=== PATIENT | female | born 1960 | race Caucasian/White ===

== ENCOUNTER 2016-10-30 16:11 | Inpatient (IN) ==
[2016-10-30] MEDS ORDERED: Ipratropium/Albuterol Neb 3 ML IH ONE (16:13)
[2016-10-30] MEDS ORDERED: Furosemide 40 MG/4 ML VIAL IVP ONE (16:13)
[2016-10-30] MEDS ORDERED: methylPREDNISolone 125 MG/2 ML VIAL IVP ONE (16:13)
--- NOTE | 2016-10-30 16:17 | Emergency Department Note ---
Disposition Clinical Impression: Community acquired pneumonia Disposition: Admitted As Inpatient Condition: Good Forms: ED Satisfaction Letter Time of Disposition: 18:07 SOB HPI - General Chief Complaint: ED Shortness of Breath/Dyspnea Stated Complaint: SOB Time Seen by Provider: 10/30/16 16:13 Source: patient, EMS Mode of arrival: EMS Limitations: no limitations Nursing Notes Reviewed: Yes Vital Signs Reviewed: Yes - History of Present Illness 55-year-old with a history of CHF COPD comes in with increasing shortness of breath. Patient was seen at outside facility a couple of days ago and is actually getting worse. Pt Subjective Complaint: shortness of breath, cough Onset (ago): day(s) Context: recent illness Severity: moderate Consistency/Duration: constant Improves with: nothing Worsens with: exertion Known history of: COPD, congestive heart failure Treatment prior to arrival: none Cough Description: Involuntary - Related Data Home Medications Medication Instructions Recorded Confirmed Albuterol Neb [AccuNeb] 1.25 mg IH Q4H PRN 11/29/15 10/25/16 Albuterol Sulfate [Albuterol 2 puff IH Q4HR PRN 11/29/15 10/25/16 Inhaler] Insulin Glargine,Hum.rec.anlog 50 unit SQ HS 11/29/15 10/25/16 [Lantus Solostar] Insulin LISPRO [Humalog] 15 unit SQ TIDWM 11/29/15 10/25/16 Potassium Chloride 20 meq PO BID 12/18/15 10/25/16 Ferrous Sulfate [Iron] 325 mg PO TID 05/26/16 10/25/16 Furosemide [Lasix] 40 mg PO BID 05/26/16 10/25/16 Sucralfate [Carafate] 1 gm PO TID 05/26/16 10/25/16 Previous Rx's Medication Instructions Recorded Omeprazole [PriLOSEC] 40 mg PO DAILY #30 capsule. 12/23/15 Nadolol [Corgard] 20 mg PO DAILY #60 tablet 05/28/16 Allergies Allergy/AdvReac Type Severity Reaction Status Date / Time codeine Allergy Hives Verified 10/25/16 01:42 Penicillins [PCN] Allergy Hives Verified 10/25/16 01:42 Constitutional: Denies: fever, chills, weakness, weight change Eyes: Denies: eye pain, eye discharge, vision change ENT ED: Denies: ear pain, throat pain, dental pain, hearing loss, epistaxis, congestion, dysphagia Cardiovascular: Denies: chest pain, palpitations, dyspnea on exertion, edema, syncope Respiratory: Reports: cough, dyspnea, wheezes. Denies: hemoptysis, stridor Gastrointestinal: Denies: abdominal pain, nausea, vomiting, diarrhea, constipation, hematemesis, melena, hematochezia Genitourinary: Denies: dysuria, frequency, hematuria, discharge Musculoskeletal: Denies: back pain, neck pain, arthralgia, myalgia Integumentary: Denies: rash, abrasion, lesions Neurological: Denies: headache, weakness, numbness, paresthesias, confusion, abnormal gait, vertigo Endocrine: Reports: fatigue Hematological/Lymphatic: Denies: easy bleeding, easy bruising Past Medical History - Past Medical History Medical history: Reports: cirrhosis, CHF, COPD, diabetes, GERD, GI bleed, hepatitis, hypertension, liver disease, other Surgical history: Reports: cholecystectomy, hysterectomy, other Psychiatric history: Reports: depression 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 - Social History Smoking Status: Current every day smoker Smokeless Tobacco Status: No Alcohol use: Reports: none Drug use: Reports: none Physical Exam - General Limitations: no limitations General appearance: alert, in no apparent distress - Head Head exam: atraumatic, normocephalic, normal inspection - Eye Eye exam: Present: normal appearance, PERRL, EOMI - ENT ENT exam: normal exam, normal oropharynx, mucous membranes moist - Neck Neck exam: Present: normal inspection, full ROM, trachea midline - Chest Chest inspection: Present: normal inspection, symmetric chest wall rise - Respiratory Respiratory exam: Present: wheezes - Cardiovascular Cardiovascular exam: Present: regular rate, normal rhythm, normal heart sounds - Abdominal Exam Abdominal exam: Present: soft, Non-Tender. Absent: tenderness, distention, guarding, rebound, rigidity - Extremities Exam Extremities exam: Present: normal inspection, full ROM. Absent: tenderness, pedal edema - Expanded Lower Extremity Exam Neurovascular/Tendon exam: Absent: motor deficit, sensory deficit, tendon deficit Gait: observed and normal - Back Exam Back exam: Present: normal inspection, full ROM. Absent: tenderness - Neurological Exam Neurological exam: Present: alert, oriented X3 - Psychiatric Psychiatric exam: Present: normal affect, normal mood - Skin Skin exam: Present: warm, dry, intact, normal color Course - Reevaluation(s) Time: 18:08 - Consultations Consultation #1: 55-year-old who's had a cough congestion nausea vomiting not able to eat or drink the last several days. Was seen at outside facility and discharged with viral syndrome. Workup today shows that she does have what appears to be a pneumonia. Would be community-acquired. Will admit patient for further evaluation and treatment. Flu swab is pending at this time. Time: 18:08 Consultation #2: Discussed with Yola, admit Time: 18:23 Vital Signs Temperature 98.9 F 10/30/16 16:13 Pulse Rate 105 10/30/16 16:13 Respiratory Rate 24 10/30/16 16:13 Blood Pressure 146/87 10/30/16 16:13 O2 Sat by Pulse Oximetry 93 L 10/30/16 16:13 Temperature 98.9 F 10/30/16 16:13 Pulse Rate 105 10/30/16 17:23 Respiratory Rate 22 10/30/16 17:23 Blood Pressure 143/88 10/30/16 17:23 O2 Sat by Pulse Oximetry 99 10/30/16 17:30 Oxygen Delivery Oxygen Delivery Nasal Cannula Shortness of Breath/Dyspnea - Lab Data Lab results reviewed: Yes I reviewed the patient's lab results. Result diagrams: 10/30/16 17:10 10/30/16 17:10 Lab Results 10/30/16 10/30/16 10/30/16 Range/Units 17:10 17:10 17:10 WBC 12.1 H D (4.3-11.1) K/mcL RBC 3.29 L (3.82-4.97) M/mcL Hgb 8.7 L (11.5-15.4) g/dL Hct 27.0 L (35.3-44.9) % MCV 82.1 L (83.0-100.0) fL MCH 26.4 L (28.0-33.3) pg MCHC 32.2 (31.6-35.5) g/dL RDW 16.5 H (11.5-14.5) % Plt Count 120 L D (140-400) K/mcL Immature Gran % 1.1 (0-4) % Seg Neutrophils % 82.3 % Lymphocytes % 11.2 % Monocytes % 5.1 % Eosinophils % 0.1 % Basophils % 0.2 % Neutrophils # 10.0 H (1.6-8.9) K/mcL Lymphocytes # 1.4 (0.6-4.6) K/mcL Monocytes # 0.6 (0.0-1.3) K/mcL Eosinophils # 0.0 (0.0-0.6) K/mcL Basophils # 0.0 (0.0-0.2) K/mcL Nucleated RBCs/100 WBC 1.1 H (0) /100 WBC Platelet Estimate Slight Decrease L (Normal) Immature Plt Fraction 19.8 H (1.1-6.1) % Polychromasia 1+ A (Not Present) Poikilocytosis 1+ A (Not Present) Anisocytosis 1+ A (Not Present) Sodium 132 L (136-145) mEq/L Potassium 4.1 (3.5-4.5) mEq/L Chloride 101 (98-109) mEq/L Carbon Dioxide 21 (19-29) mEq/L BUN 16 (7-20) mg/dL Creatinine 0.76 (0.57-1.11) mg/dL Est GFR ( Amer) > 60 (> 60) Est GFR (Non-Af Amer) > 60 (> 60) BUN/Creatinine Ratio 21 (6-26) Glucose 306 H (70-99) mg/dL Calculated Osmolality 287 (280-300) Lactic Acid 2.0 (0.5-2.2) mmol/L Calcium 8.1 L (8.6-10.8) mg/dL Total Bilirubin (0.2-1.2) mg/dL Direct Bilirubin (0.0-0.5) mg/dL Indirect Bilirubin (0.0-1.2) mg/dL AST (5-34) Units/L ALT (0-55) Units/L Alkaline Phosphatase (38-126) Units/L Ammonia (18-72) mcmol/L Troponin I (0-0.03) ng/mL B-Natriuretic Peptide (0-100) pg/mL Serum Total Protein (6.0-8.3) g/dL Albumin (3.5-5.0) g/dL Globulin (2.4-3.5) g/dL Albumin/Globulin Ratio (1.1-2.2) 10/30/16 10/30/16 10/30/16 Range/Units 17:10 17:10 17:10 WBC (4.3-11.1) K/mcL RBC (3.82-4.97) M/mcL Hgb (11.5-15.4) g/dL Hct (35.3-44.9) % MCV (83.0-100.0) fL MCH (28.0-33.3) pg MCHC (31.6-35.5) g/dL RDW (11.5-14.5) % Plt Count (140-400) K/mcL Immature Gran % (0-4) % Seg Neutrophils % % Lymphocytes % % Monocytes % % Eosinophils % % Basophils % % Neutrophils # (1.6-8.9) K/mcL Lymphocytes # (0.6-4.6) K/mcL Monocytes # (0.0-1.3) K/mcL Eosinophils # (0.0-0.6) K/mcL Basophils # (0.0-0.2) K/mcL Nucleated RBCs/100 WBC (0) /100 WBC Platelet Estimate (Normal) Immature Plt Fraction (1.1-6.1) % Polychromasia (Not Present) Poikilocytosis (Not Present) Anisocytosis (Not Present) Sodium (136-145) mEq/L Potassium (3.5-4.5) mEq/L Chloride (98-109) mEq/L Carbon Dioxide (19-29) mEq/L BUN (7-20) mg/dL Creatinine (0.57-1.11) mg/dL Est GFR ( Amer) (> 60) Est GFR (Non-Af Amer) (> 60) BUN/Creatinine Ratio (6-26) Glucose (70-99) mg/dL Calculated Osmolality (280-300) Lactic Acid (0.5-2.2) mmol/L Calcium (8.6-10.8) mg/dL Total Bilirubin 1.2 (0.2-1.2) mg/dL Direct Bilirubin 0.6 H (0.0-0.5) mg/dL Indirect Bilirubin 0.6 (0.0-1.2) mg/dL AST 23 (5-34) Units/L ALT 17 (0-55) Units/L Alkaline Phosphatase 82 (38-126) Units/L Ammonia (18-72) mcmol/L Troponin I 0.00 (0-0.03) ng/mL B-Natriuretic Peptide 225 H (0-100) pg/mL Serum Total Protein 6.3 (6.0-8.3) g/dL Albumin 2.1 L (3.5-5.0) g/dL Globulin 4.2 H (2.4-3.5) g/dL Albumin/Globulin Ratio 0.5 L (1.1-2.2) 10/30/16 Range/Units 17:10 WBC (4.3-11.1) K/mcL RBC (3.82-4.97) M/mcL Hgb (11.5-15.4) g/dL Hct (35.3-44.9) % MCV (83.0-100.0) fL MCH (28.0-33.3) pg MCHC (31.6-35.5) g/dL RDW (11.5-14.5) % Plt Count (140-400) K/mcL Immature Gran % (0-4) % Seg Neutrophils % % Lymphocytes % % Monocytes % % Eosinophils % % Basophils % % Neutrophils # (1.6-8.9) K/mcL Lymphocytes # (0.6-4.6) K/mcL Monocytes # (0.0-1.3) K/mcL Eosinophils # (0.0-0.6) K/mcL Basophils # (0.0-0.2) K/mcL Nucleated RBCs/100 WBC (0) /100 WBC Platelet Estimate (Normal) Immature Plt Fraction (1.1-6.1) % Polychromasia (Not Present) Poikilocytosis (Not Present) Anisocytosis (Not Present) Sodium (136-145) mEq/L Potassium (3.5-4.5) mEq/L Chloride (98-109) mEq/L Carbon Dioxide (19-29) mEq/L BUN (7-20) mg/dL Creatinine (0.57-1.11) mg/dL Est GFR ( Amer) (> 60) Est GFR (Non-Af Amer) (> 60) BUN/Creatinine Ratio (6-26) Glucose (70-99) mg/dL Calculated Osmolality (280-300) Lactic Acid (0.5-2.2) mmol/L Calcium (8.6-10.8) mg/dL Total Bilirubin (0.2-1.2) mg/dL Direct Bilirubin (0.0-0.5) mg/dL Indirect Bilirubin (0.0-1.2) mg/dL AST (5-34) Units/L ALT (0-55) Units/L Alkaline Phosphatase (38-126) Units/L Ammonia 23 (18-72) mcmol/L Troponin I (0-0.03) ng/mL B-Natriuretic Peptide (0-100) pg/mL Serum Total Protein (6.0-8.3) g/dL Albumin (3.5-5.0) g/dL Globulin (2.4-3.5) g/dL Albumin/Globulin Ratio (1.1-2.2) - Radiology Data Radiology results reviewed: Yes I reviewed the patient's radiology results. Chest X-Ray 10/30/16 16:13 IMPRESSION: Mild bilateral perihilar patchy opacities which could represent mild edema or possible bronchopneumonia. D/ / 10/30/2016 17:02:42 Delgado Rowell MD / rica Interpreting Provider: Delgado Rowell MD - EKG Data EKG attestation: Yes I reviewed and interpreted this EKG. EKG shows normal: Reports: sinus rhythm Rate: Reports: tachycardia Rhythm: Reports: NSR Widener/QRS: Reports: RBBB When compared to previous EKG there are: no significant changes (10/25/2016) Interpretation: Reports: no acute changes
[2016-10-30] MEDS ORDERED: Ondansetron 4 MG/2 ML VIAL IVP ONE (17:16)
[2016-10-30 17:23] LABS: Basophils % 0.2 %; Eosinophils % 0.1 %; Hemoglobin 8.7 g/dL (11.5-15.4); Mean Corpuscular HGB Conc 32.2 g/dL (31.6-35.5); Mean Corpuscular Hemoglobin 26.4 pg (28.0-33.3)
[2016-10-30 17:25] LABS: Immature Granulocytes % 1.1 % (0-4); Immature Platelets 19.8 % (1.1-6.1); Lymphocytes # 1.4 K/mcL (0.6-4.6); Lymphocytes % 11.2 %; Mean Corpuscular Volume 82.1 fL (83.0-100.0); Monocytes # 0.6 K/mcL (0.0-1.3); Monocytes % 5.1 %; Nucleated Red Blood Cells 1.1 /100 WBC (0); Platelet Count 120 K/mcL (140-400); Red Blood Count 3.29 M/mcL (3.82-4.97); Red Cell Distribution Width 16.5 % (11.5-14.5); Segmented Neutrophils % 82.3 %
[2016-10-30 17:36] LABS: BUN/Creatinine Ratio 21 (6-26); Blood Urea Nitrogen 16 mg/dL (7-20); Calcium 8.1 mg/dL (8.6-10.8); Carbon Dioxide 21 mEq/L (19-29); Chloride 101 mEq/L (98-109); Glucose 306 mg/dL (70-99); Osmolality,Calculated 287 (280-300); Potassium 4.1 mEq/L (3.5-4.5); Sodium 132 mEq/L (136-145); eGFR For African Americans > 60 (> 60); eGFR For Non-African Americans > 60 (> 60)
[2016-10-30 17:38] LABS: Albumin 2.1 g/dL (3.5-5.0); Albumin/Globulin Ratio 0.5 (1.1-2.2); Bilirubin,Direct 0.6 mg/dL (0.0-0.5); Bilirubin,Indirect 0.6 mg/dL (0.0-1.2); Bilirubin,Total 1.2 mg/dL (0.2-1.2); Globulin 4.2 g/dL (2.4-3.5); Total Protein 6.3 g/dL (6.0-8.3)
[2016-10-30 17:52] LABS: Bilirubin,Urine Negative (Negative); Blood,Urine Negative (Negative); Clarity,Urine Clear (Clear); Color,Urine Yellow (Yellow); Glucose,Urine (UA) >=1000 mg/dL (Normal); Ketones,Urine Trace mg/dL (Negative); Leukocyte Esterase,Urine Trace (Negative); Nitrite,Urine Negative (Negative); PH,Urine 6.5 pH Units (5.0-8.0); Protein,Urine Negative (Neg-Trace); Specific Gravity,Urine 1.015 (1.010-1.025); Urobilinogen,Urine Normal (Normal)
[2016-10-30 17:54] LABS: Bacteria,Urine None Seen per hpf (None-Few); Hyaline Casts,Urine None Seen per lpf (None-Few); Squamous Epithelial Cell,Urine Many per lpf (None-Few)
[2016-10-30 17:56] LABS: Platelet Estimate Slight Decrease (Normal); Polychromasia 1+ (Not Present)
[2016-10-30 17:57] LABS: Anisocytosis 1+ (Not Present); Poikilocytosis 1+ (Not Present)
[2016-10-30] MEDS ORDERED: Levofloxacin 750 MG/150 ML 750 MG/150 ML BAG IVPB STA (18:06)
[2016-10-30 18:16] LABS: Yeast,Urine Few per hpf (None Seen)
--- NOTE | 2016-10-30 20:29 | Internal Med History&Physical ---
<Kimberly Holloway - Last Filed: 10/30/16 22:08> Date of Encounter: 10/30/16 Time of Encounter: 20:21 Assessment and Plan (1) Sepsis Current visit: Yes Status: Acute leukocytosis, tachycardic,likely respiratory source CXR with b/l patchy infiltration start levaquin abx -flu swab sputum ctx blood ctx x2 urine ctx IVF supportive care Qualifiers: Sepsis type: sepsis due to unspecified organism Qualified Code(s): A41.9 - Sepsis, unspecified organism (2) Community acquired pneumonia Current visit: No Status: Resolved CXR with b/l patchy infiltration pt has not been in hospital or nursing facility since May levaquin sputum ctx (3) Upper gastrointestinal bleed Current visit: No Status: Acute chronic upper GI bleed history of bleeding varices and bleeding ulcers 8.03/09,0 trend H/H PPI and carafate (4) Type 2 diabetes mellitus Current visit: No Status: Chronic SSC protocol Qualifiers: Diabetes mellitus complication status: with circulatory complication Diabetes mellitus complication detail: with peripheral angiopathy without gangrene 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 use Qualified Code(s): E11.51 - Type 2 diabetes mellitus with diabetic peripheral angiopathy without gangrene; Z79.4 - [facility] (current) use of insulin (5) Pulmonary hypertension Current visit: No Status: Chronic (6) Cirrhosis Current visit: No Status: Chronic multiple etiology: Hep B, Hep C, opiate, IVD and ETOH abuse complicated by bleeding varices and thrombocytopenia Qualifiers: Hepatic cirrhosis type: other cirrhosis Qualified Code(s): K74.69 - Other cirrhosis of liver (7) COPD (chronic obstructive pulmonary disease) Current visit: No Status: Chronic continue inhaler therapy supportive care with O2 per NC as needed Qualifiers: COPD type: emphysema Emphysema type: unspecified Qualified Code(s): J43.9 - Emphysema, unspecified (8) Hepatitis B Current visit: No Status: Chronic Qualifiers: Viral hepatitis chronicity: acute Hepatic coma status: without hepatic coma Hepatitis delta agent presence: without delta-agent Qualified Code(s): B16.9 - Acute hepatitis B without delta-agent and without hepatic coma (9) Hepatitis C Current visit: No Status: Chronic Qualifiers: Viral hepatitis chronicity: chronic Hepatic coma status: without hepatic coma Qualified Code(s): B18.2 - Chronic viral hepatitis C (10) CHF (congestive heart failure) Current visit: No Status: Chronic Qualifiers: Congestive heart failure type: diastolic Congestive heart failure chronicity: chronic Qualified Code(s): I50.32 - Chronic diastolic (congestive ) heart failure (11) Thrombocytopenia Current visit: No Status: Chronic (12) DVT prophylaxis Current visit: No Status: Acute SCDs pharmacological contraindicated due to GI bleeding (13) Hepatitis Current visit: No Status: Chronic (14) Chronic low back pain Current visit: No Status: Chronic pain control Qualifiers: Back pain laterality: midline Sciatica presence: without sciatica Qualified Code(s): M54.5 - Low back pain; G89.29 - Other chronic pain Internal Medicine - H&P: HPI Chief complaint: dyspnea Admitted From: Emergency Dept Plans for Post Hospital Care: Home History of present illness: Ms. Luther is a 55 year old female with c/o shortness of breath. PMHx COPD, cirrhosis, hep A hep B, CHF, stroke, thrombocytopenia,chronic GI bleeding ulcer , pt state that dyspnea and green-productive cough started approximately one week ago and has been accompanied by subjective fever and chills, body aches, some nausea without vomiting. Pt states SOB is constant through the day, made worse with exertion and laying flat on her back. Pt c/o body pain, most intense in her back, pain is 10/10 made better with nothing. Pt quite smoking approximately one month ago, prior to that smoked "a few" cigarettes a day for 35 years. Denies headache, change in vision, CP, palpitations, hemoptysis, night sweats, numbness/tingling in extremities. Past Med Surg Social Fam HX - Past Medical History Medical history: cirrhosis, CHF, COPD, diabetes, GERD, GI bleed, hepatitis, hypertension, liver disease, other Psychiatric history: anxiety, depression - Past Surgical History Surgical History: cholecystectomy, hysterectomy, other - Social History Smoking Status: Current every day smoker Packs per day: <1ppd Smokeless Tobacco Status: No Alcohol use: none (currently, heavy user in past) Drug use: opiates, IVDU, prescription drug abuse Occupational status: unemployed Current living situation: Home, With Family Activity Level: Independent ambulation - Family History Mother Adopted: No Living Status: Still Living Hx Family Cardiac Disorders: Yes Father Hx Family Cardiac Disorders: Yes Internal Medicine - H&P: Meds Albuterol Neb [AccuNeb] 1.25 mg IH Q4H PRN 11/29/15 [History] Albuterol Sulfate [Albuterol Inhaler] 2 puff IH Q4HR PRN 11/29/15 [History] Insulin Glargine,Hum.rec.anlog [Lantus Solostar] 50 unit SQ HS 11/29/15 [History ] Insulin LISPRO [Humalog] 15 unit SQ TIDWM 11/29/15 [History] Potassium Chloride 20 meq PO BID 12/18/15 [History] Omeprazole [PriLOSEC] 40 mg PO DAILY #30 capsule. 12/23/15 [Rx] Ferrous Sulfate [Iron] 325 mg PO TID 05/26/16 [History] Furosemide [Lasix] 40 mg PO BID 05/26/16 [History] Sucralfate [Carafate] 1 gm PO TID 05/26/16 [History] Nadolol [Corgard] 20 mg PO DAILY #60 tablet 05/28/16 [Rx] Allergies codeine Allergy (Verified 10/25/16 01:42) Hives Penicillins [PCN] Allergy (Verified 10/25/16 01:42) Hives All Systems PM: A 10-system review of systems was performed and is negative for pertinent findings except as documented above in the HPI. - Constitutional Constitutional: chills, fatigue, fever(s), lethargy, malaise, no night sweats - EENT Eyes: no change in vision, no loss of vision Ears: no ear discharge, no ear pain, no tinnitus Nose, mouth and throat: no dysphagia, no nasal discharge, no neck pain, no sore throat - Cardiovascular Cardiovascular ROS IM: no chest pain, no edema, no irregular heart rhythm - Respiratory Respiratory: cough, dyspnea, dyspnea on exertion, wheezing, pain on inspiration , chest congestion, excessive phlegm production, change in phlegm color, pain with cough, no hemoptysis - Gastrointestinal Gastrointestinal: nausea, no hematemesis, no hematochezia, no melena, no vomiting - Genitourinary Genitourinary: no dysuria - Musculoskeletal Musculoskeletal ROS IM: back pain, muscle weakness, myalgias, no numbness, no tingling - Neurological Neurological ROS: no dizziness, no frequent falls, no headache(s), no loss of vision, no numbness, no tingling - Psychiatric Psychiatric: depression - Constitutional Vitals: Temp Pulse Resp BP Pulse Ox 97.8 F 103 22 132/82 96 10/30/16 19:57 10/30/16 19:57 10/30/16 19:57 10/30/16 19:57 10/30/16 19:57 General appearance: Present: disheveled (appears much older then stated age), A& O X 3, no acute distress - Head Head exam: Present: atraumatic, normocephalic - Eye Eye exam: Present: EOMI, PERRL - ENT ENT exam: Present: mucous membranes dry Additional comments: edentulous - Neck Neck exam general surgery: Present: full ROM, supple. Absent: tenderness - Respiratory Respiratory exam: Present: wheezes, tachypnea (slight RR22). Absent: accessory muscle use, chest wall tenderness - Expanded Respiratory Exam Location: decreased breath sounds: Left, Right, wheezes: Left, Right ( expiratory b/l lower lung michel) - Cardiovascular Cardiovascular exam: Present: RRR, +S1, +S2, tachycardia - GI/Abdominal GI/Abdominal exam: Present: normal bowel sounds, no peritoneal signs. Absent: guarding, rebound, rigid - Extremities Exam Extremities exam: Present: pedal edema (trace), radial pulses palpable and symetrical. Absent: calf tenderness, cyanotic - Back Exam Additional comments: r upper back with healed scar - Skin Additional comments: healed scarring on b/l UE Internal Med - H&P Results - Labs CBC & Chem 7: 10/30/16 17:10 10/30/16 17:10 <Mary Guzman - Last Filed: 10/30/16 22:26> Internal Medicine - H&P: HPI History of present illness: Ms. Luther is a 55 year old female Past Med Surg Social Fam HX - Past Medical History Medical history: cirrhosis All Systems PM: A 10-system review of systems was performed and is negative for pertinent findings except as documented above in the HPI. - Constitutional Vitals: Temp Pulse Resp BP Pulse Ox 97.8 F 103 22 132/82 96 10/30/16 19:57 10/30/16 19:57 10/30/16 19:57 10/30/16 19:57 10/30/16 19:57 Internal Med - H&P Results - Labs CBC & Chem 7: 10/30/16 17:10 10/30/16 17:10 - Attending Attestation Patient seen and examined with PGY-1 Kimberly Holloway, agree with assessment and plan. 55 year old woman with history of cirrhosis complicated by esophageal varices and severe pulmonary hypertension who presents with cough, sputum production, and evidence of pneumonia on CXR. She also is septic with elevated WBC, tachypnea and tachycardia. Influenza negative. Has not been hospitalized recently, will treat for CAP with levaquin. She endorses an episode of black vomiting several days ago but notes this happens frequently and relates it to her known gastric ulcer. She has not been taking her PPI and sucralfate as prescribed. Restart PPI and sucralfate, nadolol, and trend hgb, consult GI if any evidence of bleeding arises. Will give IV fluids, as patient does appear somewhat volume deplete on physical exam, however will monitor carefully for signs of volume overload given her history of severe pulmonary hypertension.
[2016-10-30] MEDS ORDERED: *HR* OxyCODONE Immed Rel 5 MG TABLET PO PRN (21:44)
[2016-10-30] MEDS ORDERED: Naloxone 0.4 MG/ML INJ IVP PRN (21:44)
[2016-10-30] MEDS ORDERED: 0.9 % Sodium Chloride 1,000 ML IVC SCH (21:45)
[2016-10-30] MEDS ORDERED: Albuterol Neb 1.25 MG/3 ML VIAL IH PRN (22:05)
[2016-10-31] MEDS ORDERED: *HR* Morphine 2 MG/ML SYRINGE IVP ONE (01:08)
[2016-10-31 01:09] LABS: Hemoglobin 7.3 g/dL (11.5-15.4)
[2016-10-31 01:11] LABS: Immature Platelets 19.9 % (1.1-6.1); Mean Corpuscular HGB Conc 31.7 g/dL (31.6-35.5); Mean Corpuscular Hemoglobin 25.9 pg (28.0-33.3); Mean Corpuscular Volume 81.6 fL (83.0-100.0); Red Blood Count 2.82 M/mcL (3.82-4.97); Red Cell Distribution Width 16.2 % (11.5-14.5)
[2016-10-31] MEDS: Ondansetron 4 MG/2 ML VIAL IVP PRN ×2 (01:28→13:43)
[2016-10-31 01:30] LABS: Platelet Count 73 K/mcL (140-400)
[2016-10-31 02:26] LABS: Amphetamine Screen,Urine Negative ng/mL (Cutoff=1000); Barbiturate Screen,Urine Negative ng/mL (Cutoff=200); Benzodiazepines Screen,Urine Negative ng/mL (Cutoff=200); Cannabinoid Screen,Urine Negative ng/mL (Cutoff = 50); Cocaine Screen,Urine Negative ng/mL (Cutoff= 300); Opiate Screen,Urine Positive ng/mL (Cutoff=300); Phencyclidine Screen,Urine Negative ng/mL (Cutoff=25)
[2016-10-31] MEDS ORDERED: Insulin LISPRO 300 UNITS/3 ML VIAL SQ ONE (08:25)
[2016-10-31] MEDS ORDERED: Insulin DETEMIR 100 UNIT/ML X5UNITS SQ ONE (08:29)
[2016-10-31] MEDS ORDERED: *HR* Dextrose 50 % in Water (Syg) 50 ML SYRINGE IVP PRN (08:30)
[2016-10-31] MEDS ORDERED: D5% in Water 1,000 ML IV PRN (08:30)
[2016-10-31] MEDS ORDERED: Dextrose Gel 15 GM PO PRN ×2 (08:30)
[2016-10-31] MEDS: Levofloxacin 750 MG/150 ML 750 MG/150 ML BAG IVPB SCH (08:34)
[2016-10-31] MEDS: Insulin LISPRO 300 UNITS/3 ML VIAL SQ SCH ×5 (08:52→17:02)
[2016-10-31] MEDS ORDERED: Sucralfate 1 GM TABLET PO SCH (09:00)
--- NOTE | 2016-10-31 09:14 | Internal Med Progress Note ---
Addendum entered and electronically signed by Izabella Hardy DO 10/31/16 15 :14: UC preliminary report came back with Gram Negative Kwaku, Gram Positive Cocci. Patient currently on levaquin. Will start vancomycin for MRSA coverage (hx of IVDU), pharmacy to dose. Original Note: <Izabella Hardy - Last Filed: 10/31/16 15:04> Date of Encounter: 10/31/16 Time of Encounter: 09:10 - Assessment and plan (1) Community acquired pneumonia Current Visit: Yes Status: Acute Assessment and plan: Patient presented with worsening dyspnea and cough. CXR revealed b/l patchy infiltration. No stay in hospital or ECF since May. Flu swab negative Sputum culture has been sent, final results pending Plan: -Continue levaquin -Continue duonebs, albuterol neb prn (2) Sepsis Current Visit: Yes Status: Resolved Assessment and plan: Patient presented wiht leukocytosis, tachycardia. CXR revealed b/l patchy infiltrate, suspected source. VSS today, leukocytosis resolved. Flu negative blood, urine and sputume cultures pending Plan: -Continue levaquin -Continue to monitor vitals -Supportive care Qualifiers: Sepsis type: sepsis due to unspecified organism Qualified Code(s): A41.9 - Sepsis, unspecified organism (3) Type 2 diabetes mellitus Current Visit: Yes Status: Chronic Assessment and plan: Patient on levemir 50units SQ QHS and humalog 15 units TID. She did not receive her evening dose of levemir yesterday. Glucose 577 this AM. Patient states that her blood sugars run 120-180 at home. Plan: -Levemir 50units this morning -Humalog 15 units TIDWM with High dose SSC -Diabetic diet -Accuchecks ACHS -May need to adjust evening dose of levemir based on glucose readings this afternoon and evening Qualifiers: Diabetes mellitus complication status: with circulatory complication Diabetes mellitus complication detail: with peripheral angiopathy without gangrene Diabetes mellitus halfway insulin use: with halfway use Qualified Code(s): E11.51 - Type 2 diabetes mellitus with diabetic peripheral angiopathy without gangrene; Z79.4 - MCFP (current) use of insulin (4) COPD (chronic obstructive pulmonary disease) Current Visit: No Status: Chronic Assessment and plan: Plan: -Continue home nebulizer therapy -Titrate supplemental oxygen as necessary to maintain saturations between 88-92% Qualifiers: COPD type: emphysema Emphysema type: unspecified Qualified Code(s): J43.9 - Emphysema, unspecified (5) CHF (congestive heart failure) Current Visit: No Status: Chronic Qualifiers: Congestive heart failure type: diastolic Congestive heart failure chronicity: chronic Qualified Code(s): I50.32 - Chronic diastolic (congestive ) heart failure (6) Hepatitis B Current Visit: No Status: Chronic Qualifiers: Viral hepatitis chronicity: acute Hepatic coma status: without hepatic coma Hepatitis delta agent presence: without delta-agent Qualified Code(s): B16.9 - Acute hepatitis B without delta-agent and without hepatic coma (7) Hepatitis C Current Visit: No Status: Chronic Qualifiers: Viral hepatitis chronicity: chronic Hepatic coma status: without hepatic coma Qualified Code(s): B18.2 - Chronic viral hepatitis C (8) Cirrhosis Current Visit: No Status: Chronic Assessment and plan: multiple etiology: Hep B, Hep C, opiate, IVD and ETOH abuse complicated by bleeding varices and thrombocytopenia Qualifiers: Hepatic cirrhosis type: other cirrhosis Qualified Code(s): K74.69 - Other cirrhosis of liver (9) Upper gastrointestinal bleed Current Visit: No Status: Acute Assessment and plan: Patient has history of chronic upper GI bleed, bleeding varices and ulcers. HGB/Hct 8.7/27 on admission, 7.3/23 today. Drop may be secondary to hemodilution with IVF the patient received. Per patient she was seen by Dr. Powell last week for melena. Reports no melena or bloody stool since monday. Plan: -Continue to monitor patient for melena, bloody stool, hematemesis or hemoptysis -Continue to monitor H/H -Continue PPI and Carafate (10) Chronic low back pain Current Visit: No Status: Chronic Assessment and plan: Pain control with tylenol. Avoid opioids secondary to hx IVDU and opioid abuse. Qualifiers: Back pain laterality: midline Sciatica presence: without sciatica Qualified Code(s): M54.5 - Low back pain; G89.29 - Other chronic pain (11) DVT prophylaxis Current Visit: Yes Status: Acute Assessment and plan: SCDs Pharmacologic DVT prophylaxis is contraindicated secondary to GI bleed - Subjective Interval history: Patient seen and examined. She states her dyspnea has improved. She asks when she can eat something and if someone can do something about her constant pain. She states back and leg pain. She also states "who is going to do something about my UTI?" States it barrientos. Catheter is in place. Denies any other complaints. - Constitutional Vitals: Temp Pulse Resp BP Pulse Ox 98.1 F 82 18 116/73 88 L 10/31/16 08:00 10/31/16 08:00 10/31/16 08:05 10/31/16 08:00 10/31/16 08:05 General appearance: Present: disheveled (appears much older then stated age), A& O X 3, no acute distress - Head Head exam: Present: atraumatic, normocephalic - Respiratory Respiratory exam: Present: rhonchi. Absent: accessory muscle use, respiratory distress - Cardiovascular Cardiovascular exam: Present: RRR, +S1, +S2. Absent: diastolic murmur, gallop, rubs, systolic murmur - GI/Abdominal GI/Abdominal exam: Present: normal bowel sounds, soft, tenderness (diffuse, response out of proportion with amount of pressure applied to abdomen during palpation), no peritoneal signs - Extremities Exam Extremities exam: Present: warm, radial pulses palpable and symetrical. Absent : calf tenderness, cyanotic, pedal edema Additional comments: chronic bronzing of b/l LE - Neurological Exam Neurological exam: Present: alert, oriented X3, no focal deficits. Absent: facial droop, speech deficit - Psychiatric Psychiatric exam: Present: agitated - Skin Skin exam: Present: dry. Absent: diaphoretic, erythema Additional comments: chronic bronzing of b/l LE Internal Medicine: Result - Labs CBC & Chem 7: 10/31/16 08:57 10/30/16 17:10 Labs: Short CBC 10/31/16 Range/Units 00:45 WBC 5.3 D (4.3-11.1) K/mcL Hgb 7.3 L (11.5-15.4) g/dL Hct 23.0 L (35.3-44.9) % Plt Count 73 L (140-400) K/mcL Consult Discharge Plan - Plan Referrals: NO,PCP [Primary Care Provider] - <John,Scott A - Last Filed: 10/31/16 19:18> - Assessment and plan (1) Pneumonia Current Visit: No Status: Suspected Assessment and plan: On IV abx coverage. Qualifiers: Pneumonia type: due to Pneumococcus Laterality: right Lung location: lower lobe of lung Qualified Code(s): J13 - Pneumonia due to Streptococcus pneumoniae (2) Type 2 diabetes mellitus Current Visit: Yes Status: Chronic Qualifiers: Diabetes mellitus complication status: with circulatory complication Diabetes mellitus complication detail: with peripheral angiopathy without gangrene Diabetes mellitus halfway insulin use: with halfway use Qualified Code(s): E11.51 - Type 2 diabetes mellitus with diabetic peripheral angiopathy without gangrene; Z79.4 - MCFP (current) use of insulin (3) Sepsis Current Visit: Yes Status: Resolved Qualifiers: Sepsis type: sepsis due to unspecified organism Qualified Code(s): A41.9 - Sepsis, unspecified organism (4) Hepatitis C Current Visit: No Status: Chronic Qualifiers: Viral hepatitis chronicity: chronic Hepatic coma status: without hepatic coma Qualified Code(s): B18.2 - Chronic viral hepatitis C (5) Hepatitis B Current Visit: No Status: Chronic Qualifiers: Viral hepatitis chronicity: unspecified Hepatic coma status: without hepatic coma Hepatitis delta agent presence: without delta-agent Qualified Code(s): B19.10 - Unspecified viral hepatitis B without hepatic coma (6) Cirrhosis Current Visit: No Status: Chronic Qualifiers: Hepatic cirrhosis type: other cirrhosis Qualified Code(s): K74.69 - Other cirrhosis of liver (7) Hyperglycemia Current Visit: Yes Status: Acute Assessment and plan: improving with insulin - Constitutional Vitals: Temp Pulse Resp BP Pulse Ox 97.8 F 74 16 109/75 99 10/31/16 15:02 10/31/16 15:02 10/31/16 16:00 10/31/16 15:02 10/31/16 16:00 Internal Medicine: Result - Labs CBC & Chem 7: 10/31/16 08:57 10/30/16 17:10 Labs: Short CBC 10/31/16 10/31/16 Range/Units 00:45 08:57 WBC 5.3 D 4.9 (4.3-11.1) K/mcL Hgb 7.3 L 7.3 L (11.5-15.4) g/dL Hct 23.0 L 22.7 L (35.3-44.9) % Plt Count 73 L 70 L (140-400) K/mcL - Attending Attestation I examined this patient and my medical decision-making was reviewed with the Resident Physician on 10/31/16. I agree with the documented findings, disposition and treatment plan as described except to the extent set forth below. Ms. Luther is currently in observation due to community acquired pneumonia. Ms. Luther is restless in bed. She is becoming more confused as well. Denies new issues. No GI symptoms. Did not have Levimir last night so BS markedly elevated this AM. Exam Alert. Restless. Heart tachy Lungs with rhonchi Abd soft I/P 1. Acute pneumonia - most likely bacterial 2. Diabetes 3. Hyperglycemia 4. Sepsis due to pneumonia 5. COPD Further diagnoses and plan as above.
[2016-10-31 09:51] LABS: Hematocrit 22.7 % (35.3-44.9); Hemoglobin 7.3 g/dL (11.5-15.4); Immature Platelets 18.5 % (1.1-6.1); Mean Corpuscular HGB Conc 32.2 g/dL (31.6-35.5); Mean Corpuscular Hemoglobin 25.6 pg (28.0-33.3); Mean Corpuscular Volume 79.6 fL (83.0-100.0); Red Blood Count 2.85 M/mcL (3.82-4.97); Red Cell Distribution Width 16.3 % (11.5-14.5)
[2016-10-31 09:53] LABS: Platelet Count 70 K/mcL (140-400)
[2016-10-31] MEDS: Acetaminophen 325 MG TABLET PO PRN ×2 (10:00→16:59)
[2016-10-31] MEDS: Sucralfate 1 GM TABLET PO SCH ×2 (12:02→16:57)
[2016-10-31 12:57] LABS: Hemoglobin A1C 10.9 %
--- NOTE | 2016-10-31 13:05 | Electrocardiograph Report ---
[address] [place] [address] Test Date: 2016-10-30 Pat Name: Estrella Luther Department: 105 Room: 2A37 Gender: F [employer] Maker: : 1960 Requested By: Praneeth Truong Order Number: [id number] Reading MD: Dylan Cornejo MD Measurements Intervals [place] Rate: 105 P: 57 KS: 160 QRS: 89 QRSD: 111 T: -23 QT: 334 QTc: 395 Interpretive Statements SINUS TACHYCARDIA INCOMPLETE RIGHT BUNDLE BRANCH BLOCK ANTEROLATERAL ISCHEMIA Electronically Signed On 10-31-2016 13:03:28 EDT by Dylan Cornejo MD
[2016-10-31] MEDS: Ipratropium/Albuterol Neb 3 ML IH SCH ×3 (15:27→20:06)
[2016-10-31] MEDS: Vancomycin 1,000 MG in D5% in Water 250 ML IVPB SCH (16:57)
[2016-10-31] MEDS: Insulin DETEMIR 100 UNIT/ML X5UNITS SQ SCH (21:50)
[2016-10-31] MEDS ORDERED: *HR* LORazepam 2 MG/ML VIAL IVP PRN (22:39)
[2016-10-31] MEDS ORDERED: *HR* Promethazine 25 MG/ML VIAL IVP PRN (22:39)
[2016-10-31] MEDS: Vitamin B Complex/Vit C/Vit E 1 EACH TABLET PO SCH (23:11)
[2016-10-31] MEDS: Thiamine (B-1) 100 MG TABLET PO SCH (23:11)
[2016-10-31] MEDS: Folic Acid 1 MG TABLET PO SCH (23:12)
[2016-11-01] MEDS: Ipratropium/Albuterol Neb 3 ML IH SCH ×6 (00:03→20:07)
[2016-11-01] MEDS: Insulin LISPRO 300 UNITS/3 ML VIAL SQ SCH ×7 (01:25→17:30)
[2016-11-01] MEDS: Vancomycin 1,000 MG in D5% in Water 250 ML IVPB SCH ×2 (04:46→16:03)
[2016-11-01] MEDS: Thiamine (B-1) 100 MG TABLET PO SCH (08:13)
[2016-11-01] MEDS: Vitamin B Complex/Vit C/Vit E 1 EACH TABLET PO SCH (08:13)
[2016-11-01] MEDS: Sucralfate 1 GM TABLET PO SCH ×3 (08:13→16:03)
[2016-11-01] MEDS: Folic Acid 1 MG TABLET PO SCH (08:13)
[2016-11-01] MEDS: Levofloxacin 750 MG/150 ML 750 MG/150 ML BAG IVPB SCH (08:16)
[2016-11-01 08:54] LABS: Basophils % 0.1 %; Hematocrit 25.4 % (35.3-44.9); Hemoglobin 8.1 g/dL (11.5-15.4); Immature Granulocytes % 0.9 % (0-4); Lymphocytes # 1.9 K/mcL (0.6-4.6); Lymphocytes % 11.6 %; Mean Corpuscular HGB Conc 31.9 g/dL (31.6-35.5); Mean Corpuscular Hemoglobin 25.7 pg (28.0-33.3); Mean Corpuscular Volume 80.6 fL (83.0-100.0); Mean Platelet Volume 12.1 fL (9.4-12.4); Monocytes # 0.7 K/mcL (0.0-1.3); Monocytes % 4.1 %; Neutrophils # 13.6 K/mcL (1.6-8.9); Nucleated Red Blood Cells 1.5 /100 WBC (0); Platelet Count 133 K/mcL (140-400); Red Blood Count 3.15 M/mcL (3.82-4.97); Red Cell Distribution Width 16.6 % (11.5-14.5); Segmented Neutrophils % 83.3 %
[2016-11-01 09:11] LABS: Alanine Aminotransferase 14 Units/L (0-55); Albumin/Globulin Ratio 0.4 (1.1-2.2); Alkaline Phosphatase 72 Units/L (38-126); Aspartate Amino Transferase 17 Units/L (5-34); BUN/Creatinine Ratio 25 (6-26); Bilirubin,Total 0.8 mg/dL (0.2-1.2); Blood Urea Nitrogen 19 mg/dL (7-20); Calcium 7.7 mg/dL (8.6-10.8); Carbon Dioxide 20 mEq/L (19-29); Chloride 104 mEq/L (98-109); Globulin 4.3 g/dL (2.4-3.5); Glucose 188 mg/dL (70-99); Osmolality,Calculated 279 (280-300); Sodium 131 mEq/L (136-145); Total Protein 6.2 g/dL (6.0-8.3); eGFR For African Americans > 60 (> 60); eGFR For Non-African Americans > 60 (> 60)
[2016-11-01 09:13] LABS: Albumin 1.9 g/dL (3.5-5.0); Large Platelets Present (Not Present); Platelet Estimate Normal (Normal)
[2016-11-01] MEDS: Ondansetron 4 MG/2 ML VIAL IVP PRN (09:13)
--- NOTE | 2016-11-01 10:16 | Internal Med Progress Note ---
<Izabella Hardy - Last Filed: 11/01/16 16:19> Date of Encounter: 11/01/16 Time of Encounter: 10:14 - Assessment and plan (1) Community acquired pneumonia Current Visit: Yes Status: Acute Assessment and plan: Patient presented with worsening dyspnea and cough. CXR revealed b/l patchy infiltration. No stay in hospital or ECF since May. Flu swab negative Sputum culture has been sent, final results pending Dyspnea improving today. Plan: -Continue levaquin and vanc -Continue duonebs, albuterol neb prn -PT/OT Eval -Anticipate discharge once culture sensitivities have returned. (2) Sepsis Current Visit: Yes Status: Resolved Assessment and plan: Patient presented wiht leukocytosis, tachycardia. CXR revealed b/l patchy infiltrate, suspected source. VSS today, leukocytosis resolved. Flu negative blood and sputum cultures pending UC positive for E coli and Strep viridans, sensitivity pending Plan: -Continue levaquin and vanc -Continue to monitor vitals -Supportive care Qualifiers: Sepsis type: sepsis due to unspecified organism Qualified Code(s): A41.9 - Sepsis, unspecified organism (3) Type 2 diabetes mellitus Current Visit: Yes Status: Chronic Assessment and plan: Patient on levemir 50units SQ QHS and humalog 15 units TID. Patient states that her blood sugars run 120-180 at home. Hgb A1C 10.9% Blood glucose still running consistently >200 with high humalog needs above base. Plan: -Continue Levemir 50units QHS -Start Levemir 10 units QAM tomorrow -Humalog 15 units TIDWM with High dose SSC -Diabetic diet -Accuchecks ACHS Qualifiers: Diabetes mellitus complication status: with circulatory complication Diabetes mellitus complication detail: with peripheral angiopathy without gangrene Diabetes mellitus intermodal dispatcher insulin use: with intermodal dispatcher use Qualified Code(s): E11.51 - Type 2 diabetes mellitus with diabetic peripheral angiopathy without gangrene; Z79.4 - halfway (current) use of insulin (4) COPD (chronic obstructive pulmonary disease) Current Visit: No Status: Chronic Assessment and plan: Plan: -Continue home nebulizer therapy -Titrate supplemental oxygen as necessary to maintain saturations between 88-92% Qualifiers: COPD type: emphysema Emphysema type: unspecified Qualified Code(s): J43.9 - Emphysema, unspecified (5) CHF (congestive heart failure) Current Visit: No Status: Chronic Qualifiers: Congestive heart failure type: diastolic Congestive heart failure chronicity: chronic Qualified Code(s): I50.32 - Chronic diastolic (congestive ) heart failure (6) Hepatitis B Current Visit: No Status: Chronic Qualifiers: Viral hepatitis chronicity: unspecified Hepatic coma status: without hepatic coma Hepatitis delta agent presence: without delta-agent Qualified Code(s): B19.10 - Unspecified viral hepatitis B without hepatic coma (7) Hepatitis C Current Visit: No Status: Chronic Qualifiers: Viral hepatitis chronicity: chronic Hepatic coma status: without hepatic coma Qualified Code(s): B18.2 - Chronic viral hepatitis C (8) Cirrhosis Current Visit: No Status: Chronic Assessment and plan: multiple etiology: Hep B, Hep C, opiate, IVD and ETOH abuse complicated by bleeding varices and thrombocytopenia Qualifiers: Hepatic cirrhosis type: other cirrhosis Qualified Code(s): K74.69 - Other cirrhosis of liver (9) Upper gastrointestinal bleed Current Visit: No Status: Acute Assessment and plan: Patient has history of chronic upper GI bleed, bleeding varices and ulcers. HGB/Hct 8.7/27 on admission, 7.3/23 today. Drop may be secondary to hemodilution with IVF the patient received. Per patient she was seen by Dr. Powell last week for melena. Reports no melena or bloody stool since monday. Plan: -Continue to monitor patient for melena, bloody stool, hematemesis or hemoptysis -Continue to monitor H/H -Continue PPI and Carafate (10) Chronic low back pain Current Visit: No Status: Chronic Assessment and plan: Pain control with tylenol. Avoid opioids secondary to hx IVDU and opioid abuse. Qualifiers: Back pain laterality: midline Sciatica presence: without sciatica Qualified Code(s): M54.5 - Low back pain; G89.29 - Other chronic pain (11) UTI (urinary tract infection) Current Visit: No Status: Acute Assessment and plan: Blood culture positive for E coli and Strep Viridans Culture is a sendout for S Viridans, will be back in 4 days Plan: -Continue vanc, pharmacy to dose Qualifiers: Urinary tract infection type: acute cystitis Hematuria presence: without hematuria Qualified Code(s): N30.00 - Acute cystitis without hematuria (12) DVT prophylaxis Current Visit: Yes Status: Acute Assessment and plan: SCDs Pharmacologic DVT prophylaxis is contraindicated secondary to GI bleed - Subjective Interval history: Patient seen and examined. She states her dyspnea has improved. She states that she has not been hallucinating since yesterday. She continues to have back and leg pain. Catheter is in place. Denies any other complaints. - Constitutional Vitals: Temp Pulse Resp BP Pulse Ox 98.2 F 67 18 110/74 98 11/01/16 07:31 11/01/16 07:31 11/01/16 07:31 11/01/16 07:31 11/01/16 07:31 General appearance: Present: disheveled (appears much older then stated age), A& O X 3, no acute distress, answers questions appropriately - Head Head exam: Present: atraumatic, normocephalic - Respiratory Respiratory exam: Present: rales, rhonchi. Absent: accessory muscle use, respiratory distress - Cardiovascular Cardiovascular exam: Present: RRR, +S1, +S2. Absent: diastolic murmur, gallop, rubs, systolic murmur - GI/Abdominal GI/Abdominal exam: Present: normal bowel sounds, soft, no peritoneal signs. Absent: distended, tenderness - Extremities Exam Extremities exam: Present: tenderness, warm, radial pulses palpable and symetrical. Absent: cyanotic, pedal edema Additional comments: chronic bronzing of the skin of b/l LE - Neurological Exam Neurological exam: Present: alert, oriented X3. Absent: speech deficit - Psychiatric Psychiatric exam: Present: normal affect, normal mood - Skin Skin exam: Present: dry, intact Internal Medicine: Result - Labs CBC & Chem 7: 11/01/16 08:45 11/01/16 08:45 Labs: Short CBC 11/01/16 Range/Units 08:45 WBC 16.3 H D (4.3-11.1) K/mcL Hgb 8.1 L (11.5-15.4) g/dL Hct 25.4 L (35.3-44.9) % Plt Count 133 L D (140-400) K/mcL Neutrophils # 13.6 H (1.6-8.9) K/mcL BMP 11/01/16 08:45 Sodium 131 L Potassium 4.0 Chloride 104 Carbon Dioxide 20 BUN 19 Creatinine 0.77 Glucose 188 H Calcium 7.7 L Liver Function 11/01/16 Range/Units 08:45 Total Bilirubin 0.8 (0.2-1.2) mg/dL AST 17 (5-34) Units/L ALT 14 (0-55) Units/L Alkaline Phosphatase 72 (38-126) Units/L Albumin 1.9 L (3.5-5.0) g/dL - VTE Documentation of Mechanical Device: Intermittent pneumatic compression device Consult Discharge Plan - Plan Referrals: NO,PCP [Primary Care Provider] - <Scott Lopez - Last Filed: 11/01/16 18:51> - Assessment and plan (1) Acute metabolic encephalopathy Current Visit: Yes Status: Acute Assessment and plan: On CIWA at this time. (2) UTI (urinary tract infection) Current Visit: No Status: Acute Qualifiers: Urinary tract infection type: acute cystitis Hematuria presence: without hematuria Qualified Code(s): N30.00 - Acute cystitis without hematuria (3) Pneumonia Current Visit: No Status: Suspected Assessment and plan: On IV abx. Qualifiers: Pneumonia type: due to Pneumococcus Laterality: right Lung location: lower lobe of lung Qualified Code(s): J13 - Pneumonia due to Streptococcus pneumoniae (4) Type 2 diabetes mellitus Current Visit: Yes Status: Chronic Qualifiers: Diabetes mellitus complication status: with circulatory complication Diabetes mellitus complication detail: with peripheral angiopathy without gangrene Diabetes mellitus intermodal dispatcher insulin use: with care home use Qualified Code(s): E11.51 - Type 2 diabetes mellitus with diabetic peripheral angiopathy without gangrene; Z79.4 - halfway (current) use of insulin (5) Sepsis Current Visit: Yes Status: Resolved Qualifiers: Sepsis type: sepsis due to unspecified organism Qualified Code(s): A41.9 - Sepsis, unspecified organism (6) Hepatitis C Current Visit: No Status: Chronic Assessment and plan: Supportive care. Qualifiers: Viral hepatitis chronicity: chronic Hepatic coma status: without hepatic coma Qualified Code(s): B18.2 - Chronic viral hepatitis C (7) Hepatitis B Current Visit: No Status: Chronic Assessment and plan: Supportive care. Qualifiers: Viral hepatitis chronicity: unspecified Hepatic coma status: without hepatic coma Hepatitis delta agent presence: without delta-agent Qualified Code(s): B19.10 - Unspecified viral hepatitis B without hepatic coma (8) Cirrhosis Current Visit: No Status: Chronic Qualifiers: Hepatic cirrhosis type: other cirrhosis Qualified Code(s): K74.69 - Other cirrhosis of liver (9) Hyperglycemia Current Visit: Yes Status: Acute - Constitutional Vitals: Temp Pulse Resp BP Pulse Ox 97.8 F 55 18 112/70 98 11/01/16 16:40 11/01/16 16:40 11/01/16 16:40 11/01/16 16:40 11/01/16 16:40 Internal Medicine: Result - Labs CBC & Chem 7: 11/01/16 08:45 11/01/16 08:45 Labs: Short CBC 11/01/16 Range/Units 08:45 WBC 16.3 H D (4.3-11.1) K/mcL Hgb 8.1 L (11.5-15.4) g/dL Hct 25.4 L (35.3-44.9) % Plt Count 133 L D (140-400) K/mcL Neutrophils # 13.6 H (1.6-8.9) K/mcL BMP 11/01/16 08:45 Sodium 131 L Potassium 4.0 Chloride 104 Carbon Dioxide 20 BUN 19 Creatinine 0.77 Glucose 188 H Calcium 7.7 L Liver Function 11/01/16 Range/Units 08:45 Total Bilirubin 0.8 (0.2-1.2) mg/dL AST 17 (5-34) Units/L ALT 14 (0-55) Units/L Alkaline Phosphatase 72 (38-126) Units/L Albumin 1.9 L (3.5-5.0) g/dL - Attending Attestation I examined this patient and my medical decision-making was reviewed with the Resident Physician on 11/01/16. I agree with the documented findings, disposition and treatment plan as described except to the extent set forth below. Ms. Luther is currently admitted for sepsis related to community acquired pneumonia. She remains moderate to high risk due to potential for worsening respiratory status. Ms. Luther had some hallucinations last night and now on CIWA. She is sleeping but arousable. Denies new issues. Breathing is OK today but hasn't moved much this AM. No GI symptoms. Exam Alert. Comfortable Heart reg Lungs with rhonchi bilaterally. I/P 1. Pneumonia on IV abx 2. Sepsis - resolved 3. Acute metabolic encephalopathy - on CIWA Further diagnoses and plan as above.
[2016-11-01] MEDS ORDERED: Vancomycin 1,000 MG in D5% in Water 250 ML IVPB SCH (11:00)
[2016-11-01] MEDS ORDERED: *HR* LORazepam 2 MG/ML VIAL IVP PRN (12:32)
[2016-11-01] MEDS: Acetaminophen 325 MG TABLET PO PRN (16:03)
[2016-11-01] MEDS ORDERED: Insulin LISPRO 300 UNITS/3 ML VIAL SQ SCH (21:00)
[2016-11-01] MEDS: Insulin DETEMIR 100 UNIT/ML X5UNITS SQ SCH (22:07)
[2016-11-01] MEDS ORDERED: Melatonin 3 MG TABLET PO PRN (22:16)
[2016-11-02] MEDS: Ipratropium/Albuterol Neb 3 ML IH SCH ×8 (00:14→23:18)
[2016-11-02 06:40] LABS: Basophils % 0.1 %; Eosinophils % 0.1 %; Hematocrit 28.8 % (35.3-44.9); Hemoglobin 8.9 g/dL (11.5-15.4); Lymphocytes # 2.1 K/mcL (0.6-4.6); Lymphocytes % 15.5 %; Mean Corpuscular HGB Conc 30.9 g/dL (31.6-35.5); Mean Corpuscular Volume 84.2 fL (83.0-100.0); Monocytes # 0.8 K/mcL (0.0-1.3); Monocytes % 5.4 %; Neutrophils # 10.7 K/mcL (1.6-8.9); Nucleated Red Blood Cells 1.5 /100 WBC (0); Platelet Count 135 K/mcL (140-400); Red Blood Count 3.42 M/mcL (3.82-4.97); Red Cell Distribution Width 16.5 % (11.5-14.5); Segmented Neutrophils % 77.9 %
[2016-11-02] MEDS: Insulin LISPRO 300 UNITS/3 ML VIAL SQ SCH ×6 (08:13→18:05)
[2016-11-02] MEDS: Sucralfate 1 GM TABLET PO SCH ×3 (08:24→15:52)
[2016-11-02] MEDS: Vitamin B Complex/Vit C/Vit E 1 EACH TABLET PO SCH (08:24)
[2016-11-02] MEDS: Folic Acid 1 MG TABLET PO SCH (08:25)
[2016-11-02] MEDS: Thiamine (B-1) 100 MG TABLET PO SCH (08:25)
[2016-11-02] MEDS: Levofloxacin 750 MG/150 ML 750 MG/150 ML BAG IVPB SCH (08:29)
[2016-11-02] MEDS: Vancomycin 1,000 MG in D5% in Water 250 ML IVPB SCH ×2 (08:34→16:09)
--- NOTE | 2016-11-02 08:42 | Internal Med Progress Note ---
<Izabella Hardy - Last Filed: 11/02/16 15:28> Date of Encounter: 11/02/16 Time of Encounter: 08:40 - Assessment and plan (1) Community acquired pneumonia Current Visit: Yes Status: Acute Assessment and plan: Patient presented with worsening dyspnea and cough. CXR revealed b/l patchy infiltration. No stay in hospital or ECF since May. Flu swab negative Sputum culture has been sent, final results pending Dyspnea worse this morning, but patient has not been wearing her oxygen while dyspnic. Plan: -Continue levaquin and vanc -Continue duonebs, albuterol neb prn -PT/OT Eval -Encouraged patient to wear oxygen -Will obtain ABG this AM -Anticipate discharge once culture sensitivities have returned. (2) Sepsis Current Visit: Yes Status: Resolved Assessment and plan: Patient presented wiht leukocytosis, tachycardia. CXR revealed b/l patchy infiltrate, suspected source. VSS today, leukocytosis resolved. Flu negative blood and sputum cultures pending UC positive for E coli and Strep viridans, sensitivity pending Plan: -Continue levaquin and vanc -Continue to monitor vitals -Supportive care Qualifiers: Sepsis type: sepsis due to unspecified organism Qualified Code(s): A41.9 - Sepsis, unspecified organism (3) Type 2 diabetes mellitus Current Visit: Yes Status: Chronic Assessment and plan: Patient on levemir 50units SQ QHS and humalog 15 units TID. Patient states that her blood sugars run 120-180 at home. Hgb A1C 10.9% Blood glucose still running consistently >200 with high humalog needs above base. 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 control service representative insulin use: with termite control service representative use Qualified Code(s): E11.51 - Type 2 diabetes mellitus with diabetic peripheral angiopathy without gangrene; Z79.4 - MCFP (current) use of insulin (4) COPD (chronic obstructive pulmonary disease) Current Visit: No Status: Chronic Assessment and plan: Plan: -Continue home nebulizer therapy -Titrate supplemental oxygen as necessary to maintain saturations between 88-92% Qualifiers: COPD type: emphysema Emphysema type: unspecified Qualified Code(s): J43.9 - Emphysema, unspecified (5) CHF (congestive heart failure) Current Visit: No Status: Chronic Qualifiers: Congestive heart failure type: diastolic Congestive heart failure chronicity: chronic Qualified Code(s): I50.32 - Chronic diastolic (congestive ) heart failure (6) Hepatitis B Current Visit: No Status: Chronic Assessment and plan: Supportive care. Qualifiers: Viral hepatitis chronicity: unspecified Hepatic coma status: without hepatic coma Hepatitis delta agent presence: without delta-agent Qualified Code(s): B19.10 - Unspecified viral hepatitis B without hepatic coma (7) Hepatitis C Current Visit: No Status: Chronic Assessment and plan: Supportive care. Qualifiers: Viral hepatitis chronicity: chronic Hepatic coma status: without hepatic coma Qualified Code(s): B18.2 - Chronic viral hepatitis C (8) Cirrhosis Current Visit: No Status: Chronic Assessment and plan: multiple etiology: Hep B, Hep C, opiate, IVD and ETOH abuse complicated by bleeding varices and thrombocytopenia Qualifiers: Hepatic cirrhosis type: other cirrhosis Qualified Code(s): K74.69 - Other cirrhosis of liver (9) Upper gastrointestinal bleed Current Visit: No Status: Acute Assessment and plan: Patient has history of chronic upper GI bleed, bleeding varices and ulcers. HGB/Hct 8.7/27 on admission, 8.9 today Per patient she was seen by Dr. Powell last week for melena. Reports no melena or bloody stool since monday. Plan: -Continue to monitor patient for melena, bloody stool, hematemesis or hemoptysis -Continue to monitor H/H -Continue PPI and Carafate (10) Chronic low back pain Current Visit: No Status: Chronic Assessment and plan: Pain control with tylenol. Avoid opioids secondary to hx IVDU and opioid abuse. Qualifiers: Back pain laterality: midline Sciatica presence: without sciatica Qualified Code(s): M54.5 - Low back pain; G89.29 - Other chronic pain (11) UTI (urinary tract infection) Current Visit: No Status: Acute Assessment and plan: Blood culture positive for E coli and Strep Viridans Culture is a sendout for S Viridans, should have results by 11/04 or 11/05 Plan: -Continue vanc, pharmacy to dose Qualifiers: Urinary tract infection type: acute cystitis Hematuria presence: without hematuria Qualified Code(s): N30.00 - Acute cystitis without hematuria (12) DVT prophylaxis Current Visit: Yes Status: Acute Assessment and plan: SCDs Pharmacologic DVT prophylaxis is contraindicated secondary to GI bleed - Subjective Interval history: Patient seen and examined. She reports that she is more short of breath today, although she is not wearing her oxygen. She continues to complain of "pain all over." Catheter is in place. - Constitutional Vitals: Temp Pulse Resp BP Pulse Ox 97.6 F 64 20 123/78 96 11/02/16 07:45 11/02/16 07:45 11/02/16 07:56 11/02/16 07:45 11/02/16 07:56 General appearance: Present: disheveled (appears much older then stated age), mild distress, A&O X 3, no acute distress, answers questions appropriately - Head Head exam: Present: atraumatic, normocephalic - Respiratory Respiratory exam: Present: rhonchi, wheezes, tachypnea. Absent: accessory muscle use, respiratory distress - Cardiovascular Cardiovascular exam: Present: RRR, +S1, +S2. Absent: diastolic murmur, gallop, rubs, systolic murmur - GI/Abdominal GI/Abdominal exam: Present: normal bowel sounds, soft, no peritoneal signs. Absent: distended, tenderness - Extremities Exam Extremities exam: Present: warm, radial pulses palpable and symetrical. Absent : calf tenderness, cyanotic, pedal edema - Neurological Exam Neurological exam: Absent: facial droop, speech deficit - Psychiatric Psychiatric exam: Present: depressed - Skin Skin exam: Present: dry. Absent: cyanosis, diaphoretic, erythema Additional comments: jaundice Internal Medicine: Result - Labs CBC & Chem 7: 11/02/16 05:47 11/01/16 08:45 Labs: Short CBC 11/01/16 11/02/16 Range/Units 08:45 05:47 WBC 16.3 H D 13.8 H (4.3-11.1) K/mcL Hgb 8.1 L 8.9 L (11.5-15.4) g/dL Hct 25.4 L 28.8 L (35.3-44.9) % Plt Count 133 L D 135 L (140-400) K/mcL Neutrophils # 13.6 H 10.7 H (1.6-8.9) K/mcL BMP 11/01/16 08:45 Sodium 131 L Potassium 4.0 Chloride 104 Carbon Dioxide 20 BUN 19 Creatinine 0.77 Glucose 188 H Calcium 7.7 L Liver Function 11/01/16 Range/Units 08:45 Total Bilirubin 0.8 (0.2-1.2) mg/dL AST 17 (5-34) Units/L ALT 14 (0-55) Units/L Alkaline Phosphatase 72 (38-126) Units/L Albumin 1.9 L (3.5-5.0) g/dL - VTE Documentation of Mechanical Device: Intermittent pneumatic compression device Consult Discharge Plan - Plan Referrals: NO,PCP [Primary Care Provider] - <Scott Lopez - Last Filed: 11/02/16 19:24> - Assessment and plan (1) Acute respiratory failure with hypoxia Current Visit: Yes Status: Acute Assessment and plan: Transferred to ICU. To be intubated. (2) Pneumonia Current Visit: No Status: Suspected Qualifiers: Pneumonia type: due to Pneumococcus Laterality: right Lung location: lower lobe of lung Qualified Code(s): J13 - Pneumonia due to Streptococcus pneumoniae (3) Acute metabolic encephalopathy Current Visit: Yes Status: Acute (4) UTI (urinary tract infection) Current Visit: No Status: Acute Qualifiers: Urinary tract infection type: acute cystitis Hematuria presence: without hematuria Qualified Code(s): N30.00 - Acute cystitis without hematuria (5) Type 2 diabetes mellitus Current Visit: Yes Status: Chronic Qualifiers: Diabetes mellitus complication status: with circulatory complication Diabetes mellitus complication detail: with peripheral angiopathy without gangrene Diabetes mellitus termite control service representative insulin use: with termite control service representative use Qualified Code(s): E11.51 - Type 2 diabetes mellitus with diabetic peripheral angiopathy without gangrene; Z79.4 - termite treater (current) use of insulin (6) Sepsis Current Visit: Yes Status: Resolved Qualifiers: Sepsis type: sepsis due to unspecified organism Qualified Code(s): A41.9 - Sepsis, unspecified organism (7) Hepatitis C Current Visit: No Status: Chronic Qualifiers: Viral hepatitis chronicity: chronic Hepatic coma status: without hepatic coma Qualified Code(s): B18.2 - Chronic viral hepatitis C (8) Hepatitis B Current Visit: No Status: Chronic Qualifiers: Viral hepatitis chronicity: unspecified Hepatic coma status: without hepatic coma Hepatitis delta agent presence: without delta-agent Qualified Code(s): B19.10 - Unspecified viral hepatitis B without hepatic coma (9) Cirrhosis Current Visit: No Status: Chronic Qualifiers: Hepatic cirrhosis type: other cirrhosis Qualified Code(s): K74.69 - Other cirrhosis of liver (10) Hyperglycemia Current Visit: Yes Status: Acute - Constitutional Vitals: Temp Pulse Resp BP Pulse Ox 97.7 F 79 12 136/91 100 11/02/16 15:05 11/02/16 18:35 11/02/16 18:46 11/02/16 18:35 11/02/16 18:46 Internal Medicine: Result - Labs CBC & Chem 7: 11/02/16 05:47 11/01/16 08:45 Labs: Short CBC 11/02/16 Range/Units 05:47 WBC 13.8 H (4.3-11.1) K/mcL Hgb 8.9 L (11.5-15.4) g/dL Hct 28.8 L (35.3-44.9) % Plt Count 135 L (140-400) K/mcL Neutrophils # 10.7 H (1.6-8.9) K/mcL - ABG Interpretation ABG results: ABG ABG pH 7.37 pH Units (7.32-7.45) 11/02/16 18:00 ABG pCO2 42 mmHg (35-45) 11/02/16 18:00 ABG pO2 49 mmHg (85-104) L* 11/02/16 18:00 ABG O2 Saturation 83 % (95-98) L 11/02/16 18:00 - Impressions Impressions Chest X-Ray 11/02/16 17:46 IMPRESSION: Right pleural effusion has developed, along with bilateral airspace disease, greater on the right. The pattern is equivocal for pneumonia in the right mid and lower lung with parapneumonic effusion versus asymmetrical pulmonary edema. D/ / Sheldon Jung MD / Sheldon Jung MD Interpreting Provider: Sheldon Jung MD - Attending Attestation I examined this patient and my medical decision-making was reviewed with the Resident Physician on 11/02/16. I agree with the documented findings, disposition and treatment plan as described except to the extent set forth below. Ms. Luther is currently admitted for acute hypoxic resp failure. She is high risk due to potential for worsening resp status. Ms. Luther has declined during the day. She was breathing OK and resting comfortably but became very dyspneic later in the day. Her pO2 decreased and she has been transferred to ICU and will be intubated. Exam Alert. Severe resp distress Heart tachy and reg Wheeze throughout I/P 1. Acute on chronic hypoxic resp failure - to ICU to be intubated. ? mucus plug versus other. 2. Hep B, Hep C Further diagnoses and plan as above. Pt is critically ill at this time.
[2016-11-02] MEDS ORDERED: *HR* Etomidate 20 MG/10 ML AMPUL IVP ONE (08:59)
[2016-11-02] MEDS ORDERED: Insulin DETEMIR 100 UNIT/ML X5UNITS SQ SCH (09:00)
[2016-11-02 12:09] LABS: ABG Base Excess 0.1 mEq/L (-2.0 to 3.0); ABG HCO3 24.7 mEQ/L (21-27); ABG Oxygen Saturation 87 % (95-98); ABG PCO2 39 mmHg (35-45); ABG PH 7.41 pH Units (7.32-7.45); ABG PO2 52 mmHg (85-104); ABG TCO2 25.9 mEq/L (20-26); Blood Gas FiO2 32 %
[2016-11-02] MEDS ORDERED: *HR* LORazepam 2 MG/ML VIAL IVP PRN (16:48)
[2016-11-02] MEDS ORDERED: MethylPREDNISolone 40 MG/ML VIAL IVP ONE (17:45)
[2016-11-02 18:06] LABS: ABG HCO3 24.3 mEQ/L (21-27); ABG Oxygen Saturation 83 % (95-98); ABG PCO2 42 mmHg (35-45); ABG PH 7.37 pH Units (7.32-7.45); ABG TCO2 25.6 mEq/L (20-26); Blood Gas FiO2 32 %
[2016-11-02 18:11] LABS: ABG PO2 49 mmHg (85-104)
--- NOTE | 2016-11-02 18:26 | Event Note ---
<Adam Hardy - Last Filed: 11/02/16 19:10> Date of Encounter: 11/02/16 Time of Encounter: 18:20 I was contacted by Yisel JOSE to evaluate Ms. Luther at bedside. Upon examination Mrs. Luther appeared to be in acute respiratory distress demonstrating secondary muscle use and increased work of breathing. She complains of shortness of breath and asking for help. She appeared lethargic and not responding well to questions. This is an obvious change from how she appeared earlier today. Physical examination: Gen. Acute Respiratory Distress HEENT: Does not follow commands well, neck supple trachea midline Cardiac: Tachycardic Respiratory: Tachypnea, increased work of breathing, respiratory rate 60/min, secondary muscle use, abdominal straining with inspiratory effort, auscultation demonstrate diffuse wheezing and diffuse rhonchi in all lung michel with diminished respiratory breath sounds in the lower right lung field. Stat chest x-ray: Demonstrates new right lower lobe opacification and concerning for mucous plugging or pleural effusion with new infiltrates bilaterally Stat ABG: pH 7.37, pCO2 42, pO2 49, HCO3: 27.3 Patient was placed on BiPAP without improvement in her work of breathing or oxygenation. Gave 60mg IV Solu-Medrol Patient was not improving with treatment and demonstrated signs of decompensation. Called Dr. Keenan ICU physician and discussed plans to transfer and intubate patient. He was in agreement. Review of patients history demonstrates liver Cirrhosis and esophageal varacies. I contacted Dr. Rouse with Anesthesia to intubate given the level of concern. Patient was successfully transferred to ICU bed 2 and intubated by Anesthesia team. Stat CT of the chest was ordered. ICU orders, sedation and restraints were placed. ABG ordered 1 hour post-intubation. Labs and ABG ordered for the AM. Reduced sliding scale insulin to low dose from high dose as patient is intubated and NPO. Holding Levemir 50HS tonight. Giving 40 IV lasix once now. Concern Given the progression of her symptoms she appears to have either atelectasis in the lower right lobe from either a mucous plug or large pleural effusion compared to CXR from 2 days ago. There are new bilateral diffuse pulmonary infiltration that concern me for early onset ARDS. Post intubation vitals: HR 83, RR 14, BP 155/110, O2sats 100% with FiO2 60% Addressing elevated BP after sedation onset. This patient has been seen and evaluated by Dr. Scott Lopez, Who agrees with the above assessment and plan. <Scott Lopez A - Last Filed: 11/06/16 19:06> I examined this patient and my medical decision-making was reviewed with the Resident Physician on 11/02/16. I agree with the documented findings, disposition and treatment plan as described except to the extent set forth below. I agree with above note.
[2016-11-02] MEDS ORDERED: 0.9 % Sodium Chloride 1,000 ML ONE (18:44)
[2016-11-02] MEDS ORDERED: Naloxone 0.4 MG/ML INJ IVP PRN (18:49)
[2016-11-02] MEDS ORDERED: Lacri-Lube 3.5 GM TUBE BOTH EYES PRN (18:56)
[2016-11-02] MEDS ORDERED: Dexmedetomidine HCl 400 MCG/100 ML MLS IVC SCH (19:00)
[2016-11-02] MEDS ORDERED: 0.9 % Sodium Chloride 1,000 ML IVC SCH (19:00)
[2016-11-02] MEDS ORDERED: Esmolol 100 MG/10 ML VIAL IVP ONE (19:06)
[2016-11-02] MEDS ORDERED: Propofol 500 MG/50 ML INFUS..BTL ONE (19:09)
--- NOTE | 2016-11-02 19:11 | Anesthesia Progress Note ---
Date of Encounter: 11/02/16 Time of Encounter: 18:50 Anesthesia Note - Note Note: 11/02/16 19:09 Called to intubate patient for respiratory distress. Etomidate 80 mg, succinylcholine 100 mg IV given. Number 7.5 ETT using MAC 3 blade. BS equal bilat.
[2016-11-02] MEDS ORDERED: Insulin LISPRO 300 UNITS/3 ML VIAL SQ SCH ×2 (19:40)
[2016-11-02] MEDS: FentaNYL (PF) 1,000 MCG in 0.9 % Sodium Chloride 80 ML IVC SCH (19:49)
[2016-11-02] MEDS ORDERED: Furosemide 40 MG/4 ML VIAL IVP ONE ×2 (19:52→21:17)
[2016-11-02] MEDS: Insulin DETEMIR 100 UNIT/ML X5UNITS SQ SCH (20:13)
[2016-11-02] MEDS: Chlorhexidine Rinse 15 ML MOUTHWASH MM SCH (20:13)
[2016-11-02 21:07] LABS: ABG Base Excess -3.1 mEq/L (-2.0 to 3.0); ABG HCO3 23.9 mEQ/L (21-27); ABG Oxygen Saturation 98 % (95-98); ABG PCO2 52 mmHg (35-45); ABG PH 7.27 pH Units (7.32-7.45); ABG PO2 125 mmHg (85-104); ABG TCO2 25.5 mEq/L (20-26); Blood Gas FiO2 60 %; Blood Gas PEEP 5 cm H2O; Blood Gas Respiration Rate 12; Blood Gas VT 400 cc
[2016-11-02] MEDS: Lacri-Lube 3.5 GM TUBE BOTH EYES SCH ×2 (21:11→23:27)
[2016-11-02 21:21] LABS: INR 1.4; Prothrombin Time 15.6 Seconds (9.4-12.1)
[2016-11-02 21:23] LABS: Activated Partial Thrombo Time 24.4 Seconds (26.0-36.0)
[2016-11-02 22:42] LABS: Basophils % 0.1 %; Hematocrit 25.5 % (35.3-44.9); Immature Granulocytes % 1.1 % (0-4); Lymphocytes % 7.2 %; Mean Corpuscular HGB Conc 31.4 g/dL (31.6-35.5); Mean Corpuscular Hemoglobin 26.1 pg (28.0-33.3); Mean Corpuscular Volume 83.1 fL (83.0-100.0); Mean Platelet Volume 12.9 fL (9.4-12.4); Monocytes # 0.2 K/mcL (0.0-1.3); Monocytes % 1.5 %; Neutrophils # 12.5 K/mcL (1.6-8.9); Nucleated Red Blood Cells 0.7 /100 WBC (0); Platelet Count 119 K/mcL (140-400); Red Blood Count 3.07 M/mcL (3.82-4.97); Red Cell Distribution Width 16.3 % (11.5-14.5); Segmented Neutrophils % 90.1 %
[2016-11-02 22:46] LABS: Alanine Aminotransferase 26 Units/L (0-55); Albumin 1.9 g/dL (3.5-5.0); Albumin/Globulin Ratio 0.5 (1.1-2.2); Alkaline Phosphatase 68 Units/L (38-126); Aspartate Amino Transferase 38 Units/L (5-34); BUN/Creatinine Ratio 22 (6-26); Bilirubin,Direct 0.4 mg/dL (0.0-0.5); Bilirubin,Indirect 0.5 mg/dL (0.0-1.2); Bilirubin,Total 0.9 mg/dL (0.2-1.2); Blood Urea Nitrogen 16 mg/dL (7-20); Calcium 7.9 mg/dL (8.6-10.8); Carbon Dioxide 22 mEq/L (19-29); Chloride 100 mEq/L (98-109); Glucose 78 mg/dL (70-99); Osmolality,Calculated 264 (280-300); Potassium 4.3 mEq/L (3.5-4.5); Sodium 127 mEq/L (136-145); Total Protein 5.9 g/dL (6.0-8.3); eGFR For African Americans > 60 (> 60); eGFR For Non-African Americans > 60 (> 60)
--- NOTE | 2016-11-02 23:32 | Event Note ---
Date of Encounter: 11/02/16 Time of Encounter: 23:23 Pre-Procedure Diagnosis: Acute respiratory distress Post-Procedure Diagnosis: Acute respiratory distress Indication: Unable to gain other forms of venous access on an unstable critically ill patient Performing Physician: Azar Hardy DO Type of Procedure: Central Venous Catheter Placement Assisting physician: Kimberly Holloway DO Indication: This is a 55 year-old female with Sudden onset of acute respiratory failure. Consent: Patient had no family to verbally consent for this procedure, She was unable to consent do to sedation and intubation. This procedure was deemend necessary as the patient was in critical condition. Two physician consent was obtained including Dr. Enrique Pillai and myself. Technique: A time out was preformed identifying the correct procedure, the correct location with the nursing staff. The right neck was prepped with 2% chlorhexidine and draped with a full length sterile sheet in the usual fashion. 1% lidocaine was administered subcutaneously for local anesthesia. The right internal jugular was accessed under ultrasound guidance with an 18 gauge thin wall needle. A triple lumen 7 mongolian central line was inserted via the seldinger technique. Blood was withdrawn from all lumens and flushed with normal saline. The catheter was sutured in place and a sterile dressing was applied over the site prior to removal of drapes. The patient tolerated the procedure well and there were no complications. Chest x ray is pending at this time. EBL: 2ml Complication: None This Central line procedure was precepted by Dr. Enrique Pillai who was present for the entirety of the procedure.
[2016-11-02 23:40] LABS: ABG HCO3 26.6 mEQ/L (21-27); ABG Oxygen Saturation 99 % (95-98); ABG PCO2 54 mmHg (35-45); ABG PO2 163 mmHg (85-104); ABG TCO2 28.3 mEq/L (20-26); Blood Gas FiO2 40 %
[2016-11-03] MEDS: Lacri-Lube 3.5 GM TUBE BOTH EYES SCH ×6 (03:08→23:39)
[2016-11-03] MEDS: FentaNYL (PF) 1,000 MCG in 0.9 % Sodium Chloride 80 ML IVC SCH ×3 (03:09→18:21)
[2016-11-03] MEDS: Ipratropium/Albuterol Neb 3 ML IH SCH ×6 (03:17→23:32)
[2016-11-03 03:32] LABS: Basophils % 0.1 %; Hematocrit 25.9 % (35.3-44.9); Immature Platelets 14.8 % (1.1-6.1); Lymphocytes # 0.9 K/mcL (0.6-4.6); Lymphocytes % 7.3 %; Mean Corpuscular HGB Conc 30.9 g/dL (31.6-35.5); Mean Corpuscular Hemoglobin 25.5 pg (28.0-33.3); Mean Corpuscular Volume 82.5 fL (83.0-100.0); Mean Platelet Volume 12.2 fL (9.4-12.4); Monocytes # 0.2 K/mcL (0.0-1.3); Monocytes % 1.4 %; Nucleated Red Blood Cells 0.7 /100 WBC (0); Platelet Count 127 K/mcL (140-400); Red Blood Count 3.14 M/mcL (3.82-4.97); Red Cell Distribution Width 16.1 % (11.5-14.5); Segmented Neutrophils % 90.2 %
[2016-11-03 03:36] LABS: Neutrophils # 11.4 K/mcL (1.6-8.9)
[2016-11-03 03:46] LABS: Alanine Aminotransferase 26 Units/L (0-55); Albumin/Globulin Ratio 0.5 (1.1-2.2); Alkaline Phosphatase 71 Units/L (38-126); Aspartate Amino Transferase 33 Units/L (5-34); BUN/Creatinine Ratio 24 (6-26); Bilirubin,Total 1.1 mg/dL (0.2-1.2); Blood Urea Nitrogen 18 mg/dL (7-20); Calcium 7.6 mg/dL (8.6-10.8); Carbon Dioxide 22 mEq/L (19-29); Chloride 100 mEq/L (98-109); Globulin 3.9 g/dL (2.4-3.5); Glucose 128 mg/dL (70-99); Osmolality,Calculated 268 (280-300); Sodium 127 mEq/L (136-145); Total Protein 5.8 g/dL (6.0-8.3); eGFR For African Americans > 60 (> 60); eGFR For Non-African Americans > 60 (> 60)
[2016-11-03 03:53] LABS: Albumin 1.9 g/dL (3.5-5.0)
[2016-11-03] MEDS: Vancomycin 1,000 MG in D5% in Water 250 ML IVPB SCH (04:10)
[2016-11-03 04:19] LABS: Anisocytosis 1+ (Not Present); Hypochromasia Present (Not Present); Polychromasia 2+ (Not Present)
[2016-11-03 04:20] LABS: Platelet Estimate Slight Decrease (Normal); Tear Drop Cells 1+ (Not Present)
[2016-11-03 04:42] LABS: ABG Base Excess -0.9 mEq/L (-2.0 to 3.0); ABG HCO3 24.3 mEQ/L (21-27); ABG Oxygen Saturation 94 % (95-98); ABG PCO2 42 mmHg (35-45); ABG PH 7.37 pH Units (7.32-7.45); ABG PO2 72 mmHg (85-104); ABG TCO2 25.6 mEq/L (20-26)
[2016-11-03 04:43] LABS: Blood Gas FiO2 30 %
[2016-11-03] MEDS ORDERED: *HR* Dextrose 50 % in Water (Syg) 50 ML SYRINGE IVP PRN (05:21)
[2016-11-03] MEDS ORDERED: Dextrose Gel 15 GM PO PRN ×2 (05:21)
[2016-11-03] MEDS: Insulin LISPRO 300 UNITS/3 ML VIAL SQ SCH ×5 (08:13→23:39)
[2016-11-03] MEDS: Chlorhexidine Rinse 15 ML MOUTHWASH MM SCH ×2 (08:13→19:43)
[2016-11-03] MEDS: Pantoprazole 40 MG VIAL IVPB SCH (08:13)
[2016-11-03] MEDS: Levofloxacin 750 MG/150 ML 750 MG/150 ML BAG IVPB SCH (08:13)
[2016-11-03] MEDS ORDERED: Aminoglycoside Consult 1 EACH MC ONE (09:55)
--- NOTE | 2016-11-03 10:00 | Pulmonology Consult Note ---
<Herve Mackey - Last Filed: 11/03/16 10:40> Date of Encounter: 11/03/16 Time of Encounter: 09:49 Assessment and Plan (1) Acute respiratory failure with hypoxia Current Visit: Yes Status: Acute 55-year-old female history of COPD, hepatitis c, Hepatitis B, IV drug abuse, upper and lower GI bleed, diastolic CHF, Center with complaint of worsening dyspnea and green productive sputum. Patient had elevated white blood count, tachycardia and tachypnea on presentation. Chest x-ray showed possible pneumonia. Patient was admitted for sepsis, continue current pneumonia and started on Levaquin. Last night patient's dyspnea and cough worsened. Repeat chest x-ray showed new right pleural effusion. With declining respiratory status, she was placed on BiPAP with no improvement in her oxygenation or work of breathing. Therefore decided to intubate the patient. She was transferred to the ICU yesterday. This morning patient remains intubated and respiratory status is stable. CT chest shows significant right pleural effusion encompassing most of the right hemithorax. -Secondary to community acquired pneumonia, and right pleural effusion of unknown etiology. -Plan will be to do a right thoracentesis and send fluid for analysis. -Continue bronchodilators, levaquin. (2) Sepsis Current Visit: Yes Status: Resolved Patient presented with tachypnea, tachycardia, and leukocytosis. Source of infection either respiratory and urine. Patient was initially started on Levaquin for community-acquired pneumonia. Today's Levaquin day 4. Blood cultures preliminary shows no growth. Urine cultures grew Escherichia coli and Streptococcus Viridans. Awaiting sensitivity for Streptococcus viridans. Continue vancomycin as patient is allergic to penicillins. If srep viridans susceptible to prenicillin will descalate to ceftriaxone. Morning CBC and BMP Initial sputum cultures grew fungal elements which are most likely contamination. Sputum culture was sent again and preliminary shows no growth. Qualifiers: Sepsis type: sepsis due to unspecified organism Qualified Code(s): A41.9 - Sepsis, unspecified organism (3) Pleural effusion Current Visit: No Status: Acute In the past 24 hours patient has developed a significant right pleural effusion. She has a history of diastolic heart failure, pulmonary hypertension , last echocardiogram completed and 11/27 showed left ventricular ejection fraction of 65% with moderately severely dilated right ventricle and moderate right ventricle hypokinesis, and severe pulmonary hypertension. may be 2nd to acute on chronic diasltoic heart failure, cirrhosis, cancer (hx of tobacco abuse), pneumonia. Plan is for a right thoracentesis and fluid analysis. (4) UTI (urinary tract infection) Current Visit: No Status: Acute Blood culture positive for E coli and Strep Viridans Culture is a send out for S Viridans, should have results by 11/04 or 11/05 Plan: -Continue vanc, and levqauin Qualifiers: Urinary tract infection type: acute cystitis Hematuria presence: without hematuria Qualified Code(s): N30.00 - Acute cystitis without hematuria (5) Type 2 diabetes mellitus Current Visit: Yes Status: Chronic uncontrolled. 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 Secondary to iron deficiency and History of chronic upper GI bleed Her platelets are greater than 100. Hemoglobin stable at 8. Monitor with CBC. Qualifiers: Anemia type: unspecified type Qualified Code(s): D64.9 - Anemia, unspecified (7) CHF (congestive heart failure) Current Visit: No Status: Chronic hx of diastolic CHF. Possible cause of r. pleural effusion but less likely since effusion is unilateral last echocardiogram completed and 11/27 showed left ventricular ejection fraction of 65% with moderately severely dilated right ventricle and moderate right ventricle hypokinesis, and severe pulmonary hypertension. on furosimide at home. Start IV lasix. strict I/O Qualifiers: Congestive heart failure type: diastolic Congestive heart failure chronicity: chronic Qualified Code(s): I50.32 - Chronic diastolic (congestive ) heart failure (8) Hepatitis B Current Visit: No Status: Chronic hx of hepatitis B. AST and ALT WNL. Hx of IVD abuse. 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 last EGD shows esophageal varacies. Not on any out patient treatment patient will need to follow up outpatient with retail sales professional Qualifiers: Viral hepatitis chronicity: chronic Hepatic coma status: without hepatic coma Hepatitis delta agent presence: without delta-agent Qualified Code(s): B18.1 - Chronic viral hepatitis B without delta-agent (9) Hepatitis C Current Visit: No Status: Chronic hx of hepatitis C. AST and ALT WNL. Hx of IVD abuse. 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 last EGD shows esophageal varacies. Not on any out patient treatment patient will need to follow up outpatient with retail sales professional Qualifiers: Viral hepatitis chronicity: chronic Hepatic coma status: without hepatic coma Qualified Code(s): B18.2 - Chronic viral hepatitis C (10) Goals of care, counseling/discussion Current Visit: Yes Status: Acute Patients sister was called and does not want patient to come back to her house. Will consult director social as patient may need placement after discharge. (11) DVT prophylaxis Current Visit: Yes Status: Acute Start prophylactic heparin SQ. Continue SCDs. 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 She admitted to having fevers, chills, body aches, nausea without vomiting. Shortness of breath was worse when laying flat on her back. Patient was admitted for sepsis. She presented with elevated white blood cell count, tachycardic, infection source pneumonia. Initial chest x-ray showed perihilar patchy opacities. Patient was started on Levaquin, and was pancultured. Blood cultures were negative, sputum cultures were negative besides showing possible contamination: fungal elements. Urine cultures grew Escherichia coli and strep Viridans. Patient was also started on vancomycin to treat strep viridans as she was allergic to penicillins and has hx of IVD use. Yesterday patient's dyspnea and cough worsened. Repeat chest x- ray showed bilateral patchy infiltrates with development of right pleural effusion. Patient underwent CT scan which showed significant right pleural effusion encompassing most of the right hemithorax. Initially patient was placed on BiPAP which did not improve her breathing oxygenation. Due to declining respiratory status patient was intubated by anesthesia and moved to ICU. Furthermore, staff had difficultly obtaining peripheral IV access and patient had a right IJ central line placed. This morning patient is stable, intubated, sleep. Past Med Surg Social Fam HX - Past Medical History Medical history: cirrhosis Psychiatric history: anxiety, depression - Past Surgical History Surgical History: cholecystectomy, hysterectomy, other - Social History Smoking Status: Current every day smoker Packs per day: <1ppd Smokeless Tobacco Status: No Alcohol use: none (currently, heavy user in past) Drug use: opiates, IVDU, prescription drug abuse - Family History Mother Adopted: No Living Status: Still Living Hx Family Cardiac Disorders: Yes Father Hx Family Cardiac Disorders: Yes Medications and Allergies Albuterol Neb [AccuNeb] 1.25 mg IH Q4H PRN 11/29/15 [History] Albuterol Sulfate [Albuterol Inhaler] 2 puff IH Q4HR PRN 11/29/15 [History] Insulin Glargine,Hum.rec.anlog [Lantus Solostar] 50 unit SQ HS 11/29/15 [History ] Insulin LISPRO [Humalog] 15 unit SQ TIDWM 11/29/15 [History] Potassium Chloride 20 meq PO BID 12/18/15 [History] Omeprazole [PriLOSEC] 40 mg PO DAILY #30 capsule. 12/23/15 [Rx] Ferrous Sulfate [Iron] 325 mg PO TID 05/26/16 [History] Furosemide [Lasix] 40 mg PO BID 05/26/16 [History] Sucralfate [Carafate] 1 gm PO TID 05/26/16 [History] Loratadine [Allergy Relief] 10 mg PO DAILY 10/31/16 [History] Allergies codeine Allergy (Verified 10/25/16 01:42) Hives Penicillins [PCN] Allergy (Verified 10/25/16 01:42) Hives ROS unobtainable: due to endotracheal tube, due to mental status All Systems: A 10-system review of systems was performed and is negative for pertinent findings except as documented above in the HPI. Physical Examination Vital Signs: Vital Signs, Last 4 Hours Temp Pulse Resp BP Pulse Ox 11/03/16 09:28 19 92 L 11/03/16 08:30 73 17 104/82 94 L 11/03/16 08:16 97.8 F 11/03/16 07:41 16 100/73 99 11/03/16 07:30 70 16 103/78 93 L 11/03/16 05:55 69 18 95/64 90 L General appearance: asleep (Sedated) Eyes: nonicteric Neck: no lymphadenopathy Effort: other (On mechanical ventilation) Auscultation: left: clear, right: other (Absent breath sounds on right lower lobe. Right upper lobe clear.) Cardiovascular: regular rate and rhythm Gastrointestinal: normoactive bowel sounds, soft, non-tender, non-distended Integumentary: other (Multiple track lyons on her arms bilaterally from IV drug use) Ventilator Settings Ventilator Settings: Ventilator Settings, Last 8 Hours Ventilator Mode VC+ Ventilator Mode VC+ Ventilator Mode VC+ Ventilator Mode A/C Ventilator Mode A/C Ventilator Mode A/C Ventilator Mode A/C Ventilator Mode A/C Ventilator Mode A/C Ventilator Mode A/C Ventilator Mode A/C Ventilator Tidal Volume 450 Setting Ventilator Tidal Volume 450 Setting Ventilator Tidal Volume 400 Setting Ventilator Tidal Volume 400 Setting Ventilator Tidal Volume 400 Setting Ventilator Tidal Volume 400 Setting Ventilator Tidal Volume 400 Setting Ventilator Tidal Volume 400 Setting Ventilator Tidal Volume 400 Setting Ventilator Tidal Volume 400 Setting Ventilator Tidal Volume 400 Setting Ventilator Respiratory Rate 16 Setting Ventilator Respiratory Rate 16 Setting Ventilator Respiratory Rate 16 Setting Ventilator Respiratory Rate 18 Setting Ventilator Respiratory Rate 18 Setting Ventilator Respiratory Rate 18 Setting Ventilator Respiratory Rate 18 Setting Ventilator Respiratory Rate 18 Setting Ventilator Respiratory Rate 18 Setting Ventilator Respiratory Rate 18 Setting Ventilator Respiratory Rate 18 Setting Actual Respiratory Rate 23 Actual Respiratory Rate 17 Actual Respiratory Rate 16 Actual Respiratory Rate 18 Actual Respiratory Rate 19 Actual Respiratory Rate 22 Actual Respiratory Rate 22 Actual Respiratory Rate 21 Actual Respiratory Rate 22 Actual Respiratory Rate 22 Positive End Expiratory 5 Pressure Positive End Expiratory 5 Pressure Positive End Expiratory 5 Pressure Positive End Expiratory 5 Pressure Positive End Expiratory 5 Pressure Positive End Expiratory 5 Pressure Positive End Expiratory 5 Pressure Positive End Expiratory 5 Pressure Positive End Expiratory 5 Pressure Positive End Expiratory 5 Pressure Positive End Expiratory 5 Pressure Peak Inspiratory Airway 14 Pressure Peak Inspiratory Airway 28 Pressure Peak Inspiratory Airway 24 Pressure Peak Inspiratory Airway 25 Pressure Peak Inspiratory Airway 25 Pressure Peak Inspiratory Airway 21 Pressure Peak Inspiratory Airway 23 Pressure Peak Inspiratory Airway 22 Pressure Peak Inspiratory Airway 22 Pressure Peak Inspiratory Airway 26 Pressure Results - Laboratory Findings CBC and BMP: 11/03/16 03:20 11/03/16 03:20 ABG ABG pH 7.37 pH Units (7.32-7.45) 11/03/16 04:20 ABG pCO2 42 mmHg (35-45) 11/03/16 04:20 ABG pO2 72 mmHg (85-104) L 11/03/16 04:20 ABG O2 Saturation 94 % (95-98) L 11/03/16 04:20 PT/INR, D-dimer PT 15.6 Seconds (9.4-12.1) H 11/02/16 20:57 Abnormal lab findings: Abnormal lab results WBC 12.6 K/mcL (4.3-11.1) H 11/03/16 03:20 RBC 3.14 M/mcL (3.82-4.97) L 11/03/16 03:20 Hgb 8.0 g/dL (11.5-15.4) L 11/03/16 03:20 Hct 25.9 % (35.3-44.9) L 11/03/16 03:20 MCV 82.5 fL (83.0-100.0) L 11/03/16 03:20 MCH 25.5 pg (28.0-33.3) L 11/03/16 03:20 MCHC 30.9 g/dL (31.6-35.5) L 11/03/16 03:20 RDW 16.1 % (11.5-14.5) H 11/03/16 03:20 Plt Count 127 K/mcL (140-400) L 11/03/16 03:20 Neutrophils # 11.4 K/mcL (1.6-8.9) H 11/03/16 03:20 Nucleated RBCs/100 WBC 0.7 /100 WBC (0) H 11/03/16 03:20 Platelet Estimate Slight Decrease (Normal) L 11/03/16 03:20 Large Platelets Present (Not Present) A 11/01/16 08:45 Immature Plt Fraction 14.8 % (1.1-6.1) H 11/03/16 03:20 Polychromasia 2+ (Not Present) A 11/03/16 03:20 Hypochromasia Present (Not Present) A 11/03/16 03:20 Poikilocytosis 1+ (Not Present) A 10/30/16 17:10 Anisocytosis 1+ (Not Present) A 11/03/16 03:20 Tear Drop Cells 1+ (Not Present) A 11/03/16 03:20 PT 15.6 Seconds (9.4-12.1) H 11/02/16 20:57 APTT 24.4 Seconds (26.0-36.0) L 11/02/16 20:57 ABG pO2 72 mmHg (85-104) L 11/03/16 04:20 ABG O2 Saturation 94 % (95-98) L 11/03/16 04:20 Sodium 127 mEq/L (136-145) L 11/03/16 03:20 Potassium 5.0 mEq/L (3.5-4.5) H 11/03/16 03:20 Glucose 128 mg/dL (70-99) H 11/03/16 03:20 POC Glucose 179 (58-89) H 11/03/16 07:55 Hemoglobin A1c 10.9 % (-5.6) H 10/31/16 08:57 Calculated Osmolality 268 (280-300) L 11/03/16 03:20 Calcium 7.6 mg/dL (8.6-10.8) L 11/03/16 03:20 B-Natriuretic Peptide 225 pg/mL (0-100) H 10/30/16 17:10 Serum Total Protein 5.8 g/dL (6.0-8.3) L 11/03/16 03:20 Albumin 1.9 g/dL (3.5-5.0) L 11/03/16 03:20 Globulin 3.9 g/dL (2.4-3.5) H 11/03/16 03:20 Albumin/Globulin Ratio 0.5 (1.1-2.2) L 11/03/16 03:20 Urine Glucose (UA) >=1000 mg/dL (Normal) H 10/30/16 17:42 Urine Ketones Trace mg/dL (Negative) H 10/30/16 17:42 Ur Leukocyte Esterase Trace (Negative) H 10/30/16 17:42 Urine Microscopic WBC 3-5 per hpf (0-3) H 10/30/16 17:42 Ur Squamous Epith Cells Many per lpf (None-Few) H 10/30/16 17:42 Urine Yeast Few per hpf (None Seen) H 10/30/16 17:42 Ur Culture Indicated? YES (NO) A 10/30/16 17:42 Urine Opiates Screen Positive ng/mL ([id number]=[id number]) H 10/31/16 02:04 - Microbiology Findings Microbiology Findings: Microbiology, Last 48 Hours 11/03/16 03:10 Sputum Culture - Preliminary Sputum 10/31/16 Unknown Sputum Culture - Preliminary Sputum Fungal Elements - Clinical Findings Intake & Output: Intake & Output 11/02/16 11/03/16 11/03/16 23:59 07:59 15:59 Intake Total 250 / 250 350 / 350 200 / 200 Output Total 250 / 250 150 / 150 150 / 150 Balance 0 / 0 200 / 200 50 / 50 Consult Discharge Plan - Plan Referrals: NO,PCP [Primary Care Provider] - <Mahin Keenan - Last Filed: 11/03/16 14:13> All Systems: A 10-system review of systems was performed and is negative for pertinent findings except as documented above in the HPI. Physical Examination Vital Signs: Vital Signs, Last 4 Hours Temp Pulse Resp BP Pulse Ox 11/03/16 11:57 97.4 F L 11/03/16 11:30 73 16 92/63 94 L 11/03/16 11:13 20 114/75 92 L 11/03/16 10:30 73 18 108/70 94 L Ventilator Settings Ventilator Settings: Ventilator Settings, Last 8 Hours Ventilator Mode VC+ Ventilator Mode VC+ Ventilator Mode VC+ Ventilator Mode VC+ Ventilator Mode VC+ Ventilator Tidal Volume 450 Setting Ventilator Tidal Volume 450 Setting Ventilator Tidal Volume 450 Setting Ventilator Tidal Volume 450 Setting Ventilator Tidal Volume 400 Setting Ventilator Respiratory Rate 16 Setting Ventilator Respiratory Rate 16 Setting Ventilator Respiratory Rate 16 Setting Ventilator Respiratory Rate 16 Setting Actual Respiratory Rate 22 Actual Respiratory Rate 23 Actual Respiratory Rate 17 Actual Respiratory Rate 16 Positive End Expiratory 5 Pressure Positive End Expiratory 5 Pressure Positive End Expiratory 5 Pressure Positive End Expiratory 5 Pressure Peak Inspiratory Airway 21 Pressure Peak Inspiratory Airway 12 Pressure Peak Inspiratory Airway 20 Pressure Peak Inspiratory Airway 29 Pressure Peak Inspiratory Airway 14 Pressure Peak Inspiratory Airway 28 Pressure Peak Inspiratory Airway 24 Pressure Results - Laboratory Findings CBC and BMP: 11/03/16 03:20 11/03/16 03:20 ABG ABG pH 7.37 pH Units (7.32-7.45) 11/03/16 04:20 ABG pCO2 42 mmHg (35-45) 11/03/16 04:20 ABG pO2 72 mmHg (85-104) L 11/03/16 04:20 ABG O2 Saturation 94 % (95-98) L 11/03/16 04:20 PT/INR, D-dimer PT 15.6 Seconds (9.4-12.1) H 11/02/16 20:57 Abnormal lab findings: Abnormal lab results WBC 12.6 K/mcL (4.3-11.1) H 11/03/16 03:20 RBC 3.14 M/mcL (3.82-4.97) L 11/03/16 03:20 Hgb 8.0 g/dL (11.5-15.4) L 11/03/16 03:20 Hct 25.9 % (35.3-44.9) L 11/03/16 03:20 MCV 82.5 fL (83.0-100.0) L 11/03/16 03:20 MCH 25.5 pg (28.0-33.3) L 11/03/16 03:20 MCHC 30.9 g/dL (31.6-35.5) L 11/03/16 03:20 RDW 16.1 % (11.5-14.5) H 11/03/16 03:20 Plt Count 127 K/mcL (140-400) L 11/03/16 03:20 Neutrophils # 11.4 K/mcL (1.6-8.9) H 11/03/16 03:20 Nucleated RBCs/100 WBC 0.7 /100 WBC (0) H 11/03/16 03:20 Platelet Estimate Slight Decrease (Normal) L 11/03/16 03:20 Large Platelets Present (Not Present) A 11/01/16 08:45 Immature Plt Fraction 14.8 % (1.1-6.1) H 11/03/16 03:20 Polychromasia 2+ (Not Present) A 11/03/16 03:20 Hypochromasia Present (Not Present) A 11/03/16 03:20 Poikilocytosis 1+ (Not Present) A 10/30/16 17:10 Anisocytosis 1+ (Not Present) A 11/03/16 03:20 Tear Drop Cells 1+ (Not Present) A 11/03/16 03:20 PT 15.6 Seconds (9.4-12.1) H 11/02/16 20:57 APTT 24.4 Seconds (26.0-36.0) L 11/02/16 20:57 ABG pO2 72 mmHg (85-104) L 11/03/16 04:20 ABG O2 Saturation 94 % (95-98) L 11/03/16 04:20 Sodium 127 mEq/L (136-145) L 11/03/16 03:20 Potassium 5.0 mEq/L (3.5-4.5) H 11/03/16 03:20 Glucose 128 mg/dL (70-99) H 11/03/16 03:20 POC Glucose 191 (58-89) H 11/03/16 10:58 Hemoglobin A1c 10.9 % (-5.6) H 10/31/16 08:57 Calculated Osmolality 268 (280-300) L 11/03/16 03:20 Calcium 7.6 mg/dL (8.6-10.8) L 11/03/16 03:20 B-Natriuretic Peptide 225 pg/mL (0-100) H 10/30/16 17:10 Serum Total Protein 5.8 g/dL (6.0-8.3) L 11/03/16 03:20 Albumin 1.9 g/dL (3.5-5.0) L 11/03/16 03:20 Globulin 3.9 g/dL (2.4-3.5) H 11/03/16 03:20 Albumin/Globulin Ratio 0.5 (1.1-2.2) L 11/03/16 03:20 Urine Glucose (UA) >=1000 mg/dL (Normal) H 10/30/16 17:42 Urine Ketones Trace mg/dL (Negative) H 10/30/16 17:42 Ur Leukocyte Esterase Trace (Negative) H 10/30/16 17:42 Urine Microscopic WBC 3-5 per hpf (0-3) H 10/30/16 17:42 Ur Squamous Epith Cells Many per lpf (None-Few) H 10/30/16 17:42 Urine Yeast Few per hpf (None Seen) H 10/30/16 17:42 Ur Culture Indicated? YES (NO) A 10/30/16 17:42 Urine Opiates Screen Positive ng/mL ([id number]=[id number]) H 10/31/16 02:04 - Microbiology Findings Microbiology Findings: Microbiology, Last 48 Hours 03/23/17 03:10 Sputum Culture - Preliminary Sputum 10/31/16 Unknown Sputum Culture - Preliminary Sputum Fungal Elements - Clinical Findings Intake & Output: Intake & Output 11/02/16 11/03/16 11/03/16 23:59 07:59 15:59 Intake Total 250 / 250 350 / 350 200 / 200 Output Total 250 / 250 150 / 150 250 / 250 Balance 0 / 0 200 / 200 -50 / -50 - Attending Attestation I examined this patient and my medical decision-making was reviewed with the PRECIPITATOR SUPERVISOR/PA/Advanced Practice Nurse/Resident Physician. I agree with the documented findings, disposition and treatment plan as described except to the extent set forth below. Patient seen and examined. Labs, radiology, chart personally reviewed. Agree with resident's history and physical, assessment, plan with following comments: PROFESSIONAL NURSE: Patient doesn't follows commands, She is sedated and she get agitated when sedation is weaned off Pulmonary: Acceptable oxygenation and ventilation. Changed vent mode to VC+ and it wave form on the vent looks better. Plan for SBT after thoracentesis. She is high risk for re-intubation mainly due to her underlying liver disease and also mental status from history of substance abuse. Cardiovascular: stable GI: Nutrition per dietary and GI prophylaxis per routine Heme: DVT prophylaxis per routine ID: Continue antibiotics and plan to de-escalation Renal; urine out put and renal funtion reviewed Endorcine: blood glucose is monitored Lines: all lines checked and no evidence of infections Skin: skin care to prevent pressure ulcers per nursing routine care I spent 35 min of Critical Care time with this patient. It involved decision making of high complexity to assess, manipulate, and support vital organ system failure and/or to prevent further life threatening deterioration of the patient' s condition. The time involved in the performance of separately reportable procedures was not counted toward critical care time.
--- NOTE | 2016-11-03 14:08 | Procedure Note ---
<Herve Mackey - Last Filed: 11/03/16 13:58> Date of procedure: 11/03/16 Pre-op diagnosis: L. pleural effusion Post-op diagnosis: same Procedure: Indication: Large R. Pleural effusion Procedure: R. thoracentesis Risks and benefits were discussed with patients daughters and consent was obtained Signout was performed verifying correct patient, procedure, site, and positioning. Ultrasound was used to visualize liver, and pleural fluid and confirm the appropriate infiltration site. Kulwinder was made at site of infiltration. The patients R. axillary region was prepped and draped in sterile fashion. 1% lidocaine was used o anesthetize the surround skin, and subcutaneous tissue. Finder needle was then inserted at marked site and used to locate fluid. Serosanguinous fluid was aspirated. A 10mm blade scalpel was used to make the incision. Thoracentesis catheter was inserted into the r. pleural cavity and needle was pulled back. 1400 cc of serosanguinous fluid was removed and sent for analysis. A Chest xray was ordered. Patient tolerated the procedure without complications. Dr. Keenan supervised the procedure. Anesthesia: GETA Surgeon: Herve Mackey Estimated blood loss (cc): 1 IV fluids (cc): 0 Condition: stable Disposition: ICU <Mahin Keenan - Last Filed: 11/03/16 16:12> Procedure: I have personally supervised Dr. Mackey doing right sided thoracentesis.
[2016-11-03 15:23] LABS: Appearance of Pleural Fl Hazy (Clear)
[2016-11-03 15:33] LABS: RBC,Pleural Fluid < 0.002 M/mcL
[2016-11-03 15:43] LABS: Amylase,Pleural Fluid 22 Units/L (No Ref Range); Glucose,Pleural Fluid 159 mg/dL (No Ref Range); LDH,Pleural Fluid 35 Units/L (No Ref Range); Triglycerides, Pleural Fluid 25 mg/dL (No Ref Range)
[2016-11-03 15:44] LABS: Total Protein,Pleural Fluid < 0.8 g/dL (No Ref Range)
[2016-11-03] MEDS: *HR* Heparin 5,000 UNIT/ML VIAL SQ SCH (17:12)
[2016-11-04] MEDS: FentaNYL (PF) 1,000 MCG in 0.9 % Sodium Chloride 80 ML IVC SCH (02:46)
[2016-11-04] MEDS: Ipratropium/Albuterol Neb 3 ML IH SCH ×5 (03:56→20:56)
[2016-11-04] MEDS: Lacri-Lube 3.5 GM TUBE BOTH EYES SCH ×2 (04:04→07:53)
[2016-11-04 04:22] LABS: Basophils % 0.1 %; Hematocrit 24.5 % (35.3-44.9); Hemoglobin 7.7 g/dL (11.5-15.4); Immature Granulocytes % 0.8 % (0-4); Lymphocytes # 1.9 K/mcL (0.6-4.6); Lymphocytes % 11.3 %; Mean Corpuscular HGB Conc 31.4 g/dL (31.6-35.5); Mean Corpuscular Volume 82.8 fL (83.0-100.0); Monocytes # 1.1 K/mcL (0.0-1.3); Monocytes % 6.3 %; Neutrophils # 13.5 K/mcL (1.6-8.9); Nucleated Red Blood Cells 0.4 /100 WBC (0); Platelet Count 155 K/mcL (140-400); Red Blood Count 2.96 M/mcL (3.82-4.97); Red Cell Distribution Width 16.4 % (11.5-14.5); Segmented Neutrophils % 81.5 %
[2016-11-04 04:39] LABS: ABG Base Excess -1.5 mEq/L (-2.0 to 3.0); ABG HCO3 23.7 mEQ/L (21-27); ABG Oxygen Saturation 92 % (95-98); ABG PCO2 41 mmHg (35-45); ABG PH 7.37 pH Units (7.32-7.45); ABG PO2 67 mmHg (85-104); Blood Gas FiO2 30 %
[2016-11-04 04:49] LABS: Calcium 7.9 mg/dL (8.6-10.8); Potassium 5.1 mEq/L (3.5-4.5)
[2016-11-04] MEDS ORDERED: Vancomycin 1,250 MG in D5% in Water 250 ML IVPB ONE (05:00)
[2016-11-04] MEDS ORDERED: Vancomycin 1,250 MG in D5% in Water 250 ML IVPB SCH (05:00)
[2016-11-04] MEDS: Insulin LISPRO 300 UNITS/3 ML VIAL SQ SCH ×5 (05:33→19:25)
[2016-11-04] MEDS: *HR* Heparin 5,000 UNIT/ML VIAL SQ SCH ×2 (05:34→17:29)
--- NOTE | 2016-11-04 06:54 | Pulmonology Progress Note ---
<Herve Mackey - Last Filed: 11/04/16 10:25> Date of Encounter: 11/04/16 Time of Encounter: 06:52 Assessment and Plan (1) Acute respiratory failure with hypoxia Current Visit: Yes Status: Acute 55-year-old female history of COPD, hepatitis c, Hepatitis B, IV drug abuse, upper and lower GI bleed, diastolic CHF, Center with complaint of worsening dyspnea and green productive sputum. Patient had elevated white blood count, tachycardia and tachypnea on presentation. Chest x-ray showed possible pneumonia. Patient was admitted for sepsis, continue current pneumonia and started on Levaquin. Last night patient's dyspnea and cough worsened. Repeat chest x-ray showed new right pleural effusion. With declining respiratory status, she was placed on BiPAP with no improvement in her oxygenation or work of breathing. Therefore decided to intubate the patient. She was transferred to the ICU yesterday. Patient underwent right thoracentesis yesterday. Pleural fluid analysis shows transudative etiology. -Secondary to community acquired pneumonia, and large pleural effusion likey from combination of cirrhosis, hypoambuminemia, and diastolic CHF -lung sounds markedly clear. s/p thoracentesis cxr shows reduction in r. peural effusion. Cytology pending. -Extubated today on 4 L nasal cannula. Transfer to any floor tele. (2) Sepsis Current Visit: Yes Status: Resolved Patient presented with tachypnea, tachycardia, and leukocytosis. Source of infection either respiratory and urine. Patient was initially started on Levaquin for community-acquired pneumonia. Today's Levaquin day 5. Blood cultures preliminary shows no growth. Urine cultures grew Escherichia coli and Streptococcus Viridans. Awaiting sensitivity for Streptococcus viridans. Continue vancomycin day 5 as patient is allergic to penicillins. If strep viridans susceptible to prenicillin will descalate to ceftriaxone. Morning CBC and BMP Initial sputum cultures grew fungal elements which are most likely contamination. Sputum culture was sent again and preliminary shows no growth. Pleural fluid gram stain: gram positive cocci: likely normal justin Pleural fluid culture pending. Patient developed RAMAN with marked increase in serum creatinine. We will d/c vanc and levaquin and start ceftriaxone and give fluids NS 75cc/hr for 24 hours. Qualifiers: Sepsis type: sepsis due to unspecified organism Qualified Code(s): A41.9 - Sepsis, unspecified organism (3) Pleural effusion Current Visit: Yes Status: Acute Patient has developed a significant right pleural effusion. She has a history of diastolic heart failure, pulmonary hypertension, last echocardiogram completed and 11/27 showed left ventricular ejection fraction of 65% with moderately severely dilated right ventricle and moderate right ventricle hypokinesis, and severe pulmonary hypertension. may be 2nd to acute on chronic diasltoic heart failure, cirrhosis, cancer (hx of tobacco abuse), pneumonia. s/p right thoracentesis: translative etiology -Was likely secondary to combination of cirrhosis, diastolic congestive heart failure, hypoalbuminemia (4) UTI (urinary tract infection) Current Visit: Yes Status: Acute Blood culture positive for E coli and Strep Viridans Culture is a send out for S Viridans, should have results by 11/04 or 11/05 Plan: -d/c vanc and levaquin and start ceftriaxone. Qualifiers: Urinary tract infection type: acute cystitis Hematuria presence: without hematuria Qualified Code(s): N30.00 - Acute cystitis without hematuria (5) Type 2 diabetes mellitus Current Visit: Yes Status: Chronic uncontrolled. HgA1c 10.2 will continue moderate SSI Q4h. Can transition to previous insulin regimen once patient is on diet. Swallow evaluation pending. BMP Qualifiers: Diabetes mellitus complication status: with circulatory complication Diabetes mellitus complication detail: with peripheral angiopathy without gangrene Diabetes mellitus channel rebuilder insulin use: with channel rebuilder use Qualified Code(s): E11.51 - Type 2 diabetes mellitus with diabetic peripheral angiopathy without gangrene; Z79.4 - longterm (current) use of insulin (6) Anemia Current Visit: No Status: Acute Patient has chronic microcytic anemia. Secondary to iron deficiency and History of chronic upper GI bleed Her platelets are greater than 100. Hemoglobin stable Monitor with CBC. Qualifiers: Anemia type: unspecified type Qualified Code(s): D64.9 - Anemia, unspecified (7) CHF (congestive heart failure) Current Visit: No Status: Chronic hx of diastolic CHF. Possible cause of r. pleural effusion but less likely since effusion is unilateral last echocardiogram completed and 11/27 showed left ventricular ejection fraction of 65% with moderately severely dilated right ventricle and moderate right ventricle hypokinesis, and severe pulmonary hypertension. on furosimide at home. d/c lasix: Scr went up. strict I/O d/c tafoya. Qualifiers: Congestive heart failure type: diastolic Congestive heart failure chronicity: chronic Qualified Code(s): I50.32 - Chronic diastolic (congestive ) heart failure (8) Hepatitis B Current Visit: Yes Status: Chronic hx of hepatitis B. AST and ALT WNL. Hx of IVD abuse. 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 last EGD shows esophageal varacies. Not on any out patient treatment patient will need to follow up outpatient with epic director Qualifiers: Viral hepatitis chronicity: chronic Hepatic coma status: without hepatic coma Hepatitis delta agent presence: without delta-agent Qualified Code(s): B18.1 - Chronic viral hepatitis B without delta-agent (9) Hepatitis C Current Visit: Yes Status: Chronic hx of hepatitis C. AST and ALT WNL. Hx of IVD abuse. 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 last EGD shows esophageal varacies. Not on any out patient treatment patient will need to follow up outpatient with epic director Qualifiers: Viral hepatitis chronicity: chronic Hepatic coma status: without hepatic coma Qualified Code(s): B18.2 - Chronic viral hepatitis C (10) Goals of care, counseling/discussion Current Visit: Yes Status: Acute Sister visited patient yesterday. volunteer services supervisor on board for possible placement. (11) DVT prophylaxis Current Visit: Yes Status: Acute Heparin SQ Subjective Principal diagnosis: ARF Interval history: Patient undergoing CPAP. Awake and alert following commands. No problems overnight. Objective PUL Vital signs: Last Vital Signs Temp 98.3 F 11/04/16 04:00 Pulse 75 11/04/16 06:00 Resp 19 11/04/16 06:00 BP 99/63 11/04/16 06:00 Pulse Ox 19 L 11/04/16 06:00 General appearance: no acute distress, alert Eyes: nonicteric Effort: mildly labored Auscultation: bilateral: clear Cardiovascular: regular rate and rhythm Gastrointestinal: normoactive bowel sounds, soft, non-tender, non-distended Integumentary: other (Multiple track lyons on upper and lower extremities) Extremities: no cyanosis, no edema, no clubbing unable to assess due to mental status Ventilator Settings Ventilator Settings: Ventilator Settings, Last 8 Hours Ventilator Mode VC+ Ventilator Mode VC+ Ventilator Mode VC+ Ventilator Mode VC+ Ventilator Mode VC+ Ventilator Mode VC+ Ventilator Mode VC+ Ventilator Mode VC+ Ventilator Mode VC+ Ventilator Mode VC+ Ventilator Mode VC+ Ventilator Tidal Volume 450 Setting Ventilator Tidal Volume 450 Setting Ventilator Tidal Volume 450 Setting Ventilator Tidal Volume 450 Setting Ventilator Tidal Volume 450 Setting Ventilator Tidal Volume 450 Setting Ventilator Tidal Volume 450 Setting Ventilator Tidal Volume 450 Setting Ventilator Tidal Volume 450 Setting Ventilator Tidal Volume 450 Setting Ventilator Tidal Volume 450 Setting Ventilator Respiratory Rate 16 Setting Ventilator Respiratory Rate 16 Setting Ventilator Respiratory Rate 16 Setting Ventilator Respiratory Rate 16 Setting Ventilator Respiratory Rate 16 Setting Ventilator Respiratory Rate 16 Setting Ventilator Respiratory Rate 16 Setting Ventilator Respiratory Rate 16 Setting Ventilator Respiratory Rate 16 Setting Ventilator Respiratory Rate 16 Setting Ventilator Respiratory Rate 16 Setting Actual Respiratory Rate 19 Actual Respiratory Rate 19 Actual Respiratory Rate 19 Actual Respiratory Rate 19 Actual Respiratory Rate 16 Actual Respiratory Rate 16 Actual Respiratory Rate 16 Actual Respiratory Rate 18 Actual Respiratory Rate 21 Actual Respiratory Rate 16 Positive End Expiratory 5 Pressure Positive End Expiratory 5 Pressure Positive End Expiratory 5 Pressure Positive End Expiratory 5 Pressure Positive End Expiratory 5 Pressure Positive End Expiratory 5 Pressure Positive End Expiratory 5 Pressure Positive End Expiratory 5 Pressure Positive End Expiratory 5 Pressure Positive End Expiratory 5 Pressure Positive End Expiratory 5 Pressure Peak Inspiratory Airway 11 Pressure Peak Inspiratory Airway 11 Pressure Peak Inspiratory Airway 11 Pressure Peak Inspiratory Airway 11 Pressure Peak Inspiratory Airway 21 Pressure Peak Inspiratory Airway 21 Pressure Peak Inspiratory Airway 21 Pressure Peak Inspiratory Airway 21 Pressure Peak Inspiratory Airway 12 Pressure Peak Inspiratory Airway 12 Pressure Results - Laboratory Findings CBC and BMP: 11/04/16 04:00 11/04/16 04:00 ABG ABG pH 7.37 pH Units (7.32-7.45) 11/04/16 04:29 ABG pCO2 41 mmHg (35-45) 11/04/16 04:29 ABG pO2 67 mmHg (85-104) L 11/04/16 04:29 ABG O2 Saturation 92 % (95-98) L 11/04/16 04:29 PT/INR, D-dimer PT 15.6 Seconds (9.4-12.1) H 11/02/16 20:57 Abnormal lab findings: Abnormal lab results WBC 16.6 K/mcL (4.3-11.1) H 11/04/16 04:00 RBC 2.96 M/mcL (3.82-4.97) L 11/04/16 04:00 Hgb 7.7 g/dL (11.5-15.4) L 11/04/16 04:00 Hct 24.5 % (35.3-44.9) L 11/04/16 04:00 MCV 82.8 fL (83.0-100.0) L 11/04/16 04:00 MCH 26.0 pg (28.0-33.3) L 11/04/16 04:00 MCHC 31.4 g/dL (31.6-35.5) L 11/04/16 04:00 RDW 16.4 % (11.5-14.5) H 11/04/16 04:00 Neutrophils # 13.5 K/mcL (1.6-8.9) H 11/04/16 04:00 Nucleated RBCs/100 WBC 0.4 /100 WBC (0) H 11/04/16 04:00 Platelet Estimate Slight Decrease (Normal) L 11/03/16 03:20 Large Platelets Present (Not Present) A 11/01/16 08:45 Immature Plt Fraction 14.8 % (1.1-6.1) H 11/03/16 03:20 Polychromasia 2+ (Not Present) A 11/03/16 03:20 Hypochromasia Present (Not Present) A 11/03/16 03:20 Poikilocytosis 1+ (Not Present) A 10/30/16 17:10 Anisocytosis 1+ (Not Present) A 11/03/16 03:20 Tear Drop Cells 1+ (Not Present) A 11/03/16 03:20 PT 15.6 Seconds (9.4-12.1) H 11/02/16 20:57 APTT 24.4 Seconds (26.0-36.0) L 11/02/16 20:57 ABG pO2 67 mmHg (85-104) L 11/04/16 04:29 ABG O2 Saturation 92 % (95-98) L 11/04/16 04:29 Sodium 128 mEq/L (136-145) L 11/04/16 04:00 Potassium 5.1 mEq/L (3.5-4.5) H 11/04/16 04:00 BUN 35 mg/dL (7-20) H D 11/04/16 04:00 Creatinine 1.30 mg/dL (0.57-1.11) H D 11/04/16 04:00 Est GFR ( Amer) 52 (> 60) L 11/04/16 04:00 Est GFR (Non-Af Amer) 43 (> 60) L 11/04/16 04:00 BUN/Creatinine Ratio 27 (6-26) H 11/04/16 04:00 Glucose 117 mg/dL (70-99) H 11/04/16 04:00 POC Glucose 111 (58-89) H 11/03/16 23:31 Hemoglobin A1c 10.9 % (-5.6) H 10/31/16 08:57 Calculated Osmolality 275 (280-300) L 11/04/16 04:00 Calcium 7.9 mg/dL (8.6-10.8) L 11/04/16 04:00 B-Natriuretic Peptide 225 pg/mL (0-100) H 10/30/16 17:10 Serum Total Protein 5.8 g/dL (6.0-8.3) L 11/03/16 03:20 Albumin 1.9 g/dL (3.5-5.0) L 11/03/16 03:20 Globulin 3.9 g/dL (2.4-3.5) H 11/03/16 03:20 Albumin/Globulin Ratio 0.5 (1.1-2.2) L 11/03/16 03:20 Urine Glucose (UA) >=1000 mg/dL (Normal) H 10/30/16 17:42 Urine Ketones Trace mg/dL (Negative) H 10/30/16 17:42 Ur Leukocyte Esterase Trace (Negative) H 10/30/16 17:42 Urine Microscopic WBC 3-5 per hpf (0-3) H 10/30/16 17:42 Ur Squamous Epith Cells Many per lpf (None-Few) H 10/30/16 17:42 Urine Yeast Few per hpf (None Seen) H 10/30/16 17:42 Ur Culture Indicated? YES (NO) A 10/30/16 17:42 Pleural Appearance Hazy (Clear) A 11/03/16 14:05 Vancomycin Trough 22.7 mcg/mL (10-20) H* 11/03/16 15:20 Urine Opiates Screen Positive ng/mL (Cfegft=444) H 10/31/16 02:04 - Microbiology Findings Microbiology Findings: Microbiology, Last 48 Hours 11/03/16 03:10 Sputum Culture - Preliminary Sputum 11/03/16 14:05 Gram Stain - Final Pleural Fluid 10/31/16 Unknown Sputum Culture - Preliminary Sputum Fungal Elements - Clinical Findings Intake & Output: Intake & Output 11/03/16 11/03/16 11/04/16 15:59 23:59 07:59 Intake Total 244 / 244 156 / 156 100 / 100 Output Total 1750 / 1750 100 / 100 150 / 150 Balance -1506 / -1506 56 / 56 -50 / -50 Weight 74.8 kg - VTE Documentation of Mechanical Device: Intermittent pneumatic compression device Consult Discharge Plan - Plan Referrals: NO,PCP [Primary Care Provider] - <Mahin Keenan - Last Filed: 11/04/16 16:18> Objective PUL Vital signs: Last Vital Signs Temp 98.7 F 11/04/16 08:30 Pulse 76 11/04/16 15:00 Resp 16 11/04/16 16:01 BP 117/61 11/04/16 15:00 Pulse Ox 99 11/04/16 16:01 Results - Laboratory Findings CBC and BMP: 11/04/16 04:00 11/04/16 04:00 ABG ABG pH 7.37 pH Units (7.32-7.45) 11/04/16 04:29 ABG pCO2 41 mmHg (35-45) 11/04/16 04:29 ABG pO2 67 mmHg (85-104) L 11/04/16 04:29 ABG O2 Saturation 92 % (95-98) L 11/04/16 04:29 PT/INR, D-dimer PT 15.6 Seconds (9.4-12.1) H 11/02/16 20:57 Abnormal lab findings: Abnormal lab results WBC 16.6 K/mcL (4.3-11.1) H 11/04/16 04:00 RBC 2.96 M/mcL (3.82-4.97) L 11/04/16 04:00 Hgb 7.7 g/dL (11.5-15.4) L 11/04/16 04:00 Hct 24.5 % (35.3-44.9) L 11/04/16 04:00 MCV 82.8 fL (83.0-100.0) L 11/04/16 04:00 MCH 26.0 pg (28.0-33.3) L 11/04/16 04:00 MCHC 31.4 g/dL (31.6-35.5) L 11/04/16 04:00 RDW 16.4 % (11.5-14.5) H 11/04/16 04:00 Neutrophils # 13.5 K/mcL (1.6-8.9) H 11/04/16 04:00 Nucleated RBCs/100 WBC 0.4 /100 WBC (0) H 11/04/16 04:00 Platelet Estimate Slight Decrease (Normal) L 11/03/16 03:20 Large Platelets Present (Not Present) A 11/01/16 08:45 Immature Plt Fraction 14.8 % (1.1-6.1) H 11/03/16 03:20 Polychromasia 2+ (Not Present) A 11/03/16 03:20 Hypochromasia Present (Not Present) A 11/03/16 03:20 Poikilocytosis 1+ (Not Present) A 10/30/16 17:10 Anisocytosis 1+ (Not Present) A 11/03/16 03:20 Tear Drop Cells 1+ (Not Present) A 11/03/16 03:20 PT 15.6 Seconds (9.4-12.1) H 11/02/16 20:57 APTT 24.4 Seconds (26.0-36.0) L 11/02/16 20:57 ABG pO2 67 mmHg (85-104) L 11/04/16 04:29 ABG O2 Saturation 92 % (95-98) L 11/04/16 04:29 Sodium 128 mEq/L (136-145) L 11/04/16 04:00 Potassium 5.1 mEq/L (3.5-4.5) H 11/04/16 04:00 BUN 35 mg/dL (7-20) H D 11/04/16 04:00 Creatinine 1.30 mg/dL (0.57-1.11) H D 11/04/16 04:00 Est GFR ( Amer) 52 (> 60) L 11/04/16 04:00 Est GFR (Non-Af Amer) 43 (> 60) L 11/04/16 04:00 BUN/Creatinine Ratio 27 (6-26) H 11/04/16 04:00 Glucose 117 mg/dL (70-99) H 11/04/16 04:00 POC Glucose 144 (58-89) H 11/04/16 11:42 Hemoglobin A1c 10.9 % (-5.6) H 10/31/16 08:57 Calculated Osmolality 275 (280-300) L 11/04/16 04:00 Calcium 7.9 mg/dL (8.6-10.8) L 11/04/16 04:00 B-Natriuretic Peptide 225 pg/mL (0-100) H 10/30/16 17:10 Serum Total Protein 5.8 g/dL (6.0-8.3) L 11/03/16 03:20 Albumin 1.9 g/dL (3.5-5.0) L 11/03/16 03:20 Globulin 3.9 g/dL (2.4-3.5) H 11/03/16 03:20 Albumin/Globulin Ratio 0.5 (1.1-2.2) L 11/03/16 03:20 Urine Glucose (UA) >=1000 mg/dL (Normal) H 10/30/16 17:42 Urine Ketones Trace mg/dL (Negative) H 10/30/16 17:42 Ur Leukocyte Esterase Trace (Negative) H 10/30/16 17:42 Urine Microscopic WBC 3-5 per hpf (0-3) H 10/30/16 17:42 Ur Squamous Epith Cells Many per lpf (None-Few) H 10/30/16 17:42 Urine Yeast Few per hpf (None Seen) H 10/30/16 17:42 Ur Culture Indicated? YES (NO) A 10/30/16 17:42 Pleural Appearance Hazy (Clear) A 11/03/16 14:05 Vancomycin Trough 22.7 mcg/mL (10-20) H* 11/03/16 15:20 Urine Opiates Screen Positive ng/mL ([id number]=[id number]) H 10/31/16 02:04 - Microbiology Findings Microbiology Findings: Microbiology, Last 48 Hours 11/03/16 14:05 Body Fluid Culture - Preliminary Pleural Fluid 11/03/16 03:10 Sputum Culture - Preliminary Sputum 11/03/16 14:05 Gram Stain - Final Pleural Fluid - Clinical Findings Intake & Output: Intake & Output 11/04/16 11/04/16 11/04/16 07:59 15:59 23:59 Intake Total 610 / 610 50 / 50 Output Total 150 / 150 250 / 250 Balance 460 / 460 -200 / -200 Weight 74.8 kg - Attending Attestation I examined this patient and my medical decision-making was reviewed with the STRAP FOLDING MACHINE OPERATOR/PA/Advanced Practice Nurse/Resident Physician. I agree with the documented findings, disposition and treatment plan as described except to the extent set forth below. Patient seen and examined. Labs, radiology, chart personally reviewed. Agree with resident's history and physical, assessment, plan with following comments: ADMITTING CLERK: Patient follows commands, Pulmonary: Acceptable oxygenation and ventilation and patient extubated successfully Cardiovascular: stable GI: Nutrition per dietary and GI prophylaxis per routine Heme: DVT prophylaxis per routine ID: Continue antibiotics and plan to de-escalation Renal; urine out put and renal funtion reviewed Endorcine: blood glucose is monitored Lines: all lines checked and no evidence of infections Skin: skin care to prevent pressure ulcers per nursing routine care Patient can be transferred to the floor.
[2016-11-04] MEDS ORDERED: Levofloxacin 750 MG/150 ML 750 MG/150 ML BAG IVPB SCH (09:00)
[2016-11-04] MEDS ORDERED: 0.9 % Sodium Chloride 1,000 ML IVC SCH (09:00)
[2016-11-04] MEDS: Pantoprazole 40 MG VIAL IVPB SCH (09:16)
[2016-11-04] MEDS ORDERED: Albuterol Neb 1.25 MG/3 ML VIAL IH PRN (19:01)
[2016-11-04] MEDS ORDERED: D5% in Water 1,000 ML IV PRN (19:01)
[2016-11-04] MEDS ORDERED: Ondansetron 4 MG/2 ML VIAL IVP PRN (19:01)
[2016-11-04] MEDS ORDERED: *HR* Dextrose 50 % in Water (Syg) 50 ML SYRINGE IVP PRN (19:01)
[2016-11-04] MEDS ORDERED: Dextrose Gel 15 GM PO PRN ×2 (19:01)
[2016-11-04] MEDS ORDERED: Naloxone 0.4 MG/ML INJ IVP PRN (19:01)
[2016-11-04] MEDS: 0.9 % Sodium Chloride 1,000 ML IVC SCH (23:52)
[2016-11-05] MEDS: Ipratropium/Albuterol Neb 3 ML IH SCH ×6 (00:28→21:19)
[2016-11-05] MEDS ORDERED: Vancomycin 1,250 MG in D5% in Water 250 ML IVPB SCH (05:00)
[2016-11-05] MEDS: Insulin LISPRO 300 UNITS/3 ML VIAL SQ SCH ×8 (05:27→21:36)
[2016-11-05] MEDS: *HR* Heparin 5,000 UNIT/ML VIAL SQ SCH ×2 (05:35→17:51)
[2016-11-05] MEDS: Pantoprazole 40 MG VIAL IVPB SCH (07:30)
--- NOTE | 2016-11-05 08:00 | Pulmonology Progress Note ---
<Herev Mackey - Last Filed: 11/05/16 09:01> Date of Encounter: 11/05/16 Time of Encounter: 07:57 Assessment and Plan (1) Acute respiratory failure with hypoxia Current Visit: Yes Status: Resolved 55-year-old female history of COPD, hepatitis c, Hepatitis B, IV drug abuse, upper and lower GI bleed, diastolic CHF, Center with complaint of worsening dyspnea and green productive sputum. Patient had elevated white blood count, tachycardia and tachypnea on presentation. Chest x-ray showed possible pneumonia. Patient was admitted for sepsis, continue current pneumonia and started on Levaquin. Last night patient's dyspnea and cough worsened. Repeat chest x-ray showed new right pleural effusion. With declining respiratory status, she was placed on BiPAP with no improvement in her oxygenation or work of breathing. Therefore decided to intubate the patient. She was transferred to the ICU yesterday. Patient underwent right thoracentesis yesterday. Pleural fluid analysis shows transudative etiology. -Secondary to community acquired pneumonia, and large pleural effusion likey from combination of cirrhosis, hypoambuminemia, and diastolic CHF -lung sounds markedly clear. s/p thoracentesis cxr shows reduction in r. peural effusion. Cytology pending. -Extubated today on 4 L nasal cannula. Transfer to any floor tele. -patient has right IJ for blood draw. She has poor IV access due to IV durg use. She is right powerglide that does not draw. (2) Sepsis Current Visit: Yes Status: Resolved Patient presented with tachypnea, tachycardia, and leukocytosis. Source of infection either respiratory and urine. Patient was initially started on Levaquin for community-acquired pneumonia. Today's Levaquin day 5. Blood cultures preliminary shows no growth. Urine cultures grew Escherichia coli and Streptococcus Viridans. Continue ceftriaxone day 2 She has already received four days of Levaquin and vancomycin. Morning CBC and BMP Initial sputum cultures grew fungal elements which are most likely contamination. Sputum culture was sent again and preliminary shows no growth. Pleural fluid gram stain: gram positive cocci: likely normal justin Pleural fluid culture negative prelimanarily Qualifiers: Sepsis type: sepsis due to unspecified organism Qualified Code(s): A41.9 - Sepsis, unspecified organism (3) Pleural effusion Current Visit: Yes Status: Acute Patient has developed a significant right pleural effusion. She has a history of diastolic heart failure, pulmonary hypertension, last echocardiogram completed and 11/27 showed left ventricular ejection fraction of 65% with moderately severely dilated right ventricle and moderate right ventricle hypokinesis, and severe pulmonary hypertension. may be 2nd to acute on chronic diasltoic heart failure, cirrhosis, cancer (hx of tobacco abuse), pneumonia. s/p right thoracentesis: translative etiology -Was likely secondary to combination of cirrhosis, diastolic congestive heart failure, hypoalbuminemia (4) UTI (urinary tract infection) Current Visit: Yes Status: Acute Blood culture positive for E coli and Strep Viridans Culture is a send out for S Viridans, should have results by 11/04 or 11/05 Plan: -continue ceftriaxone day 2. Qualifiers: Urinary tract infection type: acute cystitis Hematuria presence: without hematuria Qualified Code(s): N30.00 - Acute cystitis without hematuria (5) Type 2 diabetes mellitus Current Visit: Yes Status: Chronic uncontrolled. HgA1c 10.2 purred diet. Starting ACHS accuchekcs basal and prprandial insulin. Qualifiers: Diabetes mellitus complication status: with circulatory complication Diabetes mellitus complication detail: with peripheral angiopathy without gangrene Diabetes mellitus alf insulin use: with bed bug exterminator use Qualified Code(s): E11.51 - Type 2 diabetes mellitus with diabetic peripheral angiopathy without gangrene; Z79.4 - USP (current) use of insulin (6) Anemia Current Visit: No Status: Acute Patient has chronic microcytic anemia. Secondary to iron deficiency and History of chronic upper GI bleed Her platelets are greater than 100. Hemoglobin stable Monitor with CBC. Qualifiers: Anemia type: unspecified type Qualified Code(s): D64.9 - Anemia, unspecified (7) CHF (congestive heart failure) Current Visit: No Status: Chronic hx of diastolic CHF. Possible cause of r. pleural effusion but less likely since effusion is unilateral last echocardiogram completed and 11/27 showed left ventricular ejection fraction of 65% with moderately severely dilated right ventricle and moderate right ventricle hypokinesis, and severe pulmonary hypertension. on furosimide at home. d/c lasix: Scr went up. strict I/O d/c tafoya. Qualifiers: Congestive heart failure type: diastolic Congestive heart failure chronicity: chronic Qualified Code(s): I50.32 - Chronic diastolic (congestive ) heart failure (8) Hepatitis B Current Visit: Yes Status: Chronic hx of hepatitis B. AST and ALT WNL. Hx of IVD abuse. 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 last EGD shows esophageal varacies. Not on any out patient treatment patient will need to follow up outpatient with assistant child care teacher Qualifiers: Viral hepatitis chronicity: chronic Hepatic coma status: without hepatic coma Hepatitis delta agent presence: without delta-agent Qualified Code(s): B18.1 - Chronic viral hepatitis B without delta-agent (9) Hepatitis C Current Visit: Yes Status: Chronic hx of hepatitis C. AST and ALT WNL. Hx of IVD abuse. 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 last EGD shows esophageal varacies. Not on any out patient treatment patient will need to follow up outpatient with assistant child care teacher Qualifiers: Viral hepatitis chronicity: chronic Hepatic coma status: without hepatic coma Qualified Code(s): B18.2 - Chronic viral hepatitis C (10) Goals of care, counseling/discussion Current Visit: Yes Status: Acute Sister visited patient yesterday. conference services coordinator on board for possible placement. (11) DVT prophylaxis Current Visit: Yes Status: Acute Heparin SQ Subjective Principal diagnosis: ARF Interval history: No overnight problems. Transfer to any tele unit. Objective PUL Vital signs: Last Vital Signs Temp 99.0 F 11/05/16 07:53 Pulse 82 11/05/16 06:00 Resp 22 11/05/16 07:35 BP 126/76 11/04/16 21:00 Pulse Ox 97 11/05/16 07:35 General appearance: no acute distress Eyes: nonicteric ENT: oropharynx moist Neck: supple Effort: normal Auscultation: bilateral: clear Percussion: bilateral: not dull Tactile fremitus: bilateral: normal Cardiovascular: regular rate and rhythm Gastrointestinal: normoactive bowel sounds, soft, non-tender, non-distended Integumentary: other (multiple track lyons on all extremities ) Extremities: no cyanosis, no edema, no clubbing Musculoskeletal: no deformities, ROM normal normal mental status, non-focal exam mood appropriate, anxious Results - Laboratory Findings CBC and BMP: 11/04/16 04:00 11/04/16 04:00 ABG ABG pH 7.37 pH Units (7.32-7.45) 11/04/16 04:29 ABG pCO2 41 mmHg (35-45) 11/04/16 04:29 ABG pO2 67 mmHg (85-104) L 11/04/16 04:29 ABG O2 Saturation 92 % (95-98) L 11/04/16 04:29 PT/INR, D-dimer PT 15.6 Seconds (9.4-12.1) H 11/02/16 20:57 Abnormal lab findings: Abnormal lab results WBC 16.6 K/mcL (4.3-11.1) H 11/04/16 04:00 RBC 2.96 M/mcL (3.82-4.97) L 11/04/16 04:00 Hgb 7.7 g/dL (11.5-15.4) L 11/04/16 04:00 Hct 24.5 % (35.3-44.9) L 11/04/16 04:00 MCV 82.8 fL (83.0-100.0) L 11/04/16 04:00 MCH 26.0 pg (28.0-33.3) L 11/04/16 04:00 MCHC 31.4 g/dL (31.6-35.5) L 11/04/16 04:00 RDW 16.4 % (11.5-14.5) H 11/04/16 04:00 Neutrophils # 13.5 K/mcL (1.6-8.9) H 11/04/16 04:00 Nucleated RBCs/100 WBC 0.4 /100 WBC (0) H 11/04/16 04:00 Platelet Estimate Slight Decrease (Normal) L 11/03/16 03:20 Large Platelets Present (Not Present) A 11/01/16 08:45 Immature Plt Fraction 14.8 % (1.1-6.1) H 11/03/16 03:20 Polychromasia 2+ (Not Present) A 11/03/16 03:20 Hypochromasia Present (Not Present) A 11/03/16 03:20 Poikilocytosis 1+ (Not Present) A 10/30/16 17:10 Anisocytosis 1+ (Not Present) A 11/03/16 03:20 Tear Drop Cells 1+ (Not Present) A 11/03/16 03:20 PT 15.6 Seconds (9.4-12.1) H 11/02/16 20:57 APTT 24.4 Seconds (26.0-36.0) L 11/02/16 20:57 ABG pO2 67 mmHg (85-104) L 11/04/16 04:29 ABG O2 Saturation 92 % (95-98) L 11/04/16 04:29 Sodium 128 mEq/L (136-145) L 11/04/16 04:00 Potassium 5.1 mEq/L (3.5-4.5) H 11/04/16 04:00 BUN 35 mg/dL (7-20) H D 11/04/16 04:00 Creatinine 1.30 mg/dL (0.57-1.11) H D 11/04/16 04:00 Est GFR ( Amer) 52 (> 60) L 11/04/16 04:00 Est GFR (Non-Af Amer) 43 (> 60) L 11/04/16 04:00 BUN/Creatinine Ratio 27 (6-26) H 11/04/16 04:00 Glucose 117 mg/dL (70-99) H 11/04/16 04:00 POC Glucose 230 (58-89) H 11/05/16 07:21 Hemoglobin A1c 10.9 % (-5.6) H 10/31/16 08:57 Calculated Osmolality 275 (280-300) L 11/04/16 04:00 Calcium 7.9 mg/dL (8.6-10.8) L 11/04/16 04:00 B-Natriuretic Peptide 225 pg/mL (0-100) H 10/30/16 17:10 Serum Total Protein 5.8 g/dL (6.0-8.3) L 11/03/16 03:20 Albumin 1.9 g/dL (3.5-5.0) L 11/03/16 03:20 Globulin 3.9 g/dL (2.4-3.5) H 11/03/16 03:20 Albumin/Globulin Ratio 0.5 (1.1-2.2) L 11/03/16 03:20 Urine Glucose (UA) >=1000 mg/dL (Normal) H 10/30/16 17:42 Urine Ketones Trace mg/dL (Negative) H 10/30/16 17:42 Ur Leukocyte Esterase Trace (Negative) H 10/30/16 17:42 Urine Microscopic WBC 3-5 per hpf (0-3) H 10/30/16 17:42 Ur Squamous Epith Cells Many per lpf (None-Few) H 10/30/16 17:42 Urine Yeast Few per hpf (None Seen) H 10/30/16 17:42 Ur Culture Indicated? YES (NO) A 10/30/16 17:42 Pleural Appearance Hazy (Clear) A 11/03/16 14:05 Vancomycin Trough 22.7 mcg/mL (10-20) H* 11/03/16 15:20 Urine Opiates Screen Positive ng/mL (Piisek=043) H 10/31/16 02:04 - Microbiology Findings Microbiology Findings: Microbiology, Last 48 Hours 11/03/16 14:05 Body Fluid Culture - Preliminary Pleural Fluid 11/03/16 03:10 Sputum Culture - Preliminary Sputum Yeast Species Fungal Elements 11/03/16 14:05 Gram Stain - Final Pleural Fluid - Clinical Findings Intake & Output: Intake & Output 11/04/16 11/04/16 11/05/16 15:59 23:59 07:59 Intake Total 50 / 50 1150 / 1150 100 / 100 Output Total 250 / 250 700 / 700 375 / 375 Balance -200 / -200 450 / 450 -275 / -275 Weight 73.4 kg - VTE Documentation of Mechanical Device: Intermittent pneumatic compression device Consult Discharge Plan - Plan Referrals: NO,PCP [Primary Care Provider] - <Mahin Keenan - Last Filed: 11/05/16 09:52> Objective PUL Vital signs: Last Vital Signs Temp 99.0 F 11/05/16 07:53 Pulse 90 11/05/16 09:00 Resp 28 11/05/16 09:00 BP 126/76 11/04/16 21:00 Pulse Ox 100 11/05/16 09:00 Results - Laboratory Findings CBC and BMP: 11/05/16 09:23 11/05/16 08:42 ABG ABG pH 7.37 pH Units (7.32-7.45) 11/04/16 04:29 ABG pCO2 41 mmHg (35-45) 11/04/16 04:29 ABG pO2 67 mmHg (85-104) L 11/04/16 04:29 ABG O2 Saturation 92 % (95-98) L 11/04/16 04:29 PT/INR, D-dimer PT 15.6 Seconds (9.4-12.1) H 11/02/16 20:57 Abnormal lab findings: Abnormal lab results RBC 2.67 M/mcL (3.82-4.97) L 11/05/16 09:23 Hgb 6.9 g/dL (11.5-15.4) L 11/05/16 09:23 Hct 22.3 % (35.3-44.9) L 11/05/16 09:23 MCH 25.8 pg (28.0-33.3) L 11/05/16 09:23 MCHC 30.9 g/dL (31.6-35.5) L 11/05/16 09:23 RDW 16.6 % (11.5-14.5) H 11/05/16 09:23 Plt Count 71 K/mcL (140-400) L D 11/05/16 09:23 Neutrophils # 13.5 K/mcL (1.6-8.9) H 11/04/16 04:00 Nucleated RBCs/100 WBC 0.4 /100 WBC (0) H 11/04/16 04:00 Platelet Estimate Slight Decrease (Normal) L 11/03/16 03:20 Large Platelets Present (Not Present) A 11/01/16 08:45 Immature Plt Fraction 6.5 % (1.1-6.1) H 11/05/16 09:23 Polychromasia 2+ (Not Present) A 11/03/16 03:20 Hypochromasia Present (Not Present) A 11/03/16 03:20 Poikilocytosis 1+ (Not Present) A 10/30/16 17:10 Anisocytosis 1+ (Not Present) A 11/03/16 03:20 Tear Drop Cells 1+ (Not Present) A 11/03/16 03:20 PT 15.6 Seconds (9.4-12.1) H 11/02/16 20:57 APTT 24.4 Seconds (26.0-36.0) L 11/02/16 20:57 ABG pO2 67 mmHg (85-104) L 11/04/16 04:29 ABG O2 Saturation 92 % (95-98) L 11/04/16 04:29 Sodium 133 mEq/L (136-145) L 11/05/16 08:42 BUN 23 mg/dL (7-20) H D 11/05/16 08:42 Glucose 177 mg/dL (70-99) H 11/05/16 08:42 POC Glucose 230 (58-89) H 11/05/16 07:21 Hemoglobin A1c 10.9 % (-5.6) H 10/31/16 08:57 Calcium 7.6 mg/dL (8.6-10.8) L 11/05/16 08:42 B-Natriuretic Peptide 225 pg/mL (0-100) H 10/30/16 17:10 Serum Total Protein 5.8 g/dL (6.0-8.3) L 11/03/16 03:20 Albumin 1.9 g/dL (3.5-5.0) L 11/03/16 03:20 Globulin 3.9 g/dL (2.4-3.5) H 11/03/16 03:20 Albumin/Globulin Ratio 0.5 (1.1-2.2) L 11/03/16 03:20 Urine Glucose (UA) >=1000 mg/dL (Normal) H 10/30/16 17:42 Urine Ketones Trace mg/dL (Negative) H 10/30/16 17:42 Ur Leukocyte Esterase Trace (Negative) H 10/30/16 17:42 Urine Microscopic WBC 3-5 per hpf (0-3) H 10/30/16 17:42 Ur Squamous Epith Cells Many per lpf (None-Few) H 10/30/16 17:42 Urine Yeast Few per hpf (None Seen) H 10/30/16 17:42 Ur Culture Indicated? YES (NO) A 10/30/16 17:42 Pleural Appearance Hazy (Clear) A 11/03/16 14:05 Vancomycin Trough 22.7 mcg/mL (10-20) H* 11/03/16 15:20 Urine Opiates Screen Positive ng/mL (Tiwihe=274) H 10/31/16 02:04 - Microbiology Findings Microbiology Findings: Microbiology, Last 48 Hours 11/03/16 14:05 Body Fluid Culture - Preliminary Pleural Fluid 11/03/16 03:10 Sputum Culture - Preliminary Sputum Yeast Species Fungal Elements 11/03/16 14:05 Gram Stain - Final Pleural Fluid - Clinical Findings Intake & Output: Intake & Output 11/04/16 11/05/16 11/05/16 23:59 07:59 15:59 Intake Total 1150 / 1150 100 / 100 600 / 600 Output Total 700 / 700 375 / 375 Balance 450 / 450 -275 / -275 600 / 600 Weight 73.4 kg - Attending Attestation I examined this patient and my medical decision-making was reviewed with the SAFETY TECHNICIAN/PA/Advanced Practice Nurse/Resident Physician. I agree with the documented findings, disposition and treatment plan as described except to the extent set forth below. Patient seen and examined. Labs, radiology, chart personally reviewed. 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
[2016-11-05 09:04] LABS: BUN/Creatinine Ratio 26 (6-26); Calcium 7.6 mg/dL (8.6-10.8); Carbon Dioxide 22 mEq/L (19-29); Chloride 105 mEq/L (98-109); Glucose 177 mg/dL (70-99); Osmolality,Calculated 284 (280-300); Sodium 133 mEq/L (136-145); eGFR For African Americans > 60 (> 60); eGFR For Non-African Americans > 60 (> 60)
[2016-11-05 09:06] LABS: Blood Urea Nitrogen 23 mg/dL (7-20); Potassium 3.7 mEq/L (3.5-4.5)
[2016-11-05 09:33] LABS: Eosinophils % 0.1 %; Hematocrit 22.3 % (35.3-44.9); Hemoglobin 6.9 g/dL (11.5-15.4); Immature Granulocytes % 0.6 % (0-4); Immature Platelets 6.5 % (1.1-6.1); Lymphocytes # 0.8 K/mcL (0.6-4.6); Lymphocytes % 11.5 %; Mean Corpuscular HGB Conc 30.9 g/dL (31.6-35.5); Mean Corpuscular Hemoglobin 25.8 pg (28.0-33.3); Mean Corpuscular Volume 83.5 fL (83.0-100.0); Mean Platelet Volume 10.3 fL (9.4-12.4); Monocytes # 0.4 K/mcL (0.0-1.3); Monocytes % 5.2 %; Neutrophils # 5.7 K/mcL (1.6-8.9); Red Blood Count 2.67 M/mcL (3.82-4.97); Red Cell Distribution Width 16.6 % (11.5-14.5); Segmented Neutrophils % 82.6 %
[2016-11-05 09:36] LABS: Platelet Count 71 K/mcL (140-400)
[2016-11-05] MEDS: 0.9 % Sodium Chloride 1,000 ML IVC SCH (09:50)
[2016-11-05 10:15] LABS: Anisocytosis 1+ (Not Present); Microcytosis Present (Not Present); Platelet Estimate Decreased (Normal)
[2016-11-05 10:16] LABS: Hypochromasia Present (Not Present); Macrocytosis Present (Not Present); Polychromasia 1+ (Not Present)
[2016-11-05] MEDS: *HR* LORazepam 2 MG/ML VIAL IVP PRN (15:49)
[2016-11-05 17:00] LABS: ABG HCO3 24.4 mEQ/L (21-27); ABG Oxygen Saturation 90 % (95-98); ABG PCO2 32 mmHg (35-45); ABG PH 7.49 pH Units (7.32-7.45); ABG PO2 53 mmHg (85-104); ABG TCO2 25.4 mEq/L (20-26)
[2016-11-05 17:01] LABS: Blood Gas FiO2 21 %
[2016-11-05] MEDS: Insulin DETEMIR 100 UNIT/ML X5UNITS SQ SCH (21:36)
[2016-11-06] MEDS: Ipratropium/Albuterol Neb 3 ML IH SCH ×6 (00:44→20:34)
[2016-11-06 04:06] LABS: Hemoglobin 6.3 g/dL (11.5-15.4); Mean Corpuscular Volume 83.1 fL (83.0-100.0); Red Cell Distribution Width 16.6 % (11.5-14.5)
[2016-11-06 04:07] LABS: Eosinophils % 0.8 %; Hematocrit 20.2 % (35.3-44.9); Immature Granulocytes % 0.8 % (0-4); Immature Platelets 6.1 % (1.1-6.1); Lymphocytes % 19.5 %; Mean Corpuscular HGB Conc 31.2 g/dL (31.6-35.5); Mean Corpuscular Hemoglobin 25.9 pg (28.0-33.3); Mean Platelet Volume 10.8 fL (9.4-12.4); Monocytes # 0.3 K/mcL (0.0-1.3); Neutrophils # 3.8 K/mcL (1.6-8.9); Red Blood Count 2.43 M/mcL (3.82-4.97); Segmented Neutrophils % 72.9 %
[2016-11-06 04:16] LABS: BUN/Creatinine Ratio 20 (6-26); Blood Urea Nitrogen 15 mg/dL (7-20); Calcium 7.8 mg/dL (8.6-10.8); Carbon Dioxide 22 mEq/L (19-29); Chloride 105 mEq/L (98-109); Glucose 100 mg/dL (70-99); Osmolality,Calculated 277 (280-300); Potassium 3.4 mEq/L (3.5-4.5); Sodium 133 mEq/L (136-145); eGFR For African Americans > 60 (> 60); eGFR For Non-African Americans > 60 (> 60)
[2016-11-06 04:23] LABS: Platelet Count 58 K/mcL (140-400)
[2016-11-06 04:24] LABS: Anisocytosis 1+ (Not Present); Platelet Estimate Decreased (Normal); Polychromasia 2+ (Not Present)
[2016-11-06] MEDS: *HR* Heparin 5,000 UNIT/ML VIAL SQ SCH (05:29)
[2016-11-06] MEDS: Insulin LISPRO 300 UNITS/3 ML VIAL SQ SCH ×7 (07:58→20:40)
[2016-11-06] MEDS: Pantoprazole 40 MG VIAL IVPB SCH (07:59)
--- NOTE | 2016-11-06 10:10 | Pulmonology Progress Note ---
<Herve Mackey - Last Filed: 11/06/16 11:24> Date of Encounter: 11/06/16 Time of Encounter: 10:09 Assessment and Plan (1) Acute respiratory failure with hypoxia Current Visit: Yes Status: Resolved 55-year-old female history of COPD, hepatitis c, Hepatitis B, IV drug abuse, upper and lower GI bleed, diastolic CHF, Center with complaint of worsening dyspnea and green productive sputum. Patient had elevated white blood count, tachycardia and tachypnea on presentation. Chest x-ray showed possible pneumonia. Patient was admitted for sepsis, continue current pneumonia and started on Levaquin. Last night patient's dyspnea and cough worsened. Repeat chest x-ray showed new right pleural effusion. With declining respiratory status, she was placed on BiPAP with no improvement in her oxygenation or work of breathing. Therefore decided to intubate the patient. She was transferred to the ICU yesterday. Patient underwent right thoracentesis yesterday. Pleural fluid analysis shows transudative etiology. -Secondary to community acquired pneumonia, and large pleural effusion likey from combination of cirrhosis, hypoambuminemia, and diastolic CHF -lung sounds markedly clear. s/p thoracentesis cxr shows reduction in r. peural effusion. Cytology pending. -Extubated today on 2 L nasal cannula. -patient has right IJ for blood draw. She has poor IV access due to IV durg use. She is right powerglide that does not draw. Patient became tacypnic yesterday afternoon. CXR showed interval improvement in large right pleural effusion compared to previous. ABG showed evidence of respiratory alkalosis likely from prolonged tachypnea. We will continue to monitor: continue scheduled dounebs. (2) Sepsis Current Visit: Yes Status: Resolved Patient presented with tachypnea, tachycardia, and leukocytosis. Source of infection either respiratory and urine. Patient was initially started on Levaquin for community-acquired pneumonia. Blood cultures preliminary shows no growth. Urine cultures grew Escherichia coli and Streptococcus Viridans. Continue ceftriaxone day 3 She has already received four days of Levaquin and vancomycin. Morning CBC and BMP Initial sputum cultures grew fungal elements which are most likely contamination. Sputum culture was sent again and preliminary shows no growth. Pleural fluid gram stain: gram positive cocci: likely normal justin Pleural fluid culture negative prelimanarily Qualifiers: Sepsis type: sepsis due to unspecified organism Qualified Code(s): A41.9 - Sepsis, unspecified organism (3) Anemia Current Visit: No Status: Acute Patient has chronic microcytic anemia. Secondary to iron deficiency and History of chronic upper GI bleed. Has hx of esophageal varices Patents hgb has decreased from 8 on admission to 6.3 today. Vials are stable Will replace with on unit. Monitor with CBC after one PBRC transfused. Qualifiers: Anemia type: unspecified type Qualified Code(s): D64.9 - Anemia, unspecified (4) Pleural effusion Current Visit: Yes Status: Acute Patient has developed a significant right pleural effusion. She has a history of diastolic heart failure, pulmonary hypertension, last echocardiogram completed and 11/27 showed left ventricular ejection fraction of 65% with moderately severely dilated right ventricle and moderate right ventricle hypokinesis, and severe pulmonary hypertension. may be 2nd to acute on chronic diasltoic heart failure, cirrhosis, cancer (hx of tobacco abuse), pneumonia. s/p right thoracentesis: translative etiology -Was likely secondary to combination of cirrhosis, diastolic congestive heart failure, hypoalbuminemia (5) UTI (urinary tract infection) Current Visit: Yes Status: Acute Blood culture positive for E coli and Strep Viridans Culture is a send out for S Viridans, should have results by 11/04 or 11/05 Plan: -continue ceftriaxone day 2. Qualifiers: Urinary tract infection type: acute cystitis Hematuria presence: without hematuria Qualified Code(s): N30.00 - Acute cystitis without hematuria (6) Type 2 diabetes mellitus Current Visit: Yes Status: Chronic uncontrolled. HgA1c 10.2 purred diet. Starting ACHS accuchekcs basal and prprandial insulin. Qualifiers: Diabetes mellitus complication status: with circulatory complication Diabetes mellitus complication detail: with peripheral angiopathy without gangrene Diabetes mellitus long term care administrator insulin use: with long term care administrator use Qualified Code(s): E11.51 - Type 2 diabetes mellitus with diabetic peripheral angiopathy without gangrene; Z79.4 - assisted (current) use of insulin (7) CHF (congestive heart failure) Current Visit: No Status: Chronic hx of diastolic CHF. Possible cause of r. pleural effusion but less likely since effusion is unilateral last echocardiogram completed and 11/27 showed left ventricular ejection fraction of 65% with moderately severely dilated right ventricle and moderate right ventricle hypokinesis, and severe pulmonary hypertension. on furosimide at home will continue. strict I/O Qualifiers: Congestive heart failure type: diastolic Congestive heart failure chronicity: chronic Qualified Code(s): I50.32 - Chronic diastolic (congestive ) heart failure (8) Hepatitis B Current Visit: Yes Status: Chronic hx of hepatitis B. AST and ALT WNL. Hx of IVD abuse. 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 last EGD shows esophageal varacies. Not on any out patient treatment patient will need to follow up outpatient with importer or exporter Qualifiers: Viral hepatitis chronicity: chronic Hepatic coma status: without hepatic coma Hepatitis delta agent presence: without delta-agent Qualified Code(s): B18.1 - Chronic viral hepatitis B without delta-agent (9) Hepatitis C Current Visit: Yes Status: Chronic hx of hepatitis C. AST and ALT WNL. Hx of IVD abuse. 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 last EGD shows esophageal varacies. Not on any out patient treatment patient will need to follow up outpatient with importer or exporter Qualifiers: Viral hepatitis chronicity: chronic Hepatic coma status: without hepatic coma Qualified Code(s): B18.2 - Chronic viral hepatitis C (10) Goals of care, counseling/discussion Current Visit: Yes Status: Acute Sister visited patient yesterday. director of social services on board for possible placement. (11) DVT prophylaxis Current Visit: Yes Status: Acute Heparin SQ Subjective Principal diagnosis: ARF Interval history: No overnight problems. Patient continues to be tachypnic but improved from yesterday afternoon. Yesterday patient had a repeat chest x-ray done shows improved from previous. ABG showed pH of 7.49 and PCO2 32. This morning patient was up and eating breakfast. She is awake and alert. Objective PUL Vital signs: Last Vital Signs Temp 98.9 F 11/06/16 07:00 Pulse 95 11/06/16 08:00 Resp 28 11/06/16 08:00 BP 145/106 11/06/16 08:00 Pulse Ox 100 11/06/16 08:00 General appearance: no acute distress, alert, appears uncomfortable Eyes: nonicteric ENT: oropharynx moist Mallampati (class): 2 Neck: no lymphadenopathy Effort: mildly labored Auscultation: bilateral: wheezes Cardiovascular: regular rate and rhythm Gastrointestinal: normoactive bowel sounds, soft, non-tender Integumentary: other (Multiple track lyons on all 4 extremities secondary to IV drug use) Extremities: no cyanosis, no edema, no clubbing, pulses normal Musculoskeletal: no deformities normal mental status anxious Results - Laboratory Findings CBC and BMP: 11/06/16 03:55 11/06/16 03:55 ABG ABG pH 7.49 pH Units (7.32-7.45) H 11/05/16 16:37 ABG pCO2 32 mmHg (35-45) L 11/05/16 16:37 ABG pO2 53 mmHg (85-104) L 11/05/16 16:37 ABG O2 Saturation 90 % (95-98) L 11/05/16 16:37 PT/INR, D-dimer PT 15.6 Seconds (9.4-12.1) H 11/02/16 20:57 Abnormal lab findings: Abnormal lab results RBC 2.43 M/mcL (3.82-4.97) L 11/06/16 03:55 Hgb 6.3 g/dL (11.5-15.4) L 11/06/16 03:55 Hct 20.2 % (35.3-44.9) L 11/06/16 03:55 MCH 25.9 pg (28.0-33.3) L 11/06/16 03:55 MCHC 31.2 g/dL (31.6-35.5) L 11/06/16 03:55 RDW 16.6 % (11.5-14.5) H 11/06/16 03:55 Plt Count 58 K/mcL (140-400) L 11/06/16 03:55 Nucleated RBCs/100 WBC 0.4 /100 WBC (0) H 11/04/16 04:00 Platelet Estimate Decreased (Normal) L 11/06/16 03:55 Large Platelets Present (Not Present) A 11/01/16 08:45 Polychromasia 2+ (Not Present) A 11/06/16 03:55 Hypochromasia Present (Not Present) A 11/05/16 09:23 Poikilocytosis 1+ (Not Present) A 10/30/16 17:10 Anisocytosis 1+ (Not Present) A 11/06/16 03:55 Microcytosis Present (Not Present) A 11/05/16 09:23 Macrocytosis Present (Not Present) A 11/05/16 09:23 Tear Drop Cells 1+ (Not Present) A 11/03/16 03:20 PT 15.6 Seconds (9.4-12.1) H 11/02/16 20:57 APTT 24.4 Seconds (26.0-36.0) L 11/02/16 20:57 ABG pH 7.49 pH Units (7.32-7.45) H 11/05/16 16:37 ABG pCO2 32 mmHg (35-45) L 11/05/16 16:37 ABG pO2 53 mmHg (85-104) L 11/05/16 16:37 ABG O2 Saturation 90 % (95-98) L 11/05/16 16:37 Sodium 133 mEq/L (136-145) L 11/06/16 03:55 Potassium 3.4 mEq/L (3.5-4.5) L 11/06/16 03:55 Glucose 100 mg/dL (70-99) H 11/06/16 03:55 POC Glucose 158 (58-89) H 11/06/16 07:06 Hemoglobin A1c 10.9 % (-5.6) H 10/31/16 08:57 Calculated Osmolality 277 (280-300) L 11/06/16 03:55 Calcium 7.8 mg/dL (8.6-10.8) L 11/06/16 03:55 B-Natriuretic Peptide 225 pg/mL (0-100) H 10/30/16 17:10 Serum Total Protein 5.8 g/dL (6.0-8.3) L 11/03/16 03:20 Albumin 1.9 g/dL (3.5-5.0) L 11/03/16 03:20 Globulin 3.9 g/dL (2.4-3.5) H 11/03/16 03:20 Albumin/Globulin Ratio 0.5 (1.1-2.2) L 11/03/16 03:20 Urine Glucose (UA) >=1000 mg/dL (Normal) H 10/30/16 17:42 Urine Ketones Trace mg/dL (Negative) H 10/30/16 17:42 Ur Leukocyte Esterase Trace (Negative) H 10/30/16 17:42 Urine Microscopic WBC 3-5 per hpf (0-3) H 10/30/16 17:42 Ur Squamous Epith Cells Many per lpf (None-Few) H 10/30/16 17:42 Urine Yeast Few per hpf (None Seen) H 10/30/16 17:42 Ur Culture Indicated? YES (NO) A 10/30/16 17:42 Pleural Appearance Hazy (Clear) A 11/03/16 14:05 Vancomycin Trough 22.7 mcg/mL (10-20) H* 11/03/16 15:20 Urine Opiates Screen Positive ng/mL (Aybeha=[id number]) H 10/31/16 02:04 - Microbiology Findings Microbiology Findings: Microbiology, Last 48 Hours 11/03/16 03:10 Sputum Culture - Final Sputum Alta albicans Fungal Elements 11/03/16 14:05 Body Fluid Culture - Final Pleural Fluid 11/03/16 14:05 Acid Fast Stain - Final Pleural Fluid - Clinical Findings Intake & Output: Intake & Output 11/05/16 11/06/16 11/06/16 23:59 07:59 15:59 Intake Total 200 / 200 100 / 100 500 / 500 Output Total 0 / 0 Balance 200 / 200 100 / 100 500 / 500 - VTE Documentation of Mechanical Device: Intermittent pneumatic compression device Consult Discharge Plan - Plan Referrals: NO,PCP [Primary Care Provider] - <Mahin Keenan - Last Filed: 11/06/16 12:12> Objective PUL Vital signs: Last Vital Signs Temp 99.8 F H 11/06/16 11:41 Pulse 100 11/06/16 11:00 Resp 28 11/06/16 11:21 BP 146/94 11/06/16 11:00 Pulse Ox 96 11/06/16 11:21 Results - Laboratory Findings CBC and BMP: 11/06/16 03:55 11/06/16 03:55 ABG ABG pH 7.49 pH Units (7.32-7.45) H 11/05/16 16:37 ABG pCO2 32 mmHg (35-45) L 11/05/16 16:37 ABG pO2 53 mmHg (85-104) L 11/05/16 16:37 ABG O2 Saturation 90 % (95-98) L 11/05/16 16:37 PT/INR, D-dimer PT 15.6 Seconds (9.4-12.1) H 11/02/16 20:57 Abnormal lab findings: Abnormal lab results RBC 2.43 M/mcL (3.82-4.97) L 11/06/16 03:55 Hgb 6.3 g/dL (11.5-15.4) L 11/06/16 03:55 Hct 20.2 % (35.3-44.9) L 11/06/16 03:55 MCH 25.9 pg (28.0-33.3) L 11/06/16 03:55 MCHC 31.2 g/dL (31.6-35.5) L 11/06/16 03:55 RDW 16.6 % (11.5-14.5) H 11/06/16 03:55 Plt Count 58 K/mcL (140-400) L 11/06/16 03:55 Nucleated RBCs/100 WBC 0.4 /100 WBC (0) H 11/04/16 04:00 Platelet Estimate Decreased (Normal) L 11/06/16 03:55 Large Platelets Present (Not Present) A 11/01/16 08:45 Polychromasia 2+ (Not Present) A 11/06/16 03:55 Hypochromasia Present (Not Present) A 11/05/16 09:23 Poikilocytosis 1+ (Not Present) A 10/30/16 17:10 Anisocytosis 1+ (Not Present) A 11/06/16 03:55 Microcytosis Present (Not Present) A 11/05/16 09:23 Macrocytosis Present (Not Present) A 11/05/16 09:23 Tear Drop Cells 1+ (Not Present) A 11/03/16 03:20 PT 15.6 Seconds (9.4-12.1) H 11/02/16 20:57 APTT 24.4 Seconds (26.0-36.0) L 11/02/16 20:57 ABG pH 7.49 pH Units (7.32-7.45) H 11/05/16 16:37 ABG pCO2 32 mmHg (35-45) L 11/05/16 16:37 ABG pO2 53 mmHg (85-104) L 11/05/16 16:37 ABG O2 Saturation 90 % (95-98) L 11/05/16 16:37 Sodium 133 mEq/L (136-145) L 11/06/16 03:55 Potassium 3.4 mEq/L (3.5-4.5) L 11/06/16 03:55 Glucose 100 mg/dL (70-99) H 11/06/16 03:55 POC Glucose 180 (58-89) H 11/06/16 11:32 Hemoglobin A1c 10.9 % (-5.6) H 10/31/16 08:57 Calculated Osmolality 277 (280-300) L 11/06/16 03:55 Calcium 7.8 mg/dL (8.6-10.8) L 11/06/16 03:55 B-Natriuretic Peptide 225 pg/mL (0-100) H 10/30/16 17:10 Serum Total Protein 5.8 g/dL (6.0-8.3) L 11/03/16 03:20 Albumin 1.9 g/dL (3.5-5.0) L 11/03/16 03:20 Globulin 3.9 g/dL (2.4-3.5) H 11/03/16 03:20 Albumin/Globulin Ratio 0.5 (1.1-2.2) L 11/03/16 03:20 Urine Glucose (UA) >=1000 mg/dL (Normal) H 10/30/16 17:42 Urine Ketones Trace mg/dL (Negative) H 10/30/16 17:42 Ur Leukocyte Esterase Trace (Negative) H 10/30/16 17:42 Urine Microscopic WBC 3-5 per hpf (0-3) H 10/30/16 17:42 Ur Squamous Epith Cells Many per lpf (None-Few) H 10/30/16 17:42 Urine Yeast Few per hpf (None Seen) H 10/30/16 17:42 Ur Culture Indicated? YES (NO) A 10/30/16 17:42 Pleural Appearance Hazy (Clear) A 11/03/16 14:05 Vancomycin Trough 22.7 mcg/mL (10-20) H* 11/03/16 15:20 Urine Opiates Screen Positive ng/mL (Fhgkzm=[id number]) H 10/31/16 02:04 - Microbiology Findings Microbiology Findings: Microbiology, Last 48 Hours 11/03/16 03:10 Sputum Culture - Final Sputum Alta albicans Fungal Elements 11/03/16 14:05 Body Fluid Culture - Final Pleural Fluid 11/03/16 14:05 Acid Fast Stain - Final Pleural Fluid - Clinical Findings Intake & Output: Intake & Output 11/05/16 11/06/16 11/06/16 23:59 07:59 15:59 Intake Total 200 / 200 100 / 100 500 / 500 Output Total 0 / 0 Balance 200 / 200 100 / 100 500 / 500 - Attending Attestation I examined this patient and my medical decision-making was reviewed with the HAND STRIPER/PA/Advanced Practice Nurse/Resident Physician. I agree with the documented findings, disposition and treatment plan as described except to the extent set forth below. Patient seen and examined. Labs, radiology, chart personally reviewed. Agree with resident's history and physical, assessment, plan with following comments: EDGE BURNISHER UPPERS: Patient follows commands, Pulmonary: Acceptable oxygenation and ventilation. I feel an anxiety sometimes plays a role when she has shortness of breath. Cardiovascular: stable GI: Nutrition per dietary and GI prophylaxis per routine. GI consultation when patient transferred to the floor Heme: DVT prophylaxis per routine. I suspect source of her anemia could be secondary to GI blood loss and also anemia of chronic disease is a possibility. Would hold any anticoagulation and Mechanical DVT prophylaxis. Transfusion of 1 unit packed RBC. ID: Continue antibiotic and plan to de-escalation Renal; urine out put and renal funtion reviewed Endorcine: blood glucose is monitored Lines: all lines checked and no evidence of infections. Central line for blood draw since she has difficult to have an access from her history of substance abuse. Skin: skin care to prevent pressure ulcers per nursing routine care Patient still stable to be transferred to the floor most important thing to monitor H&H and GI consultation tomorrow since it Monday and GI is not available
[2016-11-06] MEDS: Acetaminophen 325 MG TABLET PO PRN (10:36)
[2016-11-06] MEDS: *HR* LORazepam 2 MG/ML VIAL IVP PRN (10:36)
[2016-11-06] MEDS: Furosemide 40 MG TABLET PO SCH (13:00)
[2016-11-06] MEDS ORDERED: 0.9 % Sodium Chloride 250 ML ONE (14:23)
[2016-11-06 19:08] LABS: Hematocrit 23.3 % (35.3-44.9); Hemoglobin 7.3 g/dL (11.5-15.4)
[2016-11-06] MEDS: Insulin DETEMIR 100 UNIT/ML X5UNITS SQ SCH (20:40)
[2016-11-07 03:44] LABS: Hemoglobin 7.4 g/dL (11.5-15.4)
[2016-11-07 03:46] LABS: Hematocrit 23.5 % (35.3-44.9); Immature Platelets 8.1 % (1.1-6.1); Mean Corpuscular HGB Conc 31.5 g/dL (31.6-35.5); Mean Corpuscular Hemoglobin 25.5 pg (28.0-33.3); Mean Platelet Volume 10.9 fL (9.4-12.4); Red Blood Count 2.9 M/mcL (3.82-4.97); Red Cell Distribution Width 16.6 % (11.5-14.5)
[2016-11-07 03:57] LABS: BUN/Creatinine Ratio 14 (6-26); Blood Urea Nitrogen 11 mg/dL (7-20); Calcium 7.7 mg/dL (8.6-10.8); Carbon Dioxide 28 mEq/L (19-29); Chloride 101 mEq/L (98-109); Glucose 76 mg/dL (70-99); Osmolality,Calculated 280 (280-300); Potassium 2.9 mEq/L (3.5-4.5); Sodium 136 mEq/L (136-145); eGFR For African Americans > 60 (> 60); eGFR For Non-African Americans > 60 (> 60)
[2016-11-07] MEDS: Ipratropium/Albuterol Neb 3 ML IH SCH ×6 (04:38→20:49)
[2016-11-07] MEDS ORDERED: Potassium Chloride 40 MEQ/200 ML BAG IVPB PRN (06:43)
[2016-11-07] MEDS ORDERED: Magnesium Sulfate 2 GM in D5% in Water 100 ML IVPB PRN (06:43)
[2016-11-07] MEDS ORDERED: Calcium Gluconate 1,000 MG in D5% in Water 100 ML IVPB PRN (06:43)
[2016-11-07 06:59] LABS: Ionized Calcium 1.11 mmol/L (1.15-1.35)
[2016-11-07 07:06] LABS: Magnesium 1.4 mg/dL (1.6-2.6); Phosphorous 2.8 mg/dL (2.3-4.7)
--- NOTE | 2016-11-07 07:35 | Pulmonology Progress Note ---
<Herve Mackey - Last Filed: 11/07/16 11:19> Date of Encounter: 11/07/16 Time of Encounter: 08:13 Assessment and Plan (1) Acute respiratory failure with hypoxia Current Visit: Yes Status: Resolved 55-year-old female history of COPD, hepatitis c, Hepatitis B, IV drug abuse, upper and lower GI bleed, diastolic CHF, Center with complaint of worsening dyspnea and green productive sputum. Patient had elevated white blood count, tachycardia and tachypnea on presentation. Chest x-ray showed possible pneumonia. Patient was admitted for sepsis, continue current pneumonia and started on Levaquin. Patient's dyspnea and cough worsened on 3rd day of admission. Repeat chest x-ray showed new right pleural effusion. With declining respiratory status, she was placed on BiPAP with no improvement in her oxygenation or work of breathing. She was intubated emergently and transferred to the ICU. Resolved. Patient underwent right thoracentesis. Pleural fluid analysis shows transudative etiology. -Secondary to community acquired pneumonia, and large pleural effusion likely from combination of cirrhosis, hypoambuminemia, and diastolic CHF -Extubated on 11/04 -lung sounds markedly clear. s/p thoracentesis. cxr shows reduction in r. peural effusion. Cytology pending. -on 2 L nasal cannula, tacypnic. oxygenation >90%. -patient has right IJ for blood draw. She has poor IV access due to IV durg use. She has right powerglide that does not draw. (2) Sepsis Current Visit: Yes Status: Resolved Patient presented with tachypnea, tachycardia, and leukocytosis. Source of infection either respiratory and/or urine. Patient was initially started on Levaquin for community-acquired pneumonia. Blood cultures preliminary shows no growth. Urine cultures grew Escherichia coli and Streptococcus Viridans. She has already received four days of Levaquin and vancomycin followed by 3 days of ceftriaxone. d/c ceftriaxone. Morning CBC and BMP Initial sputum cultures grew fungal elements which are most likely contamination. Sputum culture was sent again and preliminary shows no growth. Pleural fluid culture negative preliminarily Qualifiers: Sepsis type: sepsis due to unspecified organism Qualified Code(s): A41.9 - Sepsis, unspecified organism (3) Anemia Current Visit: No Status: Acute Patient has chronic microcytic anemia. Secondary to iron deficiency and History of chronic upper GI bleed. Has hx of esophageal varices She had EGD on 05/2016 showing grade one varicies and several gastric ulcers. Patents hgb has decreased from 8 on admission to 6.3 yesterday. She was replaced with one unit PBRC and hgb is 7.4 this morning. Monitor h/h. GI consult for variceal surveillance. Start octreotide drip. Increase protonix to 40BID. Qualifiers: Anemia type: unspecified type Qualified Code(s): D64.9 - Anemia, unspecified (4) Pleural effusion Current Visit: Yes Status: Acute Patient has developed a significant right pleural effusion. She has a history of diastolic heart failure, pulmonary hypertension, last echocardiogram completed and 11/27 showed left ventricular ejection fraction of 65% with moderately severely dilated right ventricle and moderate right ventricle hypokinesis, and severe pulmonary hypertension. s/p right thoracentesis: translative etiology -Was likely secondary to combination of cirrhosis, diastolic congestive heart failure, hypoalbuminemia -repeact CXR has shown further improvement in r. pleural effusion. (5) UTI (urinary tract infection) Current Visit: Yes Status: Acute Blood culture positive for E coli and Strep Viridans Culture is a send out for S Viridans, no sensitivities afebrile Patient has received 4 days of levaquin and vancomycin and 3 days of ceftriaxone. d/c ceftriaxone. Qualifiers: Urinary tract infection type: acute cystitis Hematuria presence: without hematuria Qualified Code(s): N30.00 - Acute cystitis without hematuria (6) Type 2 diabetes mellitus Current Visit: Yes Status: Chronic DM II is uncontrolled. HgA1c 10.2 Glucose levels are between 150-180. purred, ADA, honey thickened diet. Continue ACHS accuchekcs basal and preprandial insulin. 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 Possible cause of r. pleural effusion but less likely since effusion is unilateral last echocardiogram completed and 11/27 showed left ventricular ejection fraction of 65% with moderately severely dilated right ventricle and moderate right ventricle hypokinesis, and severe pulmonary hypertension. on furosimide at home will continue. strict I/O Qualifiers: Congestive heart failure type: diastolic Congestive heart failure chronicity: chronic Qualified Code(s): I50.32 - Chronic diastolic (congestive ) heart failure (8) Hepatitis B Current Visit: Yes Status: Chronic hx of hepatitis B. AST and ALT WNL. Hx of IVD abuse. 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 last EGD shows esophageal varacies. Not on any out patient treatment patient will need to follow up outpatient with frontend engineer Qualifiers: Viral hepatitis chronicity: chronic Hepatic coma status: without hepatic coma Hepatitis delta agent presence: without delta-agent Qualified Code(s): B18.1 - Chronic viral hepatitis B without delta-agent (9) Hepatitis C Current Visit: Yes Status: Chronic hx of hepatitis C. AST and ALT WNL. Hx of IVD abuse. 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 last EGD shows esophageal varacies. Not on any out patient treatment patient will need to follow up outpatient with frontend engineer Qualifiers: Viral hepatitis chronicity: chronic Hepatic coma status: without hepatic coma Qualified Code(s): B18.2 - Chronic viral hepatitis C (10) Goals of care, counseling/discussion Current Visit: Yes Status: Acute Sister visited patient and said she is not allowed to live with her. patient services assistant on board for possible placement. (11) DVT prophylaxis Current Visit: Yes Status: Acute Heparin SQ d/c due to upper GI bleed. Subjective Principal diagnosis: ARF Interval history: No overnight problems. patient is awake and alert. Objective PUL Vital signs: Last Vital Signs Temp 98.7 F 11/07/16 04:10 Pulse 98 11/07/16 06:00 Resp 25 11/07/16 06:00 BP 113/66 11/07/16 06:00 Pulse Ox 94 L 11/07/16 06:00 General appearance: no acute distress, alert Eyes: nonicteric ENT: oropharynx moist Mallampati (class): 2 Neck: no lymphadenopathy Effort: mildly labored Auscultation: bilateral: clear Cardiovascular: regular rate and rhythm Gastrointestinal: normoactive bowel sounds, soft, non-tender, non-distended Integumentary: other (excorations on the coccyx, multiple track lyons on all four extremeties ) Extremities: no edema, no clubbing, pink and warm normal mental status, pupils equal and round anxious Results - Laboratory Findings CBC and BMP: 11/07/16 03:25 11/07/16 03:25 ABG ABG pH 7.49 pH Units (7.32-7.45) H 11/05/16 16:37 ABG pCO2 32 mmHg (35-45) L 11/05/16 16:37 ABG pO2 53 mmHg (85-104) L 11/05/16 16:37 ABG O2 Saturation 90 % (95-98) L 11/05/16 16:37 PT/INR, D-dimer PT 15.6 Seconds (9.4-12.1) H 11/02/16 20:57 Abnormal lab findings: Abnormal lab results RBC 2.90 M/mcL (3.82-4.97) L 11/07/16 03:25 Hgb 7.4 g/dL (11.5-15.4) L 11/07/16 03:25 Hct 23.5 % (35.3-44.9) L 11/07/16 03:25 MCV 81.0 fL (83.0-100.0) L 11/07/16 03:25 MCH 25.5 pg (28.0-33.3) L 11/07/16 03:25 MCHC 31.5 g/dL (31.6-35.5) L 11/07/16 03:25 RDW 16.6 % (11.5-14.5) H 11/07/16 03:25 Plt Count 59 K/mcL (140-400) L 11/07/16 03:25 Nucleated RBCs/100 WBC 0.4 /100 WBC (0) H 11/04/16 04:00 Platelet Estimate Decreased (Normal) L 11/06/16 03:55 Large Platelets Present (Not Present) A 11/01/16 08:45 Immature Plt Fraction 8.1 % (1.1-6.1) H 11/07/16 03:25 Polychromasia 2+ (Not Present) A 11/06/16 03:55 Hypochromasia Present (Not Present) A 11/05/16 09:23 Poikilocytosis 1+ (Not Present) A 10/30/16 17:10 Anisocytosis 1+ (Not Present) A 11/06/16 03:55 Microcytosis Present (Not Present) A 11/05/16 09:23 Macrocytosis Present (Not Present) A 11/05/16 09:23 Tear Drop Cells 1+ (Not Present) A 11/03/16 03:20 PT 15.6 Seconds (9.4-12.1) H 11/02/16 20:57 APTT 24.4 Seconds (26.0-36.0) L 11/02/16 20:57 ABG pH 7.49 pH Units (7.32-7.45) H 11/05/16 16:37 ABG pCO2 32 mmHg (35-45) L 11/05/16 16:37 ABG pO2 53 mmHg (85-104) L 11/05/16 16:37 ABG O2 Saturation 90 % (95-98) L 11/05/16 16:37 Potassium 2.9 mEq/L (3.5-4.5) L 11/07/16 03:25 POC Glucose 125 (58-89) H 11/07/16 00:11 Hemoglobin A1c 10.9 % (-5.6) H 10/31/16 08:57 Calcium 7.7 mg/dL (8.6-10.8) L 11/07/16 03:25 Ionized Calcium 1.11 mmol/L (1.15-1.35) L 11/07/16 06:50 Magnesium 1.4 mg/dL (1.6-2.6) L 11/07/16 06:50 B-Natriuretic Peptide 225 pg/mL (0-100) H 10/30/16 17:10 Serum Total Protein 5.8 g/dL (6.0-8.3) L 11/03/16 03:20 Albumin 1.9 g/dL (3.5-5.0) L 11/03/16 03:20 Globulin 3.9 g/dL (2.4-3.5) H 11/03/16 03:20 Albumin/Globulin Ratio 0.5 (1.1-2.2) L 11/03/16 03:20 Urine Glucose (UA) >=1000 mg/dL (Normal) H 10/30/16 17:42 Urine Ketones Trace mg/dL (Negative) H 10/30/16 17:42 Ur Leukocyte Esterase Trace (Negative) H 10/30/16 17:42 Urine Microscopic WBC 3-5 per hpf (0-3) H 10/30/16 17:42 Ur Squamous Epith Cells Many per lpf (None-Few) H 10/30/16 17:42 Urine Yeast Few per hpf (None Seen) H 10/30/16 17:42 Ur Culture Indicated? YES (NO) A 10/30/16 17:42 Pleural Appearance Hazy (Clear) A 11/03/16 14:05 Vancomycin Trough 22.7 mcg/mL (10-20) H* 11/03/16 15:20 Urine Opiates Screen Positive ng/mL (Tcvnso=524) H 10/31/16 02:04 - Microbiology Findings Microbiology Findings: Microbiology, Last 48 Hours 11/03/16 03:10 Sputum Culture - Final Sputum Alta albicans Fungal Elements 11/03/16 14:05 Body Fluid Culture - Final Pleural Fluid 11/03/16 14:05 Acid Fast Stain - Final Pleural Fluid - Clinical Findings Intake & Output: Intake & Output 11/06/16 11/06/16 11/07/16 15:59 23:59 07:59 Intake Total 860 / 860 1065 / 1065 Output Total 3075 / 3075 1000 / 1000 Balance 860 / 860 -2009 / -2010 -1000 / -1000 Weight 71 kg - VTE Documentation of Mechanical Device: Intermittent pneumatic compression device Consult Discharge Plan - Plan Referrals: NO,PCP [Primary Care Provider] - <Jose Ramos - Last Filed: 11/07/16 14:29> Objective PUL Vital signs: Last Vital Signs Temp 98.4 F 11/07/16 08:14 Pulse 102 11/07/16 08:00 Resp 16 11/07/16 08:00 BP 132/91 11/07/16 08:00 Pulse Ox 92 L 11/07/16 08:00 Results - Laboratory Findings CBC and BMP: 11/07/16 03:25 11/07/16 03:25 ABG ABG pH 7.49 pH Units (7.32-7.45) H 11/05/16 16:37 ABG pCO2 32 mmHg (35-45) L 11/05/16 16:37 ABG pO2 53 mmHg (85-104) L 11/05/16 16:37 ABG O2 Saturation 90 % (95-98) L 11/05/16 16:37 PT/INR, D-dimer PT 15.6 Seconds (9.4-12.1) H 11/02/16 20:57 Abnormal lab findings: Abnormal lab results RBC 2.90 M/mcL (3.82-4.97) L 11/07/16 03:25 Hgb 7.4 g/dL (11.5-15.4) L 11/07/16 03:25 Hct 23.5 % (35.3-44.9) L 11/07/16 03:25 MCV 81.0 fL (83.0-100.0) L 11/07/16 03:25 MCH 25.5 pg (28.0-33.3) L 11/07/16 03:25 MCHC 31.5 g/dL (31.6-35.5) L 11/07/16 03:25 RDW 16.6 % (11.5-14.5) H 11/07/16 03:25 Plt Count 59 K/mcL (140-400) L 11/07/16 03:25 Nucleated RBCs/100 WBC 0.4 /100 WBC (0) H 11/04/16 04:00 Platelet Estimate Decreased (Normal) L 11/06/16 03:55 Large Platelets Present (Not Present) A 11/01/16 08:45 Immature Plt Fraction 8.1 % (1.1-6.1) H 11/07/16 03:25 Polychromasia 2+ (Not Present) A 11/06/16 03:55 Hypochromasia Present (Not Present) A 11/05/16 09:23 Poikilocytosis 1+ (Not Present) A 10/30/16 17:10 Anisocytosis 1+ (Not Present) A 11/06/16 03:55 Microcytosis Present (Not Present) A 11/05/16 09:23 Macrocytosis Present (Not Present) A 11/05/16 09:23 Tear Drop Cells 1+ (Not Present) A 11/03/16 03:20 PT 15.6 Seconds (9.4-12.1) H 11/02/16 20:57 APTT 24.4 Seconds (26.0-36.0) L 11/02/16 20:57 ABG pH 7.49 pH Units (7.32-7.45) H 11/05/16 16:37 ABG pCO2 32 mmHg (35-45) L 11/05/16 16:37 ABG pO2 53 mmHg (85-104) L 11/05/16 16:37 ABG O2 Saturation 90 % (95-98) L 11/05/16 16:37 Potassium 2.9 mEq/L (3.5-4.5) L 11/07/16 03:25 Hemoglobin A1c 10.9 % (-5.6) H 10/31/16 08:57 Calcium 7.7 mg/dL (8.6-10.8) L 11/07/16 03:25 Ionized Calcium 1.11 mmol/L (1.15-1.35) L 11/07/16 06:50 Magnesium 1.4 mg/dL (1.6-2.6) L 11/07/16 06:50 B-Natriuretic Peptide 225 pg/mL (0-100) H 10/30/16 17:10 Serum Total Protein 5.8 g/dL (6.0-8.3) L 11/03/16 03:20 Albumin 1.9 g/dL (3.5-5.0) L 11/03/16 03:20 Globulin 3.9 g/dL (2.4-3.5) H 11/03/16 03:20 Albumin/Globulin Ratio 0.5 (1.1-2.2) L 11/03/16 03:20 Urine Glucose (UA) >=1000 mg/dL (Normal) H 10/30/16 17:42 Urine Ketones Trace mg/dL (Negative) H 10/30/16 17:42 Ur Leukocyte Esterase Trace (Negative) H 10/30/16 17:42 Urine Microscopic WBC 3-5 per hpf (0-3) H 10/30/16 17:42 Ur Squamous Epith Cells Many per lpf (None-Few) H 10/30/16 17:42 Urine Yeast Few per hpf (None Seen) H 10/30/16 17:42 Ur Culture Indicated? YES (NO) A 10/30/16 17:42 Pleural Appearance Hazy (Clear) A 11/03/16 14:05 Vancomycin Trough 22.7 mcg/mL (10-20) H* 11/03/16 15:20 Urine Opiates Screen Positive ng/mL ([id number]=391) H 10/31/16 02:04 - Microbiology Findings Microbiology Findings: Microbiology, Last 48 Hours 11/03/16 03:10 Sputum Culture - Final Sputum Alta albicans Fungal Elements 11/03/16 14:05 Body Fluid Culture - Final Pleural Fluid 11/03/16 14:05 Acid Fast Stain - Final Pleural Fluid - Clinical Findings Intake & Output: Intake & Output 11/06/16 11/07/16 11/07/16 23:59 07:59 15:59 Intake Total 1065 / 1065 Output Total 3075 / 3075 1000 / 1000 100 / 100 Balance -2009 / -2009 -1000 / -1000 -100 / -100 Weight 71 kg - Attending Attestation I examined this patient and my medical decision-making was reviewed with the MANUAL WINDER/PA/Advanced Practice Nurse/Resident Physician. I agree with the documented findings, disposition and treatment plan as described except to the extent set forth below. Patient seen and examined at bedside Labs, radiology, chart personally reviewed. All lines examined without evidence of infection. Neuropsych: Awake and alert but mildy somnolent. Follows commands. Likely underlying Hepatic Encephalopathy from cirrhosis Pulm: Resp failure treating for CAP. Acceptable O2 Sat on 2L NC. History of Hepatic Hydrothorax s/p thoracentesis Cards: monitred on tele. MAP stable FEN-GI: cont diet as tolerated with Speech swallow recs appreciated. Esophageal varices with chronic blood loss anemia. start octreotide. Cont PPI. Consult GI. no clear evidence of ascites. Renal: hold diuresis now. no RAMAN. replace Lytes per protocol ID: Treating with Ceftriaxone for 7 days stop ABx. today Heme/Onc: possible UGI bleed. Endo: glucose monitored Integ/MSK: Extensive excoriations cont ICU skin care via nursing protocol CODE: Full Code. Stable for transfer to SDU.
[2016-11-07] MEDS: Pantoprazole 40 MG VIAL IVPB SCH ×2 (08:17→19:58)
[2016-11-07] MEDS: Furosemide 40 MG TABLET PO SCH (08:17)
[2016-11-07] MEDS: Insulin LISPRO 300 UNITS/3 ML VIAL SQ SCH ×7 (09:28→19:59)
[2016-11-07] MEDS ORDERED: Octreotide 400 MCG in 0.9 % Sodium Chloride 100 ML IVC SCH ×2 (10:08→14:23)
[2016-11-07] MEDS ORDERED: Octreotide 50 MCG/ML SYRINGE IVP ONE (10:11)
[2016-11-07] MEDS: Acetaminophen 325 MG TABLET PO PRN ×2 (11:53→19:57)
[2016-11-07] MEDS ORDERED: Ondansetron 4 MG/2 ML VIAL IVP PRN (14:23)
[2016-11-07] MEDS ORDERED: Naloxone 0.4 MG/ML INJ IVP PRN (14:23)
[2016-11-07] MEDS ORDERED: Dextrose Gel 15 GM PO PRN ×2 (14:23)
[2016-11-07] MEDS ORDERED: D5% in Water 1,000 ML IV PRN (14:23)
[2016-11-07] MEDS ORDERED: *HR* Dextrose 50 % in Water (Syg) 50 ML SYRINGE IVP PRN (14:23)
[2016-11-07] MEDS ORDERED: Albuterol Neb 1.25 MG/3 ML VIAL IH PRN (14:23)
[2016-11-07] MEDS ORDERED: Insulin DETEMIR 100 UNIT/ML X5UNITS SQ SCH (21:00)
[2016-11-07] MEDS ORDERED: Pantoprazole 40 MG VIAL IVPB SCH (21:00)
[2016-11-08] MEDS: Ipratropium/Albuterol Neb 3 ML IH SCH ×6 (00:49→20:38)
[2016-11-08] MEDS: Acetaminophen 325 MG TABLET PO PRN ×2 (02:30→19:07)
[2016-11-08] MEDS ORDERED: Octreotide 400 MCG in 0.9 % Sodium Chloride 100 ML IVC SCH (04:00)
[2016-11-08 04:22] LABS: Hematocrit 26.2 % (35.3-44.9); Mean Corpuscular HGB Conc 30.5 g/dL (31.6-35.5); Mean Corpuscular Hemoglobin 25.3 pg (28.0-33.3); Mean Corpuscular Volume 82.9 fL (83.0-100.0); Mean Platelet Volume 11.4 fL (9.4-12.4); Red Blood Count 3.16 M/mcL (3.82-4.97); Red Cell Distribution Width 16.6 % (11.5-14.5)
[2016-11-08 04:23] LABS: Platelet Count 55 K/mcL (140-400)
[2016-11-08 04:29] LABS: INR 1.4; Prothrombin Time 14.7 Seconds (9.4-12.1)
[2016-11-08 04:35] LABS: BUN/Creatinine Ratio 8 (6-26); Blood Urea Nitrogen 7 mg/dL (7-20); Calcium 8.2 mg/dL (8.6-10.8); Carbon Dioxide 26 mEq/L (19-29); Chloride 99 mEq/L (98-109); Glucose 183 mg/dL (70-99); Osmolality,Calculated 283 (280-300); Potassium 3.2 mEq/L (3.5-4.5); Sodium 135 mEq/L (136-145); eGFR For African Americans > 60 (> 60); eGFR For Non-African Americans > 60 (> 60)
--- NOTE | 2016-11-08 06:45 | Pulmonology Progress Note ---
<RachelJose W - Last Filed: 11/08/16 10:00> Objective PUL Vital signs: Last Vital Signs Temp 98.9 F 11/08/16 07:32 Pulse 94 11/08/16 08:00 Resp 20 11/08/16 05:05 BP 152/92 11/08/16 04:00 Pulse Ox 95 11/08/16 05:05 Results - Laboratory Findings CBC and BMP: 11/08/16 04:16 11/08/16 04:16 ABG ABG pH 7.49 pH Units (7.32-7.45) H 11/05/16 16:37 ABG pCO2 32 mmHg (35-45) L 11/05/16 16:37 ABG pO2 53 mmHg (85-104) L 11/05/16 16:37 ABG O2 Saturation 90 % (95-98) L 11/05/16 16:37 PT/INR, D-dimer PT 14.7 Seconds (9.4-12.1) H 11/08/16 04:16 Abnormal lab findings: Abnormal lab results RBC 3.16 M/mcL (3.82-4.97) L 11/08/16 04:16 Hgb 8.0 g/dL (11.5-15.4) L 11/08/16 04:16 Hct 26.2 % (35.3-44.9) L 11/08/16 04:16 MCV 82.9 fL (83.0-100.0) L 11/08/16 04:16 MCH 25.3 pg (28.0-33.3) L 11/08/16 04:16 MCHC 30.5 g/dL (31.6-35.5) L 11/08/16 04:16 RDW 16.6 % (11.5-14.5) H 11/08/16 04:16 Plt Count 55 K/mcL (140-400) L 11/08/16 04:16 Nucleated RBCs/100 WBC 0.4 /100 WBC (0) H 11/04/16 04:00 Platelet Estimate Decreased (Normal) L 11/06/16 03:55 Large Platelets Present (Not Present) A 11/01/16 08:45 Immature Plt Fraction 8.1 % (1.1-6.1) H 11/07/16 03:25 Polychromasia 2+ (Not Present) A 11/06/16 03:55 Hypochromasia Present (Not Present) A 11/05/16 09:23 Poikilocytosis 1+ (Not Present) A 10/30/16 17:10 Anisocytosis 1+ (Not Present) A 11/06/16 03:55 Microcytosis Present (Not Present) A 11/05/16 09:23 Macrocytosis Present (Not Present) A 11/05/16 09:23 Tear Drop Cells 1+ (Not Present) A 11/03/16 03:20 PT 14.7 Seconds (9.4-12.1) H 11/08/16 04:16 APTT 24.4 Seconds (26.0-36.0) L 11/02/16 20:57 ABG pH 7.49 pH Units (7.32-7.45) H 11/05/16 16:37 ABG pCO2 32 mmHg (35-45) L 11/05/16 16:37 ABG pO2 53 mmHg (85-104) L 11/05/16 16:37 ABG O2 Saturation 90 % (95-98) L 11/05/16 16:37 Sodium 135 mEq/L (136-145) L 11/08/16 04:16 Potassium 3.2 mEq/L (3.5-4.5) L 11/08/16 04:16 Glucose 183 mg/dL (70-99) H 11/08/16 04:16 POC Glucose 224 (58-89) H 11/08/16 07:14 Hemoglobin A1c 10.9 % (-5.6) H 10/31/16 08:57 Calcium 8.2 mg/dL (8.6-10.8) L 11/08/16 04:16 Ionized Calcium 1.11 mmol/L (1.15-1.35) L 11/07/16 06:50 Magnesium 1.4 mg/dL (1.6-2.6) L 11/07/16 06:50 B-Natriuretic Peptide 225 pg/mL (0-100) H 10/30/16 17:10 Serum Total Protein 5.8 g/dL (6.0-8.3) L 11/03/16 03:20 Albumin 1.9 g/dL (3.5-5.0) L 11/03/16 03:20 Globulin 3.9 g/dL (2.4-3.5) H 11/03/16 03:20 Albumin/Globulin Ratio 0.5 (1.1-2.2) L 11/03/16 03:20 Urine Glucose (UA) >=1000 mg/dL (Normal) H 10/30/16 17:42 Urine Ketones Trace mg/dL (Negative) H 10/30/16 17:42 Ur Leukocyte Esterase Trace (Negative) H 10/30/16 17:42 Urine Microscopic WBC 3-5 per hpf (0-3) H 10/30/16 17:42 Ur Squamous Epith Cells Many per lpf (None-Few) H 10/30/16 17:42 Urine Yeast Few per hpf (None Seen) H 10/30/16 17:42 Ur Culture Indicated? YES (NO) A 10/30/16 17:42 Pleural Appearance Hazy (Clear) A 11/03/16 14:05 Vancomycin Trough 22.7 mcg/mL (10-20) H* 11/03/16 15:20 Urine Opiates Screen Positive ng/mL (Jffscz=020) H 10/31/16 02:04 - Microbiology Findings Microbiology Findings: Microbiology, Last 48 Hours 10/31/16 Unknown Sputum Culture - Final Sputum Fungal Elements 11/03/16 03:10 Sputum Culture - Final Sputum Alta albicans Fungal Elements 11/03/16 14:05 Body Fluid Culture - Final Pleural Fluid - Clinical Findings Intake & Output: Intake & Output 11/07/16 11/08/16 11/08/16 23:59 07:59 15:59 Intake Total 104 / 104 120 / 120 Output Total 1250 / 1250 1000 / 1000 Balance -1146 / -1146 -880 / -880 Weight 72.847 kg Consult Discharge Plan - Plan Referrals: NO,PCP [Primary Care Provider] - - Attending Attestation I examined this patient and my medical decision-making was reviewed with the NNPS/PA/Advanced Practice Nurse/Resident Physician. I agree with the documented findings, disposition and treatment plan as described except to the extent set forth below. Patient seen and examined at bedside Labs, radiology, chart personally reviewed. All lines examined without evidence of infection. Neuropsych: Awake and alert but mildy somnolent. Follows commands. ?mild Hepatic Encephalopathy from cirrhosis holding lactulose s/t rectal excoriation Pulm: Resp failure treating for CAP. Acceptable O2 Sat on 2L NC. History of Hepatic Hydrothorax s/p thoracentesis Cards: monitred on tele. MAP stable. History of HFpEF with Severe Pulm HTN. Restart diuretic. FEN-GI: cont diet as tolerated with Speech swallow recs appreciated. Esophageal varices with chronic blood loss anemia H/H stable without evidence of acute bleeding. stop octreotide. Cont PPI. GI to evaluate for varices. No clear evidence of ascites. Renal: hold diuresis now. no RAMAN. replace Lytes per protocol ID: Treating with Ceftriaxone for 7 days. Heme/Onc: possible UGI bleed. DVT prophylaxis with SCDs Endo: glucose monitored cont basal bolus insuling dosing Integ/MSK: Extensive excoriations on rectum consulting wound care and will cont ICU skin care via nursing protocol CODE: Full Code. Stable for transfe rGMF for ongoing care. <Herve Mackey - Last Filed: 11/08/16 10:57> Date of Encounter: 11/08/16 Time of Encounter: 06:44 Assessment and Plan (1) Anemia Current Visit: Yes Status: Acute Patient has chronic microcytic anemia. Secondary to iron deficiency and History of chronic upper GI bleed. Has hx of esophageal varices She had EGD on 05/2016 showing grade one varicies and several gastric ulcers. Patents hgb has decreased from 8 on admission to 6.3 over the weekend. She was replaced with one unit PBRC. HGb stable today 8.0. Monitor h/h. GI consult for variceal surveillance. d/c octreotide. Continue protonix to 40BID. EGD tomorrow NPO midnight Qualifiers: Anemia type: unspecified type Qualified Code(s): D64.9 - Anemia, unspecified (2) Acute respiratory failure with hypoxia Current Visit: Yes Status: Resolved 55-year-old female history of COPD, hepatitis c, Hepatitis B, IV drug abuse, upper and lower GI bleed, diastolic CHF, Center with complaint of worsening dyspnea and green productive sputum. Patient had elevated white blood count, tachycardia and tachypnea on presentation. Chest x-ray showed possible pneumonia. Patient was admitted for sepsis, continue current pneumonia and started on Levaquin. Patient's dyspnea and cough worsened on 3rd day of admission. Repeat chest x-ray showed new right pleural effusion. With declining respiratory status, she was placed on BiPAP with no improvement in her oxygenation or work of breathing. She was intubated emergently and transferred to the ICU. Resolved. Patient underwent right thoracentesis. Pleural fluid analysis shows transudative etiology. -Secondary to community acquired pneumonia, and large pleural effusion likely from combination of cirrhosis, hypoambuminemia, and diastolic CHF -Extubated on 11/04 -lung sounds markedly clear. s/p thoracentesis. cxr shows reduction in r. peural effusion. Cytology pending. -on 2 L nasal cannula, tacypnic. oxygenation >90%. -patient has right IJ for blood draw. She has poor IV access due to IV durg use. She has right powerglide that does not draw. (3) Sepsis Current Visit: Yes Status: Resolved Patient presented with tachypnea, tachycardia, and leukocytosis. Source of infection either respiratory and/or urine. Patient was initially started on Levaquin for community-acquired pneumonia. Blood cultures preliminary shows no growth. Urine cultures grew Escherichia coli and Streptococcus Viridans. She has already received four days of Levaquin and vancomycin followed by 3 days of ceftriaxone. Morning CBC and BMP Initial sputum cultures grew fungal elements which are most likely contamination. Sputum culture was sent again and preliminary shows no growth. Pleural fluid culture negative preliminarily Qualifiers: Sepsis type: sepsis due to unspecified organism Qualified Code(s): A41.9 - Sepsis, unspecified organism (4) Pleural effusion Current Visit: Yes Status: Acute Patient has developed a significant right pleural effusion. She has a history of diastolic heart failure, pulmonary hypertension, last echocardiogram completed and 11/27 showed left ventricular ejection fraction of 65% with moderately severely dilated right ventricle and moderate right ventricle hypokinesis, and severe pulmonary hypertension. s/p right thoracentesis: translative etiology -Was likely secondary to combination of cirrhosis, diastolic congestive heart failure, hypoalbuminemia -repeact CXR has shown further improvement in r. pleural effusion. (5) UTI (urinary tract infection) Current Visit: Yes Status: Resolved Blood culture positive for E coli and Strep Viridans Culture is a send out for S Viridans, no sensitivities afebrile Patient has received 4 days of levaquin and vancomycin and 3 days of ceftriaxone. d/c ceftriaxone. Qualifiers: Urinary tract infection type: acute cystitis Hematuria presence: without hematuria Qualified Code(s): N30.00 - Acute cystitis without hematuria (6) Type 2 diabetes mellitus Current Visit: Yes Status: Chronic DM II is uncontrolled. HgA1c 10.2 Glucose levels >200 purred, ADA, honey thickened diet. Continue ACHS accuchekcs increase basal and preprandial insulin. Qualifiers: Diabetes mellitus complication status: with circulatory complication Diabetes mellitus complication detail: with peripheral angiopathy without gangrene Diabetes mellitus half-way insulin use: with half-way use Qualified Code(s): E11.51 - Type 2 diabetes mellitus with diabetic peripheral angiopathy without gangrene; Z79.4 - FDC (current) use of insulin (7) CHF (congestive heart failure) Current Visit: Yes Status: Chronic hx of diastolic CHF. Possible cause of r. pleural effusion but less likely since effusion is unilateral last echocardiogram completed and 11/27 showed left ventricular ejection fraction of 65% with moderately severely dilated right ventricle and moderate right ventricle hypokinesis, and severe pulmonary hypertension. on furosimide at home will continue. strict I/O Qualifiers: Congestive heart failure type: diastolic Congestive heart failure chronicity: chronic Qualified Code(s): I50.32 - Chronic diastolic (congestive ) heart failure (8) Hepatitis B Current Visit: Yes Status: Chronic hx of hepatitis B. AST and ALT WNL. Hx of IVD abuse. 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 last EGD shows esophageal varacies. Not on any out patient treatment patient will need to follow up outpatient with financial foundations representative will undergo liver US today. Qualifiers: Viral hepatitis chronicity: chronic Hepatic coma status: without hepatic coma Hepatitis delta agent presence: without delta-agent Qualified Code(s): B18.1 - Chronic viral hepatitis B without delta-agent (9) Hepatitis C Current Visit: Yes Status: Chronic hx of hepatitis C. AST and ALT WNL. Hx of IVD abuse. 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 last EGD shows esophageal varacies. Not on any out patient treatment patient will need to follow up outpatient with financial foundations representative Qualifiers: Viral hepatitis chronicity: chronic Hepatic coma status: without hepatic coma Qualified Code(s): B18.2 - Chronic viral hepatitis C (10) Goals of care, counseling/discussion Current Visit: Yes Status: Acute Sister visited patient and said she is not allowed to live with her. printing services coordinator on board for possible placement. (11) DVT prophylaxis Current Visit: Yes Status: Acute Heparin SQ d/c due to upper GI bleed. Subjective Principal diagnosis: ARF Interval history: No overnight problems. patient is awake and alert. Objective PUL Vital signs: Last Vital Signs Temp 98.5 F 11/08/16 04:42 Pulse 101 11/08/16 04:00 Resp 20 11/08/16 05:05 BP 152/92 11/08/16 04:00 Pulse Ox 95 11/08/16 05:05 General appearance: no acute distress, alert Eyes: nonicteric ENT: oropharynx moist Mallampati (class): 2 Neck: no lymphadenopathy Effort: normal Auscultation: bilateral: clear Cardiovascular: regular rate and rhythm Gastrointestinal: normoactive bowel sounds, soft, non-tender, non-distended Integumentary: erythema (excoriation on the lower back coccyx region ), other ( track lyons upper alnd lower extremity) normal mental status anxious Results - Laboratory Findings CBC and BMP: 11/08/16 04:16 11/08/16 04:16 ABG ABG pH 7.49 pH Units (7.32-7.45) H 11/05/16 16:37 ABG pCO2 32 mmHg (35-45) L 11/05/16 16:37 ABG pO2 53 mmHg (85-104) L 11/05/16 16:37 ABG O2 Saturation 90 % (95-98) L 11/05/16 16:37 PT/INR, D-dimer PT 14.7 Seconds (9.4-12.1) H 11/08/16 04:16 Abnormal lab findings: Abnormal lab results RBC 3.16 M/mcL (3.82-4.97) L 11/08/16 04:16 Hgb 8.0 g/dL (11.5-15.4) L 11/08/16 04:16 Hct 26.2 % (35.3-44.9) L 11/08/16 04:16 MCV 82.9 fL (83.0-100.0) L 11/08/16 04:16 MCH 25.3 pg (28.0-33.3) L 11/08/16 04:16 MCHC 30.5 g/dL (31.6-35.5) L 11/08/16 04:16 RDW 16.6 % (11.5-14.5) H 11/08/16 04:16 Plt Count 55 K/mcL (140-400) L 11/08/16 04:16 Nucleated RBCs/100 WBC 0.4 /100 WBC (0) H 11/04/16 04:00 Platelet Estimate Decreased (Normal) L 11/06/16 03:55 Large Platelets Present (Not Present) A 11/01/16 08:45 Immature Plt Fraction 8.1 % (1.1-6.1) H 11/07/16 03:25 Polychromasia 2+ (Not Present) A 11/06/16 03:55 Hypochromasia Present (Not Present) A 11/05/16 09:23 Poikilocytosis 1+ (Not Present) A 10/30/16 17:10 Anisocytosis 1+ (Not Present) A 11/06/16 03:55 Microcytosis Present (Not Present) A 11/05/16 09:23 Macrocytosis Present (Not Present) A 11/05/16 09:23 Tear Drop Cells 1+ (Not Present) A 11/03/16 03:20 PT 14.7 Seconds (9.4-12.1) H 11/08/16 04:16 APTT 24.4 Seconds (26.0-36.0) L 11/02/16 20:57 ABG pH 7.49 pH Units (7.32-7.45) H 11/05/16 16:37 ABG pCO2 32 mmHg (35-45) L 11/05/16 16:37 ABG pO2 53 mmHg (85-104) L 11/05/16 16:37 ABG O2 Saturation 90 % (95-98) L 11/05/16 16:37 Sodium 135 mEq/L (136-145) L 11/08/16 04:16 Potassium 3.2 mEq/L (3.5-4.5) L 11/08/16 04:16 Glucose 183 mg/dL (70-99) H 11/08/16 04:16 POC Glucose 318 (58-89) H 11/07/16 19:13 Hemoglobin A1c 10.9 % (-5.6) H 10/31/16 08:57 Calcium 8.2 mg/dL (8.6-10.8) L 11/08/16 04:16 Ionized Calcium 1.11 mmol/L (1.15-1.35) L 11/07/16 06:50 Magnesium 1.4 mg/dL (1.6-2.6) L 11/07/16 06:50 B-Natriuretic Peptide 225 pg/mL (0-100) H 10/30/16 17:10 Serum Total Protein 5.8 g/dL (6.0-8.3) L 11/03/16 03:20 Albumin 1.9 g/dL (3.5-5.0) L 11/03/16 03:20 Globulin 3.9 g/dL (2.4-3.5) H 11/03/16 03:20 Albumin/Globulin Ratio 0.5 (1.1-2.2) L 11/03/16 03:20 Urine Glucose (UA) >=1000 mg/dL (Normal) H 10/30/16 17:42 Urine Ketones Trace mg/dL (Negative) H 10/30/16 17:42 Ur Leukocyte Esterase Trace (Negative) H 10/30/16 17:42 Urine Microscopic WBC 3-5 per hpf (0-3) H 10/30/16 17:42 Ur Squamous Epith Cells Many per lpf (None-Few) H 10/30/16 17:42 Urine Yeast Few per hpf (None Seen) H 10/30/16 17:42 Ur Culture Indicated? YES (NO) A 10/30/16 17:42 Pleural Appearance Hazy (Clear) A 11/03/16 14:05 Vancomycin Trough 22.7 mcg/mL (10-20) H* 11/03/16 15:20 Urine Opiates Screen Positive ng/mL (Hwmznt=268) H 10/31/16 02:04 - Microbiology Findings Microbiology Findings: Microbiology, Last 48 Hours 10/31/16 Unknown Sputum Culture - Final Sputum Fungal Elements 11/03/16 03:10 Sputum Culture - Final Sputum Alta albicans Fungal Elements 11/03/16 14:05 Body Fluid Culture - Final Pleural Fluid - Clinical Findings Intake & Output: Intake & Output 11/07/16 11/07/16 11/08/16 15:59 23:59 07:59 Intake Total 104 / 104 120 / 120 Output Total 1000 / 1000 1250 / 1250 900 / 900 Balance -1000 / -1000 -1146 / -1146 -780 / -780 Weight 72.847 kg - VTE Documentation of Mechanical Device: Intermittent pneumatic compression device
[2016-11-08] MEDS: Insulin LISPRO 300 UNITS/3 ML VIAL SQ SCH ×7 (07:52→21:44)
[2016-11-08] MEDS: Pantoprazole 40 MG VIAL IVPB SCH ×2 (07:52→21:44)
[2016-11-08 09:59] LABS: Albumin 1.8 g/dL (3.5-5.0); Albumin/Globulin Ratio 0.5 (1.1-2.2); Bilirubin,Direct 0.4 mg/dL (0.0-0.5); Bilirubin,Indirect 0.4 mg/dL (0.0-1.2); Bilirubin,Total 0.8 mg/dL (0.2-1.2); Globulin 3.7 g/dL (2.4-3.5); Total Protein 5.5 g/dL (6.0-8.3)
--- NOTE | 2016-11-08 12:32 | Gastroenterology Consult Note ---
<VarnerAnanda Esequiel - Last Filed: 11/08/16 12:29> Date of Encounter: 11/08/16 Time of Encounter: 12:10 - Assessment and plan (1) Cirrhosis Status: Chronic Assessment and plan: MELD 14, [place] class B, DF 20.1. Plan for EGD tomorrow for esophageal surveillance. Check AFP and liver ultrasound. AMA previously elevated to 50.2 on 12/08/2015, remaining liver work up negative. Appears pt has cleared Hep B and C. Pt has not shown up or cancelled her last [address] Powell. Recommend total abstinence from alcohol including social drinking, no smoking, avoid NSAIDs , if needed, can use less than 2 g per day of Tylenol (in divided doses). Qualifiers: Hepatic cirrhosis type: other cirrhosis Qualified Code(s): K74.69 - Other cirrhosis of liver (2) Anemia Status: Acute Assessment and plan: Continue to monitor CBC and transfuse PRBC as needed. Plan for EGD tomorrow. NPO at midnight. Continue PPI. Qualifiers: Anemia type: unspecified type Qualified Code(s): D64.9 - Anemia, unspecified (3) Acute respiratory failure with hypoxia Status: Resolved - Time Spent With Patient Total time spent is greater than 50% in coordination of care (as documented) at patient's floor/unit and/or counseling patient: GI History of Present Illness - Data of Consult Patient: known to practice within the last 3 years Consult date: 11/08/16 Requesting Physician: Scott Lopez DO - Consult Narrative Reason for consult: esophageal varices History of present illness: Ms. Luther is a 55 year old female with PMHx of cirrhosis, hepatitis B and C, IV drug use, CVA, PUD, DM, HTN, and COPD presented with shortness of breath and cough for 1 week. She complained of fever, chills, body aches, nausea but denied vomiting. Her SOB worsened and CXR showed bilateral patchy infiltrates with development of right pleural effusion. CT scan showed significant right pleural effusion encompassing most of the right hemithorax. She was placed on BiPAP, but did not improve, and was eventually intubated and transferred to ICU. She unerwent thoracentesis on 11/03 with 1400 cc of fluid removed. She was extubated 11/04. Pt has chronic anemia and esophageal varices. Hgb on admission was 8.7 and dropped to 6.3 on 11/06. She received one unit PRBC 11/06, and Hgb 7.4 on 11/07, This AM, Hgb stable at 8. Procedures: EGD 05/26/2016 Dr. Powell: Grade 1 varices in lower third esophagus. Mild portal hypertensive gastropathy, non-bleedinggastric ulcers. EGD 12/22/2015 with portal hypertensive gastropathy, gastric ulcer, small grade 1 esophageal varices. Colonoscopy 12/22/2015 with hyperplastic polyp, few colonic angiectasias is treated with APC. Capsule endoscopy 01/20/2016 with mild gastritis otherwise negative. NSAIDs: None Anticoagulation: None Past Med Surg Social Fam HX - Past Medical History Medical history: cirrhosis Psychiatric history: anxiety, depression - Past Surgical History Surgical History: cholecystectomy, hysterectomy, other - Social History Smoking Status: Current every day smoker Packs per day: <1ppd Smokeless Tobacco Status: No Alcohol use: none (currently, heavy user in past) Drug use: opiates, IVDU, prescription drug abuse - Family History Mother Adopted: No Living Status: Still Living Hx Family Cardiac Disorders: Yes Father Hx Family Cardiac Disorders: Yes - Gastrointestinal Gastrointestinal: Present: as per HPI - Constitutional Constitutional: as per HPI - EENT Eyes: as per HPI Ears: Present: as per HPI Nose, mouth and throat: Present: as per HPI - Cardiovascular Cardiovascular ROS: Present: as per HPI - Respiratory Respiratory IM: Present: as per HPI - Genitourinary Genitourinary: Absent: change in color, Urinary frequency - Neurological ROS Neurological GI: Present: as per HPI - Hematologic/Lymphatic Hematologic/Lymphatic pediatric: Present: as per HPI - Musculoskeletal Musculoskeletal ROS GI: Present: as per HPI - Integumentary Integumentary GI: Present: as per HPI - Psychiatric ROS Psychiatric GI: Present: as per HPI - Endocrine Endocrine IM: Present: as per HPI - Constitutional Vitals: Temp Pulse Resp BP Pulse Ox 99.0 F 99 18 122/71 96 11/08/16 11:41 11/08/16 08:00 11/08/16 11:15 11/08/16 08:05 11/08/16 11:15 General appearance: Present: cooperative, A&O X 3, no acute distress, answers questions appropriately - Head Head exam: Present: atraumatic, normocephalic - Eye Eye exam: Present: normal appearance, sclera anicteric - ENT ENT exam: Present: mucous membranes dry - Neck Neck exam general surgery: Present: normal inspection, trachea midline - Respiratory Respiratory exam: Present: decreased breath sounds, CTAB - Cardiovascular Cardiovascular exam: Present: RRR, +S1, +S2 - GI/Abdominal GI/Abdominal exam: Present: soft, no peritoneal signs. Absent: distended, firm , guarding, tenderness - Rectal Rectal exam: Present: deferred - Extremities Exam Extremities exam: Present: warm - Neurological Exam Neurological exam: Present: no focal deficits - Psychiatric Psychiatric exam: Present: normal affect, normal mood - Skin Skin exam: Present: dry, normal color, warm Additional comments: excoriations on buttocks. Results - Labs CBC & Chem 7: 11/08/16 04:16 11/08/16 04:16 Labs: Last Result Calcium 8.2 mg/dL (8.6-10.8) L 11/08/16 04:16 Troponin I 0.02 ng/mL (0-0.03) 11/02/16 20:57 Urine Opiates Screen Positive ng/mL (Jvcsvz=535) H 10/31/16 02:04 Entire Visit Hgb 8.0 g/dL (11.5-15.4) L 11/08/16 04:16 Hct 26.2 % (35.3-44.9) L 11/08/16 04:16 PT 14.7 Seconds (9.4-12.1) H 11/08/16 04:16 Total Bilirubin 0.8 mg/dL (0.2-1.2) 11/08/16 09:35 AST 21 Units/L (5-34) 11/08/16 09:35 ALT 25 Units/L (0-55) 11/08/16 09:35 Ammonia 26 mcmol/L (18-72) 11/06/16 12:45 - ABG ABG results: ABG ABG pH 7.49 pH Units (7.32-7.45) H 11/05/16 16:37 ABG pCO2 32 mmHg (35-45) L 11/05/16 16:37 ABG pO2 53 mmHg (85-104) L 11/05/16 16:37 ABG O2 Saturation 90 % (95-98) L 11/05/16 16:37 PT/INR, D-dimer PT 14.7 Seconds (9.4-12.1) H 11/08/16 04:16 Consult Discharge Plan - Plan Additional Instructions: Recommend taking medications as prescribed. Recommend follow-up with her primary care provider in the next 3-5 days Follow up with Pulmonology outpatient as discussed. If you have reoccurring shortness of breath, worsening symptoms or new concerning medical symptoms or signs he should be seen and evaluated immediately. Referrals: [facility] [Provider Group] (We have requested a follow up appointment with [facility]. The office will call you at home with an appointment date and time. ) NO,PCP [Primary Care Provider] - <Yefri Powell - Last Filed: 11/17/16 20:31> Date of Encounter: 11/08/16 Time of Encounter: 16:00 - Time Spent With Patient Total time spent is greater than 50% in coordination of care (as documented) at patient's floor/unit and/or counseling patient: GI History of Present Illness - Data of Consult Requesting Physician: Apolinar Griffith - Consult Narrative History of present illness: Ms. Luther is a 55 year old female - Constitutional Vitals: Temp Pulse Resp BP Pulse Ox 97.8 F 87 18 108/71 95 11/14/16 12:26 11/14/16 12:26 11/14/16 15:29 11/14/16 12:26 11/14/16 15:29 Results - Labs CBC & Chem 7: 11/14/16 04:28 11/14/16 04:28 Labs: Last Result Calcium 8.2 mg/dL (8.6-10.8) L 11/14/16 04:28 Troponin I 0.02 ng/mL (0-0.03) 11/02/16 20:57 Urine Opiates Screen Positive ng/mL (Imvkqe=232) H 10/31/16 02:04 Entire Visit Hgb 8.7 g/dL (11.5-15.4) L 11/14/16 04:28 Hct 29.0 % (35.3-44.9) L 11/14/16 04:28 PT 14.2 Seconds (9.4-12.1) H 11/11/16 04:35 Total Bilirubin 0.9 mg/dL (0.2-1.2) 11/14/16 04:28 AST 20 Units/L (5-34) 11/14/16 04:28 ALT 15 Units/L (0-55) 11/14/16 04:28 Ammonia 26 mcmol/L (18-72) 11/06/16 12:45 - ABG ABG results: ABG ABG pH 7.49 pH Units (7.32-7.45) H 11/05/16 16:37 ABG pCO2 32 mmHg (35-45) L 11/05/16 16:37 ABG pO2 53 mmHg (85-104) L 11/05/16 16:37 ABG O2 Saturation 90 % (95-98) L 11/05/16 16:37 PT/INR, D-dimer PT 14.2 Seconds (9.4-12.1) H 11/11/16 04:35 - Attending Attestation I examined this patient and my medical decision-making was reviewed with the SPEEDER OPERATOR/PA/Advanced Practice Nurse/Resident Physician. I agree with the documented findings, disposition and treatment plan as described except to the extent set forth below.
[2016-11-08] MEDS: Insulin DETEMIR 100 UNIT/ML X5UNITS SQ SCH (21:44)
[2016-11-09] MEDS: Ipratropium/Albuterol Neb 3 ML IH SCH ×6 (03:25→21:07)
[2016-11-09] MEDS: Acetaminophen 325 MG TABLET PO PRN ×2 (04:29→16:52)
[2016-11-09] MEDS: Pantoprazole 40 MG VIAL IVPB SCH ×2 (07:48→21:36)
[2016-11-09] MEDS: Insulin LISPRO 300 UNITS/3 ML VIAL SQ SCH ×7 (07:48→21:36)
--- NOTE | 2016-11-09 09:11 | Event Note ---
<Ananda Varner - Last Filed: 11/09/16 09:11> Date of Encounter: 11/09/16 Time of Encounter: 09:10 Plan for EGD tomorrow 11/10/16. Keep NPO at midnight. <Yefri Powell - Last Filed: 11/17/16 20:31> Date of Encounter: 11/17/16
--- NOTE | 2016-11-09 13:32 | Internal Med Progress Note ---
<Adam Hardy - Last Filed: 11/09/16 13:28> Date of Encounter: 11/09/16 Time of Encounter: 13:29 - Assessment and plan (1) GI bleed Current Visit: No Status: Acute Assessment and plan: Nothing by mouth after midnight. Continue PPI coverage. Gastroenterology has seen a value the patient with plan for EGD tomorrow morning. Qualifiers: GI bleed type/associated pathology: unspecified gastrointestinal hemorrhage type Qualified Code(s): K92.2 - Gastrointestinal hemorrhage, unspecified (2) Dyspnea Current Visit: Yes Status: Acute Assessment and plan: Patient seen the value this morning and appears to be tachypnea, tachycardic, complains of shortness of breath and productive cough with yellowish sputum. Was originally admitted for community acquired pneumonia and met sepsis criteria. She was recently intubated for acute hypoxic respiratory failure and extubated successfully 2 days later. - Last chest x-ray was markedly improved compared to imaging from 11/02/2016. -Vitals reviewed patient afebrile for greater than 48 hours Differential includes HAP, VAP, recurrence of pleural effusion, pulmonary edema , COPD exacerbation Plan: -Patient continues to require 4 L nasal cannula oxygen -We will repeat chest x-ray for evaluation. -Continue breathing treatments Qualifiers: Qualified Code(s): R06.00 - Dyspnea, unspecified (3) Escherichia coli urinary tract infection Current Visit: Yes Status: Acute Assessment and plan: Stable. Patient was admitted with community acquired pneumonia found to have a urinary tract infection which grew Aerococcus viridans, Escherichia coli. She was treated with ceftriaxone and vancomycin for 5 days. (4) Acute blood loss anemia Current Visit: No Status: Resolved Assessment and plan: Patient demonstrates acute blood loss anemia with blood per rectum and history of black tar-like stools. Her hemoglobin dropped to 6.3 and she received 1 units PRBC. Hemoglobin yesterday was 8.0 labs ordered for today. Plan: Recheck H&H Transfuse PRBCs if hgb falls below 7.0 - On PPI and GI following (5) Type 2 diabetes mellitus Current Visit: Yes Status: Chronic Assessment and plan: Patient is a known type II diabetic with uncontrolled diabetes. Glucoses have been elevated throughout inpatient stay with difficulty controlling. Home insulin includes Lantus 50 units subcutaneous at bedtime, insulin lispro 15 units subcutaneous 3 times a day with meals. Plan: -Continue diabetic diet -Nothing by mouth after midnight for procedure tomorrow - Before meals at bedtime glucose checks -Continue 30 units Levemir subcutaneous at bedtime, 6 units lispro subcutaneous 3 times a day with meals, medium dose correction scale. Qualifiers: Diabetes mellitus complication status: with circulatory complication Diabetes mellitus complication detail: with peripheral angiopathy without gangrene Diabetes mellitus fdc insulin use: with superintendent container terminal use Qualified Code(s): E11.51 - Type 2 diabetes mellitus with diabetic peripheral angiopathy without gangrene; Z79.4 - alf (current) use of insulin (6) Community acquired pneumonia Current Visit: Yes Status: Acute Assessment and plan: Patient was admitted with shortness of breath, community-acquired pneumonia and treated with 6 days Levaquin. During this time she developed increasing shortness of breath right-sided pleural effusion large in nature. Requiring intubation and mechanical ventilation and thoracentesis. Antibiotics completed. (7) Pleural effusion Current Visit: Yes Status: Acute Assessment and plan: On 11/02/2016 patient developed increasing shortness of breath with increased oxygen demand, tachypnea and altered mental status. Patient developed large right-sided pleural effusion. Patient was subsequently intubated and sedated. She underwent thoracentesis on 11/03/2016 Pleural fluid: 1400 mL scope: ning Tyler, pH 7.45, nucleated cells 195, LDH 35, total protein less than 0.8. Triglycerides 25 amylase 22 and glucose 159 suspected to be transudative. Gram stain negative. -Suspect secondary to liver cirrhosis. Plan: Continue to monitor respiratory status. -Therapeutic thoracentesis if pleural effusion recurs. (8) COPD (chronic obstructive pulmonary disease) Current Visit: No Status: Chronic Qualifiers: COPD type: emphysema Emphysema type: unspecified Qualified Code(s): J43.9 - Emphysema, unspecified (9) Hepatitis B Current Visit: Yes Status: Chronic Assessment and plan: Chronic history. Supportive care. Qualifiers: Viral hepatitis chronicity: chronic Hepatic coma status: without hepatic coma Hepatitis delta agent presence: without delta-agent Qualified Code(s): B18.1 - Chronic viral hepatitis B without delta-agent (10) Hepatitis C Current Visit: Yes Status: Chronic Assessment and plan: Chronic history. Supportive care. Qualifiers: Viral hepatitis chronicity: chronic Hepatic coma status: without hepatic coma Qualified Code(s): B18.2 - Chronic viral hepatitis C (11) CHF (congestive heart failure) Current Visit: Yes Status: Chronic Assessment and plan: Patient is a chronic history of diastolic heart failure. Continue treatment with supportive care. Echocardiogram from 11/29/2015 : LVEF 65% History of indeterminant diastolic dysfunction with moderate to severe dilated right ventricular with moderate RV hypokinesis. Mild tricuspid regurgitation. Severe pulmonary hypertension with an RVSP of 67 Plan: -Daily weights - 2 L fluid restriction - Cardiac diet with no added salt plus diabetic diet. Qualifiers: Congestive heart failure type: diastolic Congestive heart failure chronicity: chronic Qualified Code(s): I50.32 - Chronic diastolic (congestive ) heart failure (12) Cirrhosis Current Visit: No Status: Chronic Assessment and plan: Patient is a history of liver cirrhosis and esophageal varices. No score 14 child Rowland class B. Patient has been seen and evaluated by gastroenterology as she has a GI bleed and acute anemia. She is planned for an EGD tomorrow for esophageal surveillance. Likely contributing to right-sided pleural effusion. Qualifiers: Hepatic cirrhosis type: unspecified hepatic cirrhosis Ascites presence: without ascites Qualified Code(s): K74.60 - Unspecified cirrhosis of liver (13) Sepsis Current Visit: Yes Status: Resolved Assessment and plan: Resolved. Patient was admitted with tachypnea, tachycardia, leukocytosis. Source urinary tract infection and mucoid pneumonia. Plan: Continue to monitor patient's vitals and treat effectively. Qualifiers: Sepsis type: sepsis due to unspecified organism Qualified Code(s): A41.9 - Sepsis, unspecified organism - Subjective Interval history: Mrs. Luther 55 old female is seen in a patient bedside this morning. She is alert awake and interactive and complains of back pain. She said that nobody will give her anything besides Tylenol for her back pain. She also complains of shortness of breath and diffuse pain. She also says she has had diarrhea but no vomiting or nausea. She has been tolerating by food mouth intake. - Constitutional Vitals: Temp Pulse Resp BP Pulse Ox 98.1 F 100 18 113/61 93 L 11/09/16 11:44 11/09/16 11:44 11/09/16 12:01 11/09/16 12:01 11/09/16 12:01 General appearance: Present: disheveled (appears much older then stated age), mild distress, A&O X 3, no acute distress, answers questions appropriately - Head Head exam: Present: atraumatic, normocephalic - Eye Eye exam: Present: PERRL, conjuntiva pink, sclera anicteric Pupils: Present: PERRL - ENT ENT exam: Present: mucous membranes moist - Neck Neck exam general surgery: Present: supple, trachea midline. Absent: lymphadenopathy - Respiratory Respiratory exam: Present: rhonchi, tachypnea. Absent: accessory muscle use, rales, wheezes - Cardiovascular Cardiovascular exam: Present: +S1, +S2, tachycardia - GI/Abdominal GI/Abdominal exam: Present: normal bowel sounds, soft, no peritoneal signs. Absent: distended, tenderness - Extremities Exam Extremities exam: Present: pedal edema (Trace pedal edema.), warm, radial pulses palpable and symetrical. Absent: calf tenderness, cyanotic - Neurological Exam Neurological exam: Present: alert, oriented X3, no focal deficits. Absent: pronater drift, facial droop, speech deficit - Psychiatric Psychiatric exam: Present: normal affect, normal mood Internal Medicine: Result - Labs CBC & Chem 7: 11/08/16 04:16 11/08/16 04:16 - ABG Interpretation ABG results: ABG ABG pH 7.49 pH Units (7.32-7.45) H 11/05/16 16:37 ABG pCO2 32 mmHg (35-45) L 11/05/16 16:37 ABG pO2 53 mmHg (85-104) L 11/05/16 16:37 ABG O2 Saturation 90 % (95-98) L 11/05/16 16:37 PT/INR, D-dimer PT 14.7 Seconds (9.4-12.1) H 11/08/16 04:16 - Impressions Impressions Liver Ultrasound 11/08/16 17:00 IMPRESSION: 1. Mildly nodular liver surface and coarsened hepatic echotexture compatible with cirrhosis. No focal hepatic lesion identified. 2. Status post cholecystectomy. 3. Right pleural effusion. D/ / Elton Bailey MD / Elton Bailey MD Interpreting Provider: Elton Bailey MD - VTE Documentation of Mechanical Device: Intermittent pneumatic compression device Consult Discharge Plan - Plan Referrals: NO,PCP [Primary Care Provider] - <Apolinar Griffith H - Last Filed: 11/09/16 14:05> - Constitutional Vitals: Temp Pulse Resp BP Pulse Ox 98.1 F 100 18 113/61 93 L 11/09/16 11:44 11/09/16 11:44 11/09/16 12:01 11/09/16 12:01 11/09/16 12:01 Internal Medicine: Result - Labs CBC & Chem 7: 11/09/16 13:40 11/09/16 13:40 Labs: Short CBC 11/09/16 Range/Units 13:40 WBC 6.8 (4.3-11.1) K/mcL Hgb 7.7 L (11.5-15.4) g/dL Hct 25.5 L (35.3-44.9) % Plt Count 57 L (140-400) K/mcL BMP 11/09/16 13:40 Sodium 136 Potassium 3.7 Chloride 102 Carbon Dioxide 26 BUN 9 Creatinine 0.85 Glucose 250 H Calcium 8.1 L - ABG Interpretation ABG results: ABG ABG pH 7.49 pH Units (7.32-7.45) H 11/05/16 16:37 ABG pCO2 32 mmHg (35-45) L 11/05/16 16:37 ABG pO2 53 mmHg (85-104) L 11/05/16 16:37 ABG O2 Saturation 90 % (95-98) L 11/05/16 16:37 PT/INR, D-dimer PT 14.7 Seconds (9.4-12.1) H 11/08/16 04:16 - Impressions Impressions Liver Ultrasound 11/08/16 17:00 IMPRESSION: 1. Mildly nodular liver surface and coarsened hepatic echotexture compatible with cirrhosis. No focal hepatic lesion identified. 2. Status post cholecystectomy. 3. Right pleural effusion. D/ / Elton Bailey MD / Elton Bailey MD Interpreting Provider: Elton Bailey MD - Attending Attestation Sepsis 2ry to community acquired pneumonia , right large pleural effusion ( trasudate) s/p thoracentesis completed 6 days of levaquin . Check CXR and cbc I examined this patient and my medical decision-making was reviewed with the REHEAT FURNACE OPERATOR/PA/Advanced Practice Nurse/Resident Physician. I agree with the documented findings, disposition and treatment plan as described except to the extent set forth below.
[2016-11-09 13:51] LABS: Hematocrit 25.5 % (35.3-44.9); Hemoglobin 7.7 g/dL (11.5-15.4); Immature Platelets 11.1 % (1.1-6.1); Mean Corpuscular HGB Conc 30.2 g/dL (31.6-35.5); Mean Corpuscular Hemoglobin 25.7 pg (28.0-33.3); Red Cell Distribution Width 16.9 % (11.5-14.5)
[2016-11-09] MEDS: traMADol 50 MG TABLET PO PRN ×2 (13:58→21:35)
[2016-11-09 14:02] LABS: BUN/Creatinine Ratio 11 (6-26); Blood Urea Nitrogen 9 mg/dL (7-20); Calcium 8.1 mg/dL (8.6-10.8); Carbon Dioxide 26 mEq/L (19-29); Chloride 102 mEq/L (98-109); Glucose 250 mg/dL (70-99); Osmolality,Calculated 289 (280-300); Potassium 3.7 mEq/L (3.5-4.5); Sodium 136 mEq/L (136-145); eGFR For African Americans > 60 (> 60); eGFR For Non-African Americans > 60 (> 60)
[2016-11-09] MEDS: Insulin DETEMIR 100 UNIT/ML X5UNITS SQ SCH (21:35)
[2016-11-09] MEDS: Preparation H Ointment 30 GM TUBE TP SCH (21:38)
[2016-11-10] MEDS: Ipratropium/Albuterol Neb 3 ML IH SCH ×6 (00:43→20:22)
[2016-11-10] MEDS: Acetaminophen 325 MG TABLET PO PRN (03:51)
[2016-11-10 04:19] LABS: Eosinophils # 0.1 K/mcL (0.0-0.6); Eosinophils % 1.7 %; Hematocrit 25.1 % (35.3-44.9); Hemoglobin 7.5 g/dL (11.5-15.4); Immature Granulocytes % 0.8 % (0-4); Immature Platelets 12.7 % (1.1-6.1); Lymphocytes # 1.2 K/mcL (0.6-4.6); Mean Corpuscular HGB Conc 29.9 g/dL (31.6-35.5); Mean Corpuscular Hemoglobin 25.3 pg (28.0-33.3); Mean Corpuscular Volume 84.5 fL (83.0-100.0); Mean Platelet Volume 11.4 fL (9.4-12.4); Monocytes # 0.4 K/mcL (0.0-1.3); Monocytes % 6.3 %; Neutrophils # 4.2 K/mcL (1.6-8.9); Red Blood Count 2.97 M/mcL (3.82-4.97); Red Cell Distribution Width 16.3 % (11.5-14.5); Segmented Neutrophils % 71.2 %
[2016-11-10 04:31] LABS: Alanine Aminotransferase 21 Units/L (0-55); Albumin 1.9 g/dL (3.5-5.0); Albumin/Globulin Ratio 0.5 (1.1-2.2); Alkaline Phosphatase 84 Units/L (38-126); Aspartate Amino Transferase 25 Units/L (5-34); BUN/Creatinine Ratio 16 (6-26); Bilirubin,Total 0.9 mg/dL (0.2-1.2); Blood Urea Nitrogen 12 mg/dL (7-20); Carbon Dioxide 27 mEq/L (19-29); Chloride 101 mEq/L (98-109); Globulin 3.9 g/dL (2.4-3.5); Glucose 156 mg/dL (70-99); Osmolality,Calculated 281 (280-300); Potassium 3.5 mEq/L (3.5-4.5); Sodium 134 mEq/L (136-145); Total Protein 5.8 g/dL (6.0-8.3); eGFR For African Americans > 60 (> 60); eGFR For Non-African Americans > 60 (> 60)
[2016-11-10 04:38] LABS: Platelet Count 45 K/mcL (140-400)
[2016-11-10 04:39] LABS: Anisocytosis 1+ (Not Present); Platelet Estimate Decreased (Normal); Poikilocytosis 1+ (Not Present); Schistocytes 1+ (Not Present)
[2016-11-10] MEDS: Insulin LISPRO 300 UNITS/3 ML VIAL SQ SCH ×7 (08:28→20:40)
[2016-11-10] MEDS: Preparation H Ointment 30 GM TUBE TP SCH ×2 (08:29→20:41)
[2016-11-10] MEDS: traMADol 50 MG TABLET PO PRN ×2 (08:29→20:37)
[2016-11-10] MEDS: Pantoprazole 40 MG VIAL IVPB SCH ×2 (08:29→20:36)
--- NOTE | 2016-11-10 13:27 | Electrocardiograph Report ---
[address] [place] [address] Test Date: 2016-11-09 Pat Name: Estrella Luther Department: 114 Room: [facility] Gender: F Hog Tender: : 1960 Requested By: Apolinar Griffith Order Number: [id number] Reading MD: Dylan Cornejo MD Measurements Intervals [place] Rate: 100 P: 39 SC: 175 QRS: 84 QRSD: 112 T: 22 QT: 370 QTc: 427 Interpretive Statements SINUS TACHYCARDIA INCOMPLETE RIGHT BUNDLE BRANCH BLOCK ANTERIOR ISCHEMIA Electronically Signed On 11-10-2016 13:26:00 EDT by Dylan Cornejo MD
--- NOTE | 2016-11-10 16:52 | Internal Med Progress Note ---
Date of Encounter: 11/09/16 Time of Encounter: 16:49 - Assessment and plan (1) Acute blood loss anemia Current Visit: No Status: Resolved Assessment and plan: acute blood loss anemia likely 2ry to GI bleed upper vs lower: with blood per rectum and history of black tar-like stools. Her hemoglobin dropped to 6.3 and she received 1 units PRBC. Plan: Recheck H&H Transfuse PRBCs if hgb falls below 7.0 - On PPI and GI following for EGD in AM NPO after midnight (2) Type 2 diabetes mellitus Current Visit: Yes Status: Chronic Assessment and plan: Patient is a known type II diabetic with uncontrolled diabetes. Glucoses have been elevated throughout inpatient stay with difficulty controlling. Home insulin includes Lantus 50 units subcutaneous at bedtime, insulin lispro 15 units subcutaneous 3 times a day with meals. -Continue 30 units Levemir ( give 15 units tonight as she is going to be NPO) subcutaneous at bedtime, 6 units lispro subcutaneous 3 times a day with meals, medium dose correction scale. Qualifiers: Diabetes mellitus complication status: with circulatory complication Diabetes mellitus complication detail: with peripheral angiopathy without gangrene Diabetes mellitus rat exterminator insulin use: with [facility] use Qualified Code(s): E11.51 - Type 2 diabetes mellitus with diabetic peripheral angiopathy without gangrene; Z79.4 - intermediate manager (current) use of insulin (3) Community acquired pneumonia Current Visit: Yes Status: Acute Assessment and plan: Sepsis 2ry to community-acquired pneumonia treated with 6 days of Levaquin. Increasing shortness of breath New CXR showed recurrent right-sided pleural effusion (large in nature). Requiring intubation and mechanical ventilation and thoracentesis. Antibiotics completed. (4) Pleural effusion Current Visit: Yes Status: Acute Assessment and plan: Recurrent large right pleural effusion On 11/02/2016 patient developed increasing shortness of breath with increased oxygen demand, tachypnea and altered mental status. Patient developed large right-sided pleural effusion. Patient was subsequently intubated and sedated. She underwent thoracentesis on 11/03/2016 Pleural fluid: 1400 mL scope: ning Tyler, pH 7.45, nucleated cells 195, LDH 35, total protein less than 0.8. Triglycerides 25 amylase 22 and glucose 159 suspected to be transudative. Gram stain negative. -Suspect secondary to liver cirrhosis. -Therapeutic thoracentesis again in am (5) UTI (urinary tract infection) Current Visit: Yes Status: Resolved Assessment and plan: Blood culture positive for E coli and Strep Viridans Culture is a sendout for S Viridans, should have results by 11/04 or 11/05 completed 5 days of vanc and 6 days of levaquin Qualifiers: Urinary tract infection type: acute cystitis Hematuria presence: without hematuria Qualified Code(s): N30.00 - Acute cystitis without hematuria (6) Cirrhosis Current Visit: No Status: Chronic Assessment and plan: multiple etiology: Hep B, Hep C, opiate, IVD and ETOH abuse complicated by bleeding varices and thrombocytopenia Qualifiers: Hepatic cirrhosis type: other cirrhosis Qualified Code(s): K74.69 - Other cirrhosis of liver (7) COPD (chronic obstructive pulmonary disease) Current Visit: No Status: Chronic Assessment and plan: Plan: -Continue home nebulizer therapy -Titrate supplemental oxygen as necessary to maintain saturations between 88-92% Qualifiers: COPD type: emphysema Emphysema type: unspecified Qualified Code(s): J43.9 - Emphysema, unspecified (8) Hepatitis B Current Visit: Yes Status: Chronic Assessment and plan: Chronic history. Supportive care. Qualifiers: Viral hepatitis chronicity: chronic Hepatic coma status: without hepatic coma Hepatitis delta agent presence: without delta-agent Qualified Code(s): B18.1 - Chronic viral hepatitis B without delta-agent (9) Hepatitis C Current Visit: Yes Status: Chronic Assessment and plan: Chronic history. Supportive care. Qualifiers: Viral hepatitis chronicity: chronic Hepatic coma status: without hepatic coma Qualified Code(s): B18.2 - Chronic viral hepatitis C (10) CHF (congestive heart failure) Current Visit: Yes Status: Chronic Assessment and plan: Acute diastolec CHF exacerbation Patient is a chronic history of diastolic heart failure. Continue treatment with supportive care. Echocardiogram from 11/29/2015 : LVEF 65% History of indeterminant diastolic dysfunction with moderate to severe dilated right ventricular with moderate RV hypokinesis. Mild tricuspid regurgitation. Severe pulmonary hypertension with an RVSP of 67 Lasix IV - 1.5 L fluid restriction - Cardiac diet with no added salt plus diabetic diet. Qualifiers: Congestive heart failure type: diastolic Congestive heart failure chronicity: chronic Qualified Code(s): I50.32 - Chronic diastolic (congestive ) heart failure (11) Sepsis Current Visit: Yes Status: Resolved Assessment and plan: Resolved. Patient was admitted with tachypnea, tachycardia, leukocytosis. Source urinary tract infection and mucoid pneumonia. Plan: Continue to monitor patient's vitals and treat effectively. Qualifiers: Sepsis type: sepsis due to unspecified organism Qualified Code(s): A41.9 - Sepsis, unspecified organism - Time Spent With Patient Greater than 35 minutes - Subjective Interval history: feels very short of breath, complains of back pain , no chest pain , no abdominal pain or dysuria. No fever - Constitutional Vitals: Temp Pulse Resp BP Pulse Ox 98.3 F 100 18 139/64 97 11/10/16 15:51 11/10/16 15:51 11/10/16 16:05 11/10/16 15:51 11/10/16 16:05 General appearance: Present: disheveled (appears much older then stated age), mild distress, A&O X 3, no acute distress, answers questions appropriately - Head Head exam: Present: atraumatic, normocephalic - Eye Eye exam: Present: PERRL, conjuntiva pink, sclera anicteric Pupils: Present: PERRL - Neck Neck exam general surgery: Present: supple, trachea midline. Absent: lymphadenopathy - Respiratory Respiratory exam: Present: decreased breath sounds, CTAB. Absent: accessory muscle use, rales, rhonchi, wheezes Additional comments: blunted breath sound on the right base. upper crackles - Cardiovascular Cardiovascular exam: Present: RRR, +S1, +S2. Absent: diastolic murmur, gallop, rubs, systolic murmur - GI/Abdominal GI/Abdominal exam: Present: normal bowel sounds, soft, no peritoneal signs. Absent: distended, tenderness - Extremities Exam Extremities exam: Present: warm, radial pulses palpable and symetrical. Absent : calf tenderness, cyanotic, pedal edema Additional comments: tafoya catheter in place +1 pitting edema in both lower extremities - Neurological Exam Neurological exam: Present: CN II-XII intact, oriented X3, no focal deficits. Absent: pronater drift, facial droop, speech deficit - Skin Skin exam: Present: dry, intact Internal Medicine: Result - Labs CBC & Chem 7: 11/10/16 04:05 11/10/16 04:05 Labs: Short CBC 11/10/16 Range/Units 04:05 WBC 5.9 (4.3-11.1) K/mcL Hgb 7.5 L (11.5-15.4) g/dL Hct 25.1 L (35.3-44.9) % Plt Count 45 L (140-400) K/mcL Neutrophils # 4.2 (1.6-8.9) K/mcL BMP 11/10/16 04:05 Sodium 134 L Potassium 3.5 Chloride 101 Carbon Dioxide 27 BUN 12 Creatinine 0.75 Glucose 156 H Calcium 8.0 L Liver Function 11/10/16 Range/Units 04:05 Total Bilirubin 0.9 (0.2-1.2) mg/dL AST 25 (5-34) Units/L ALT 21 (0-55) Units/L Alkaline Phosphatase 84 (38-126) Units/L Albumin 1.9 L (3.5-5.0) g/dL - ABG Interpretation ABG results: ABG ABG pH 7.49 pH Units (7.32-7.45) H 11/05/16 16:37 ABG pCO2 32 mmHg (35-45) L 11/05/16 16:37 ABG pO2 53 mmHg (85-104) L 11/05/16 16:37 ABG O2 Saturation 90 % (95-98) L 11/05/16 16:37 PT/INR, D-dimer PT 14.7 Seconds (9.4-12.1) H 11/08/16 04:16 - Impressions Impressions Chest X-Ray 11/09/16 13:38 IMPRESSION: 1. Worsening moderate to large right pleural effusion with compressive atelectasis. D/ / John Heart MD / John Heart MD Interpreting Provider: John Heart MD - VTE Documentation of Mechanical Device: Intermittent pneumatic compression device Consult Discharge Plan - Plan Referrals: NO,PCP [Primary Care Provider] -
[2016-11-10] MEDS: Furosemide 20 MG/2 ML VIAL IVP SCH (20:37)
[2016-11-10] MEDS ORDERED: Insulin DETEMIR 100 UNIT/ML X5UNITS SQ SCH (21:00)
[2016-11-11] MEDS: Ipratropium/Albuterol Neb 3 ML IH SCH ×7 (00:23→23:13)
[2016-11-11] MEDS: Ketorolac 30 MG/ML VIAL IVP PRN (04:21)
[2016-11-11 04:54] LABS: Hemoglobin 7.4 g/dL (11.5-15.4); INR 1.3; Prothrombin Time 14.2 Seconds (9.4-12.1); Red Cell Distribution Width 16.4 % (11.5-14.5)
[2016-11-11 04:56] LABS: Hematocrit 24.2 % (35.3-44.9); Immature Platelets 14.2 % (1.1-6.1); Mean Corpuscular HGB Conc 30.6 g/dL (31.6-35.5); Mean Corpuscular Hemoglobin 25.7 pg (28.0-33.3); Mean Platelet Volume 12.6 fL (9.4-12.4); Red Blood Count 2.88 M/mcL (3.82-4.97)
[2016-11-11 05:10] LABS: BUN/Creatinine Ratio 11 (6-26); Blood Urea Nitrogen 9 mg/dL (7-20); Calcium 8.2 mg/dL (8.6-10.8); Carbon Dioxide 29 mEq/L (19-29); Chloride 100 mEq/L (98-109); Glucose 99 mg/dL (70-99); Lactate Dehydrogenase 219 Units/L (159-327); Osmolality,Calculated 281 (280-300); Potassium 3.3 mEq/L (3.5-4.5); Sodium 136 mEq/L (136-145); eGFR For African Americans > 60 (> 60); eGFR For Non-African Americans > 60 (> 60)
[2016-11-11] MEDS: Insulin LISPRO 300 UNITS/3 ML VIAL SQ SCH ×7 (07:39→21:53)
[2016-11-11] MEDS ORDERED: *HR* Phenylephrine 10 MG/ML VIAL IVC ONE (08:45)
[2016-11-11] MEDS ORDERED: *HR* Propofol 200 MG/20 ML VIAL IVP ONE (08:45)
[2016-11-11] MEDS ORDERED: Lidocaine -MPF 2% 5 ML VIAL INFILT ONE (08:45)
--- NOTE | 2016-11-11 09:43 | Anesthesia Evaluation PreOp ---
Date of Encounter: 11/09/16 Time of Encounter: 09:41 - Past History Planned Operation: EGD Cardiac History: HTN (maintained on Lisinopril), Other (ECHO 11/29/15 - LVEF 65% , moderated-severe dilated RV c/w moderated RV hypokinesis, Moderately dilated RA, Severe PulmHtn, RVSP = 67mmHg) Pulmonary History: Smoker, COPD (maintained on Albuterol), Other (Severe PulmHtn per Echo 11/19/2015. 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: Other (Anxiety/Depression) Other Medical History: Hepatic (Hep C/Cirrhosis), Diabetes Type II (managed on Lantus, LisPro), GERD (Hx Melena & Hemoptysis re: bleeding ulcer/PUD), Other ( Thrombocytopenia) Anesthesia History: No Prior Anesthetic Complications, Past Anesthesia (Naomi, Hyster, EGDs) Alcohol Use: none (currently, heavy user in past) Drug use: opiates (Hx methamphetamine & IVDU), IVDU, prescription drug abuse Medications and Allergies Albuterol Neb [AccuNeb] 1.25 mg IH Q4H PRN 11/29/15 [History] Albuterol Sulfate [Albuterol Inhaler] 2 puff IH Q4HR PRN 11/29/15 [History] Insulin Glargine,Hum.rec.anlog [Lantus Solostar] 50 unit SQ HS 11/29/15 [History ] Insulin LISPRO [Humalog] 15 unit SQ TIDWM 11/29/15 [History] Potassium Chloride 20 meq PO BID 12/18/15 [History] Omeprazole [PriLOSEC] 40 mg PO DAILY #30 capsule. 12/23/15 [Rx] Ferrous Sulfate [Iron] 325 mg PO TID 05/26/16 [History] Furosemide [Lasix] 40 mg PO BID 05/26/16 [History] Sucralfate [Carafate] 1 gm PO TID 05/26/16 [History] Loratadine [Allergy Relief] 10 mg PO DAILY 10/31/16 [History] Allergies codeine Allergy (Verified 10/25/16 01:42) Hives Penicillins [PCN] Allergy (Verified 10/25/16 01:42) Hives - Meds/Allergy Pre-op Review Medications Reviewed: Yes Allergies Reviewed: Yes Beta Blockers on Current Med List: No Anesthesia Results - Labs 11/11/16 04:35 11/11/16 04:35 Laboratory Tests 10/30/16 10/31/16 11/02/16 17:10 08:57 20:58 ABG pH ABG pCO2 ABG pO2 ABG HCO3 ABG Total CO2 ABG O2 Saturation ABG Base Excess Respiration Rate 12 Blood Gas Modality Inspired O2 POC Glucose Est Mean Plasma Glucose 266 Hemoglobin A1c 10.9 H Calcium Ionized Calcium Magnesium B-Natriuretic Peptide 225 H 11/05/16 11/07/16 11/10/16 16:37 06:50 20:15 ABG pH 7.49 H ABG pCO2 32 L ABG pO2 53 L ABG HCO3 24.4 ABG Total CO2 25.4 ABG O2 Saturation 90 L ABG Base Excess 1.0 Respiration Rate Blood Gas Modality RA Inspired O2 21 POC Glucose 166 H Est Mean Plasma Glucose Hemoglobin A1c Calcium Ionized Calcium 1.11 L Magnesium 1.4 L B-Natriuretic Peptide 11/11/16 04:35 ABG pH ABG pCO2 ABG pO2 ABG HCO3 ABG Total CO2 ABG O2 Saturation ABG Base Excess Respiration Rate Blood Gas Modality Inspired O2 POC Glucose Est Mean Plasma Glucose Hemoglobin A1c Calcium 8.2 L Ionized Calcium Magnesium B-Natriuretic Peptide Laboratory Results Impressions Chest CT 11/02/16 18:08 IMPRESSION: 1. Large simple right pleural effusion, increased from the comparison study. Complete right lower lobe and partial right middle and upper lobe atelectasis. Trace left pleural effusion with mild dependent left basilar atelectasis. 2. Acute bronchial wall thickening and ground-glass peribronchial infiltrate in the aerated portion of the lungs. 3. Cirrhotic liver with a small amount of upper abdominal ascites and diffuse mesenteric edema. The findings were discussed with Dr. Hardy on 11/02/2016 at 9:45 p.m. D/ / 11/02/2016 22:19:07 Jonathon Chavira MD / earnold Interpreting Provider: Jonathon Chavira MD Liver Ultrasound 11/08/16 17:00 IMPRESSION: 1. Mildly nodular liver surface and coarsened hepatic echotexture compatible with cirrhosis. No focal hepatic lesion identified. 2. Status post cholecystectomy. 3. Right pleural effusion. D/ / Elton Bailey MD / Elton Bailey MD Interpreting Provider: Elton Bailey MD Chest X-Ray 11/11/16 08:45 IMPRESSION: No pneumothorax status post thoracentesis. Persistent bilateral airspace opacities, right worse than left. These are worsened to the right lung base concerning for worsening atelectasis or infiltrate along with superimposed pleural effusion. D/ / 11/11/2016 09:40:08 Desmond Garcia MD / Stephanie Llanos Interpreting Provider: Desmond Garcia MD - Imaging EKG: image reviewed (100bpm ST) Anesthesia Exam Vital Signs Temp Pulse Resp BP Pulse Ox 11/11/16 09:38 96 22 95/68 95 11/11/16 08:07 20 95 11/11/16 06:32 98.5 F 101 20 118/72 95 11/11/16 04:48 18 80 L 11/11/16 04:00 98.5 F 99 17 113/72 95 11/11/16 00:23 18 91 L 11/11/16 00:00 98.2 F 114 18 158/94 91 L 11/10/16 20:22 18 95 11/10/16 20:00 98.0 F 104 17 110/71 95 11/10/16 16:05 18 97 11/10/16 15:51 98.3 F 100 18 139/64 97 11/10/16 11:44 16 97 11/10/16 10:33 98.0 F 87 16 105/68 97 Intake and Output 11/10/16 11/11/16 11/11/16 23:59 07:59 15:59 Intake Total 520 / 520 0 / 0 Output Total 600 / 600 Balance -80 / -80 0 / 0 Intake: Oral 520 / 520 0 / 0 Output: Catheter 600 / 600 Other: Blood Glucose* 166 108 Height: 5'2" Weight: 160# BMI = 29.4 NPO (# of Hours): MNOc - HEENT Pupil (Motor): Pupils equal, EOMI Mallampati: II Teeth: Normal Oral Opening: Greater than 3 - NURSE HEALTHCARE MANAGER LOC: Oriented NURSE HEALTHCARE MANAGER Motor: Normal RUE, Normal LUE, Normal RLE, Normal LLE, Normal Face NURSE HEALTHCARE MANAGER Sensory: Normal: RUE, LUE, RLE, LLE, Face - Cardiac Rhythm: Regular Murmur: Systolic JVD: No - Pulmonary Breath Sounds: bilateral Clear, bilateral Rales Respiratory Effort: Symmetrical Anesthesia Assess/Plan ASA Score: 4 (Hep C, Cirrhosis, Esophageal Varices, Smoker, COPD, Anxiety/ Depression, Hx of polysubstance abuse, Thrombocytopenia, Severe PulmHtn, DM) Modified Palmer Scale for Level of Consciousness: Cooperative, oriented, and tranquil Anesthetic Plan: MAC Monitoring Plan: Standard Monitors Recovery Plan: Other Anes Supervising Prov Stmt: Pt seen/evaluated, R&B Discussed, questions answered and consent obtained. Shanna Gonzalez MD
[2016-11-11] MEDS ORDERED: Tetracaine/Benzocaine/Butamben 200MG/SPRAY (100SPY/BOT) MM ONE (10:06)
--- NOTE | 2016-11-11 10:18 | Anesthesia Evaluation Post Op ---
Date of Encounter: 11/09/16 Time of Encounter: 10:17 - Vital Signs Vital Signs: vss baseline, - Lungs Lungs: Rhonchi - Airway Airway: Obstructed - Cardiovascular Baseline Rhythm - Mental Status Mental Status: Asleep with brisk response to light stimulation - Pain Pain Scale used: AndrewsGuille (Faces) - Nausea Vomiting Nausea Vomiting: Not Present - Discharge PostOp Status: Transfer Patient to floor (close monitoring)
[2016-11-11] MEDS: Furosemide 20 MG/2 ML VIAL IVP SCH ×2 (10:51→21:54)
[2016-11-11] MEDS: Preparation H Ointment 30 GM TUBE TP SCH ×2 (10:51→23:14)
[2016-11-11] MEDS: Pantoprazole 40 MG VIAL IVPB SCH ×2 (10:56→21:54)
[2016-11-11] MEDS: traMADol 50 MG TABLET PO PRN ×2 (10:57→21:54)
--- NOTE | 2016-11-11 11:14 | Internal Med Progress Note ---
<Leydi Leavitt - Last Filed: 11/11/16 11:09> Date of Encounter: 11/11/16 Time of Encounter: 11:09 - Assessment and plan (1) Acute blood loss anemia Current Visit: No Status: Resolved Assessment and plan: acute blood loss anemia likely 2ry to GI bleed upper vs lower: with blood per rectum and history of black tar-like stools. Her hemoglobin dropped to 6.3 and she received 1 units PRBC. Hemoglobin stable at 7.4 this morning EGD with no evidence of upper GI bleed. Patient does have grade 1 esophageal varices and evidence of poral hypertensive gastropathy. Also had a pre pyloric area with mild inflammation characterized by a single erosion. Plan: Continue to monitor CBC Transfuse PRBCs if hgb falls below 7.0 Continue PPI GI recommends repeat endoscopy in 1 year (2) Type 2 diabetes mellitus Current Visit: Yes Status: Chronic Assessment and plan: Patient is a known type II diabetic with uncontrolled diabetes. Glucoses have been elevated throughout inpatient stay with difficulty controlling. Home insulin includes Lantus 50 units subcutaneous at bedtime, insulin lispro 15 units subcutaneous 3 times a day with meals. -Continue 30 units Levemir subcutaneous at bedtime, 6 units lispro subcutaneous 3 times a day with meals, medium dose correction scale. - Continue diabetic diet Qualifiers: Diabetes mellitus complication status: with circulatory complication Diabetes mellitus complication detail: with peripheral angiopathy without gangrene Diabetes mellitus roasterman insulin use: with roasterman use Qualified Code(s): E11.51 - Type 2 diabetes mellitus with diabetic peripheral angiopathy without gangrene; Z79.4 - group home (current) use of insulin (3) Community acquired pneumonia Current Visit: Yes Status: Acute Assessment and plan: Sepsis 2ry to community-acquired pneumonia treated with 6 days of Levaquin. Completed treatment. Increasing shortness of breath CXR showed recurrent right-sided pleural effusion (large in nature). Requiring intubation and mechanical ventilation and thoracentesis. Underwent repeat thoracentesis today with an additional 1.5L removed from right chest (4) Pleural effusion Current Visit: Yes Status: Acute Assessment and plan: Recurrent large right pleural effusion On 11/02/2016 patient developed increasing shortness of breath with increased oxygen demand, tachypnea and altered mental status. Patient developed large right-sided pleural effusion. Patient was subsequently intubated and sedated. She underwent thoracentesis on 11/03/2016 Pleural fluid: 1400 mL scope: ning Tyler, pH 7.45, nucleated cells 195, LDH 35, total protein less than 0.8. Triglycerides 25 amylase 22 and glucose 159 suspected to be transudative. Gram stain negative. -Suspect secondary to liver cirrhosis. -Therapeutic thoracentesis 11/11/16 with 1.5L fluid removed from right chest, clear in nature (5) UTI (urinary tract infection) Current Visit: Yes Status: Resolved Assessment and plan: Blood culture positive for E coli and Strep Viridans Culture is a sendout for S Viridans, should have results by 11/04 or 11/05 completed 5 days of vanc and 6 days of levaquin Qualifiers: Urinary tract infection type: acute cystitis Hematuria presence: without hematuria Qualified Code(s): N30.00 - Acute cystitis without hematuria (6) Cirrhosis Current Visit: No Status: Chronic Assessment and plan: multiple etiology: Hep B, Hep C, opiate, IVD and ETOH abuse complicated by bleeding varices and thrombocytopenia EGD with evidence of grade 1 esophageal varices and portal hypertensive gastropathy, recommend repeat EGD in one year for surveillance Qualifiers: Hepatic cirrhosis type: other cirrhosis Qualified Code(s): K74.69 - Other cirrhosis of liver (7) COPD (chronic obstructive pulmonary disease) Current Visit: No Status: Chronic Assessment and plan: Plan: -Continue home nebulizer therapy -Titrate supplemental oxygen as necessary to maintain saturations between 88-92% Qualifiers: COPD type: emphysema Emphysema type: unspecified Qualified Code(s): J43.9 - Emphysema, unspecified (8) Hepatitis B Current Visit: Yes Status: Chronic Assessment and plan: Chronic history. Supportive care. Qualifiers: Viral hepatitis chronicity: chronic Hepatic coma status: without hepatic coma Hepatitis delta agent presence: without delta-agent Qualified Code(s): B18.1 - Chronic viral hepatitis B without delta-agent (9) Hepatitis C Current Visit: Yes Status: Chronic Assessment and plan: Chronic history. Supportive care. Qualifiers: Viral hepatitis chronicity: chronic Hepatic coma status: without hepatic coma Qualified Code(s): B18.2 - Chronic viral hepatitis C (10) CHF (congestive heart failure) Current Visit: Yes Status: Chronic Assessment and plan: Acute diastolic CHF exacerbation Patient is a chronic history of diastolic heart failure. Continue treatment with supportive care. Echocardiogram from 11/29/2015 : LVEF 65% History of indeterminant diastolic dysfunction with moderate to severe dilated right ventricular with moderate RV hypokinesis. Mild tricuspid regurgitation. Severe pulmonary hypertension with an RVSP of 67 Lasix IV - 1.5 L fluid restriction - Cardiac diet with no added salt plus diabetic diet. Qualifiers: Congestive heart failure type: diastolic Congestive heart failure chronicity: chronic Qualified Code(s): I50.32 - Chronic diastolic (congestive ) heart failure (11) Sepsis Current Visit: Yes Status: Resolved Assessment and plan: Resolved. Patient was admitted with tachypnea, tachycardia, leukocytosis. Source urinary tract infection and mucoid pneumonia. Plan: Continue to monitor patient's vitals and treat effectively. Qualifiers: Sepsis type: sepsis due to unspecified organism Qualified Code(s): A41.9 - Sepsis, unspecified organism - Subjective Interval history: Patient seen and examined, she is laying in bed. She underwent a EGD with Dr. Powell this morning which demonstrated grade 1 esophageal varices and evidence of mild portal hypertensive gastropathy. also noted mild inflammation characterized by a single erosion in the pre-pyloric area. Recommended repeat surveillance in 1 year. Patient also had an additional 1.5L removed from her right chest this morning. Currently she feels as if her shortness of breath has improved since removal of the fluid. She is currently complaining of a headache for which she recently received ultram. She has not eaten yet post procedure, and is currently awaiting lunch. She has no chest pain or fever. She has no other additional concerns or complaints at this time. - Constitutional Vitals: Temp Pulse Resp BP Pulse Ox 98.5 F 102 22 97/57 95 11/11/16 06:32 11/11/16 10:36 11/11/16 09:38 11/11/16 10:36 11/11/16 09:38 General appearance: Present: disheveled (appears much older then stated age), mild distress, A&O X 3, no acute distress, answers questions appropriately - Head Head exam: Present: atraumatic, normocephalic - Eye Eye exam: Present: PERRL, conjuntiva pink, sclera anicteric - ENT ENT exam: Present: mucous membranes moist, normal external ear exam - Neck Neck exam general surgery: Present: supple, trachea midline - Respiratory Respiratory exam: Present: decreased breath sounds (decreased breath sounds right base), CTAB. Absent: rales, rhonchi, stridor, wheezes - Cardiovascular Cardiovascular exam: Present: RRR, +S1, +S2. Absent: clicks, diastolic murmur, gallop, rubs, systolic murmur - GI/Abdominal GI/Abdominal exam: Present: normal bowel sounds, soft. Absent: distended, guarding, rebound, tenderness - Extremities Exam Extremities exam: Present: normal capillary refill, pedal edema (trace to + 1 pitting edema lower extremities bilaterally ), radial pulses palpable and symetrical Internal Medicine: Result - Labs CBC & Chem 7: 11/11/16 04:35 11/11/16 04:35 Labs: Short CBC 11/11/16 Range/Units 04:35 WBC 4.3 (4.3-11.1) K/mcL Hgb 7.4 L (11.5-15.4) g/dL Hct 24.2 L (35.3-44.9) % Plt Count 45 L (140-400) K/mcL [facility] 11/11/16 04:35 Sodium 136 Potassium 3.3 L Chloride 100 Carbon Dioxide 29 BUN 9 Creatinine 0.79 Glucose 99 Calcium 8.2 L - ABG Interpretation ABG results: ABG ABG pH 7.49 pH Units (7.32-7.45) H 11/05/16 16:37 ABG pCO2 32 mmHg (35-45) L 11/05/16 16:37 ABG pO2 53 mmHg (85-104) L 11/05/16 16:37 ABG O2 Saturation 90 % (95-98) L 11/05/16 16:37 PT/INR, D-dimer PT 14.2 Seconds (9.4-12.1) H 11/11/16 04:35 - Impressions Impressions Thoracentesis Ultrasound 11/11/16 00:00 IMPRESSION: Successful ultrasound guided thoracentesis. D/ / Sriram Hurtado MD / Sriram Hurtado MD Interpreting Provider: Sriarm Hurtado MD Chest X-Ray 11/11/16 08:45 IMPRESSION: No pneumothorax status post thoracentesis. Persistent bilateral airspace opacities, right worse than left. These are worsened to the right lung base concerning for worsening atelectasis or infiltrate along with superimposed pleural effusion. D/ / 11/11/2016 09:40:08 Desmond Garcia MD / Stephanie Llanos Interpreting Provider: Desmond Garcia MD - VTE Documentation of Mechanical Device: Intermittent pneumatic compression device Consult Discharge Plan - Plan Referrals: NO,PCP [Primary Care Provider] - <Apolinar Griffith H - Last Filed: 11/11/16 14:41> Date of Encounter: 11/11/16 - Assessment and plan (1) Acute blood loss anemia Current Visit: No Status: Resolved (2) Type 2 diabetes mellitus Current Visit: Yes Status: Chronic Qualifiers: Diabetes mellitus complication status: with circulatory complication Diabetes mellitus complication detail: with peripheral angiopathy without gangrene Diabetes mellitus roasterman insulin use: with alf use Qualified Code(s): E11.51 - Type 2 diabetes mellitus with diabetic peripheral angiopathy without gangrene; Z79.4 - group home (current) use of insulin (3) Community acquired pneumonia Current Visit: Yes Status: Acute (4) Pleural effusion Current Visit: Yes Status: Acute (5) UTI (urinary tract infection) Current Visit: Yes Status: Resolved Qualifiers: Urinary tract infection type: acute cystitis Hematuria presence: without hematuria Qualified Code(s): N30.00 - Acute cystitis without hematuria (6) Cirrhosis Current Visit: No Status: Chronic Qualifiers: Hepatic cirrhosis type: other cirrhosis Qualified Code(s): K74.69 - Other cirrhosis of liver (7) COPD (chronic obstructive pulmonary disease) Current Visit: No Status: Chronic Qualifiers: COPD type: emphysema Emphysema type: unspecified Qualified Code(s): J43.9 - Emphysema, unspecified (8) Hepatitis B Current Visit: Yes Status: Chronic Qualifiers: Viral hepatitis chronicity: chronic Hepatic coma status: without hepatic coma Hepatitis delta agent presence: without delta-agent Qualified Code(s): B18.1 - Chronic viral hepatitis B without delta-agent (9) Hepatitis C Current Visit: Yes Status: Chronic Qualifiers: Viral hepatitis chronicity: chronic Hepatic coma status: without hepatic coma Qualified Code(s): B18.2 - Chronic viral hepatitis C (10) CHF (congestive heart failure) Current Visit: Yes Status: Chronic Qualifiers: Congestive heart failure type: diastolic Congestive heart failure chronicity: chronic Qualified Code(s): I50.32 - Chronic diastolic (congestive ) heart failure (11) Sepsis Current Visit: Yes Status: Resolved Qualifiers: Sepsis type: sepsis due to unspecified organism Qualified Code(s): A41.9 - Sepsis, unspecified organism - Constitutional Vitals: Temp Pulse Resp BP Pulse Ox 98.5 F 102 16 97/57 95 11/11/16 06:32 11/11/16 10:36 11/11/16 11:29 11/11/16 10:36 11/11/16 11:29 Internal Medicine: Result - Labs CBC & Chem 7: 11/11/16 04:35 11/11/16 04:35 Labs: Short CBC 11/11/16 Range/Units 04:35 WBC 4.3 (4.3-11.1) K/mcL Hgb 7.4 L (11.5-15.4) g/dL Hct 24.2 L (35.3-44.9) % Plt Count 45 L (140-400) K/mcL BMP 11/11/16 04:35 Sodium 136 Potassium 3.3 L Chloride 100 Carbon Dioxide 29 BUN 9 Creatinine 0.79 Glucose 99 Calcium 8.2 L - ABG Interpretation ABG results: ABG ABG pH 7.49 pH Units (7.32-7.45) H 11/05/16 16:37 ABG pCO2 32 mmHg (35-45) L 11/05/16 16:37 ABG pO2 53 mmHg (85-104) L 11/05/16 16:37 ABG O2 Saturation 90 % (95-98) L 11/05/16 16:37 PT/INR, D-dimer PT 14.2 Seconds (9.4-12.1) H 11/11/16 04:35 - Impressions Impressions Thoracentesis Ultrasound 11/11/16 00:00 IMPRESSION: Successful ultrasound guided thoracentesis. D/ / Sriarm Hurtado MD / Sriram Hurtado MD Interpreting Provider: Sriram Hurtado MD Chest X-Ray 11/11/16 08:45 IMPRESSION: No pneumothorax status post thoracentesis. Persistent bilateral airspace opacities, right worse than left. These are worsened to the right lung base concerning for worsening atelectasis or infiltrate along with superimposed pleural effusion. D/ / 11/11/2016 09:40:08 Desmond Garcia MD / Stephanie Llanos Interpreting Provider: Desmond Garcia MD - Attending Attestation monitor cbc, continue lasix may discharge to ECF in the morning if stable I examined this patient and my medical decision-making was reviewed with the SALES MGR/PA/Advanced Practice Nurse/Resident Physician. I agree with the documented findings, disposition and treatment plan as described except to the extent set forth below.
[2016-11-11 11:31] LABS: LDH,Pleural Fluid 35 Units/L (No Ref Range); Triglycerides, Pleural Fluid 45 mg/dL (No Ref Range)
[2016-11-11 11:33] LABS: Total Protein,Pleural Fluid < 0.8 g/dL (No Ref Range)
[2016-11-11 11:41] LABS: RBC,Pleural Fluid < 0.002 M/mcL
[2016-11-11 11:47] LABS: Appearance of Pleural Fl Cloudy (Clear)
[2016-11-11] MEDS: Acetaminophen 325 MG TABLET PO PRN ×2 (16:56→23:21)
[2016-11-11] MEDS: Insulin DETEMIR 100 UNIT/ML X5UNITS SQ SCH (23:21)
[2016-11-12] MEDS: Ketorolac 30 MG/ML VIAL IVP PRN (02:02)
[2016-11-12] MEDS: Ipratropium/Albuterol Neb 3 ML IH SCH ×6 (04:48→23:42)
[2016-11-12 04:53] LABS: Hemoglobin 6.8 g/dL (11.5-15.4)
[2016-11-12 04:55] LABS: Hematocrit 22.1 % (35.3-44.9); Immature Platelets 13.7 % (1.1-6.1); Mean Corpuscular HGB Conc 30.8 g/dL (31.6-35.5); Mean Corpuscular Hemoglobin 25.8 pg (28.0-33.3); Mean Corpuscular Volume 83.7 fL (83.0-100.0); Mean Platelet Volume 13.5 fL (9.4-12.4); Red Blood Count 2.64 M/mcL (3.82-4.97)
[2016-11-12 05:18] LABS: BUN/Creatinine Ratio 14 (6-26); Blood Urea Nitrogen 12 mg/dL (7-20); Calcium 8.1 mg/dL (8.6-10.8); Carbon Dioxide 25 mEq/L (19-29); Chloride 103 mEq/L (98-109); Glucose 117 mg/dL (70-99); Osmolality,Calculated 285 (280-300); Sodium 137 mEq/L (136-145); eGFR For African Americans > 60 (> 60); eGFR For Non-African Americans > 60 (> 60)
[2016-11-12] MEDS: Pantoprazole 40 MG VIAL IVPB SCH ×2 (09:29→20:11)
[2016-11-12] MEDS: Preparation H Ointment 30 GM TUBE TP SCH ×2 (09:29→20:34)
[2016-11-12] MEDS: Insulin LISPRO 300 UNITS/3 ML VIAL SQ SCH ×7 (09:29→21:40)
[2016-11-12] MEDS: Furosemide 20 MG/2 ML VIAL IVP SCH ×3 (09:29→20:11)
[2016-11-12] MEDS: traMADol 50 MG TABLET PO PRN ×2 (09:39→17:20)
--- NOTE | 2016-11-12 11:27 | Internal Med Progress Note ---
<Adam Hardy - Last Filed: 11/12/16 11:23> Date of Encounter: 11/12/16 Time of Encounter: 11:23 - Assessment and plan (1) Blood loss anemia Current Visit: No Status: Acute Assessment and plan: Hemoglobin 6.8, patient asymptomatic. Undergone workup for potential upper GI bleed. EGD with no evidence of upper GI bleed. Patient does have grade 1 esophageal varices and evidence of poral hypertensive gastropathy. Also had a pre pyloric area with mild inflammation characterized by a single erosion. - Thus far has received 1 unit PRBCs Plan: Continue to monitor CBC Transfuse PRBCs if hgb falls below 7.0 (will transfuse one unit now.) Continue PPI GI recommends repeat endoscopy in 1 year (2) Dyspnea Current Visit: Yes Status: Acute Assessment and plan: Improved. Patient continues to receive 2 L nasal cannula oxygen. Likely secondary to pneumonia and right-sided pleural effusion. -Continue to wean oxygen as tolerated. Qualifiers: Qualified Code(s): R06.00 - Dyspnea, unspecified (3) Escherichia coli urinary tract infection Current Visit: Yes Status: Resolved Assessment and plan: Completed antibiotic treatment. (4) Type 2 diabetes mellitus Current Visit: Yes Status: Chronic Assessment and plan: Patient is a known type II diabetic with uncontrolled diabetes. Glucoses have been elevated throughout inpatient stay with difficulty controlling, more controlled currently.. Home insulin includes Lantus 50 units subcutaneous at bedtime, insulin lispro 15 units subcutaneous 3 times a day with meals. -Continue 30 units Levemir subcutaneous at bedtime, 6 units lispro subcutaneous 3 times a day with meals, medium dose correction scale. - Continue diabetic diet Qualifiers: Diabetes mellitus complication status: with circulatory complication Diabetes mellitus complication detail: with peripheral angiopathy without gangrene Diabetes mellitus salvage determiner insulin use: with snf use Qualified Code(s): E11.51 - Type 2 diabetes mellitus with diabetic peripheral angiopathy without gangrene; Z79.4 - correction (current) use of insulin (5) Community acquired pneumonia Current Visit: Yes Status: Acute Assessment and plan: Completed antibiotic treatment. Patient improved. (6) Pleural effusion Current Visit: Yes Status: Acute Assessment and plan: Recurrent large right pleural effusion On 11/02/2016 patient developed increasing shortness of breath with increased oxygen demand, tachypnea and altered mental status. Patient developed large right-sided pleural effusion. Patient was subsequently intubated and sedated. She underwent thoracentesis on 11/03/2016 Pleural fluid: 1400 mL scope: ning Tyler, pH 7.45, nucleated cells 195, LDH 35, total protein less than 0.8. Triglycerides 25 amylase 22 and glucose 159 suspected to be transudative. Gram stain negative. -Suspect secondary to liver cirrhosis. -Therapeutic thoracentesis 11/11/16 with 1.5L fluid removed from right chest, clear in nature - Respiratory status has improved. - Patient will require continued monitoring may require intervention if pleural effusions are recurring. (7) COPD (chronic obstructive pulmonary disease) Current Visit: No Status: Chronic Assessment and plan: Stable. Continue maintenance therapy. Plan: -Continue home nebulizer therapy -Titrate supplemental oxygen as necessary to maintain saturations between 88-93% Qualifiers: COPD type: emphysema Emphysema type: unspecified Qualified Code(s): J43.9 - Emphysema, unspecified (8) Hepatitis B Current Visit: Yes Status: Chronic Assessment and plan: Chronic history. Supportive care. Qualifiers: Viral hepatitis chronicity: chronic Hepatic coma status: without hepatic coma Hepatitis delta agent presence: without delta-agent Qualified Code(s): B18.1 - Chronic viral hepatitis B without delta-agent (9) Hepatitis C Current Visit: Yes Status: Chronic Assessment and plan: Chronic history. Supportive care. Qualifiers: Viral hepatitis chronicity: chronic Hepatic coma status: without hepatic coma Qualified Code(s): B18.2 - Chronic viral hepatitis C (10) CHF (congestive heart failure) Current Visit: Yes Status: Chronic Assessment and plan: Patient is a chronic history of diastolic heart failure. Continue treatment with supportive care. Echocardiogram from 11/29/2015 : LVEF 65% History of indeterminant diastolic dysfunction with moderate to severe dilated right ventricular with moderate RV hypokinesis. Mild tricuspid regurgitation. Severe pulmonary hypertension with an RVSP of 67 - Lasix IV 20mg BID - 1.5 L fluid restriction - Cardiac diet with no added salt plus diabetic diet. - Daily weights. Qualifiers: Congestive heart failure type: diastolic Congestive heart failure chronicity: chronic Qualified Code(s): I50.32 - Chronic diastolic (congestive ) heart failure (11) Cirrhosis Current Visit: No Status: Chronic Assessment and plan: Patient is a history of liver cirrhosis and esophageal varices. Likely contributing to right-sided pleural effusion. Gastroenterology documents reviewed. Qualifiers: Hepatic cirrhosis type: unspecified hepatic cirrhosis Ascites presence: without ascites Qualified Code(s): K74.60 - Unspecified cirrhosis of liver (12) Sepsis Current Visit: Yes Status: Resolved Assessment and plan: Resolved. Qualifiers: Sepsis type: sepsis due to unspecified organism Qualified Code(s): A41.9 - Sepsis, unspecified organism - Subjective Interval history: Mrs. Luther 55 old female is seen in a patient bedside this morning. She is alert awake and interactive and complains of back pain. She feels her breathing is much improved from yesterday after she underwent therapeutic thoracentesis. Her concern is that she is taking Tylenol with her liver cirrhosis and she does not take Tylenol home. She cannot take ibuprofen because of her GI bleeding. Overall she feels much improved. - Constitutional Vitals: Temp Pulse Resp BP Pulse Ox 98.2 F 103 18 100/63 93 11/12/16 07:29 11/12/16 09:39 11/12/16 07:29 11/12/16 09:39 11/12/16 07:29 General appearance: Present: disheveled (appears much older then stated age), mild distress, A&O X 3, no acute distress, answers questions appropriately - Head Head exam: Present: atraumatic, normocephalic - Eye Eye exam: Present: PERRL, conjuntiva pink, sclera anicteric Pupils: Present: PERRL - Neck Neck exam general surgery: Present: supple, trachea midline. Absent: lymphadenopathy - Respiratory Respiratory exam: Present: decreased breath sounds Additional comments: Diminished breath sounds at bilateral lung bases, diffuse mild crackles. - Cardiovascular Cardiovascular exam: Present: RRR, +S1, +S2. Absent: diastolic murmur, gallop, rubs, systolic murmur - GI/Abdominal GI/Abdominal exam: Present: normal bowel sounds, soft, no peritoneal signs. Absent: distended, tenderness - Extremities Exam Extremities exam: Present: warm, radial pulses palpable and symetrical. Absent : calf tenderness, cyanotic, pedal edema - Neurological Exam Neurological exam: Present: alert, oriented X3, no focal deficits. Absent: pronater drift, facial droop, speech deficit - Psychiatric Psychiatric exam: Present: normal affect, normal mood Internal Medicine: Result - Labs CBC & Chem 7: 11/12/16 04:42 11/12/16 04:42 Labs: Short CBC 11/12/16 Range/Units 04:42 WBC 3.2 L (4.3-11.1) K/mcL Hgb 6.8 L (11.5-15.4) g/dL Hct 22.1 L (35.3-44.9) % Plt Count 41 L (140-400) K/mcL BMP 11/12/16 04:42 Sodium 137 Potassium 4.0 Chloride 103 Carbon Dioxide 25 BUN 12 Creatinine 0.87 Glucose 117 H Calcium 8.1 L - ABG Interpretation ABG results: ABG ABG pH 7.49 pH Units (7.32-7.45) H 11/05/16 16:37 ABG pCO2 32 mmHg (35-45) L 11/05/16 16:37 ABG pO2 53 mmHg (85-104) L 11/05/16 16:37 ABG O2 Saturation 90 % (95-98) L 11/05/16 16:37 PT/INR, D-dimer PT 14.2 Seconds (9.4-12.1) H 11/11/16 04:35 - VTE Documentation of Mechanical Device: Intermittent pneumatic compression device Consult Discharge Plan - Plan Referrals: NO,PCP [Primary Care Provider] - <Apolinar Griffith H - Last Filed: 11/12/16 13:30> Date of Encounter: 11/12/16 - Assessment and plan (1) Acute blood loss anemia Current Visit: No Status: Resolved (2) Type 2 diabetes mellitus Current Visit: Yes Status: Chronic Qualifiers: Diabetes mellitus complication status: with circulatory complication Diabetes mellitus complication detail: with peripheral angiopathy without gangrene Diabetes mellitus salvage determiner insulin use: with snf use Qualified Code(s): E11.51 - Type 2 diabetes mellitus with diabetic peripheral angiopathy without gangrene; Z79.4 - correction (current) use of insulin (3) Community acquired pneumonia Current Visit: Yes Status: Acute (4) Pleural effusion Current Visit: Yes Status: Acute (5) UTI (urinary tract infection) Current Visit: Yes Status: Resolved Qualifiers: Urinary tract infection type: acute cystitis Hematuria presence: without hematuria Qualified Code(s): N30.00 - Acute cystitis without hematuria (6) Cirrhosis Current Visit: No Status: Chronic Qualifiers: Hepatic cirrhosis type: other cirrhosis Qualified Code(s): K74.69 - Other cirrhosis of liver (7) COPD (chronic obstructive pulmonary disease) Current Visit: No Status: Chronic Qualifiers: COPD type: emphysema Emphysema type: unspecified Qualified Code(s): J43.9 - Emphysema, unspecified (8) Hepatitis B Current Visit: Yes Status: Chronic Qualifiers: Viral hepatitis chronicity: chronic Hepatic coma status: without hepatic coma Hepatitis delta agent presence: without delta-agent Qualified Code(s): B18.1 - Chronic viral hepatitis B without delta-agent (9) Hepatitis C Current Visit: Yes Status: Chronic Qualifiers: Viral hepatitis chronicity: chronic Hepatic coma status: without hepatic coma Qualified Code(s): B18.2 - Chronic viral hepatitis C (10) CHF (congestive heart failure) Current Visit: Yes Status: Chronic Qualifiers: Congestive heart failure type: diastolic Congestive heart failure chronicity: chronic Qualified Code(s): I50.32 - Chronic diastolic (congestive ) heart failure (11) Sepsis Current Visit: Yes Status: Resolved Qualifiers: Sepsis type: sepsis due to unspecified organism Qualified Code(s): A41.9 - Sepsis, unspecified organism - Constitutional Vitals: Temp Pulse Resp BP Pulse Ox 98.1 F 96 17 105/70 98 11/12/16 12:24 11/12/16 12:24 11/12/16 12:24 11/12/16 12:24 11/12/16 12:24 Internal Medicine: Result - Labs CBC & Chem 7: 11/12/16 04:42 11/12/16 04:42 Labs: Short CBC 11/12/16 Range/Units 04:42 WBC 3.2 L (4.3-11.1) K/mcL Hgb 6.8 L (11.5-15.4) g/dL Hct 22.1 L (35.3-44.9) % Plt Count 41 L (140-400) K/mcL BMP 11/12/16 04:42 Sodium 137 Potassium 4.0 Chloride 103 Carbon Dioxide 25 BUN 12 Creatinine 0.87 Glucose 117 H Calcium 8.1 L - ABG Interpretation ABG results: ABG ABG pH 7.49 pH Units (7.32-7.45) H 11/05/16 16:37 ABG pCO2 32 mmHg (35-45) L 11/05/16 16:37 ABG pO2 53 mmHg (85-104) L 11/05/16 16:37 ABG O2 Saturation 90 % (95-98) L 11/05/16 16:37 PT/INR, D-dimer PT 14.2 Seconds (9.4-12.1) H 11/11/16 04:35 - Attending Attestation Acute blood loss anemia unclear etiology, consider lower GI bleed May reconsult GI for colonoscopy if hemoglobin is not stable Lasix IV Recurrent right pleural effusion status post thoracenteses 2, order a chest x- ray for the morning and consider new thoracenteses, if not improving we will consult cardiothoracic surgery for further recommendations I examined this patient and my medical decision-making was reviewed with the [employer] DROP OPERATOR/PA/Advanced Practice Nurse/Resident Physician. I agree with the documented findings, disposition and treatment plan as described except to the extent set forth below.
[2016-11-12] MEDS: Acetaminophen 325 MG TABLET PO PRN (12:13)
[2016-11-12] MEDS ORDERED: 0.9 % Sodium Chloride 250 ML ONE (13:21)
[2016-11-12] MEDS: Insulin DETEMIR 100 UNIT/ML X5UNITS SQ SCH (20:11)
[2016-11-12 21:42] LABS: Hematocrit 29.4 % (35.3-44.9); Hemoglobin 9.2 g/dL (11.5-15.4)
[2016-11-13] MEDS: traMADol 50 MG TABLET PO PRN ×2 (04:19→18:16)
[2016-11-13] MEDS: Ipratropium/Albuterol Neb 3 ML IH SCH ×5 (04:25→19:38)
[2016-11-13 05:32] LABS: Hemoglobin 8.1 g/dL (11.5-15.4)
[2016-11-13 05:34] LABS: Hematocrit 26.4 % (35.3-44.9); Immature Platelets 18.9 % (1.1-6.1); Mean Corpuscular HGB Conc 30.7 g/dL (31.6-35.5); Mean Corpuscular Hemoglobin 25.2 pg (28.0-33.3); Mean Corpuscular Volume 82.2 fL (83.0-100.0); Red Blood Count 3.21 M/mcL (3.82-4.97); Red Cell Distribution Width 15.2 % (11.5-14.5)
[2016-11-13 05:40] LABS: Alanine Aminotransferase 15 Units/L (0-55); Albumin/Globulin Ratio 0.5 (1.1-2.2); Alkaline Phosphatase 77 Units/L (38-126); Aspartate Amino Transferase 23 Units/L (5-34); BUN/Creatinine Ratio 13 (6-26); Bilirubin,Total 1.4 mg/dL (0.2-1.2); Blood Urea Nitrogen 12 mg/dL (7-20); Calcium 8.1 mg/dL (8.6-10.8); Carbon Dioxide 27 mEq/L (19-29); Chloride 99 mEq/L (98-109); Globulin 3.9 g/dL (2.4-3.5); Glucose 132 mg/dL (70-99); Osmolality,Calculated 280 (280-300); Potassium 3.5 mEq/L (3.5-4.5); Sodium 134 mEq/L (136-145); Total Protein 5.7 g/dL (6.0-8.3); eGFR For African Americans > 60 (> 60); eGFR For Non-African Americans > 60 (> 60)
[2016-11-13 05:53] LABS: Albumin 1.8 g/dL (3.5-5.0)
[2016-11-13 06:43] LABS: Platelet Count 38 K/mcL (140-400)
[2016-11-13 06:50] LABS: Lymphocytes # 0.6 K/mcL (0.6-4.6); Monocytes # 0.4 K/mcL (0.0-1.3); Neutrophils # 2.6 K/mcL (1.6-8.9)
[2016-11-13 06:51] LABS: Platelet Estimate Marked Decrease (Normal)
[2016-11-13 06:52] LABS: Hypochromasia Present (Not Present); Macrocytosis Present (Not Present); Polychromasia 1+ (Not Present)
[2016-11-13 06:54] LABS: Large Platelets Present (Not Present)
[2016-11-13] MEDS: Preparation H Ointment 30 GM TUBE TP SCH ×2 (08:49→21:47)
[2016-11-13] MEDS: Insulin LISPRO 300 UNITS/3 ML VIAL SQ SCH ×7 (08:49→20:48)
[2016-11-13] MEDS ORDERED: Acetaminophen 325 MG TABLET PO PRN (08:52)
[2016-11-13] MEDS: Furosemide 20 MG/2 ML VIAL IVP SCH ×2 (09:11→21:47)
[2016-11-13] MEDS: Pantoprazole 40 MG VIAL IVPB SCH ×2 (09:11→21:47)
--- NOTE | 2016-11-13 09:11 | Internal Med Progress Note ---
Addendum entered and electronically signed by Adam Hardy DO 11/13 09:18: Thrombocytopenia: Plt count 38, Review of patients hx and this is just below her baseline over the past year. She is without petechiae or gingival bleeding. She does however have acute blood loss anemia for which this may be contributing. Original Note: <Adam Hardy - Last Filed: 11/13/16 09:09> Date of Encounter: 11/13/16 Time of Encounter: 09:09 - Assessment and plan (1) Blood loss anemia Current Visit: No Status: Acute Assessment and plan: Hemoglobin 8.1, patient asymptomatic. Undergone workup for potential upper GI bleed. EGD with no evidence of upper GI bleed. Patient does have grade 1 esophageal varices and evidence of poral hypertensive gastropathy. Also had a pre pyloric area with mild inflammation characterized by a single erosion. - Thus far has received 2 unit PRBCs with the last transfusion yesterday afternoon. - Patient stable. Plan: Continue to monitor CBC Transfuse PRBCs if hgb falls below 7.0 (will transfuse one unit now.) Continue PPI GI recommends repeat endoscopy in 1 year (2) Dyspnea Current Visit: Yes Status: Acute Assessment and plan: Improved. Patient continues to receive 2 L nasal cannula oxygen. Likely secondary to pneumonia and right-sided pleural effusion. - Repeat CXR demonstrates right sided pleural effusion, correlating with physical. -Continue to wean oxygen as tolerated. Qualifiers: Qualified Code(s): R06.00 - Dyspnea, unspecified (3) Escherichia coli urinary tract infection Current Visit: Yes Status: Resolved Assessment and plan: Completed antibiotic treatment. (4) Type 2 diabetes mellitus Current Visit: Yes Status: Chronic Assessment and plan: Patient is a known type II diabetic with uncontrolled diabetes. Glucoses have been elevated throughout inpatient stay with difficulty controlling, more controlled currently.. Home insulin includes Lantus 50 units subcutaneous at bedtime, insulin lispro 15 units subcutaneous 3 times a day with meals. -Continue 30 units Levemir subcutaneous at bedtime, 6 units lispro subcutaneous 3 times a day with meals, medium dose correction scale. - Continue diabetic diet Qualifiers: Diabetes mellitus complication status: with circulatory complication Diabetes mellitus complication detail: with peripheral angiopathy without gangrene Diabetes mellitus nursing home insulin use: with nursing home use Qualified Code(s): E11.51 - Type 2 diabetes mellitus with diabetic peripheral angiopathy without gangrene; Z79.4 - group home (current) use of insulin (5) Community acquired pneumonia Current Visit: Yes Status: Acute Assessment and plan: Completed antibiotic treatment. Patient improved. (6) Pleural effusion Current Visit: Yes Status: Acute Assessment and plan: Recurrent large right pleural effusion On 11/02/2016 patient developed increasing shortness of breath with increased oxygen demand, tachypnea and altered mental status. Patient developed large right-sided pleural effusion. Patient was subsequently intubated and sedated. She underwent thoracentesis on 11/03/2016 Pleural fluid: 1400 mL scope: ning Tyler, pH 7.45, nucleated cells 195, LDH 35, total protein less than 0.8. Triglycerides 25 amylase 22 and glucose 159 suspected to be transudative. Gram stain negative. -Suspect secondary to liver cirrhosis. -Therapeutic thoracentesis 11/11/16 with 1.5L fluid removed from right chest, clear in nature - Respiratory status has improved. - Patient will require continued monitoring may require continued theraputic thorocentesis draining. - Repeat CXR demonstrates right sided pleural effusion, correlating with physical exam. (7) COPD (chronic obstructive pulmonary disease) Current Visit: No Status: Chronic Assessment and plan: Stable. Continue maintenance therapy. Plan: -Continue home nebulizer therapy -Titrate supplemental oxygen as necessary to maintain saturations between 88-93% Qualifiers: COPD type: emphysema Emphysema type: unspecified Qualified Code(s): J43.9 - Emphysema, unspecified (8) Hepatitis B Current Visit: Yes Status: Chronic Assessment and plan: Chronic history. Supportive care. Qualifiers: Viral hepatitis chronicity: chronic Hepatic coma status: without hepatic coma Hepatitis delta agent presence: without delta-agent Qualified Code(s): B18.1 - Chronic viral hepatitis B without delta-agent (9) Hepatitis C Current Visit: Yes Status: Chronic Assessment and plan: Chronic history. Supportive care. Qualifiers: Viral hepatitis chronicity: chronic Hepatic coma status: without hepatic coma Qualified Code(s): B18.2 - Chronic viral hepatitis C (10) CHF (congestive heart failure) Current Visit: Yes Status: Chronic Assessment and plan: Patient is a chronic history of diastolic heart failure. Continue treatment with supportive care. Echocardiogram from 11/29/2015 : LVEF 65% History of indeterminant diastolic dysfunction with moderate to severe dilated right ventricular with moderate RV hypokinesis. Mild tricuspid regurgitation. Severe pulmonary hypertension with an RVSP of 67 - Lasix IV 20mg BID - 1.5 L fluid restriction - Cardiac diet with no added salt plus diabetic diet. - Daily weights. Qualifiers: Congestive heart failure type: diastolic Congestive heart failure chronicity: chronic Qualified Code(s): I50.32 - Chronic diastolic (congestive ) heart failure (11) Cirrhosis Current Visit: No Status: Chronic Assessment and plan: Patient is a history of liver cirrhosis and esophageal varices. Likely contributing to right-sided pleural effusion. Gastroenterology documents reviewed. Qualifiers: Hepatic cirrhosis type: unspecified hepatic cirrhosis Ascites presence: without ascites Qualified Code(s): K74.60 - Unspecified cirrhosis of liver (12) Sepsis Current Visit: Yes Status: Resolved Assessment and plan: Resolved. Qualifiers: Sepsis type: sepsis due to unspecified organism Qualified Code(s): A41.9 - Sepsis, unspecified organism - Subjective Interval history: Mrs. Luther 55 old female is seen in a patient bedside this morning. She is alert awake and interactive and complains of back pain. She is upset this morning because she feels that she is limited on pain control medications. She feels that because of her drug history she is now allowed to have opioid pain medications but cannot take NSAIDs because of her GI bleeding/gastropathy, or Tylenol with her liver cirrhosis. She discussed her medical history and said that her cirrhosis is likely genetic because her aunts and her mother and other family members have all had cirrhosis. She feels her breathing is improved and feels that she may have to live with recurring pleural effusion. Her concerns were listen to this morning and questions were answered. - Constitutional Vitals: Temp Pulse Resp BP Pulse Ox 98.3 F 95 20 113/78 88 11/13/16 07:18 11/13/16 07:18 11/13/16 08:24 11/13/16 07:18 11/13/16 08:24 General appearance: Present: mild distress, A&O X 3, no acute distress, answers questions appropriately - Head Head exam: Present: atraumatic, normocephalic - Eye Eye exam: Present: PERRL, conjuntiva pink, sclera anicteric Pupils: Present: PERRL - ENT ENT exam: Present: mucous membranes moist - Neck Neck exam general surgery: Present: supple, trachea midline - Respiratory Additional comments: Diminished breath sounds in the right lower lung base, all other lung michel are clear to auscultation. - Cardiovascular Cardiovascular exam: Present: RRR, +S1, +S2. Absent: diastolic murmur, gallop, rubs, systolic murmur - GI/Abdominal GI/Abdominal exam: Present: normal bowel sounds, soft, no peritoneal signs. Absent: distended, tenderness - Extremities Exam Extremities exam: Present: warm, radial pulses palpable and symetrical. Absent : calf tenderness, cyanotic, pedal edema - Neurological Exam Neurological exam: Present: alert, oriented X3, no focal deficits. Absent: pronater drift, facial droop, speech deficit - Psychiatric Psychiatric exam: Present: normal affect, normal mood Internal Medicine: Result - Labs CBC & Chem 7: 11/13/16 04:54 11/13/16 04:54 Labs: Short CBC 11/12/16 11/13/16 Range/Units 21:34 04:54 WBC 3.6 L (4.3-11.1) K/mcL Hgb 9.2 L D 8.1 L (11.5-15.4) g/dL Hct 29.4 L 26.4 L (35.3-44.9) % Plt Count 38 L (140-400) K/mcL Neutrophils # 2.6 (1.6-8.9) K/mcL BMP 11/13/16 04:54 Sodium 134 L Potassium 3.5 Chloride 99 Carbon Dioxide 27 BUN 12 Creatinine 0.89 Glucose 132 H Calcium 8.1 L Liver Function 11/13/16 Range/Units 04:54 Total Bilirubin 1.4 H (0.2-1.2) mg/dL AST 23 (5-34) Units/L ALT 15 (0-55) Units/L Alkaline Phosphatase 77 (38-126) Units/L Albumin 1.8 L (3.5-5.0) g/dL - ABG Interpretation ABG results: ABG ABG pH 7.49 pH Units (7.32-7.45) H 11/05/16 16:37 ABG pCO2 32 mmHg (35-45) L 11/05/16 16:37 ABG pO2 53 mmHg (85-104) L 11/05/16 16:37 ABG O2 Saturation 90 % (95-98) L 11/05/16 16:37 PT/INR, D-dimer PT 14.2 Seconds (9.4-12.1) H 11/11/16 04:35 - Impressions Impressions Chest X-Ray 11/13/16 08:00 IMPRESSION: 1. Moderate right pleural effusion appears stable compared to 11/11/2016. No pneumothorax. 2. Persistent, patchy multifocal bilateral airspace opacities. D/ / 11/13/2016 08:35:08 Jonathon Duke MD / cain Interpreting Provider: Jonathon Duke MD - VTE Documentation of Mechanical Device: Intermittent pneumatic compression device Consult Discharge Plan - Plan Referrals: NO,PCP [Primary Care Provider] - <Apolinar Griffith H - Last Filed: 11/13/16 11:48> Date of Encounter: 11/13/16 - Assessment and plan (1) Acute blood loss anemia Current Visit: No Status: Resolved (2) Type 2 diabetes mellitus Current Visit: Yes Status: Chronic Qualifiers: Diabetes mellitus complication status: with circulatory complication Diabetes mellitus complication detail: with peripheral angiopathy without gangrene Diabetes mellitus nursing home insulin use: with rn long term care use Qualified Code(s): E11.51 - Type 2 diabetes mellitus with diabetic peripheral angiopathy without gangrene; Z79.4 - terminologist (current) use of insulin (3) Community acquired pneumonia Current Visit: Yes Status: Acute (4) Pleural effusion Current Visit: Yes Status: Acute (5) UTI (urinary tract infection) Current Visit: Yes Status: Resolved Qualifiers: Urinary tract infection type: acute cystitis Hematuria presence: without hematuria Qualified Code(s): N30.00 - Acute cystitis without hematuria (6) Cirrhosis Current Visit: No Status: Chronic Qualifiers: Hepatic cirrhosis type: other cirrhosis Qualified Code(s): K74.69 - Other cirrhosis of liver (7) COPD (chronic obstructive pulmonary disease) Current Visit: No Status: Chronic Qualifiers: COPD type: emphysema Emphysema type: unspecified Qualified Code(s): J43.9 - Emphysema, unspecified (8) Hepatitis B Current Visit: Yes Status: Chronic Qualifiers: Viral hepatitis chronicity: chronic Hepatic coma status: without hepatic coma Hepatitis delta agent presence: without delta-agent Qualified Code(s): B18.1 - Chronic viral hepatitis B without delta-agent (9) Hepatitis C Current Visit: Yes Status: Chronic Qualifiers: Viral hepatitis chronicity: chronic Hepatic coma status: without hepatic coma Qualified Code(s): B18.2 - Chronic viral hepatitis C (10) CHF (congestive heart failure) Current Visit: Yes Status: Chronic Qualifiers: Congestive heart failure type: diastolic Congestive heart failure chronicity: chronic Qualified Code(s): I50.32 - Chronic diastolic (congestive ) heart failure (11) Sepsis Current Visit: Yes Status: Resolved Qualifiers: Sepsis type: sepsis due to unspecified organism Qualified Code(s): A41.9 - Sepsis, unspecified organism - Constitutional Vitals: Temp Pulse Resp BP Pulse Ox 98.3 F 95 20 113/78 98 11/13/16 07:18 11/13/16 07:18 11/13/16 11:01 11/13/16 07:18 11/13/16 11:01 Internal Medicine: Result - Labs CBC & Chem 7: 11/13/16 04:54 11/13/16 04:54 Labs: Short CBC 11/12/16 11/13/16 Range/Units 21:34 04:54 WBC 3.6 L (4.3-11.1) K/mcL Hgb 9.2 L D 8.1 L (11.5-15.4) g/dL Hct 29.4 L 26.4 L (35.3-44.9) % Plt Count 38 L (140-400) K/mcL Neutrophils # 2.6 (1.6-8.9) K/mcL BMP 11/13/16 04:54 Sodium 134 L Potassium 3.5 Chloride 99 Carbon Dioxide 27 BUN 12 Creatinine 0.89 Glucose 132 H Calcium 8.1 L Liver Function 11/13/16 Range/Units 04:54 Total Bilirubin 1.4 H (0.2-1.2) mg/dL AST 23 (5-34) Units/L ALT 15 (0-55) Units/L Alkaline Phosphatase 77 (38-126) Units/L Albumin 1.8 L (3.5-5.0) g/dL Urine 11/13/16 Range/Units 09:23 Urine Color Yellow (Yellow) Urine Clarity Clear (Clear) Urine pH 6.5 (5.0-8.0) pH Units Ur Specific [place] 1.013 (1.010-1.025) Urine Protein Trace (Neg-Trace) mg/dL Urine Glucose (UA) Normal (Normal) mg/dL - ABG Interpretation ABG results: ABG ABG pH 7.49 pH Units (7.32-7.45) H 11/05/16 16:37 ABG pCO2 32 mmHg (35-45) L 11/05/16 16:37 ABG pO2 53 mmHg (85-104) L 11/05/16 16:37 ABG O2 Saturation 90 % (95-98) L 11/05/16 16:37 PT/INR, D-dimer PT 14.2 Seconds (9.4-12.1) H 11/11/16 04:35 - Impressions Impressions Chest X-Ray 11/13/16 08:00 IMPRESSION: 1. Moderate right pleural effusion appears stable compared to 11/11/2016. No pneumothorax. 2. Persistent, patchy multifocal bilateral airspace opacities. D/ / 11/13/2016 08:35:08 Jonathon Duke MD / cain Interpreting Provider: Jonathon Duke MD - Attending Attestation Consider repeating therapeutic thoracenteses in the morning I examined this patient and my medical decision-making was reviewed with the FIRE BEHAVIOR ANALYST/PA/Advanced Practice Nurse/Resident Physician. I agree with the documented findings, disposition and treatment plan as described except to the extent set forth below.
[2016-11-13 09:33] LABS: Bilirubin,Urine Negative (Negative); Blood,Urine Negative (Negative); Clarity,Urine Clear (Clear); Color,Urine Yellow (Yellow); Glucose,Urine (UA) Normal (Normal); Ketones,Urine Negative (Negative); Leukocyte Esterase,Urine Moderate (Negative); Nitrite,Urine Negative (Negative); PH,Urine 6.5 pH Units (5.0-8.0); Protein,Urine Trace mg/dL (Neg-Trace); Specific Gravity,Urine 1.013 (1.010-1.025); Urobilinogen,Urine Normal (Normal)
[2016-11-13 09:36] LABS: Hyaline Casts,Urine None Seen per lpf (None-Few); RBC,Urine 0-3 per hpf (0-3); Squamous Epithelial Cell,Urine Many per lpf (None-Few); WBC,Urine 30-50 per hpf (0-3)
[2016-11-13 09:53] LABS: Yeast,Urine Few per hpf (None Seen)
[2016-11-13 09:54] LABS: Bacteria,Urine Few per hpf (None-Few)
[2016-11-13] MEDS: Insulin DETEMIR 100 UNIT/ML X5UNITS SQ SCH (21:47)
[2016-11-13] MEDS ORDERED: *HR* LORazepam 0.5 MG TABLET PO PRN (22:47)
[2016-11-13] MEDS ORDERED: Fluconazole 100 MG TABLET PO ONE (22:49)
[2016-11-13] MEDS ORDERED: Melatonin 3 MG TABLET PO SCH (23:00)
[2016-11-14] MEDS: Ipratropium/Albuterol Neb 3 ML IH SCH ×5 (00:03→15:28)
[2016-11-14 04:55] LABS: Basophils % 0.3 %; Hemoglobin 8.7 g/dL (11.5-15.4); Red Cell Distribution Width 15.5 % (11.5-14.5)
[2016-11-14 04:57] LABS: Eosinophils # 0.1 K/mcL (0.0-0.6); Immature Granulocytes % 0.3 % (0-4); Lymphocytes # 1.1 K/mcL (0.6-4.6); Lymphocytes % 31.4 %; Mean Corpuscular Hemoglobin 24.9 pg (28.0-33.3); Mean Corpuscular Volume 83.1 fL (83.0-100.0); Monocytes # 0.3 K/mcL (0.0-1.3); Monocytes % 7.6 %; Red Blood Count 3.49 M/mcL (3.82-4.97); Segmented Neutrophils % 56.4 %
[2016-11-14 05:09] LABS: Alanine Aminotransferase 15 Units/L (0-55); Albumin/Globulin Ratio 0.5 (1.1-2.2); Alkaline Phosphatase 78 Units/L (38-126); Aspartate Amino Transferase 20 Units/L (5-34); BUN/Creatinine Ratio 18 (6-26); Bilirubin,Total 0.9 mg/dL (0.2-1.2); Blood Urea Nitrogen 17 mg/dL (7-20); Calcium 8.2 mg/dL (8.6-10.8); Carbon Dioxide 28 mEq/L (19-29); Chloride 99 mEq/L (98-109); Globulin 4.2 g/dL (2.4-3.5); Glucose 112 mg/dL (70-99); Osmolality,Calculated 286 (280-300); Potassium 3.6 mEq/L (3.5-4.5); Sodium 137 mEq/L (136-145); Total Protein 6.1 g/dL (6.0-8.3); eGFR For African Americans > 60 (> 60); eGFR For Non-African Americans > 60 (> 60)
[2016-11-14 05:10] LABS: Albumin 1.9 g/dL (3.5-5.0)
[2016-11-14] MEDS: traMADol 50 MG TABLET PO PRN ×2 (05:11→15:05)
[2016-11-14 05:43] LABS: Platelet Count 51 K/mcL (140-400)
[2016-11-14 05:44] LABS: Anisocytosis 1+ (Not Present); Platelet Estimate Decreased (Normal)
[2016-11-14] MEDS: Insulin LISPRO 300 UNITS/3 ML VIAL SQ SCH ×4 (09:26→12:39)
[2016-11-14] MEDS: Pantoprazole 40 MG VIAL IVPB SCH (09:27)
[2016-11-14] MEDS: Furosemide 20 MG/2 ML VIAL IVP SCH (09:27)
[2016-11-14] MEDS: Preparation H Ointment 30 GM TUBE TP SCH (09:28)
[2016-11-14 12:28] VITALS: BP 108/71
[2016-11-14] MEDS ORDERED: Silvasorb 44.4 ML TUBE TP SCH (13:45)
--- NOTE | 2016-11-14 14:03 | Internal Med Progress Note ---
<Adam Hardy - Last Filed: 11/14/16 14:01> Date of Encounter: 11/14/16 Time of Encounter: 11:00 - Assessment and plan (1) Blood loss anemia Current Visit: No Status: Acute Assessment and plan: Hemoglobin 8.1, patient asymptomatic. Undergone workup for potential upper GI bleed. EGD with no evidence of upper GI bleed. Patient does have grade 1 esophageal varices and evidence of poral hypertensive gastropathy. Also had a pre pyloric area with mild inflammation characterized by a single erosion. - Thus far has received 2 unit PRBCs . - Patient stable. 11/14/2016: Hemoglobin stable, patient without signs or symptoms of blood loss or anemia Plan: Continue to monitor CBC Transfuse PRBCs if hgb falls below 7.0 Continue PPI GI recommends repeat endoscopy in 1 year (2) Dyspnea Current Visit: Yes Status: Acute Assessment and plan: Improved. Patient continues to have dullness in the right lung base correlating with chest x-ray and consolidation. All the lung michel are clear to auscultation she is stable at 2 L nasal cannula oxygen. -Continue to wean oxygen as tolerated. Qualifiers: Qualified Code(s): R06.00 - Dyspnea, unspecified (3) Escherichia coli urinary tract infection Current Visit: Yes Status: Resolved Assessment and plan: Completed antibiotic treatment. (4) Type 2 diabetes mellitus Current Visit: Yes Status: Chronic Assessment and plan: Patient is a known type II diabetic with uncontrolled diabetes. Glucoses have been elevated throughout inpatient stay with difficulty controlling, more controlled currently. Home insulin includes Lantus 50 units subcutaneous at bedtime, insulin lispro 15 units subcutaneous 3 times a day with meals. -Continue 30 units Levemir subcutaneous at bedtime, 6 units lispro subcutaneous 3 times a day with meals, medium dose correction scale. 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 Patient improved. (6) Pleural effusion Current Visit: Yes Status: Acute Assessment and plan: Recurrent large right pleural effusion On 11/02/2016 patient developed increasing shortness of breath with increased oxygen demand, tachypnea and altered mental status. Patient developed large right-sided pleural effusion. Patient was subsequently intubated and sedated. She underwent thoracentesis on 11/03/2016 Pleural fluid: 1400 mL scope: ning [place], pH 7.45, nucleated cells 195, LDH 35, total protein less than 0.8. Triglycerides 25 amylase 22 and glucose 159 suspected to be transudative. Gram stain negative. -Suspect secondary to liver cirrhosis. -Therapeutic thoracentesis 11/11/16 with 1.5L fluid removed from right chest, clear in nature - Respiratory status stable. - Patient will require repeat theraputic thorocentesis draining. - Repeat CXR ordered today. (7) COPD (chronic obstructive pulmonary disease) Current Visit: No Status: Chronic Assessment and plan: Stable. Continue maintenance therapy. Plan: -Continue home nebulizer therapy -Titrate supplemental oxygen as necessary to maintain saturations between 88-93% Qualifiers: COPD type: emphysema Emphysema type: unspecified Qualified Code(s): J43.9 - Emphysema, unspecified (8) Hepatitis B Current Visit: Yes Status: Chronic Assessment and plan: Chronic history. Supportive care. Qualifiers: Viral hepatitis chronicity: chronic Hepatic coma status: without hepatic coma Hepatitis delta agent presence: without delta-agent Qualified Code(s): B18.1 - Chronic viral hepatitis B without delta-agent (9) Hepatitis C Current Visit: Yes Status: Chronic Assessment and plan: Chronic history. Supportive care. Qualifiers: Viral hepatitis chronicity: chronic Hepatic coma status: without hepatic coma Qualified Code(s): B18.2 - Chronic viral hepatitis C (10) CHF (congestive heart failure) Current Visit: Yes Status: Chronic Assessment and plan: Patient is a chronic history of diastolic heart failure. Continue treatment with supportive care. Echocardiogram from 11/29/2015 : LVEF 65% History of indeterminant diastolic dysfunction with moderate to severe dilated right ventricular with moderate RV hypokinesis. Mild tricuspid regurgitation. Severe pulmonary hypertension with an RVSP of 67 - Continue Lasix IV 40mg BID - 1.5 L fluid restriction - Cardiac diet with no added salt plus diabetic diet. - Daily weights. Qualifiers: Congestive heart failure type: diastolic Congestive heart failure chronicity: chronic Qualified Code(s): I50.32 - Chronic diastolic (congestive ) heart failure (11) Cirrhosis Current Visit: No Status: Chronic Assessment and plan: Patient is a history of liver cirrhosis and esophageal varices. Likely contributing to right-sided pleural effusion. Gastroenterology documents reviewed. Qualifiers: Hepatic cirrhosis type: unspecified hepatic cirrhosis Ascites presence: without ascites Qualified Code(s): K74.60 - Unspecified cirrhosis of liver (12) Sepsis Current Visit: Yes Status: Resolved Assessment and plan: Resolved. Qualifiers: Sepsis type: sepsis due to unspecified organism Qualified Code(s): A41.9 - Sepsis, unspecified organism - Subjective Interval history: Mrs. Luther 55 old female is seen in a patient bedside this morning. She is alert awake and interactive in no acute distress. She says she has been up twice walking around today that she is feeling much better. She denies any shortness of breath or difficulty breathing. She denies any chest pain or chest pressure abdominal pain nausea vomiting diarrhea constipation. She is sitting up at bedside eating breakfast. She denies any other concerns at this time is looking forward to discharge. - Constitutional Vitals: Temp Pulse Resp BP Pulse Ox 97.8 F 87 18 108/71 98 11/14/16 12:26 11/14/16 12:26 11/14/16 12:26 11/14/16 12:26 11/14/16 12:26 General appearance: Present: mild distress, A&O X 3, no acute distress, answers questions appropriately - Head Head exam: Present: atraumatic, normocephalic - Eye Eye exam: Present: PERRL, conjuntiva pink, sclera anicteric Pupils: Present: PERRL - ENT ENT exam: Present: mucous membranes moist - Neck Neck exam general surgery: Present: supple, trachea midline. Absent: lymphadenopathy - Respiratory Respiratory exam: Absent: accessory muscle use, rales, rhonchi, wheezes Additional comments: Right lung base diminished breath sounds. All other lung michel are clear to auscultation. - Cardiovascular Cardiovascular exam: Present: RRR, +S1, +S2. Absent: diastolic murmur, gallop, rubs, systolic murmur - GI/Abdominal GI/Abdominal exam: Present: normal bowel sounds, soft, no peritoneal signs. Absent: distended, tenderness - Extremities Exam Extremities exam: Present: warm, radial pulses palpable and symetrical. Absent : calf tenderness, cyanotic, pedal edema - Neurological Exam Neurological exam: Present: alert, oriented X3, no focal deficits. Absent: pronater drift, facial droop, speech deficit - Psychiatric Psychiatric exam: Present: normal affect, normal mood Internal Medicine: Result - Labs CBC & Chem 7: 11/14/16 04:28 11/14/16 04:28 Labs: Short CBC 11/14/16 Range/Units 04:28 WBC 3.5 L (4.3-11.1) K/mcL Hgb 8.7 L (11.5-15.4) g/dL Hct 29.0 L (35.3-44.9) % Plt Count 51 L (140-400) K/mcL Neutrophils # 2.0 (1.6-8.9) K/mcL BMP 11/14/16 04:28 Sodium 137 Potassium 3.6 Chloride 99 Carbon Dioxide 28 BUN 17 Creatinine 0.92 Glucose 112 H Calcium 8.2 L Liver Function 11/14/16 Range/Units 04:28 Total Bilirubin 0.9 (0.2-1.2) mg/dL AST 20 (5-34) Units/L ALT 15 (0-55) Units/L Alkaline Phosphatase 78 (38-126) Units/L Albumin 1.9 L (3.5-5.0) g/dL - ABG Interpretation ABG results: ABG ABG pH 7.49 pH Units (7.32-7.45) H 11/05/16 16:37 ABG pCO2 32 mmHg (35-45) L 11/05/16 16:37 ABG pO2 53 mmHg (85-104) L 11/05/16 16:37 ABG O2 Saturation 90 % (95-98) L 11/05/16 16:37 PT/INR, D-dimer PT 14.2 Seconds (9.4-12.1) H 11/11/16 04:35 - VTE Documentation of Mechanical Device: Intermittent pneumatic compression device Consult Discharge Plan - Plan Additional Instructions: Recommend taking medications as prescribed. Recommend follow-up with her primary care provider in the next 3-5 days Follow up with Pulmonology outpatient as discussed. If you have reoccurring shortness of breath, worsening symptoms or new concerning medical symptoms or signs he should be seen and evaluated immediately. Referrals: [facility] [Provider Group] (We have requested a follow up appointment with [facility]. The office will call you at home with an appointment date and time. ) NO,PCP [Primary Care Provider] - <Apolinar Griffith - Last Filed: 11/14/16 17:19> Date of Encounter: 11/14/16 - Assessment and plan (1) Acute blood loss anemia Current Visit: No Status: Resolved (2) Type 2 diabetes mellitus Current Visit: Yes Status: Chronic Qualifiers: Diabetes mellitus complication status: with circulatory complication Diabetes mellitus complication detail: with peripheral angiopathy without gangrene Diabetes mellitus accounting assistant insulin use: with prison use Qualified Code(s): E11.51 - Type 2 diabetes mellitus with diabetic peripheral angiopathy without gangrene; Z79.4 - long-term (current) use of insulin (3) Community acquired pneumonia Current Visit: Yes Status: Resolved (4) Pleural effusion Current Visit: Yes Status: Acute (5) UTI (urinary tract infection) Current Visit: Yes Status: Resolved Qualifiers: Urinary tract infection type: acute cystitis Hematuria presence: without hematuria Qualified Code(s): N30.00 - Acute cystitis without hematuria (6) Cirrhosis Current Visit: No Status: Chronic Qualifiers: Hepatic cirrhosis type: other cirrhosis Qualified Code(s): K74.69 - Other cirrhosis of liver (7) COPD (chronic obstructive pulmonary disease) Current Visit: No Status: Chronic Qualifiers: COPD type: emphysema Emphysema type: unspecified Qualified Code(s): J43.9 - Emphysema, unspecified (8) Hepatitis B Current Visit: Yes Status: Chronic Qualifiers: Viral hepatitis chronicity: chronic Hepatic coma status: without hepatic coma Hepatitis delta agent presence: without delta-agent Qualified Code(s): B18.1 - Chronic viral hepatitis B without delta-agent (9) Hepatitis C Current Visit: Yes Status: Chronic Qualifiers: Viral hepatitis chronicity: chronic Hepatic coma status: without hepatic coma Qualified Code(s): B18.2 - Chronic viral hepatitis C (10) CHF (congestive heart failure) Current Visit: Yes Status: Chronic Qualifiers: Congestive heart failure type: diastolic Congestive heart failure chronicity: chronic Qualified Code(s): I50.32 - Chronic diastolic (congestive ) heart failure (11) Sepsis Current Visit: Yes Status: Resolved Qualifiers: Sepsis type: sepsis due to unspecified organism Qualified Code(s): A41.9 - Sepsis, unspecified organism - Constitutional Vitals: Temp Pulse Resp BP Pulse Ox 97.8 F 87 18 108/71 95 11/14/16 12:26 11/14/16 12:26 11/14/16 15:29 11/14/16 12:26 11/14/16 15:29 Internal Medicine: Result - Labs CBC & Chem 7: 11/14/16 04:28 11/14/16 04:28 Labs: Short CBC 11/14/16 Range/Units 04:28 WBC 3.5 L (4.3-11.1) K/mcL Hgb 8.7 L (11.5-15.4) g/dL Hct 29.0 L (35.3-44.9) % Plt Count 51 L (140-400) K/mcL Neutrophils # 2.0 (1.6-8.9) K/mcL BMP 11/14/16 04:28 Sodium 137 Potassium 3.6 Chloride 99 Carbon Dioxide 28 BUN 17 Creatinine 0.92 Glucose 112 H Calcium 8.2 L Liver Function 11/14/16 Range/Units 04:28 Total Bilirubin 0.9 (0.2-1.2) mg/dL AST 20 (5-34) Units/L ALT 15 (0-55) Units/L Alkaline Phosphatase 78 (38-126) Units/L Albumin 1.9 L (3.5-5.0) g/dL - ABG Interpretation ABG results: ABG ABG pH 7.49 pH Units (7.32-7.45) H 11/05/16 16:37 ABG pCO2 32 mmHg (35-45) L 11/05/16 16:37 ABG pO2 53 mmHg (85-104) L 11/05/16 16:37 ABG O2 Saturation 90 % (95-98) L 11/05/16 16:37 PT/INR, D-dimer PT 14.2 Seconds (9.4-12.1) H 11/11/16 04:35 - Impressions Impressions Chest X-Ray 11/14/16 13:15 IMPRESSION: Interval resolution of previously noted mild patchy airspace opacities to the left lung. Persistent but improved mild patchy airspace opacities to the right lung. Persistent but improved small to moderately-sized right pleural effusion with improved associated right basilar atelectasis or infiltrate. D/ / 11/14/2016 15:08:53 Desmond Garcia MD / [facility]ryon Interpreting Provider: Desmond Garcia MD - Attending Attestation discharge today I examined this patient and my medical decision-making was reviewed with the [employer]/PA/Advanced Practice Nurse/Resident Physician. I agree with the documented findings, disposition and treatment plan as described except to the extent set forth below.
--- NOTE | 2016-11-14 15:32 | Discharge Summary ---
<Adam Hardy - Last Filed: 11/14/16 15:44> Date of Encounter: 11/14/16 Time of Encounter: 15:29 - Discharge Diagnosis (1) Blood loss anemia Priority: Primary Status: Acute (2) Dyspnea Priority: Primary Status: Acute Qualifiers: Qualified Code(s): R06.00 - Dyspnea, unspecified (3) Escherichia coli urinary tract infection Priority: Primary Status: Resolved (4) Type 2 diabetes mellitus Priority: Secondary Status: Chronic Qualifiers: Diabetes mellitus complication status: with circulatory complication Diabetes mellitus complication detail: with peripheral angiopathy without gangrene Diabetes mellitus residential insulin use: with residential use Qualified Code(s): E11.51 - Type 2 diabetes mellitus with diabetic peripheral angiopathy without gangrene; 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 (5) Community acquired pneumonia Priority: Primary Status: Resolved (6) Pleural effusion Priority: Primary Status: Acute (7) COPD (chronic obstructive pulmonary disease) Priority: Primary Status: Chronic Qualifiers: COPD type: emphysema Emphysema type: unspecified Qualified Code(s): J43.9 - Emphysema, unspecified (8) Hepatitis B Priority: Secondary Status: Chronic Qualifiers: Viral hepatitis chronicity: chronic Hepatic coma status: without hepatic coma Hepatitis delta agent presence: without delta-agent Qualified Code(s): B18.1 - Chronic viral hepatitis B without delta-agent (9) Hepatitis C Priority: Secondary Status: Chronic Qualifiers: Viral hepatitis chronicity: chronic Hepatic coma status: without hepatic coma Qualified Code(s): B18.2 - Chronic viral hepatitis C (10) CHF (congestive heart failure) Priority: Secondary Status: Chronic Qualifiers: Congestive heart failure type: diastolic Congestive heart failure chronicity: chronic Qualified Code(s): I50.32 - Chronic diastolic (congestive ) heart failure (11) Cirrhosis Priority: Secondary Status: Chronic Qualifiers: Hepatic cirrhosis type: unspecified hepatic cirrhosis Ascites presence: without ascites Qualified Code(s): K74.60 - Unspecified cirrhosis of liver (12) Sepsis Priority: Primary Status: Resolved Qualifiers: Sepsis type: sepsis due to unspecified organism Qualified Code(s): A41.9 - Sepsis, unspecified organism - Discharge Medications Home Medications: Albuterol Neb [AccuNeb] 1.25 mg IH Q4H PRN 11/29/15 [History] Albuterol Sulfate [Albuterol Inhaler] 2 puff IH Q4HR PRN 11/29/15 [History] Insulin Glargine,Hum.rec.anlog [Lantus Solostar] 50 unit SQ HS 11/29/15 [History ] Insulin LISPRO [Humalog] 15 unit SQ TIDWM 11/29/15 [History] Potassium Chloride 20 meq PO BID 12/18/15 [History] Omeprazole [PriLOSEC] 40 mg PO DAILY #30 capsule.dr 12/23/15 [Rx] Ferrous Sulfate [Iron] 325 mg PO TID 05/26/16 [History] Furosemide [Lasix] 40 mg PO BID 05/26/16 [History] Sucralfate [Carafate] 1 gm PO TID 05/26/16 [History] Loratadine [Allergy Relief] 10 mg PO DAILY 10/31/16 [History] Allergies/Adverse Reactions: Allergies codeine Allergy (Verified 10/25/16 01:42) Hives Penicillins [PCN] Allergy (Verified 10/25/16 01:42) Hives Date of admission: 10/30/16 23:16 Primary care physician: PCP NO Consults: 10/31/16 22:39 Consult to Umb[facility]pper [CONS] Routine Reason for SW Consult: post hospital care 11/02/16 19:01 Consult to Critical Care [CONS] Routine Consulting Provider: [facility] Reason for Consult: Acute respiratory failure Call Completed: Yes 11/04/16 10:22 Consult to Speech Therapy [CONS] Routine Comment: Evaluate, develop and implement POC Reason for Consult: swallow evaluation Call Completed: No 11/07/16 10:10 Consult to Gastroenterology [CONS] Routine Consulting Provider: [facility] Reason for Consult: esophageal varicies Call Completed: Yes 11/08/16 09:13 Consult to Occupational Therapy [CONS] Routine Comment: Evaluate, develop and implement POC Consult to Physical Therapy [CONS] Routine Comment: Evaluate, develop and implement POC 11/10/16 16:56 Consult to Interventional Radiology [CONS] Routine Consulting Provider: Radiology Interventional [facility] Reason for Consult: therapeutic thoracentesis , right large pleural effusion Call Completed: No 11/13/16 01:51 Consult to Wound Care [CONS] Routine Reason for Consult: Stage 3 to coccyx Call Completed: No Discharging clinician: Adam Hardy Anticipated date of discharge: 11/14/16 - Patient Status Disposition: Transfer SNF Condition: Good Overall status at discharge: patient is progressing back to baseline - Discharge Instructions Follow Up With: [facility] [Provider Group] (We have requested a follow up appointment with [facility]. The office will call you at home with an appointment date and time. ) NO,PCP [Primary Care Provider] - Additional Instructions: Recommend taking medications as prescribed. Recommend follow-up with her primary care provider in the next 3-5 days Follow up with Pulmonology outpatient as discussed. If you have reoccurring shortness of breath, worsening symptoms or new concerning medical symptoms or signs he should be seen and evaluated immediately. - Diet and Activity Activity: as per physical therapy Diet: diabetic diet, low salt diet Hospital course: Ms. Luther is a 55 year old female with known history of diabetes, hepatitis C, hepatitis B, liver cirrhosis, esophageal varices, chronic thrombocytopenia, COPD , history of GI bleeds and diastolic heart failure and history of IV drug abuse was admitted with shortness of breath and community acquired pneumonia, meeting sepsis criteria. He was admitted to general medical floor started on IV antibiotics and fluids. Chest x-ray demonstrated bilateral patchy infiltrations and she was also continued on breathing treatments and nasal K no oxygen. Urine culture revealed Escherichia coli and Aerococcus viridans. Sputum culture was positive for fungal elements and candidiasis. She is continued on Levaquin and vancomycin for antibiotic coverage without significant improvements over the next 2 days and on 11/02/2016 patient demonstrated increasing worsening of dyspnea to the point of altered mental status tachypnea and poor oxygenation requiring intubation. She has poor IV access and was not doing well requiring central line placement. Repeat chest x- rays demonstrated rapid accumulation of right sided pleural effusion and required thoracentesis on 11/03/2016. She remained in the intensive care unit between 11/02/2016 and 11/08/2016 during which time she improved clinically and was successfully extubated and placed back on nasal cane oxygen. During this time her hemoglobin continued to drop and gastroenterology was consult and for evaluation. She received 2 PRBC transfusions during her inpatient stay 1 on and 1 on 11/12/2016. She underwent endoscopy revealing grade 1 esophageal varices, portal hypertension gastropathy, normal exam duodenum and gastric erosions. She was transferred back to general medical floor on 2016 continued inpatient medical treatment. She required therapeutic thoracentesis on 11/11/2016 with 1.5 L fluid removed from right pleural space. During the remainder of her stay she clinically improved. She did have some reaccumulation of right-sided pleural fluid and was offered therapeutic thoracentesis on 11/14/2016 or since she was stable follow up with pulmonology and discharged on 40 mg Lasix by mouth twice a day. The risks and benefits were discussed with the patient for which she opted to follow up with pulmonology in the outpatient setting. The patient was deemed stable to discharge to an [facility] and was highly recommended to follow up with her primary care physician for reevaluation and with pulmonology. She demonstrated agreement to this plan. Recommended repeat upper endoscopy in 1 year for surveillance. Recommend follow up with PCP and with Pulmonology - Time Spent with Patient Total time spent providing and/or coordinating discharge services: - Constitutional Vitals: Temp Pulse Resp BP Pulse Ox 97.8 F 87 18 108/71 98 11/14/16 12:26 11/14/16 12:26 11/14/16 12:26 11/14/16 12:26 11/14/16 12:26 General appearance: Present: mild distress, A&O X 3, no acute distress, answers questions appropriately - Head Head exam: Present: atraumatic, normocephalic - Eye Eye exam: Present: PERRL, conjuntiva pink, sclera anicteric Pupils: Present: PERRL - ENT ENT exam: Present: mucous membranes moist - Neck Neck exam general surgery: Present: supple, trachea midline. Absent: lymphadenopathy - Respiratory Additional comments: Diminished breath sounds right lower lung base all the lung michel are clear to auscultation. - Cardiovascular Cardiovascular exam: Present: RRR, +S1, +S2. Absent: diastolic murmur, gallop, rubs, systolic murmur - GI/Abdominal GI/Abdominal exam: Present: normal bowel sounds, soft, no peritoneal signs. Absent: distended, tenderness - Extremities Exam Extremities exam: Present: warm, radial pulses palpable and symetrical. Absent : calf tenderness, cyanotic, pedal edema - Neurological Exam Neurological exam: Present: alert, oriented X3, no focal deficits. Absent: pronater drift, facial droop, speech deficit - Psychiatric Psychiatric exam: Present: normal affect, normal mood - VTE Documentation of Mechanical Device: Intermittent pneumatic compression device <Apolinar Griffith Alida - Last Filed: 11/14/16 17:26> Date of Encounter: 11/14/16 - Discharge Diagnosis (1) Acute blood loss anemia Status: Resolved (2) Type 2 diabetes mellitus Status: Chronic Qualifiers: Diabetes mellitus complication status: with circulatory complication Diabetes mellitus complication detail: with peripheral angiopathy without gangrene Diabetes mellitus superintendent terminal insulin use: with superintendent terminal use Qualified Code(s): E11.51 - Type 2 diabetes mellitus with diabetic peripheral angiopathy without gangrene; Z79.4 - [facility] (current) use of insulin (3) Community acquired pneumonia Status: Resolved (4) Pleural effusion Status: Acute (5) UTI (urinary tract infection) Status: Resolved Qualifiers: Urinary tract infection type: acute cystitis Hematuria presence: without hematuria Qualified Code(s): N30.00 - Acute cystitis without hematuria (6) Cirrhosis Status: Chronic Qualifiers: Hepatic cirrhosis type: other cirrhosis Qualified Code(s): K74.69 - Other cirrhosis of liver (7) COPD (chronic obstructive pulmonary disease) Status: Chronic Qualifiers: COPD type: emphysema Emphysema type: unspecified Qualified Code(s): J43.9 - Emphysema, unspecified (8) Hepatitis B Status: Chronic Qualifiers: Viral hepatitis chronicity: chronic Hepatic coma status: without hepatic coma Hepatitis delta agent presence: without delta-agent Qualified Code(s): B18.1 - Chronic viral hepatitis B without delta-agent (9) Hepatitis C Status: Chronic Qualifiers: Viral hepatitis chronicity: chronic Hepatic coma status: without hepatic coma Qualified Code(s): B18.2 - Chronic viral hepatitis C (10) CHF (congestive heart failure) Status: Chronic Qualifiers: Congestive heart failure type: diastolic Congestive heart failure chronicity: chronic Qualified Code(s): I50.32 - Chronic diastolic (congestive ) heart failure (11) Sepsis Status: Resolved Qualifiers: Sepsis type: sepsis due to unspecified organism Qualified Code(s): A41.9 - Sepsis, unspecified organism Date of admission: 10/30/16 23:16 Primary care physician: PCP NO Consults: 10/31/16 22:39 Consult to [facility] [CONS] Routine Reason for SW Consult: post hospital care 11/02/16 19:01 Consult to Critical Care [CONS] Routine Consulting Provider: [facility] Reason for Consult: Acute respiratory failure Call Completed: Yes 11/04/16 10:22 Consult to Speech Therapy [CONS] Routine Comment: Evaluate, develop and implement POC Reason for Consult: swallow evaluation Call Completed: No 11/07/16 10:10 Consult to Gastroenterology [CONS] Routine Consulting Provider: [facility] Reason for Consult: esophageal varicies Call Completed: Yes 11/08/16 09:13 Consult to Occupational Therapy [CONS] Routine Comment: Evaluate, develop and implement POC Consult to Physical Therapy [CONS] Routine Comment: Evaluate, develop and implement POC 11/10/16 16:56 Consult to Interventional Radiology [CONS] Routine Consulting Provider: Radiology Interventional [facility] Reason for Consult: therapeutic thoracentesis , right large pleural effusion Call Completed: No 11/13/16 01:51 Consult to Wound Care [CONS] Routine Reason for Consult: Stage 3 to coccyx Call Completed: No Hospital course: Ms. Luther is a 55 year old female - Time Spent with Patient Total time spent providing and/or coordinating discharge services: - Constitutional Vitals: Temp Pulse Resp BP Pulse Ox 97.8 F 87 18 108/71 95 11/14/16 12:26 11/14/16 12:26 11/14/16 15:29 11/14/16 12:26 11/14/16 15:29 - Attending Attestation Acute blood loss anemia secondary to portal hypertensive gastropathy Recurrent right pleural effusion related to cirrhosis The patient was given the option to stay an additional day to reconsult pulmonary or interventional radiology to perform a third pleural effusion but she prefers to be discharged as her chest x-ray shows improvement of her right moderate size pleural effusion. The pulmonary service did not recommend a Pleurx catheter for these recurrent problem as she is responding to Lasix right now and has not worsened after the second thoracentesis. Time spent on this discharge 40 minutes I examined this patient and my medical decision-making was reviewed with the METAPHYSICIST/PA/Advanced Practice Nurse/Resident Physician. I agree with the documented findings, disposition and treatment plan as described except to the extent set forth below.
--- NOTE | 2016-11-14 15:38 | Physician Discharge Referral ---
Addendum entered and electronically signed by Adam Hardy DO 11/14 15:43: Ms. Luther is to follow up with Pulmonology to be re-evaluated and potential intervention for pleural effusions. Original Note: <Adam Hardy - Last Filed: 11/14/16 15:35> ExtendedCare Referral Info Transfer To: [facility] Provider in Charge after Transfer: PCP Institutional Level of Care: Skilled - Diagnosis (1) Blood loss anemia Priority: Primary Status: Acute (2) Dyspnea Priority: Primary Status: Acute (3) Escherichia coli urinary tract infection Priority: Primary Status: Resolved (4) Type 2 diabetes mellitus Priority: Secondary Status: Chronic (5) Community acquired pneumonia Priority: Primary Status: Resolved (6) Pleural effusion Priority: Primary Status: Acute (7) COPD (chronic obstructive pulmonary disease) Priority: Primary Status: Chronic (8) Hepatitis B Priority: Secondary Status: Chronic (9) Hepatitis C Priority: Secondary Status: Chronic (10) CHF (congestive heart failure) Priority: Secondary Status: Chronic (11) Cirrhosis Priority: Secondary Status: Chronic (12) Sepsis Priority: Primary Status: Resolved - Transfer Medications Home Medications: Albuterol Neb [AccuNeb] 1.25 mg IH Q4H PRN 11/29/15 [History] Albuterol Sulfate [Albuterol Inhaler] 2 puff IH Q4HR PRN 11/29/15 [History] Insulin Glargine,Hum.rec.anlog [Lantus Solostar] 50 unit SQ HS 11/29/15 [History ] Insulin LISPRO [Humalog] 15 unit SQ TIDWM 11/29/15 [History] Potassium Chloride 20 meq PO BID 12/18/15 [History] Omeprazole [PriLOSEC] 40 mg PO DAILY #30 capsule. 12/23/15 [Rx] Ferrous Sulfate [Iron] 325 mg PO TID 05/26/16 [History] Furosemide [Lasix] 40 mg PO BID 05/26/16 [History] Sucralfate [Carafate] 1 gm PO TID 05/26/16 [History] Loratadine [Allergy Relief] 10 mg PO DAILY 10/31/16 [History] Allergies/Adverse Reactions: Allergies codeine Allergy (Verified 10/25/16 01:42) Hives Penicillins [PCN] Allergy (Verified 10/25/16 01:42) Hives - Respiratory Orders Oxygen / L per min Smoking Cessation: Smoking cessation has been advised. For more information, call the [place] [employer] Quit Line at 8-026-CCZVNOW. - Ancillary Orders May use pressure relief devices daily prn, May consult with Dentist, Game Preserve Manager, Rn Psych PRN - Advance Directives Living Will: No Power of Video Conference Specialist: No Code Status: Full Code - Mobility Orders Ambulate - Rehabiliation Orders Rehab Orders: Evaluation for Physical Therapy, Evaluation for Occupational Therapy - Treatments Skin tear care topically daily PRN per policy, Fleet enema rectally every other day PRN cleansing purposes - Diet Orders No Added Salt (LOVE) (diabetic diet) CERTIFICATION: I certify that the transfer of the above named patient to an Extended Care Facility is necessary for the continuing treatment of the diagnosis listed. The above information is true and accurate reflection of patient's current condition. Confidential - Redisclosure prohibited without a patient's written consent. <Apolinar Griffith - Last Filed: 11/14/16 17:27> - Diagnosis (1) Acute blood loss anemia Status: Resolved (2) Type 2 diabetes mellitus Status: Chronic (3) Community acquired pneumonia Status: Resolved (4) Pleural effusion Status: Acute (5) UTI (urinary tract infection) Status: Resolved (6) Cirrhosis Status: Chronic (7) COPD (chronic obstructive pulmonary disease) Status: Chronic (8) Hepatitis B Status: Chronic (9) Hepatitis C Status: Chronic (10) CHF (congestive heart failure) Status: Chronic (11) Sepsis Status: Resolved - Respiratory Orders Smoking Cessation: Smoking cessation has been advised. For more information, call the [employer] Quit Line at 4-896-CFOH-NOW. CERTIFICATION: I certify that the transfer of the above named patient to an Extended Care Facility is necessary for the continuing treatment of the diagnosis listed. The above information is true and accurate reflection of patient's current condition. Confidential - Redisclosure prohibited without a patient's written consent.
== END 2016-11-14 18:21 | DRG 871 ==
LOC: 2ANU 16:11 → EMEROO 16:11 → 2ANU 18:59 → SUATTDRO 23:16 → ICNU 11-02 18:43 → 3NENU 11-08 18:25 → 3ANU 11-11 16:58 → 3BNU 11-12 05:44
PROVIDERS: ADMIT Internal Medicine; ATTEND Internal Medicine
PROC: ENDOEBX (2016-11-11 10:35)

== ENCOUNTER 2018-01-21 23:42 | Inpatient (IN) ==
--- NOTE | 2018-01-22 02:09 | Internal Med History&Physical ---
Date of Encounter: 01/22/18 Time of Encounter: 01:58 Internal Medicine - H&P: HPI Chief complaint: chest pain Admitted From: Home Plans for Post Hospital Care: Home History of present illness: Ms. Luther is a 57 year old female with a pmh of cirrhosis from hepatitis C, CHF , COPD non-oxygen dependent, DM, and GERD who presented to the ED for back pain after a fall. Two nights ago, she fell on the floor after feeling dizzy. She does not remember if she lost consciousness or if she hit her head. She does not remember how long she was on the ground for. She yelled for her son and he came and picked her up. She lives with her daughter but she was asleep when she fell. She has not felt good for 4-5 days and began having chest pain and SOB today. Chest pain on the right that is sharp intermittent that radiates into her back with intermittent nausea. Back pain is stabbing pain, constant. She states that she has not been voiding well. Denies fevers, abdominal pain, denies hemotopysis, epistasis, diarrhea. In the ED CT abd/pelvis scan showed small amount of free fluid in the pelvis. K = 6.1, Creatinine = 4.16 (wnl 10/01), lactic acid 4.3, Troponin= 0.07, 0.09, Plt count = 31, urine shows granular casts, protein, and bilirubin. CT chest shows no acute process. IN the ED, Albuterol, Calcium chloride, D5W, fentanyl, nubain , Zofran, and 3L of NS. Past Med Surg Social Fam HX - Past Medical History Medical history: cirrhosis, CHF, COPD, diabetes, GERD, hepatitis, other Additional medical history: former IV drug user Psychiatric history: anxiety, depression - Past Surgical History Surgical History: cholecystectomy, hysterectomy, other Additional surgical history: mass to right side back surgically removed - Social History Smoking Status: Current every day smoker Smokeless Tobacco Status: No Alcohol use: none Drug use: opiates, methamphetamine, IV Drug Use, prescription drug abuse - Family History Mother Adopted: No Living Status: Hx Family Cardiac Disorders: Yes Father Living Status: Hx Family Cardiac Disorders: Yes Internal Medicine - H&P: Meds Albuterol Sulfate [Albuterol Inhaler] 2 puff IH Q4HR PRN 11/29/15 [History] Insulin LISPRO [Humalog] 15 unit SQ TIDWM 11/29/15 [History] Furosemide [Lasix] 40 mg PO DAILY 365 Days 03/07/17 [Rx] Gabapentin [Neurontin] 600 mg PO TID 03/07/17 [History] OxyCODONE Immed Rel [Roxicodone 5 MG] 5 mg PO Q4H tab 03/08/17 [Rx] Albuterol Neb [AccuNeb] 1.25 mg IH Q6H PRN 08/15/17 [History] Omeprazole [PriLOSEC] 20 mg PO DAILY PRN capsule. 10/02/17 [Rx] Potassium Chloride 20 meq PO BID 365 Days 10/02/17 [Rx] Vancomycin Oral Soln [Firvanq] 125 mg PO Q6H #120 ml 10/02/17 [Rx] 3 Allergy/AdvReac Type Severity Reaction Status Date / Time codeine Allergy Hives Verified 01/21/18 20:20 Penicillins [PCN] Allergy Hives Verified 01/21/18 20:20 All Systems PM: A 10-system review of systems was performed and is negative for pertinent findings except as documented above in the HPI. - Constitutional Vitals: Temp Pulse Resp BP Pulse Ox 98.2 F 101 26 128/82 94 01/22/18 01:40 01/22/18 01:40 01/22/18 01:40 01/22/18 01:40 01/22/18 01:40 Exam: Constitutional: Alert, breathing rapidly and mumbling Head: Normocephalic, atraumatic Heart: Normal, regular rate and rhythm, no murmurs Lungs: Clear to auscultation, no wheezes, rales, or rhonchi Abdomen: Soft, nondistended, nontender, no guarding or rigidity. Extremities: No edema, No clubbing radial pulse +2/4, capillary refill <2sec. Back: midline and paraspinal tenderness in lumbar region Skin: Skin warm and dry, no lesions, no rashes, no jaundice Neurologic: strength 5/5 in all extremities Psych: speech clear, thought process logical, and goal directed Internal Med - H&P Results - Labs CBC & Chem 7: 01/22/18 02:36 - Assessment and plan (1) NSTEMI (non-ST elevated myocardial infarction) Current Visit: Yes Status: Acute Assessment and plan: Patient is complaining of chest pain in the right side of her chest that is sharp and intermittent. Troponins were elevated at 0.07, 0.09. EKG changes of t -wave inversion in the anteroseptal leads. Concern for NSTEMI. Cardiology was consulted. Heparin drip cannot be started as patient's platelet count = 31. INR = 1.8. Previous Echo 11/1715 showed EF of 65%, moderate to severe dilated right ventricle, pressurve/volume overload with severe Pulm HTN. Plan: -Cardiology consulted, awaiting recommendations - trend Troponins - Echo pending - cardiac monitoring (2) RAMAN (acute kidney injury) Current Visit: Yes Status: Acute Assessment and plan: Creatinine= 3.97 ( 4.16 at the ED). Most likely 2/2 to dehydration as patient has not been eating and drinking well but could also be 2/2 to Lasix or ATN. UA does show granular casts. BUN/Creatinine ratio= 21. Nephrology consulted and called by ED physician. Plan: - renal US pending - urine Na, osmo, creatinine - continue maintenance fluids - avoid nephrotoxins - nephro consulted, awaiting recommendations (3) Elevated lactic acid level Current Visit: Yes Status: Acute Assessment and plan: lactic acid = 4.3. Most likely 2/2 to RAMAN and cirrhosis. Patient does not have other risk factors for sepsis as WBC wnl and vitals wnl. 1 L bolus given. rechecking lactic acid and continue to bolus until lactic acid is wnl. (4) Hyperkalemia Current Visit: Yes Status: Acute Assessment and plan: Most likely 2/2 to RAMAN. In the ED, K = 6.1. Recheck at [facility] 5.3. EKG changes could be due to electrolyte abnormalities. Kayexalate given. (5) Thrombocytopenia Current Visit: Yes Status: Acute Assessment and plan: Chronic thromocytopenia 2/2 to cirrhosis. Previous platelet count = 45 on 10/01. Patient denies bleeding or melena. Will continue to monitor for bleeding. Can not place patient on heparin drip due to thrombocytopenia. (6) Acute low back pain Current Visit: Yes Status: Acute Assessment and plan: Patient states that she fell a couple of days ago and has low back pain. She denies hx of back surgeries. Plan: - CT lumbar and thoracic pending results - [place] for pain Qualifiers: Back pain laterality: bilateral Sciatica presence: without sciatica Qualified Code(s): M54.5 - Low back pain (7) Fall Current Visit: Yes Status: Acute Assessment and plan: Patient is unsure if she lost consciousness, unable to tell me how she fell, or if she hit her head. No signs of trauma but due to uncertainty and inability to remember event will obtain CT of head. Qualifiers: Encounter type: initial encounter Qualified Code(s): W19.XXXA - Unspecified fall, initial encounter (8) History of drug abuse Current Visit: Yes Status: Acute Assessment and plan: Hx of opioid and methamphetamine abuse. (9) Type 2 diabetes mellitus Current Visit: No Status: Chronic Assessment and plan: Plan: - diabetic/cardiac diet - medium sliding scale Qualifiers: Diabetes mellitus longterm insulin use: with longterm use Diabetes mellitus complication status: with circulatory complication Diabetes mellitus complication detail: with peripheral angiopathy without gangrene Qualified Code(s): E11.51 - Type 2 diabetes mellitus with diabetic peripheral angiopathy without gangrene; Z79.4 - intermediate card tender (current) use of insulin (10) DVT prophylaxis Current Visit: Yes Status: Acute Assessment and plan: Platelet count = 31. ICDs - Time Spent With Patient Total time spent is greater than 50% in coordination of care (as documented) at patient's floor/unit and/or counseling patient:
[2018-01-22] MEDS ORDERED: *HR* FentaNYL (PF) 100 MCG/2 ML VIAL IVP ONE (02:11)
[2018-01-22] MEDS ORDERED: *HR* HYDROcodone/Acet 5/325 mg TABLET PO PRN (02:12)
[2018-01-22 02:49] LABS: Red Cell Distribution Width 22.7 % (11.5-14.5)
[2018-01-22 02:51] LABS: Hematocrit 44.7 % (35.3-44.9); Hemoglobin 13.5 g/dL (11.5-15.4); Immature Granulocytes % 0.8 % (0-4); Immature Platelets 24.5 % (1.1-6.1); Lymphocytes # 0.3 K/mcL (0.6-4.6); Lymphocytes % 4.5 %; Mean Corpuscular HGB Conc 30.2 g/dL (31.6-35.5); Mean Corpuscular Hemoglobin 25.3 pg (28.0-33.3); Mean Corpuscular Volume 83.7 fL (83.0-100.0); Monocytes # 0.4 K/mcL (0.0-1.3); Monocytes % 5.2 %; Neutrophils # 6.6 K/mcL (1.6-8.9); Red Blood Count 5.34 M/mcL (3.82-4.97); Segmented Neutrophils % 89.5 %
[2018-01-22 02:57] LABS: INR 1.8; Platelet Count 30 K/mcL (140-400); Prothrombin Time 20.1 Seconds (9.4-12.1)
[2018-01-22 03:13] LABS: Albumin 3.7 g/dL (3.5-5.7); Albumin/Globulin Ratio 1.2 (1.1-2.2); Calcium 9.4 mg/dL (8.6-10.3); Globulin 3.2 g/dL (2.4-3.5); Magnesium 2.1 mg/dL (1.6-2.6); Potassium 5.4 mEq/L (3.5-5.1); Total Protein 6.9 g/dL (6.4-8.9)
[2018-01-22] MEDS ORDERED: 0.9 % Sodium Chloride 1,000 ML IVC ONE (03:20)
[2018-01-22] MEDS ORDERED: Naloxone 0.4 MG/ML INJ IVP PRN (03:26)
[2018-01-22] MEDS ORDERED: Acetaminophen 325 MG TABLET PO PRN (03:26)
--- NOTE | 2018-01-22 03:43 | Event Note ---
Date of Encounter: 01/22/18 Time of Encounter: 03:38 Patient was seen and examined. I agree with the H&P as written by the Resident Physician. Briefly, patient with a pmh of cirrhosis from hepatitis C, CHF, COPD non-oxygen dependent, DM, and GERD who is transferred from [place] with multiple lab abnormalities including ARF, hyperkalemia, lactic acidosis, elevated trops. She had presented there with complaints of back pain in the lower back that she had sustained after a fall couple days ago. The circumstances of her fall are not exactly clear. She is moaning and groaning in the room and hard to get a history from. She has not felt good for about 5 days or so. She has had decreased oral intake. When she presented to the ED in [place] she was tachycardic. O2 sats were in the low 90s. She was put on supplemental oxygen. Imaging studies included CT chest, CT abdomen and pelvis failed to show any acute findings. Laboratory workup was significant for above. She was given medications for the hyperkalemia and IV fluids as well for the lactic acidosis and acute renal failure. EKG was done which showed T-wave inversions in the anterior, septal, and lateral leads. Cardiology were contacted and recommended just admission and they will see her in the hospital. She has chronic thrombocytopenia and is not a good candidate for heparinization. Nephrology also were contacted and they will see her in the hospital in consultation. She is does not need urgent dialysis. Upon arrival here she was hemodynamic stable however she continued to complain of significant lower back pain and was unable to sit still in bed. Alert and oriented 3 RRR. s1, S2, No m/r/g CTAB Abd NT, ND, +BS No edema. 2+ DP. Lower back tenderness to palpation. Nonfocal Admit to hospitalist Consult cardiology and nephrology Lactic acid came back elevated at 4.3 again and we will bolus 1 more liter and repeat lactic acid and a couple hours. Check renal ultrasound and avoid nephrotoxins Continue maintenance fluids Repeat EKG Trend cardiac enzymes Potassium came down from 6.1 to 5.4. We will give Kayexalate. Check CT throughout lumbar spine without contrast. Medium dose sliding scale insulin SCDs
[2018-01-22] MEDS ORDERED: D5% in Water 1,000 ML IVC PRN (05:12)
[2018-01-22] MEDS ORDERED: Dextrose Gel 15 GM/37.5 ML TUBE PO PRN ×2 (05:12)
[2018-01-22] MEDS ORDERED: *HR* Dextrose 50 % in Water (Syg) 50 ML SYRINGE IVP PRN (05:12)
[2018-01-22] MEDS ORDERED: Insulin LISPRO 300 UNITS/3 ML VIAL SQ SCH (05:15)
--- NOTE | 2018-01-22 06:15 | Event Note ---
Date of Encounter: 01/22/18 Time of Encounter: 01:00 - Cardiology Event Note At 0100, ED contacted me at request of hospitalist regarding this 57yoF cirrhotic with hepatitis C who had back injury with back pain and subsequent malaise and poor po intake regarding mildly elevated troponin 0.07 and anterolateral T wave inversion on EKG. Chronic thrombocytopenia - platelet count 31 Acute kidney injury creatinine > 4 Auto anticoagulated 2/2 cirrhosis with INR 1.8 It is quite apparent that she is a poor candidate for anticoagulation and multiple relative contraindications for any invasive evaluation ([facility]). If troponin were to markedly worsen (ie >10) AND WITH Ongoing symptoms Typical for Angina, can consider aspirin or heparin though risk:benefit is unclear. I believe nephrology has also been consulted for RAMAN with potassium of 6.1 ( likely prerenal with poor PO intake) though patient was just started on normal saline, kayexylate and calcium without a repeat potassium. EKG reportedly does not show cardiac sequelae such as hyperacute T waves or bradycardia. Full consult to follow.
[2018-01-22] MEDS: Insulin LISPRO 300 UNITS/3 ML VIAL SQ SCH ×3 (07:41→16:58)
[2018-01-22] MEDS ORDERED: Ringers Solution, Lactated 1,000 ML IVC STA (07:51)
--- NOTE | 2018-01-22 10:09 | Electrocardiograph Report ---
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
--- NOTE | 2018-01-22 10:19 | Internal Med Progress Note ---
Date of Encounter: 01/22/18 Time of Encounter: 10:17 - Assessment and plan (1) Acute metabolic encephalopathy Current Visit: Yes Status: Acute Assessment and plan: Likely lactic acidosis, Can also be from hepatic encephalopathy - Continue gentle IV fluid hydration. Needs to be in caution because of patient poor liver function/cirrhosis - Check ammonia level, start lactulose if elevated. Prior labs showed normal ammonia - Close monitoring, cycle LA (2) NSTEMI (non-ST elevated myocardial infarction) Current Visit: Yes Status: Acute Assessment and plan: Patient is complaining of chest pain in the right side of her chest that is sharp and intermittent. Troponins were elevated at 0.07, 0.09. EKG changes of t -wave inversion in the anteroseptal leads. Concern for NSTEMI. Cardiology was consulted. Heparin drip cannot be started as patient's platelet count = 31. INR = 1.8. Previous Echo 11/1715 showed EF of 65%, moderate to severe dilated right ventricle, pressurve/volume overload with severe Pulm HTN. Plan: - Cardiology consulted, awaiting recommendations - trend Troponins - Echo pending - cardiac monitoring - Patient is a poor candidate for LHC as her high risk of bleeding with thrombocytopenia and increased INR, along with renal failure. She is also a fall risk and recently fell as well. This makes her questionable candidate. Appreciate Cardiology recommendations on this, though not sure what interventions can be done in this case. - Consult Hematology/Oncology (3) Fall Current Visit: Yes Status: Acute Assessment and plan: Patient is unsure if she lost consciousness, unable to tell me how she fell, or if she hit her head. No signs of trauma but due to uncertainty and inability to remember event will obtain CT of head. Qualifiers: Encounter type: initial encounter Qualified Code(s): W19.XXXA - Unspecified fall, initial encounter (4) Acute low back pain Current Visit: Yes Status: Acute Assessment and plan: Patient states that she fell a couple of days ago and has low back pain. She denies hx of back surgeries. Plan: - CT lumbar and thoracic showed no fracture - [place] for pain - treat for metabolic encephalopathy - PT/OT when stable Qualifiers: Back pain laterality: bilateral Sciatica presence: without sciatica Qualified Code(s): M54.5 - Low back pain (5) Elevated lactic acid level Current Visit: Yes Status: Acute Assessment and plan: lactic acid = 4.3 increased to 5.0 now decreased to 4.4 . Most likely 2/2 to RAMAN and cirrhosis. Patient does not have other risk factors for sepsis as WBC wnl and vitals wnl. 1 L bolus given. Cycle until LA withiin normal limits Cautious fluid hydration (6) RAMAN (acute kidney injury) Current Visit: Yes Status: Acute Assessment and plan: Creatinine= 3.97 ( 4.16 at the ED). Most likely 2/2 to dehydration as patient has not been eating and drinking well but could also be 2/2 to Lasix or ATN. UA does show granular casts. BUN/Creatinine ratio= 21. Nephrology consulted and called by ED physician. Plan: - renal US pending - unremarkable - urine Na, osmo, creatinine - continue maintenance fluids - avoid nephrotoxins - nephro consulted, awaiting recommendations (7) Type 2 diabetes mellitus Current Visit: No Status: Chronic Assessment and plan: Plan: - diabetic/cardiac diet - medium sliding scale Qualifiers: Diabetes mellitus moth exterminator insulin use: with care home use Diabetes mellitus complication status: with circulatory complication Diabetes mellitus complication detail: with peripheral angiopathy without gangrene Qualified Code(s): E11.51 - Type 2 diabetes mellitus with diabetic peripheral angiopathy without gangrene; Z79.4 - [facility] (current) use of insulin (8) Hyperkalemia Current Visit: Yes Status: Acute Assessment and plan: Most likely 2/2 to RAMAN. In the ED, K = 6.1. Recheck at [facility] 5.3. EKG changes could be due to electrolyte abnormalities. Kayexalate given. (9) Thrombocytopenia Current Visit: Yes Status: Acute Assessment and plan: Chronic thromocytopenia 2/2 to cirrhosis. Previous platelet count = 45 on 10/01. Patient denies bleeding or melena. Will continue to monitor for bleeding. Can not place patient on heparin drip due to thrombocytopenia. (10) History of drug abuse Current Visit: Yes Status: Acute Assessment and plan: Hx of opioid and methamphetamine abuse. (11) DVT prophylaxis Current Visit: Yes Status: Acute Assessment and plan: Platelet count = 31. ICDs (12) COPD (chronic obstructive pulmonary disease) Current Visit: No Status: Chronic Qualifiers: COPD type: COPD with acute exacerbation Qualified Code(s): J44.1 - Chronic obstructive pulmonary disease with (acute) exacerbation (13) Cirrhosis Current Visit: No Status: Chronic Qualifiers: Hepatic cirrhosis type: other cirrhosis Qualified Code(s): K74.69 - Other cirrhosis of liver (14) Hepatitis B Current Visit: No Status: Chronic Qualifiers: Viral hepatitis chronicity: chronic Hepatic coma status: without hepatic coma Hepatitis delta agent presence: without delta-agent Qualified Code(s): B18.1 - Chronic viral hepatitis B without delta-agent (15) Hypertension Current Visit: No Status: Chronic Qualifiers: Hypertension type: essential hypertension Qualified Code(s): I10 - Essential (primary) hypertension (16) Pulmonary hypertension Current Visit: No Status: Chronic (17) Pulmonary nodule Current Visit: No Status: Chronic (18) CHF (congestive heart failure) Current Visit: Yes Status: Acute Qualifiers: Heart failure type: diastolic Heart failure chronicity: chronic Qualified Code(s): I50.32 - Chronic diastolic (congestive) heart failure - Time Spent With Patient Total time spent is greater than 50% in coordination of care (as documented) at patient's floor/unit and/or counseling patient: - Subjective Interval history: Patient states she is feeling bad right now because of back pain. She states she is no longer having chest pain. Patient history limited as she moans in between questions and occasionally does not answer but she is AAOx3 and alert. - Constitutional Vitals: Temp Pulse Resp BP Pulse Ox 97.9 F 97 21 118/83 94 01/22/18 07:05 01/22/18 07:48 01/22/18 07:05 01/22/18 07:05 01/22/18 07:05 Exam: Gen: patient shows mild distress, groaning, AAO x3, to person, place, time and situation CVS: RRR Lungs: decreased breath sounds, no w/r/r Abd; soft, nt, nd Ext: 1+ bipedal pitting edema Neuro: strength 5/5 in all extremities, sensation normal, no focal deficits. Internal Medicine: Result - Labs CBC & Chem 7: 01/22/18 02:36 01/22/18 02:36 Labs: Short CBC 01/22/18 Range/Units 02:36 WBC 7.4 (4.3-11.1) K/mcL Hgb 13.5 (11.5-15.4) g/dL Hct 44.7 (35.3-44.9) % Plt Count 30 L* (140-400) K/mcL Neutrophils # 6.6 (1.6-8.9) K/mcL BMP 01/22/18 02:36 Sodium 133 L Potassium 5.4 H Chloride 104 Carbon Dioxide 13 L BUN 85 H Creatinine 3.97 H Glucose 307 H Calcium 9.4 Cardiac Enzymes 01/22/18 01/22/18 Range/Units 02:36 08:36 Troponin I 0.12 H* 0.21 H* (< 0.04) ng/mL Liver Function 01/22/18 Range/Units 02:36 Total Bilirubin 2.0 H (0.3-1.0) mg/dL AST 118 H (13-39) Units/L ALT 69 H (7-52) Units/L Alkaline Phosphatase 79 (34-104) Units/L Albumin 3.7 (3.5-5.7) g/dL - ABG Interpretation ABG results: PT/INR, D-dimer PT 20.1 Seconds (9.4-12.1) H 01/22/18 02:36 - Impressions Impressions Lumbar Spine CT 01/22/18 02:11 IMPRESSION: No evidence for fracture. D/ / Cahim Cole MD / Chaim Cole MD Interpreting Provider: Chaim Cole MD Thoracic Spine CT 01/22/18 02:11 IMPRESSION: No evidence for acute fracture. D/ / Chaim Cole MD / Chaim Cole MD Interpreting Provider: Chaim Cole MD Head CT 01/22/18 05:09 IMPRESSION: 1. No acute intracranial abnormality. D/ / Tarun Huerta MD / Tarun Huerta MD Interpreting Provider: Tarun Huerta MD Retroperitoneum Ultrasound 01/22/18 09:00 IMPRESSION: 1. The bilateral kidneys are symmetric in size with no obstructive uropathy or focal abnormality. Normal parenchymal echogenicity. 2. Redemonstration of splenomegaly. D/ / Delgado Rowell MD / Delgado Rowell MD Interpreting Provider: Delgado Rowell MD - VTE Documentation of Mechanical Device: Intermittent pneumatic compression device Consult Discharge Plan - Plan Referrals: Sandie Albarado, NUCLEAR POWERPLANT SUPERVISOR [Advanced Practice Nurse] - 01/29/18 1:00 pm ()
--- NOTE | 2018-01-22 10:31 | Cardiology Consult Note ---
<Cory Huntley - Last Filed: 01/22/18 11:07> Date of Encounter: 01/22/18 Time of Encounter: 10:21 Assessment and Plan (1) NSTEMI (non-ST elevated myocardial infarction) Current Visit: Yes Status: Acute Variably located chest pain, non-reproducible. T-wave inversions previously cited appear chronic on chart review. Elevated troponins with, thus far, increasing trend. Multiple comorbidities. - high bleeding risk due to low platelets and cirrhotic autoanticoagulation are preclusive to therapeutic anticoagulation & LHC. - also has RAMAN (creat >4 with normal baseline per chart review) - advise hematology input prior to further consideration of heparin infusion or LHC - no other changes in plan at present History of Present Illness Consult date: 01/21/18 Requesting physician: Vesta Pierce Consult reason: Elevated Troponin / CP Chief complaint: Back Pain after fall with mild chest pain History of present illness: Ms. Luther is a 57 year old female with multiple comorbidities including HCV, hepatic cirrhosis, CHF, [id number] COPD, GERD and, DM. Initially presented to [facility] ED for back pain after a fall sustained several days prior (cause unknown). Transferred from [facility] due to ARF, hyperkalemia, lactic acidosis, and elevated troponins. Has known history of thrombocytopenia; platelet count at 30k on present admission. Also tachycardic in [place] ED. Pt is a poor historian limiting details of acute course. Per patient, predominant complaint is the back pain. Which she states is moderate to severe. Endorses left sided chest pain (previously right sided per H&P) that she says does not radiate. Does not clearly describe character of pain or temporal pattern. She does have associated shortness of breath. Denies acute lightheadedness, syncope, palpitations, acute abdominal discomfort/ nausea/vomiting, worsening of pedal edema or rash/petechiae. Pt supports above medical history and explicitly denies known history of HI, CABG, LHC, stents, or CKD. Renal baseline normal per chart review. Past Med Surg Social Fam HX - Past Medical History Source: patient, old records reviewed Medical history: cirrhosis, CHF, COPD, diabetes, GERD, hepatitis, other Additional medical history: former IV drug user Psychiatric history: anxiety, depression - Past Surgical History Surgical History: cholecystectomy, hysterectomy, other Additional surgical history: mass to right side back surgically removed - Social History Smoking Status: Current every day smoker Smokeless Tobacco Status: No Alcohol use: none Drug use: opiates, methamphetamine, IV Drug Use, prescription drug abuse - Family History Mother Adopted: No Living Status: Hx Family Cardiac Disorders: Yes Father Living Status: Hx Family Cardiac Disorders: Yes Medications and Allergies Albuterol Sulfate [Albuterol Inhaler] 2 puff IH Q4HR PRN 11/29/15 [History] Albuterol Neb [AccuNeb] 1.25 mg IH Q6H PRN 08/15/17 [History] Insulin LISPRO [HumaLOG] 0 units SQ HS vial 01/22/18 [Rx] Insulin LISPRO [HumaLOG] 0 units SQ TIDAC vial 01/22/18 [Rx] Lactulose 20 gm PO TID udc 01/22/18 [Rx] Lidocaine Patch [Lidoderm 5% patch] 1 each TP DAILY adh..patch 01/22/18 [Rx] 3 Allergy/AdvReac Type Severity Reaction Status Date / Time codeine Allergy Hives Verified 01/21/18 20:20 Penicillins [PCN] Allergy Hives Verified 01/21/18 20:20 All Systems Review: Otherwise, denies fevers, chills, sweats, myalgias, cough, vomiting, abdominal pain, diarrhea, constipation, hematochezia, melena, dysuria, hematuria, rash/ petechiae. Physical Examination Vital Signs, Last 4 Hours Temp Pulse Resp BP Pulse Ox 01/22/18 07:48 97 01/22/18 07:05 97.9 F 96 21 118/83 94 General: Conversant, Other (pt in distress due to pain limiting discussion; also somewhat delirious) HEENT: Atraumatic, Normocephaly, Mucus Membranes Moist Neck: No JVD, Normal carotid pulses Cardiac: Reg Rate and Rhythm, Normal S1 and S2, No Murmur Lungs: Normal Breath Sounds, No Wheeze, Rales, Rhonchi Neuro: Alert and responsive, No focal deficits noted Abdomen: Soft, Non-Tender Skin: No rashes noted on visualized skin Musculoskeletal: No Chest Wall Tenderness Extremities: No Clubbing, No Cyanosis, Normal Pulses, Other (1-2+ pitting edema to b/l LE) Results 01/22/18 02:36 01/22/18 02:36 Lab Results 01/22/18 01/22/18 01/22/18 02:36 02:36 02:36 WBC 7.4 Hgb 13.5 Hct 44.7 Plt Count 30 L* INR 1.8 Sodium Potassium Chloride Carbon Dioxide BUN Creatinine Glucose Calcium Magnesium Total Bilirubin AST ALT Alkaline Phosphatase Troponin I 0.12 H* 01/22/18 01/22/18 02:36 08:36 WBC Hgb Hct Plt Count INR Sodium 133 L Potassium 5.4 H Chloride 104 Carbon Dioxide 13 L BUN 85 H Creatinine 3.97 H Glucose 307 H Calcium 9.4 Magnesium 2.1 Total Bilirubin 2.0 H AST 118 H ALT 69 H Alkaline Phosphatase 79 Troponin I 0.21 H* Consult Discharge Plan - Plan Instructions: Chest Pain (DC), Fall Prevention (DC) Referrals: Sandie Albarado TIE SAWYER [Advanced Practice Nurse] - 01/29/18 1:00 pm () <Raymond Epstein - Last Filed: 01/22/18 19:17> Date of Encounter: 01/22/18 - Attending Attestation I examined this patient and my medical decision-making was reviewed with the Resident Physician. I agree with the documented findings, disposition and treatment plan as described except to the extent set forth below. 57-year-old female with liver cirrhosis, acute renal failure, severe thrombocytopenia presents with non-ST elevation myocardial infarction. Patient poor historian possibly secondary to hepatic encephalopathy. Likely underlying cardiac disease and likely requires further risk stratification however with her multiple comorbidities as described above high risk for bleed/worsening renal function. Likely underlying coronary artery disease, would require ACS medications along with possible left heart catheter however due to multiple comorbidities likely high risk at this time. Please contact cardiology when stable from a renal perspective and able to tolerate dual antiplatelet therapy and anticoagulation. Conservative medical management at this time Assessment and Plan Discussion w patient/family: The assessment and plan as outlined above was discussed with the patient and/or family members who expressed understanding and agreement. All questions were answered. Thank you for involving us in the care of your patient. Please call with any questions. History of Present Illness History of present illness: Ms. Luther is a 57 year old female All Systems Review: The remainder of the systems were reviewed and are negative Physical Examination Vital Signs, Last 4 Hours Temp Pulse Resp BP Pulse Ox 01/22/18 16:16 108 01/22/18 16:00 97.9 F 106 22 131/94 98 Results 01/22/18 13:35 01/22/18 13:35 Lab Results 01/22/18 01/22/18 01/22/18 02:36 02:36 02:36 WBC 7.4 Hgb 13.5 Hct 44.7 Plt Count 30 L* INR 1.8 Sodium Potassium Chloride Carbon Dioxide BUN Creatinine Glucose Calcium Magnesium Total Bilirubin AST ALT Alkaline Phosphatase Troponin I 0.12 H* 01/22/18 01/22/18 01/22/18 02:36 08:36 13:35 WBC Hgb Hct Plt Count INR Sodium 133 L 139 Potassium 5.4 H 4.1 Chloride 104 113 H Carbon Dioxide 13 L 12 L BUN 85 H 77 H Creatinine 3.97 H 3.48 H Glucose 307 H 204 H Calcium 9.4 7.3 L Magnesium 2.1 Total Bilirubin 2.0 H 2.1 H AST 118 H 141 H ALT 69 H 93 H Alkaline Phosphatase 79 67 Troponin I 0.21 H* 0.23 H* 01/22/18 13:35 WBC 6.6 Hgb 11.4 L D Hct 36.5 Plt Count 26 L* INR Sodium Potassium Chloride Carbon Dioxide BUN Creatinine Glucose Calcium Magnesium Total Bilirubin AST ALT Alkaline Phosphatase Troponin I
[2018-01-22] MEDS ORDERED: Albumin 25% 25gram/100mL 25 GM/100 ML IV.SOLN IVPB ONE (10:54)
[2018-01-22] MEDS ORDERED: 0.9 % Sodium Chloride 500 ML IVC ONE (10:54)
[2018-01-22] MEDS ORDERED: traMADol 50 MG TABLET PO PRN (12:11)
[2018-01-22] MEDS ORDERED: Lidocaine -MPF 1% 5 ML AMPUL INFILT ONE (12:40)
--- NOTE | 2018-01-22 13:13 | Nephrology Consult Note ---
Date of Encounter: 01/22/18 Time of Encounter: 13:11 Assessment and Plan (1) RAMAN (acute kidney injury) Status: Acute RAMAN that appears nonoliguric and slightly improved with IVF overnight (though this may be dilutional). Considering pre-renal, intrarenal (she has risk factors for GNs such as the HCV), and even hepatorenal syndrome. With hyponatremia and relative hypotension, currently I'm suspecting prerenal. At the time of my interview/examine she did not require urgent PRESS ASSISTANT AND FEEDER, though she is quite ill and if her Echo were to return with ?CMP and severe EF dysfunction, then I'd recommend stopping IVF, which I discussed with the Hospitalist. Continue to follow a renal protective / conservative strategy. Dose Rx by eGFR or CrCl, avoid nephrotoxins as able, and follow strict I/Os. Thank you for consulting the [facility] group. (2) Hyponatremia Status: Acute Recommend slow rate of correction of about 6-8 mEq in the first 24 hr. Continue IVF. (3) Acute metabolic encephalopathy Status: Acute Improving, it appears as noted during my interview/examine, though I suspect she may not be at baseline. (4) Elevated lactic acid level Status: Acute (5) Hyperkalemia Status: Acute Improving medically. (6) Cirrhosis Status: Chronic As per primary, but she may need Albumin, Midodrine and / or octreotide. Holding diuretics and will need to assess Debbi. HRS is in the differential. Qualifiers: Hepatic cirrhosis type: other cirrhosis Qualified Code(s): K74.69 - Other cirrhosis of liver (7) Hypertension Status: Chronic Qualifiers: Hypertension type: essential hypertension Qualified Code(s): I10 - Essential (primary) hypertension (8) Metabolic acidosis Status: Acute History of Present Illness - Reason for Consult Consult date: 01/22/18 Acute Kidney Injury, hyperkalemia Requesting physician: Britni Bañuelos - Chief Complaint RAMAN - History of Present Illness Estrella Luther is a very 57 y/o female with a pmh of cirrhosis of the liver, HCV , CHF, COPD, DM, GERD and et al who presented to the ED for back pain after a fall. Nephrology was consulted for RAMAN. She was down for a short while, she affirmed during my interview/examination in the Step Down Unit (2N). She voiced feeling poorly and affirmed overall less oral intake than normal. She did not affirm any prior seat nailer to her knowledge, though I see that she has had prior AKIs listed in the [facility] system. She denied taking OTC NSAIDs. She did not affirm N/V/D or uremic complaints. She has received IVF overnight and has an echo pending. Past Med Surg Social Fam HX - Past Medical History Medical history: cirrhosis, CHF, COPD, diabetes, GERD, hepatitis, other Additional medical history: former IV drug user Psychiatric history: anxiety, depression - Past Surgical History Surgical History: cholecystectomy, hysterectomy, other Additional surgical history: mass to right side back surgically removed - Social History Smoking Status: Current every day smoker Smokeless Tobacco Status: No Alcohol use: none Drug use: opiates, methamphetamine, IV Drug Use, prescription drug abuse - Family History Mother Adopted: No Living Status: Hx Family Cardiac Disorders: Yes Father Living Status: Hx Family Cardiac Disorders: Yes Medications and Allergies Albuterol Sulfate [Albuterol Inhaler] 2 puff IH Q4HR PRN 11/29/15 [History] Albuterol Neb [AccuNeb] 1.25 mg IH Q6H PRN 08/15/17 [History] Insulin LISPRO [HumaLOG] 0 units SQ HS vial 01/22/18 [Rx] Insulin LISPRO [HumaLOG] 0 units SQ TIDAC vial 01/22/18 [Rx] Lactulose 20 gm PO TID udc 01/22/18 [Rx] Lidocaine Patch [Lidoderm 5% patch] 1 each TP DAILY adh..patch 01/22/18 [Rx] 3 Allergy/AdvReac Type Severity Reaction Status Date / Time codeine Allergy Hives Verified 01/21/18 20:20 Penicillins [PCN] Allergy Hives Verified 01/21/18 20:20 Review of Systems All Systems: reviewed and no additional remarkable complaints except as stated Exam - Vital Signs Vital signs: Initial Vital Signs Temp Pulse Resp BP Pulse Ox 98.2 F 101 26 128/82 94 01/22/18 01:40 01/22/18 01:40 01/22/18 01:40 01/22/18 01:40 01/22/18 01:40 Vital Signs - Last 8 Hours Temp Pulse Resp BP Pulse Ox 01/22/18 11:13 104 01/22/18 11:05 98.9 F 104 24 117/82 98 01/22/18 07:48 97 01/22/18 07:05 97.9 F 96 21 118/83 94 Intake and Output 01/21/18 01/22/18 01/22/18 23:59 07:59 15:59 Intake Total 250 / 250 Balance 250 / 250 Intake: IV Fluids 250 / 250 Lactated Ringers 1,000 ML @ 250 250 / 250 mls/hr IVC .Q4H STA Rx#: [id number] Other: Weight 70.8 kg Blood Glucose* 217 214 Patient Weight 01/22/18 23:59 Weight 70.8 kg - General Appearance General appearance: well-developed, well-nourished, appears started age EENT: ATNC, PERRL, mucous membranes moist Neck: supple Respiratory: course breath sounds Cardiology: edema, normal S1, normal S2 Gastrointestinal: normoactive bowel sounds, no tenderness, no guarding Integumentary: cool/clammy Neurologic: no focal deficit, no asterixis Musculoskeletal: no erythema, no cyanosis Psychiatric: cooperative Results - Lab Results 01/22/18 13:35 01/22/18 13:35 Most recent lab results Calcium 9.4 mg/dL (8.6-10.3) 01/22/18 02:36 Magnesium 2.1 mg/dL (1.6-2.6) 01/22/18 02:36 I reviewed the labs, med lists, progress notes, vitals, imaging. Consult Discharge Plan - Plan Instructions: Chest Pain (DC), Fall Prevention (DC) Referrals: Sandie Albarado, TELEMETRY MONITOR [Advanced Practice Nurse] - 01/29/18 1:00 pm ()
[2018-01-22] MEDS ORDERED: Sodium Bicarbonate 75 MEQ in 0.45 % Sodium Chloride 1,000 ML IVC SCH (13:15)
[2018-01-22 14:48] LABS: Albumin 3.3 g/dL (3.5-5.7); Albumin/Globulin Ratio 1.5 (1.1-2.2); Bilirubin,Total 2.1 mg/dL (0.3-1.0); Calcium 7.3 mg/dL (8.6-10.3); Globulin 2.2 g/dL (2.4-3.5); Potassium 4.1 mEq/L (3.5-5.1); Total Protein 5.5 g/dL (6.4-8.9)
[2018-01-22 14:53] LABS: Troponin I 0.23 ng/mL (< 0.04)
[2018-01-22 15:07] LABS: Hematocrit 36.5 % (35.3-44.9); Hemoglobin 11.4 g/dL (11.5-15.4); Mean Corpuscular HGB Conc 31.2 g/dL (31.6-35.5); Mean Corpuscular Hemoglobin 26.1 pg (28.0-33.3); Mean Corpuscular Volume 83.5 fL (83.0-100.0); Red Blood Count 4.37 M/mcL (3.82-4.97); Red Cell Distribution Width 22.7 % (11.5-14.5)
[2018-01-22 15:08] LABS: Platelet Count 26 K/mcL (140-400)
[2018-01-22 15:09] LABS: Nucleated Red Blood Cells 0.3 /100 WBC (0)
[2018-01-22 15:10] LABS: Immature Platelets 32.3 % (1.1-6.1)
[2018-01-22 15:22] LABS: Anisocytosis 2+ (Not Present); Lymphocytes # 0.5 K/mcL (0.6-4.6); Neutrophils # 5.7 K/mcL (1.6-8.9); Platelet Estimate Marked Decrease (Normal); Poikilocytosis 1+ (Not Present); Polychromasia 1+ (Not Present)
[2018-01-22 15:23] LABS: Large Platelets Present (Not Present)
[2018-01-22] MEDS ORDERED: Lactulose Oral Soln 20 GM/30 ML UDC PO SCH (16:30)
--- NOTE | 2018-01-22 16:55 | Discharge Summary ---
- NOTES TO OUTPATIENT PROVIDER Notes to Outpatient Provider: Workup for TTP and plasmaphoresis, Heme/Onc consult for possible TTP. Nephrology consult for renal failure. Consider Neurology consult, unable to get an MRI. Continue Lactulose for increased ammonia Orders not resulted at time of discharge: Pending orders 01/22/18 05:10 Creatinine,Urine [UCHEM] Routine Osmolality,Urine [UCHEM] Routine Sodium, Urine [UCHEM] Routine 01/22/18 05:17 EV echocardiogram Routine 01/22/18 13:35 Haptoglobin Stat 01/23/18 04:00 BMP [Basic Metabolic Panel] AM 0400 Complete Blood Count [HEME] AM 0400 Magnesium AM 0400 Phosphorous AM 0400 Date of Encounter: 01/22/18 Time of Encounter: 16:53 - Discharge Diagnosis (1) Acute metabolic encephalopathy Priority: Primary Status: Acute Assessment and Plan: Likely lactic acidosis, Can also be from hepatic encephalopathy - Continue gentle IV fluid hydration. Needs to be in caution because of patient poor liver function/cirrhosis - Close monitoring, cycle LA - Ammonia level returned elevated - started lactulose - Repeat lactate level pending. (2) Thrombocytopenia Priority: Secondary Status: Acute Assessment and Plan: Chronic thromocytopenia 09/15 to cirrhosis. Previous platelet count = 45 on 10/01. Patient denies bleeding or melena. Account Associate was consulted. We discussed on phone that patient will need urgent plasmaphoresis as potentially has TTP. Will arrange for transfer. (3) NSTEMI (non-ST elevated myocardial infarction) Priority: Secondary Status: Acute Assessment and Plan: Patient is complaining of chest pain in the right side of her chest that is sharp and intermittent. Troponins were elevated at 0.07, 0.09. EKG changes of t -wave inversion in the anteroseptal leads. Concern for NSTEMI. Cardiology was consulted. Heparin drip cannot be started as patient's platelet count = 31. INR = 1.8. Previous Echo 11/1715 showed EF of 65%, moderate to severe dilated right ventricle, pressurve/volume overload with severe Pulm HTN. Plan: - Cardiology consulted, awaiting recommendations - trend Troponins - Echo pending - cardiac monitoring - Patient is a poor candidate for [facility] as her high risk of bleeding with thrombocytopenia and increased INR, along with renal failure. She is also a fall risk and recently fell as well. This makes her questionable candidate. Appreciate Cardiology recommendations on this, though not sure what interventions can be done in this case. - Consult Hematology/Oncology (4) Fall Priority: Secondary Status: Acute Assessment and Plan: CT head without contrast negative for acute findings. Likely fall from encephalopathy i suspect this was not simply a mechanical fall. Qualifiers: Encounter type: initial encounter Qualified Code(s): W19.XXXA - Unspecified fall, initial encounter (5) Acute low back pain Priority: Secondary Status: Acute Assessment and Plan: Patient states that she fell a couple of days ago and has low back pain. She denies hx of back surgeries. Plan: - CT lumbar and thoracic showed no fracture - treat for metabolic encephalopathy Must limit pain medication because of encephalopathy. Avoid acetaminophen products because of cirrhosis. Qualifiers: Back pain laterality: bilateral Sciatica presence: without sciatica Qualified Code(s): M54.5 - Low back pain (6) Elevated lactic acid level Priority: Secondary Status: Acute (7) RAMAN (acute kidney injury) Priority: Secondary Status: Acute (8) Type 2 diabetes mellitus Priority: Secondary Status: Chronic Qualifiers: Diabetes mellitus care home insulin use: with care home use Diabetes mellitus complication status: with circulatory complication Diabetes mellitus complication detail: with peripheral angiopathy without gangrene Qualified Code(s): E11.51 - Type 2 diabetes mellitus with diabetic peripheral angiopathy without gangrene; Z79.4 - termite helper (current) use of insulin (9) Hyperkalemia Priority: Secondary Status: Acute (10) History of drug abuse Priority: Secondary Status: Acute (11) DVT prophylaxis Priority: Secondary Status: Acute (12) COPD (chronic obstructive pulmonary disease) Priority: Secondary Status: Chronic Qualifiers: COPD type: COPD with acute exacerbation Qualified Code(s): J44.1 - Chronic obstructive pulmonary disease with (acute) exacerbation (13) Cirrhosis Priority: Secondary Status: Chronic Qualifiers: Hepatic cirrhosis type: other cirrhosis Qualified Code(s): K74.69 - Other cirrhosis of liver (14) Hepatitis B Priority: Secondary Status: Chronic Qualifiers: Viral hepatitis chronicity: chronic Hepatic coma status: without hepatic coma Hepatitis delta agent presence: without delta-agent Qualified Code(s): B18.1 - Chronic viral hepatitis B without delta-agent (15) Hypertension Priority: Secondary Status: Chronic Qualifiers: Hypertension type: essential hypertension Qualified Code(s): I10 - Essential (primary) hypertension (16) Pulmonary hypertension Priority: Secondary Status: Chronic (17) Pulmonary nodule Priority: Secondary Status: Chronic (18) CHF (congestive heart failure) Priority: Secondary Status: Acute Qualifiers: Heart failure type: diastolic Heart failure chronicity: chronic Qualified Code(s): I50.32 - Chronic diastolic (congestive) heart failure Hospital course: Ms. Luther is a 57 year old female with a pmh of cirrhosis from hepatitis C, CHF , COPD non-oxygen dependent, DM, and GERD who presented to the ED for back pain after a fall. Two nights ago, she fell on the floor after feeling dizzy. She does not remember if she lost consciousness or if she hit her head. She does not remember how long she was on the ground for. She yelled for her son and he came and picked her up. She lives with her daughter but she was asleep when she fell. She has not felt good for 4-5 days and began having chest pain and SOB today. Chest pain on the right that is sharp intermittent that radiates into her back with intermittent nausea. Back pain is stabbing pain, constant. She states that she has not been voiding well. Denies fevers, abdominal pain, denies hemotopysis, epistasis, diarrhea. In the ED CT abd/pelvis scan showed small amount of free fluid in the pelvis. K = 6.1, Creatinine = 4.16 (wnl 2/18), lactic acid 4.3, Troponin= 0.07, 0.09, Plt count = 31, CT chest shows no acute process. EKG showed t-wave inversions in anteroseptal leads concerning for NSTEMI. A heparin drip could not be started because of severe thrombocytopenia and also elevated INR. Cardiology was consulted. No intervention could be done since patient high bleed risk and also in renal failure. A repeat troponin was elevated further to 0.21 and then 0.23. On admission she is noted to appear altered with metabolic encephalopathy. She has been given gentle IV fluid hydration and lactulose to correct hyperammonia and IV fluids for lactic acidosis. She was AAOx3 on presentation. Nephrology was consulted and there is concern for hepatorenal syndrome. Limited intervention can be done right now as patient being monitored and Nephrology was awaiting results of CK, which did return normal. A retroperitoneal ultrasound was done was negative outside of chronic splenomegaly. Hematology was consulted in regards to thrombocytopenia. There was question since patient has NSTEMI in the setting of low platelets and cirrhosis if heparin drip should be started. Discussion with Hematology/Oncology service did workup and was concerned for patient having possible TTP. It was recommended that she undergo urgent plasmaphoresis which we do not have at this facility. At this time patient is being arranged for transfer to [place]. Prognosis is guarded. - Time Spent with Patient Total time spent providing and/or coordinating discharge services: - Discharge Medications Home Medications: Albuterol Sulfate [Albuterol Inhaler] 2 puff IH Q4HR PRN 11/29/15 [History] Albuterol Neb [AccuNeb] 1.25 mg IH Q6H PRN 08/15/17 [History] Insulin LISPRO [HumaLOG] 0 units SQ HS vial 01/22/18 [Rx] Insulin LISPRO [HumaLOG] 0 units SQ TIDAC vial 01/22/18 [Rx] Lactulose 20 gm PO TID udc 01/22/18 [Rx] Lidocaine Patch [Lidoderm 5% patch] 1 each TP DAILY adh..patch 01/22/18 [Rx] Allergies/Adverse Reactions: 3 Allergy/AdvReac Type Severity Reaction Status Date / Time codeine Allergy Hives Verified 01/21/18 20:20 Penicillins [PCN] Allergy Hives Verified 01/21/18 20:20 Date of admission: 01/22/18 01:16 Primary care physician: Akhil Wright, Consults: 01/22/18 05:10 Consult to Cardiology [CONS] Routine Comment: Consulting Provider: Cardiology [facility] Reason for Consult: NSTEMI Time Notified: 03:00 Call Completed: No Consult to Nephrology [CONS] Routine Consulting Provider: [facility]/GERALDO/RO/DAVID Reason for Consult: RAMAN Time Notified: 03:00 Call Completed: No 01/22/18 10:56 Consult to Oncology [CONS] Routine Consulting Provider: Oncology [facility] Reason for Consult: thrombocytopenia, anticoagulation, antiplatelet therapy Call Completed: Yes 01/22/18 12:40 Consult to Invasive Line Access Team [CONS] Routine Reason for Consult: Picc Line Insertion Line Type: PICC 01/22/18 12:58 Consult to Invasive Line Access Team [CONS] Routine Reason for Consult: limited vasc Line Type: EPIV Discharging clinician: Lanie Savage - Constitutional Vitals: Temp Pulse Resp BP Pulse Ox 98.9 F 108 24 117/82 98 01/22/18 11:05 01/22/18 16:16 01/22/18 11:05 01/22/18 11:05 01/22/18 11:05 Exam: Gen: patient shows mild distress, groaning, AAO x3, to person, place, time and situation CVS: RRR Lungs: decreased breath sounds, no w/r/r Abd; soft, nt, nd Ext: 1+ bipedal pitting edema Neuro: strength 5/5 in all extremities, sensation normal, no focal deficits. - Patient Status Disposition: Transfer Critical Access Hosp Condition: Undetermined Functional capacity at discharge: uses cane/walker Overall status at discharge: patient is not back to baseline - Discharge Instructions Follow Up With: Sandie Albarado, NUCLEAR REACTOR TECHNICIAN [Advanced Practice Nurse] - 01/29/18 1:00 pm () - Diet and Activity Activity: other (bed rest) Diet: other (renal) - VTE Documentation of Mechanical Device: Intermittent pneumatic compression device
[2018-01-22 17:29] VITALS: BP 131/94
--- NOTE | 2018-01-22 18:45 | Oncology Inp Consult Note ---
<Anni Sarmiento L - Last Filed: 01/22/18 19:17> Date of Encounter: 01/22/18 Time of Encounter: 16:00 Assessment and Plan (1) Thrombocytopenia Status: Chronic Assessment and plan: Initially consulted for further recommendations for AC in the setting of NSTEMI and Thrombocytopenia Further clinical review raised concern for potential TTP- LDH mildly elevated, rare to few schistocytes revealed on review of blood smear, direct bili elevated at 2.1, indirect bili normal at 0.7, new onset acute neurological changes, GI symptoms-diarrhea, acute renal insufficiency and cardiac involvement with NSTEMI Due to concern for TTP, recommend urgent transfer to tertiary care center for evaluation of plasma exchange therapy, which is not offered at this facility Discussed with hospitalist, planned for transfer to [facility] Please refer to Dr. Faustin's attestation below for additional details - Data of Consult Patient: new to practice Consult date: 01/22/18 Requesting Physician: Britni Bañuelos Primary Care Provider: Akhil Wright DO - Consult Narrative Reason for consult: thrombocytopenia History of present illness: Ms. Luther is a 57 year old female with past medical history significant for cirrhosis from hepatitis C, CHF, COPD non-oxygen dependent, DM, and GERD who presented to the ED for back pain after a fall. In the ED CT abd/pelvis scan showed small amount of free fluid in the pelvis. RAMAN with GFR 12 (>60 in 09/2017), lactic acid 4.3, Troponin 0.07 (repeats 0.21, 0.23), 0.09, Plt count 31, CT chest shows no acute process. EKG concerning for NSTEMI. A heparin drip could not be started because of severe thrombocytopenia/ elevated INR. Cardiology was consulted, no intervention could be done since patient high bleed risk and also in renal failure. For treatment of her altered mental status with metabolic encephalopathy/ hyperammonia, she has been given gentle IV fluid hydration/lactulose to correct hyperammonia and IV fluids for lactic acidosis. Hematology consulted for further recommendation for anticoagulation in the setting of thrombocytopenia. Past Med Surg Social Fam HX - Past Medical History Medical history: cirrhosis, CHF, COPD, diabetes, GERD, hepatitis, other Additional medical history: former IV drug user Psychiatric history: anxiety, depression - Past Surgical History Surgical History: cholecystectomy, hysterectomy, other Additional surgical history: mass to right side back surgically removed - Social History Smoking Status: Current every day smoker Smokeless Tobacco Status: No Alcohol use: none Drug use: opiates, methamphetamine, IV Drug Use, prescription drug abuse - Family History Mother Adopted: No Living Status: Hx Family Cardiac Disorders: Yes Father Living Status: Hx Family Cardiac Disorders: Yes Medications and Allergies Albuterol Sulfate [Albuterol Inhaler] 2 puff IH Q4HR PRN 11/29/15 [History] Albuterol Neb [AccuNeb] 1.25 mg IH Q6H PRN 08/15/17 [History] Insulin LISPRO [HumaLOG] 0 units SQ HS vial 01/22/18 [Rx] Insulin LISPRO [HumaLOG] 0 units SQ TIDAC vial 01/22/18 [Rx] Lactulose 20 gm PO TID udc 01/22/18 [Rx] Lidocaine Patch [Lidoderm 5% patch] 1 each TP DAILY adh..patch 01/22/18 [Rx] 3 Allergy/AdvReac Type Severity Reaction Status Date / Time codeine Allergy Hives Verified 01/21/18 20:20 Penicillins [PCN] Allergy Hives Verified 01/21/18 20:20 ROS unobtainable: due to mental status Review of systems: Information obtained from chart review and nurse/physician report secondary to patients AMS Oncology - Exam - Constitutional Vitals: Temp Pulse Resp BP Pulse Ox 97.9 F 108 22 131/94 98 01/22/18 16:00 01/22/18 16:16 01/22/18 16:00 01/22/18 16:00 01/22/18 16:00 General appearance: no febrile Exam: mild distress - ENT ENT exam: Present: mucous membranes moist - Respiratory Respiratory exam: Present: CTAB. Absent: respiratory distress - Cardiovascular Cardiovascular exam: Present: tachycardia - GI/Abdominal GI/Abdominal exam: Present: normal bowel sounds, soft. Absent: guarding, rebound, tenderness - Extremities Exam Extremities exam: Present: pedal edema. Absent: calf tenderness - Neurological Exam Neurological exam: Present: alert, oriented X3, no focal deficits Additional comments: moaning/groaning, unable to carry on full conversation but responds appropriately to questions (i.e. able to state name, , etc.) - Psychiatric Psychiatric exam: Present: anxious - Skin Skin exam: Present: dry, intact, normal color, warm Oncology - Results Labs: 3 01/22/18 01/22/18 01/22/18 13:35 13:35 13:35 WBC 6.6 RBC 4.37 Hgb 11.4 L D Hct 36.5 MCV 83.5 MCH 26.1 L MCHC 31.2 L RDW 22.7 H Plt Count 26 L* MPV TNP Immature Gran % Seg Neutrophils % 62.0 Band Neutrophils % 24.0 H Lymphocytes % 8.0 Monocytes % Eosinophils % Basophils % Metamyelocytes % 6.0 H Neutrophils # 5.7 Lymphocytes # 0.5 L Monocytes # Eosinophils # Basophils # Nucleated RBCs/100 WBC 0.3 H Platelet Estimate Marked Decrease L Large Platelets Present A Immature Plt Fraction 32.3 H Polychromasia 1+ A Poikilocytosis 1+ A Anisocytosis 2+ A Smear Path Review See Below PT INR Fibrinogen 196 Sodium Potassium Chloride Carbon Dioxide BUN Creatinine Est GFR ( Amer) Est GFR (Non-Af Amer) BUN/Creatinine Ratio Glucose POC Glucose Calculated Osmolality Lactic Acid Calcium Magnesium Total Bilirubin AST ALT Alkaline Phosphatase Ammonia Lactate Dehydrogenase 300 H Creatine Kinase Troponin I Serum Total Protein Albumin Globulin Albumin/Globulin Ratio 3 01/22/18 01/22/18 01/22/18 13:35 13:35 11:03 WBC RBC Hgb Hct MCV MCH MCHC RDW Plt Count MPV Immature Gran % Seg Neutrophils % Band Neutrophils % Lymphocytes % Monocytes % Eosinophils % Basophils % Metamyelocytes % Neutrophils # Lymphocytes # Monocytes # Eosinophils # Basophils # Nucleated RBCs/100 WBC Platelet Estimate Large Platelets Immature Plt Fraction Polychromasia Poikilocytosis Anisocytosis Smear Path Review PT INR Fibrinogen Sodium 139 Potassium 4.1 Chloride 113 H Carbon Dioxide 12 L BUN 77 H Creatinine 3.48 H Est GFR ( Amer) 16 L Est GFR (Non-Af Amer) 14 L BUN/Creatinine Ratio 22 Glucose 204 H POC Glucose 214 H Calculated Osmolality 317 H Lactic Acid Calcium 7.3 L Magnesium Total Bilirubin 2.1 H AST 141 H ALT 93 H Alkaline Phosphatase 67 Ammonia 75 H Lactate Dehydrogenase Creatine Kinase 105 Troponin I 0.23 H* Serum Total Protein 5.5 L Albumin 3.3 L Globulin 2.2 L Albumin/Globulin Ratio 1.5 3 01/22/18 01/22/18 01/22/18 10:13 08:36 07:05 WBC RBC Hgb Hct MCV MCH MCHC RDW Plt Count MPV Immature Gran % Seg Neutrophils % Band Neutrophils % Lymphocytes % Monocytes % Eosinophils % Basophils % Metamyelocytes % Neutrophils # Lymphocytes # Monocytes # Eosinophils # Basophils # Nucleated RBCs/100 WBC Platelet Estimate Large Platelets Immature Plt Fraction Polychromasia Poikilocytosis Anisocytosis Smear Path Review PT INR Fibrinogen Sodium Potassium Chloride Carbon Dioxide BUN Creatinine Est GFR ( Amer) Est GFR (Non-Af Amer) BUN/Creatinine Ratio Glucose POC Glucose 217 H Calculated Osmolality Lactic Acid 4.4 H* Calcium Magnesium Total Bilirubin AST ALT Alkaline Phosphatase Ammonia Lactate Dehydrogenase Creatine Kinase Troponin I 0.21 H* Serum Total Protein Albumin Globulin Albumin/Globulin Ratio 3 01/22/18 01/22/18 01/22/18 05:46 02:36 02:36 WBC RBC Hgb Hct MCV MCH MCHC RDW Plt Count MPV Immature Gran % Seg Neutrophils % Band Neutrophils % Lymphocytes % Monocytes % Eosinophils % Basophils % Metamyelocytes % Neutrophils # Lymphocytes # Monocytes # Eosinophils # Basophils # Nucleated RBCs/100 WBC Platelet Estimate Large Platelets Immature Plt Fraction Polychromasia Poikilocytosis Anisocytosis Smear Path Review PT INR Fibrinogen Sodium 133 L Potassium 5.4 H Chloride 104 Carbon Dioxide 13 L BUN 85 H Creatinine 3.97 H Est GFR ( Amer) 14 L Est GFR (Non-Af Amer) 12 L BUN/Creatinine Ratio 21 Glucose 307 H POC Glucose Calculated Osmolality 313 H Lactic Acid 5.0 H* 4.3 H* Calcium 9.4 Magnesium 2.1 Total Bilirubin 2.0 H AST 118 H ALT 69 H Alkaline Phosphatase 79 Ammonia Lactate Dehydrogenase Creatine Kinase Troponin I Serum Total Protein 6.9 Albumin 3.7 Globulin 3.2 Albumin/Globulin Ratio 1.2 3 01/22/18 01/22/18 01/22/18 02:36 02:36 02:36 WBC 7.4 RBC 5.34 H Hgb 13.5 Hct 44.7 MCV 83.7 MCH 25.3 L MCHC 30.2 L RDW 22.7 H Plt Count 30 L* MPV Immature Gran % 0.8 Seg Neutrophils % 89.5 Band Neutrophils % Lymphocytes % 4.5 Monocytes % 5.2 Eosinophils % 0.0 Basophils % 0.0 Metamyelocytes % Neutrophils # 6.6 Lymphocytes # 0.3 L Monocytes # 0.4 Eosinophils # 0.0 Basophils # 0.0 Nucleated RBCs/100 WBC Platelet Estimate Large Platelets Immature Plt Fraction 24.5 H Polychromasia Poikilocytosis Anisocytosis Smear Path Review PT 20.1 H INR 1.8 Fibrinogen Sodium Potassium Chloride Carbon Dioxide BUN Creatinine Est GFR ( Amer) Est GFR (Non-Af Amer) BUN/Creatinine Ratio Glucose POC Glucose Calculated Osmolality Lactic Acid Calcium Magnesium Total Bilirubin AST ALT Alkaline Phosphatase Ammonia Lactate Dehydrogenase Creatine Kinase Troponin I 0.12 H* Serum Total Protein Albumin Globulin Albumin/Globulin Ratio 3 01/22/18 02:17 WBC RBC Hgb Hct MCV MCH MCHC RDW Plt Count MPV Immature Gran % Seg Neutrophils % Band Neutrophils % Lymphocytes % Monocytes % Eosinophils % Basophils % Metamyelocytes % Neutrophils # Lymphocytes # Monocytes # Eosinophils # Basophils # Nucleated RBCs/100 WBC Platelet Estimate Large Platelets Immature Plt Fraction Polychromasia Poikilocytosis Anisocytosis Smear Path Review PT INR Fibrinogen Sodium Potassium Chloride Carbon Dioxide BUN Creatinine Est GFR ( Amer) Est GFR (Non-Af Amer) BUN/Creatinine Ratio Glucose POC Glucose 276 H Calculated Osmolality Lactic Acid Calcium Magnesium Total Bilirubin AST ALT Alkaline Phosphatase Ammonia Lactate Dehydrogenase Creatine Kinase Troponin I Serum Total Protein Albumin Globulin Albumin/Globulin Ratio Consult Discharge Plan - Plan Instructions: Chest Pain (DC), Fall Prevention (DC) Referrals: Sandie Albarado, [employer] [Advanced Practice Nurse] - 01/29/18 1:00 pm () <Navneet Faustin - Last Filed: 01/23/18 09:11> Date of Encounter: 01/22/18 - Data of Consult Requesting Physician: Britni Bañuelos Primary Care Provider: Akhil Wright DO - Consult Narrative History of present illness: Ms. Luther is a 57 year old female Oncology - Exam - Constitutional Vitals: Temp Pulse Resp BP Pulse Ox 97.9 F 108 22 131/94 98 01/22/18 16:00 01/22/18 16:16 01/22/18 16:00 01/22/18 16:00 01/22/18 16:00 Oncology - Results Labs: 3 01/22/18 01/22/18 01/22/18 16:37 13:35 13:35 WBC RBC Hgb Hct MCV MCH MCHC RDW Plt Count MPV Immature Gran % Seg Neutrophils % Band Neutrophils % Lymphocytes % Monocytes % Eosinophils % Basophils % Metamyelocytes % Neutrophils # Lymphocytes # Monocytes # Eosinophils # Basophils # Nucleated RBCs/100 WBC Platelet Estimate Large Platelets Immature Plt Fraction Polychromasia Poikilocytosis Anisocytosis Smear Path Review PT INR Fibrinogen 196 Sodium Potassium Chloride Carbon Dioxide BUN Creatinine Est GFR ( Amer) Est GFR (Non-Af Amer) BUN/Creatinine Ratio Glucose POC Glucose 158 H Calculated Osmolality Lactic Acid Calcium Magnesium Total Bilirubin AST ALT Alkaline Phosphatase Ammonia Lactate Dehydrogenase 300 H Creatine Kinase Troponin I Serum Total Protein Albumin Globulin Albumin/Globulin Ratio 3 01/22/18 01/22/18 01/22/18 13:35 13:35 13:35 WBC 6.6 RBC 4.37 Hgb 11.4 L D Hct 36.5 MCV 83.5 MCH 26.1 L MCHC 31.2 L RDW 22.7 H Plt Count 26 L* MPV TNP Immature Gran % Seg Neutrophils % 62.0 Band Neutrophils % 24.0 H Lymphocytes % 8.0 Monocytes % Eosinophils % Basophils % Metamyelocytes % 6.0 H Neutrophils # 5.7 Lymphocytes # 0.5 L Monocytes # Eosinophils # Basophils # Nucleated RBCs/100 WBC 0.3 H Platelet Estimate Marked Decrease L Large Platelets Present A Immature Plt Fraction 32.3 H Polychromasia 1+ A Poikilocytosis 1+ A Anisocytosis 2+ A Smear Path Review See Below PT INR Fibrinogen Sodium 139 Potassium 4.1 Chloride 113 H Carbon Dioxide 12 L BUN 77 H Creatinine 3.48 H Est GFR ( Amer) 16 L Est GFR (Non-Af Amer) 14 L BUN/Creatinine Ratio 22 Glucose 204 H POC Glucose Calculated Osmolality 317 H Lactic Acid Calcium 7.3 L Magnesium Total Bilirubin 2.1 H AST 141 H ALT 93 H Alkaline Phosphatase 67 Ammonia 75 H Lactate Dehydrogenase Creatine Kinase 105 Troponin I 0.23 H* Serum Total Protein 5.5 L Albumin 3.3 L Globulin 2.2 L Albumin/Globulin Ratio 1.5 3 01/22/18 01/22/18 01/22/18 11:03 10:13 08:36 WBC RBC Hgb Hct MCV MCH MCHC RDW Plt Count MPV Immature Gran % Seg Neutrophils % Band Neutrophils % Lymphocytes % Monocytes % Eosinophils % Basophils % Metamyelocytes % Neutrophils # Lymphocytes # Monocytes # Eosinophils # Basophils # Nucleated RBCs/100 WBC Platelet Estimate Large Platelets Immature Plt Fraction Polychromasia Poikilocytosis Anisocytosis Smear Path Review PT INR Fibrinogen Sodium Potassium Chloride Carbon Dioxide BUN Creatinine Est GFR ( Amer) Est GFR (Non-Af Amer) BUN/Creatinine Ratio Glucose POC Glucose 214 H Calculated Osmolality Lactic Acid 4.4 H* Calcium Magnesium Total Bilirubin AST ALT Alkaline Phosphatase Ammonia Lactate Dehydrogenase Creatine Kinase Troponin I 0.21 H* Serum Total Protein Albumin Globulin Albumin/Globulin Ratio 3 01/22/18 01/22/18 01/22/18 07:05 05:46 02:36 WBC RBC Hgb Hct MCV MCH MCHC RDW Plt Count MPV Immature Gran % Seg Neutrophils % Band Neutrophils % Lymphocytes % Monocytes % Eosinophils % Basophils % Metamyelocytes % Neutrophils # Lymphocytes # Monocytes # Eosinophils # Basophils # Nucleated RBCs/100 WBC Platelet Estimate Large Platelets Immature Plt Fraction Polychromasia Poikilocytosis Anisocytosis Smear Path Review PT INR Fibrinogen Sodium Potassium Chloride Carbon Dioxide BUN Creatinine Est GFR ( Amer) Est GFR (Non-Af Amer) BUN/Creatinine Ratio Glucose POC Glucose 217 H Calculated Osmolality Lactic Acid 5.0 H* 4.3 H* Calcium Magnesium Total Bilirubin AST ALT Alkaline Phosphatase Ammonia Lactate Dehydrogenase Creatine Kinase Troponin I Serum Total Protein Albumin Globulin Albumin/Globulin Ratio 3 01/22/18 01/22/18 01/22/18 02:36 02:36 02:36 WBC 7.4 RBC 5.34 H Hgb 13.5 Hct 44.7 MCV 83.7 MCH 25.3 L MCHC 30.2 L RDW 22.7 H Plt Count 30 L* MPV Immature Gran % 0.8 Seg Neutrophils % 89.5 Band Neutrophils % Lymphocytes % 4.5 Monocytes % 5.2 Eosinophils % 0.0 Basophils % 0.0 Metamyelocytes % Neutrophils # 6.6 Lymphocytes # 0.3 L Monocytes # 0.4 Eosinophils # 0.0 Basophils # 0.0 Nucleated RBCs/100 WBC Platelet Estimate Large Platelets Immature Plt Fraction 24.5 H Polychromasia Poikilocytosis Anisocytosis Smear Path Review PT 20.1 H INR 1.8 Fibrinogen Sodium 133 L Potassium 5.4 H Chloride 104 Carbon Dioxide 13 L BUN 85 H Creatinine 3.97 H Est GFR ( Amer) 14 L Est GFR (Non-Af Amer) 12 L BUN/Creatinine Ratio 21 Glucose 307 H POC Glucose Calculated Osmolality 313 H Lactic Acid Calcium 9.4 Magnesium 2.1 Total Bilirubin 2.0 H AST 118 H ALT 69 H Alkaline Phosphatase 79 Ammonia Lactate Dehydrogenase Creatine Kinase Troponin I Serum Total Protein 6.9 Albumin 3.7 Globulin 3.2 Albumin/Globulin Ratio 1.2 3 01/22/18 01/22/18 02:36 02:17 WBC RBC Hgb Hct MCV MCH MCHC RDW Plt Count MPV Immature Gran % Seg Neutrophils % Band Neutrophils % Lymphocytes % Monocytes % Eosinophils % Basophils % Metamyelocytes % Neutrophils # Lymphocytes # Monocytes # Eosinophils # Basophils # Nucleated RBCs/100 WBC Platelet Estimate Large Platelets Immature Plt Fraction Polychromasia Poikilocytosis Anisocytosis Smear Path Review PT INR Fibrinogen Sodium Potassium Chloride Carbon Dioxide BUN Creatinine Est GFR ( Amer) Est GFR (Non-Af Amer) BUN/Creatinine Ratio Glucose POC Glucose 276 H Calculated Osmolality Lactic Acid Calcium Magnesium Total Bilirubin AST ALT Alkaline Phosphatase Ammonia Lactate Dehydrogenase Creatine Kinase Troponin I 0.12 H* Serum Total Protein Albumin Globulin Albumin/Globulin Ratio - Attending Attestation Seen and examined aptient and agree with assessment and plan. The patients presentation is perplexing. She has underlying liver disease but also new onset ARF with lactic acidosis. I suspect sepsis but she has no fever and is otherwise stable. Her mental status change, along with the renal failure , worsening thrombocytopenia and anemia, and NSTEMI and now worsening hypoxia make me concerned for TTP. LDH is only mildy high and smear is definitely not teeming with schistocytes although some were observed. Regardless, I think plasmapheresis would be reasonable at this time. Therefore, I do think it is worthwhile for her to be trnasferred for consideration of plasmapheresis.
== END 2018-01-22 19:42 | disposition critical access hospital (66) | DRG 280 ==
LOC: 2NNU 01-22 01:16
PROVIDERS: ADMIT Internal Medicine; ATTEND Internal Medicine